=== PATIENT | female | born 1950 | race Caucasian/White ===

== ENCOUNTER 2023-01-15 07:59 | Outpatient (AMB) | payer MEDICARE, SELFPAY ==
--- NOTE | 2023-01-15 08:18 | MHC.OFFVIS ---
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 Pt reports she has been having trouble remembering things and what she wants to say at times. She has been falling because she can't picker and sorter load and unload her feet . Unsteady gait and balance. She has become unable to remember plans for the day or a sequence to carry out a task. This has been going on for about a year now, and has progressively gotten worse. Allergies codeine [CODEINE] Allergy (Unknown, Unverified 01/15/23 08:18) DIFF BREATHING metronidazole [From FLAGYL] Allergy (Unknown, Unverified 01/15/23 08:18) ITCHING morphine [MORPHINE] Allergy (Unknown, Unverified 01/15/23 08:18) DIFF BREATHING From FLAGYL Allergy (Unknown, Uncoded 01/15/23 08:18) ITCHING Medication List - Last Reconciled 01/15/23 by Jeannine Mejia MD amlodipine 5 mg PO DAILY aspirin 81 mg PO DAILY bupropion HCl 150 mg PO QAM cholecalciferol (vitamin D3) 25 mcg PO DAILY losartan 100 mg PO DAILY mecobalamin (vitamin B12) 1,000 mcg PO DAILY omega 4-znh-exr-fish oil 60-90-500 mg (Fish Oil) 1 cap PO DAILY pravastatin 40 mg PO DAILY HPI HPI Comments History of Present Illness Details 72y/o female comes for evaluation of memory issues. she reports short term memory issues, difficulty with names for atleast 1 year but has noticed worsening in the past 6 mths she has trouble with names, word finding difficulties,she forgets conversations, forgets what she ate, misplaces things in the house. she denies any executive difficulty.she still manages her finances.she had a fall in July 2022 after tripping. Her father had Lewy Body dementia in his 80s. she denies any tremors, slowness of movements or hallucinations. [facility] Medical History (Updated 01/15/23 @ 09:05 by Jeannine Mejia MD) Hypersomnia Snoring Mild cognitive disorder Hyperlipidemia CAD (coronary artery disease) Anxiety Cervicalgia Cervical spondylosis Cervicocranial syndrome Occipital neuralgia of left side Myocardial infarction HTN (hypertension) Cataract Surgical History (Updated 01/15/23 @ 08:31 by Monica Durham CMA) H/O mastoidectomy History of ear surgery History of cholecystectomy History of appendectomy H/O abdominal hysterectomy H/O heart artery stent H/O breast biopsy History of colon resection Family History (Updated 01/15/23 @ 08:33 by Monica Durham CMA) Father No problems noted. Mother No problems noted. Brother No problems noted. Sister Multiple sclerosis Social History (Updated 01/15/23 @ 08:35 by Monica Durham CMA) Household Members: Spouse Housing: House Alcohol intake: current Alcohol intake frequency: a few times a week Patient Tobacco Use Status: Former Tobacco user Years Smoked: Quit in 2012- smoked for 25 years Review of Systems Const Reports body aches, Reports fatigue and Reports snoring ENT Reports neck pain Resp Reports snoring Musc Reports neck pain Neuro Reports memory loss Psych Reports memory loss Endo Reports fatigue Physical Exam Vital Signs: Last Vital Signs Pulse 80 01/15/23 08:19 Resp 16 01/15/23 08:19 BP 122/68 01/15/23 08:19 Pulse Ox 96 01/15/23 08:19 Oxygen Delivery Method Room Air 01/15/23 08:19 BMI result Body Mass Index 25.1 Const General: cooperative, healthy appearing, comfortable and no acute distress Nutritional Appearance: average body habitus Orientation/consciousness: patient oriented x3 Eyes Pupils: Equal, round and reactive pupils present Neuro Other: severe antecollis , tightness in lateral cervical muscles , restricted range of motion. General: patient oriented x3, tone normal, moves all extremities and no focal motor deficits Cranial nerves: Yes Facial sensation intact/muscles of mastication intact, Yes Equal, round and reactive pupils present, Yes Bilaterally intact EOM present, Yes Nystagmus not present, Yes Normal facial strength present and Yes Midline tongue present Cognition (Neuro): normal cognition Gait exam (Neuro): Normal gait present Motor exam (neuro): 5/5 motor strength present throughout and Normal motor muscle tone present throughout Deep tendon reflexes (DTR's): Right triceps reflex intensity grade: 2+, Left triceps reflex intensity grade: 2+, Rt Biceps (C5, C6): 2+, Left biceps reflex intensity grade: 2+, Right brachioradialis reflex intensity grade: 2+, Left brachioradialis reflex intensity grade: 2+, Right patellar reflex intensity grade: 2+ and Left patellar reflex intensity grade: 2+ Coordination: [id number] test normal Orientation What is the (year) (season) (date) (day) (month)?: year, season, date, day and month Where are we (state) (county) (town or city) (hospital) (floor)?: state, county, town or city, hospital/clinic and floor Registration Name of 3 unrelated objects clearly and slowly, then ask patient to repeat all 3 of them. (1st repeat determines score. Make sure they can repeat all three): object 1, object 2 and object 3 Attention & Calculation (CHOOSE ONE) Spell WORLD backwards (DLROW): 5 letters Recall Ask patient to repeat the 3 items from question #3.: object 1 and object 2 Language Show patient a wristwatch & ask what it is. Repeat for pencil.: watch and pencil Ask the patient to repeat the phrase 'No ifs, ands, or buts' after you.: correct Ask the patient to 'take a piece of paper with their right hand' 'fold paper in half' 'place paper on floor': take paper in right hand, fold paper in half and place paper on floor Print the sentence 'CLOSE YOUR EYES' on a piece. If patient actually closes eyes then score.: followed written direction Give patient a blank piece of paper & ask to write a sentence. Score if it contains a noun & verb.: sentence contains subject and verb Ask patient to copy figure of intersecting pentagons exactly. Score if all 10 angles & 2 intersects are included.: all 10 angles present & 2 are intersected Score Score: 29 Assessment & Plan Assessment & Plan (1) Mild cognitive disorder: Code(s): F09 - Unspecified mental disorder due to known physiological condition (2) Snoring: Code(s): R06.83 - Snoring (3) Hypersomnia: Code(s): G47.10 - Hypersomnia, unspecified Plan MRI reviewed Home sleep test to r/o sleep apnea Check Vit B 1 2TSH ESR suggested cognitive therapy- patient declines. Orders: Orders TSH reflex Free T4 Today F09 - Unspecified mental disorder due to known physiological condition, G47.10 - Hypersomnia, unspecified, R06.83 - Snoring Erythrocyte Sedimentation Rate Today F09 - Unspecified mental disorder due to known physiological condition, G47.10 - Hypersomnia, unspecified, R06.83 - Snoring Vitamin D 25-OH (D2 and D3) Today F09 - Unspecified mental disorder due to known physiological condition, G47.10 - Hypersomnia, unspecified, R06.83 - Snoring RT home sleep study Today G47.10 - Hypersomnia, unspecified, R06.83 - Snoring Vitamin B12 and Folate Today F09 - Unspecified mental disorder due to known physiological condition, G47.10 - Hypersomnia, unspecified, R06.83 - Snoring Coding Level of Care Code New Pt Level 4 (77763) Diagnoses Mild cognitive disorder F09 Snoring R06.83 Hypersomnia G47.10
[2023-01-15 08:19] VITALS: BP 122/68; PULSE 80; RESP 16; O2SAT 96; BMI 25.1
== END 2023-01-15 09:13 | disposition home or self-care (01) ==
PROVIDERS: PCP Physician Assistant; Visit Provider Psychiatry & Neurology Neurology
DX: G31.84 Mild cognitive impairment of uncertain or unknown etiology (principal); R06.83 Snoring; G47.10 Hypersomnia, unspecified
CPT/HCPCS: 99204

== ENCOUNTER → 2023-01-15 07:59 | Outpatient (BNVA) | payer MEDICARE, SELFPAY | PROVIDERS: PCP Physician Assistant; Visit Provider Psychiatry & Neurology Neurology | DX: F09 Unspecified mental disorder due to known physiological condition (principal); R06.83 Snoring; G47.10 Hypersomnia, unspecified | CPT/HCPCS: 99202 ==

== ENCOUNTER → 2023-04-07 12:40 | Outpatient (REF) | payer MEDICARE, SELFPAY | LOC: HO.SL 12:40 | PROVIDERS: PCP Family Medicine; Visit Provider Psychiatry & Neurology Neurology | DX: Z13.89 Encounter for screening for other disorder (principal) ==

== ENCOUNTER → 2023-06-05 12:36 | Outpatient (REF) | payer MEDICARE, SELFPAY | LOC: HO.SL 12:36 | PROVIDERS: Visit Provider Psychiatry & Neurology Neurology | DX: G47.10 Hypersomnia, unspecified (principal); R06.83 Snoring | CPT/HCPCS: 95806 ==

== ENCOUNTER → 2023-06-05 13:19 | Outpatient (BNV) | payer MEDICARE, SELFPAY | PROVIDERS: Visit Provider Psychiatry & Neurology Neurology | DX: G47.10 Hypersomnia, unspecified (principal); R06.83 Snoring | CPT/HCPCS: 95806 ==

== ENCOUNTER 2023-07-17 13:48 | Outpatient (AMB) | payer MEDICARE, SELFPAY ==
--- NOTE | 2023-07-17 13:56 | A.OFFVIS_ITS ---
Vital Signs 07/17/23 13:59 Height 5 ft 6.5 in Weight 160 lb 2 oz BMI 25.5 BP 120/68 Blood Pressure Location Rt brachial Position Sitting Respiration 16 Pulse 86 Pulse Source Pulse Oximeter Pulse Oximetry (%) 96 Oxygen Delivery Method Room Air Intake Visit Reasons: F/U-CONF Intake Note: Pt presents for 6 month follow up for mild cognitive disorder. Development Editor Required: No Allergies codeine [CODEINE] Allergy (Unknown, Unverified 07/17/23 13:59) DIFF BREATHING metronidazole [From FLAGYL] Allergy (Unknown, Unverified 07/17/23 13:59) ITCHING morphine [MORPHINE] Allergy (Unknown, Unverified 07/17/23 13:59) DIFF BREATHING From FLAGYL Allergy (Unknown, Uncoded 07/17/23 13:59) ITCHING Medication List - Last Reconciled 07/17/23 by Jeannine Mejia MD amlodipine 5 mg PO DAILY aspirin 81 mg PO DAILY bupropion HCl XL 150 mg PO QAM celecoxib (Celebrex) 200 mg PO DAILY cholecalciferol (vitamin D3) 25 mcg PO DAILY citalopram 20 mg PO DAILY losartan 100 mg PO DAILY magnesium 250 mg PO DAILY mecobalamin (vitamin B12) 1,000 mcg PO DAILY rosuvastatin (Crestor) 20 mg PO DAILY vitamins A,C,T-birn-jyfuqc 4,296 mcg-226 mg-90 mg (PreserVision AREDS) 1 cap PO BID HPI Comments Details: 72y/o female comes for follow up of memory issues. Her sleep test was normal . she reports short term memory issues, difficulty with names for atleast 1 year but has noticed worsening in the past 6 mths she has trouble with names, word finding difficulties,she forgets conversations, forgets what she ate, misplaces things in the house. she denies any executive difficulty.she still manages her finances.she had a fall in July 2022 after tripping. Her father had Lewy Body dementia in his 80s. she denies any tremors, slowness of movements or hallucinations. [facility] Medical History (Updated 07/17/23 @ 14:33 by Jeannine Mejia MD) Mild cognitive impairment Hypersomnia Snoring Mild cognitive disorder Hyperlipidemia CAD (coronary artery disease) Anxiety Cervicalgia Cervical spondylosis Cervicocranial syndrome Occipital neuralgia of left side Myocardial infarction HTN (hypertension) Cataract Surgical History H/O mastoidectomy History of ear surgery History of cholecystectomy History of appendectomy H/O abdominal hysterectomy H/O heart artery stent H/O breast biopsy History of colon resection Family History Father No problems noted. Mother No problems noted. Brother No problems noted. Sister Multiple sclerosis Social History Household Members: Spouse Housing: House Alcohol intake: current Alcohol intake frequency: a few times a week Patient Tobacco Use Status: Former Tobacco user Years Smoked: Quit in 2012- smoked for 25 years Physical Exam Vital Signs: Last Vital Signs Pulse 86 07/17/23 13:59 Resp 16 07/17/23 13:59 BP 120/68 07/17/23 13:59 Pulse Ox 96 07/17/23 13:59 Oxygen Delivery Method Room Air 07/17/23 13:59 BMI result Body Mass Index 25.5 Const Other: MOCA- General: cooperative, healthy appearing, comfortable and no acute distress Nutritional Appearance: average body habitus Orientation/consciousness: patient oriented x3 Eyes Pupils: Equal, round and reactive pupils present Neuro Other: severe antecollis , tightness in lateral cervical muscles , restricted range of motion. General: patient oriented x3, tone normal, moves all extremities and no focal motor deficits Cranial nerves: Yes Facial sensation intact/muscles of mastication intact, Yes Equal, round and reactive pupils present, Yes Bilaterally intact EOM present, Yes Nystagmus not present, Yes Normal facial strength present and Yes Midline tongue present Cognition (Neuro): normal cognition and abnormal cognition Gait exam (Neuro): Normal gait present Motor exam (neuro): 5/5 motor strength present throughout and Normal motor muscle tone present throughout Deep tendon reflexes (DTR's): Right triceps reflex intensity grade: 2+, Left triceps reflex intensity grade: 2+, Rt Biceps (C5, C6): 2+, Left biceps reflex intensity grade: 2+, Right brachioradialis reflex intensity grade: 2+, Left brachioradialis reflex intensity grade: 2+, Right patellar reflex intensity grade: 2+ and Left patellar reflex intensity grade: 2+ Coordination: [id number] test normal Assessment & Plan Assessment & Plan (1) Mild cognitive impairment: Code(s): G31.84 - Mild cognitive impairment of uncertain or unknown etiology Category: Medical Plan: MOCA 24 Plan I will do a PET beta amyloid to see if she has changes c/w Alzheimer she will be a good candidate for Leqembi she does not want to start memantine or donepezil Orders: Orders PET Brain beta amyloid Today G31.84 - Mild cognitive impairment of uncertain or unknown etiology Referrals Speech and Hearing Referral G31.84 - Mild cognitive impairment of uncertain or unknown etiology Coding Level of Care Code Est Pt Level 4 (00623) Diagnoses Mild cognitive impairment G31.84
[2023-07-17 13:59] VITALS: BP 120/68; PULSE 86; RESP 16; O2SAT 96; BMI 25.5
== END 2023-07-17 14:40 | disposition home or self-care (01) ==
PROVIDERS: PCP Family Medicine; Visit Provider Psychiatry & Neurology Neurology
DX: G31.84 Mild cognitive impairment of uncertain or unknown etiology (principal)
CPT/HCPCS: 99214

== ENCOUNTER → 2023-07-17 13:48 | Outpatient (BNVA) | payer MEDICARE, SELFPAY | PROVIDERS: PCP Family Medicine; Visit Provider Psychiatry & Neurology Neurology | DX: G31.84 Mild cognitive impairment of uncertain or unknown etiology (principal) | CPT/HCPCS: 99212 ==

== ENCOUNTER 2023-10-13 13:17 | Outpatient (RCR) | payer MEDICARE, SELFPAY ==
--- NOTE | 2023-10-29 12:49 | MHC.SP.ADU ---
Referring provider: Dr. 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 She describes difficulty retrieving words and misplacing things. She has family close by. She goes dancing at her [place] every Friday. 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 She also describes that she has tinnitus and is pursing treatment for it. Social History: Employment Status: Highest level of education obtained: Current Living Situation: Independent with Family close by. 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 She describes difficulty retrieving words and misplacing things. She has family close by. She goes dancing at her [employer] every Friday. 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 She also describes that she has tinnitus and is pursing treatment for it. RESULTS Mrs. Crowe participated in all the subtests of the Repeatable Battery for the Assessment of Neuropsychological Status - Updated. Subtests were sufficient to yield a Total Scale Score. The RBANS is considered a screening battery for cognitive function and is repeatable for the purpose of evaluating any changes in function. It is intended for use with adolescents and adults, ages 12 to 89 years. Composite domains assessed in this test are: Immediate Memory, Visuospatial/Constructional, Language, Attention, and Delayed Memory. His scores are tabled below: I.) Immediate Memory Index: 94 Ia.) List Learning: -- Scaled Score: 9 Ib.) Story Memory: -- Scaled Score: 9 The Immediate Memory Index measures, ?initial encoding and learning of complex and simple verbal information. Low scores on this index indicated difficulties with verbal learning.? The score is derived from the participant?s performance on the subtests List Learning and Story Memory. List Learning measures, ?rote verbal memory function.? Participants are asked to repeat back a list of ten words presented to them verbally across four trials. Poor performance on this subtest indicates that, ?the examinee may have difficulty learning new verbal information and that repetition may not be beneficial?, if they do not improve across trials. The Story Memory subtest measures, ?memory for conceptually related verbal information.? Here, a short story is read to them across two trials and they are asked to recall details from the story. ?The test is a measure of verbal memory functioning for information that is related?. As with List Learning, participants that do not demonstrate a positive learning curve across trials could indicate, ?difficulty with learning new verbal learning, and that repetition may not help, or that the examinee may have difficulty retrieving new information from memory. II.) Visuospatial/Constructional Index: 100 IIa.) Figure Copy: -- Scaled Score: 10 IIb.) Line Orientation: -- Percentile Group: 51-75 The Visuospatial/Constructional Index is derived from the Figure Copy and Line Orientation subtests. It measures, ?basic visuospatial perception and the ability to copy a design from a model?. Low performance with this index can indicate, ?difficulties with processing and using visuospatial information?, or, ?visual impairments or attention disorders such as samy neglect?. The Figure Copy subtest requires the examinee to copy a complex geometrical design from a model that is present throughout the task. ?This requires many cognitive skills including visuospatial reasoning, attention to visual details, motor programming, and to a lesser degree, organization and fine-motor ability?. Points are given for specific details, as well as specific placement in the context of the entire image. The Line Orientation subtest measures, ?the examinee?s ability to correctly identify spatial orientation in two-dimensions?. Poor performance indicates significant visuospatial impairments in acuity and attention. III.) Language Index: 99 IIIa.) Picture Naming: -- Percentile Group: 51-75 IIIb.) Semantic Fluency: -- Scaled Score: 9 The Language Index is, ?a measure of expressive language functioning?. Low scores with this subtest ?would indicate difficulties with language functioning? and, ?while the overall score would still indicate language difficulties, the deficits may be more related to fluency versus naming skills.? The Picture Naming subtest is provided by showing the participant a series of 10 simple line drawing and asking them to name them. The Semantic Fluency subtest is a measure of, ?the examinee?s ability to retrieve and express words using a semantic prompt?. In brief, the examinee is given a category and asked to name as many exemplars as they can in 60 seconds. Low scores, ?indicate significantly impaired ability to retrieve and express verbal information from long-term memory stores?. IV.) Attention Index: 103 Bella.) Digit Span: -- Scaled Score: 8 IVb.) Coding: -- Scaled Score: 13 The Attention Index is a derived from the Digit Span and Coding subtests. It is a measure of, ?simple auditory registration, visual scanning and processing speed. Low scores on this index indicate, ?difficulties with basic attention and processing speed?. Difficulties can vary between the subtests suggesting acute differences between auditory and visual processing and attention. Digit Span is a measure of, ?auditory registration and brief focused attention. Low scores can also indicate difficulties with auditory attention and registration?. In it, the examinee is read a series of single digit numbers and asked to repeat them back in the same order. ?Impairments in auditory acuity can also influence performance on this test?. Coding is a measure of, ?brief, focused, visual attention, visual scanning and processing speed?. In it, the examinee is given a hicks at the top of the page where each symbol is associated with a different number. The examinee is then asked to fill out as many numbers to corresponding symbols as they can in 90 seconds. In incorporates the notion of diligence and sustained attention as well. Difficulties can indicate problems with, ?processing speed and focused visual attention?. V.) Delayed Memory Index: 81 Va.) List Recall: -- Percentile Group: 17-25 Vb.) List Recognition: -- Percentile Group: 17-25 Vc.) Story Recall: -- Scaled Score: 7 Vd.) Figure Recall: -- Scaled Score: 8 The Delayed Memory Index is derived by combining the subtest scores for List Recall, Story Recall, and Figure Recall, and cross-referencing them with the List Recognition subtest. Auditory and Visual subtest are combined together. Difference between subtests can be highlighted to provide more specific information about areas of deficit and strength. ?The deficits, may be more related to verbal more than visual memory, or free recall as opposed to recognition memory or general variability in memory functioning.? .) Total Scale Score: 93 (%ile=32) SUMMARY: Mrs. Crowe demonstrated scores that were in the average range for all indices save the Delayed Memory Index in which her performance yield a mildly reduced scaled score of 81, in the Below Average Range. This score was negatively impacted by a low delayed recall of a list of words (n=3) , however List Recogniton (n=18) and Delayed Story Recall (n=6) were slightly stronger. We reviewed these scores together and both she and her Daughter were pleasantly surprised that they weren?t lower that they expected. PNEUMATIC TESTER MECHANIC explained that though her scores here represent a mostly average performance from the normative sample, however that she may be comparing her current symptoms to her performance at a younger age. 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 Given this information, as well as some insurance considerations, they did not wish to pursue treatment at this time. PNEUMATIC TESTER MECHANIC invited them back if they noticed a worsening in performance, and reiterated that today?s testing is not a substitute for a complete neuropsychological evaluation which may elucidate her condition further. Impressions and Recommendations Prognosis for Improvement: Good Recommendation for Speech Therapy: NA:Typical Evaluation Time to Reassess: PRN Patient Education: Completed: Yes Patient/Caregiver Education: Patient expressed understanding of evaluation Patient agrees with goals and treatment plan Patient understands results but refuses treatment Comments/Barriers to Learning: Repair Weaver Clinican/Clinical Fellow: No Supervisory Statement: N/A Speech Language Pathologist: Néstor Cabrera M.A., [facility]-PNEUMATIC TESTER MECHANIC
== END 2023-10-30 10:30 | disposition home or self-care (01) ==
LOC: HO.SH 13:17
PROVIDERS: PCP Family Medicine; Visit Provider Psychiatry & Neurology Neurology
DX: G31.84 Mild cognitive impairment of uncertain or unknown etiology (principal)
CPT/HCPCS: 92523

== ENCOUNTER 2023-11-19 12:52 | Outpatient (AMB) | payer MEDICARE, SELFPAY ==
--- NOTE | 2023-11-19 12:57 | MHC.OFFVIS ---
Vital Signs 11/19/23 12:59 Height 5 ft 6.5 in Weight 159 lb 8 oz BMI 25.4 BP 96/58 L Blood Pressure Location Rt brachial Position Sitting Respiration 16 Pulse 95 Pulse Source Pulse Oximeter Pulse Oximetry (%) 96 Oxygen Delivery Method Room Air Intake Visit Reasons: F/U Intake Note: Pt presents to the office for a 4 month follow up for mild cognitive impairment. 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 PET scan was nonspecific .Cognitive testing with [employer] speech - normal except for mild delayed memory. she did not do cognitive therapy due to cost. No anxiety depression she has chronic tinnitus . Her sleep test was normal . she is doing [employer] now. she reports short term memory issues, difficulty with names for atleast 1 year but has noticed worsening in the past 6 mths she has trouble with names, word finding difficulties,she forgets conversations, forgets what she ate, misplaces things in the house. she denies any executive difficulty.she still manages her finances.she had a fall in July 2022 after tripping. Her father had Lewy Body dementia in his 80s. she denies any tremors, slowness of movements or hallucinations. [facility] Medical History Mild cognitive impairment Hypersomnia Snoring Mild cognitive disorder Hyperlipidemia CAD (coronary artery disease) Anxiety Cervicalgia Cervical spondylosis Cervicocranial syndrome Occipital neuralgia of left side Myocardial infarction HTN (hypertension) Cataract Surgical History H/O mastoidectomy History of ear surgery History of cholecystectomy History of appendectomy H/O abdominal hysterectomy H/O heart artery stent H/O breast biopsy History of colon resection Family History Father No problems noted. Mother No problems noted. Brother No problems noted. Sister Multiple sclerosis Social History Household Members: Spouse Housing: House Alcohol intake: current Alcohol intake frequency: a few times a week Patient Tobacco Use Status: Former Tobacco user Years Smoked: Quit in 2012- smoked for 25 years Physical Exam Vital Signs: Last Vital Signs Pulse 95 11/19/23 12:59 Resp 16 11/19/23 12:59 BP 96/58 L 11/19/23 12:59 Pulse Ox 96 11/19/23 12:59 Oxygen Delivery Method Room Air 11/19/23 12:59 BMI result Body Mass Index 25.4 Const Other: MOCA- General: cooperative, healthy appearing, comfortable and no acute distress Nutritional Appearance: average body habitus Orientation/consciousness: patient oriented x3 Eyes Pupils: Equal, round and reactive pupils present Neuro Other: severe antecollis , tightness in lateral cervical muscles , restricted range of motion. General: patient oriented x3, tone normal, moves all extremities and no focal motor deficits Cranial nerves: Yes Facial sensation intact/muscles of mastication intact, Yes Equal, round and reactive pupils present, Yes Bilaterally intact EOM present, Yes Nystagmus not present, Yes Normal facial strength present and Yes Midline tongue present Cognition (Neuro): normal cognition and abnormal cognition Gait exam (Neuro): Normal gait present Motor exam (neuro): 5/5 motor strength present throughout and Normal motor muscle tone present throughout Coordination: [id number] test normal Assessment & Plan Assessment & Plan (1) Mild cognitive impairment: Code(s): G31.84 - Mild cognitive impairment of uncertain or unknown etiology Category: Medical Plan: MOCA 24 Plan PET beta amyloid - negative for AD Suggested cognitive exercises and f/u as needed. Coding Level of Care Code Est Pt Level 4 (80326) Diagnoses Mild cognitive impairment G31.84
[2023-11-19 12:59] VITALS: BP 96/58; PULSE 95; RESP 16; O2SAT 96; BMI 25.4
== END 2023-11-19 13:40 | disposition home or self-care (01) ==
PROVIDERS: PCP Family Medicine; Visit Provider Psychiatry & Neurology Neurology
DX: G31.84 Mild cognitive impairment of uncertain or unknown etiology (principal)
CPT/HCPCS: 99214

== ENCOUNTER → 2023-11-19 12:52 | Outpatient (BNVA) | payer MEDICARE, SELFPAY | PROVIDERS: PCP Family Medicine; Visit Provider Psychiatry & Neurology Neurology | DX: G31.84 Mild cognitive impairment of uncertain or unknown etiology (principal) | CPT/HCPCS: 99212 ==

== ENCOUNTER 2025-03-08 14:43 | Outpatient (AMB) | payer MEDICARE, SELFPAY ==
--- NOTE | 2025-03-08 14:51 | A.OFFPC_ITS ---
Vital Signs 03/08/25 14:55 03/08/25 15:15 Height 5 ft 4.5 in Weight 167 lb BMI 28.2 BP 140/80 H 110/60 Blood Pressure Location Lt brachial Rt brachial Position Sitting Sitting Respiration 16 Pulse 82 Pulse Source Pulse Oximeter Temp 96.6 F L Temp Source Temporal Artery Scan Pulse Oximetry (%) 96 Oxygen Delivery Method Room Air Intake Visit Reasons: Annual physical, new School Cook Required: No Accompanied by: Self / Same As Patient Allergies ciprofloxacin (From Cipro) Allergy (Intermediate, Verified 03/08/25 15:21) Itching codeine (CODEINE) Allergy (Unknown, Verified 03/08/25 15:21) DIFF BREATHING metronidazole (From FLAGYL) Allergy (Unknown, Verified 03/08/25 15:21) ITCHING morphine (MORPHINE) Allergy (Unknown, Verified 03/08/25 15:21) DIFF BREATHING From FLAGYL Allergy (Unknown, Uncoded 03/08/25 15:21) ITCHING Medication List - Last Reconciled 03/08/25 by Sharri Elliott PA-C aspirin 81 mg PO DAILY bupropion HCl XL 150 mg PO QAM calcium carbonate (Calcium 500) 1,000 mg PO DAILY celecoxib (Celebrex) 200 mg PO DAILY cholecalciferol (vitamin D3) 25 mcg PO DAILY citalopram 20 mg PO DAILY losartan 100 mg PO DAILY magnesium 250 mg PO DAILY mecobalamin (vitamin B12) 1,000 mcg PO DAILY rosuvastatin (Crestor) 20 mg PO DAILY vitamins A,C,X-pbqq-etprwp 4,296 mcg-226 mg-90 mg (PreserVision AREDS) 1 cap PO BID Tobacco use date assessed: 03/08/25 Dental Screening Dental Screen Date: 03/08/25 Did you have a dental visit in the last 12 months?: Yes Did you have a dental problem in the last 6 months where you did not have access to dental care?: No Was dental information given to patient?: Patient has dentist HPI HPI Comments History of Present Illness Details History of Present Illness The patient is a 74 year old female presenting for a new patient annual physical. Her last physical was about one year ago with her previous primary care provider at [place]. Her significant past medical history includes osteoporosis, hypertension, vitamin B12 and D deficiencies, hypertriglyceridemia, anxiety, depression, and a history of myocardial infarction approximately 11 years ago. She also has a history of cervico-cranial syndrome, left-sided occipital neuralgia, cervical spondylosis without myelopathy or radiculopathy, bilateral tinnitus, hepatic steatosis, a liver cyst, and chronic kidney disease stage 3a. Her urge urinary incontinence resolved after a bladder lift procedure. Her anxiety and depression are reportedly controlled with medication. The patient's past surgical history includes a hysterectomy, appendectomy, cholecystectomy, left eardrum repair, and a colon resection for diverticulitis. She also underwent a lumbar laminectomy in April of the current year for her back issues but continues to experience persistent back pain. She reports pain that prevents her from rolling over in bed, hip pain, and bilateral leg pain upon standing, requiring her to sit down immediately. An injection she received post-surgery was ineffective, and she is scheduled for an epidural injection between L5 and S1 this week. Her current medications include aspirin, bupropion, calcium, celecoxib, vitamin D, citalopram, losartan, magnesium, vitamin B12, and rosuvastatin (Crestor). She reports being taken off amlodipine and her blood pressure has been normal at home. She does not need any refills at this time. For preventative care, her next colonoscopy is due next year. She has an upcoming lung cancer screening. She has had her skin checked previously. Social History - Tobacco use: The patient is a former s moker, having quit more than 20 years ago. - Nutrition: She reports intensely cravi ng sugar, including baked goods and pudding, for the past six months. [facility] Medical History (Updated 03/08/25 @ 16:44 by Sharri Elliott PA-C) Healthcare maintenance Chronic back pain Pre-diabetes Annual physical exam Ganglion cyst of joint of finger of right hand Skin lesion Mild cognitive impairment Hypersomnia Snoring Mild cognitive disorder Hyperlipidemia CAD (coronary artery disease) Anxiety Cervicalgia Cervical spondylosis Cervicocranial syndrome Occipital neuralgia of left side Myocardial infarction HTN (hypertension) Cataract Surgical History H/O mastoidectomy History of ear surgery History of cholecystectomy History of appendectomy H/O abdominal hysterectomy H/O heart artery stent H/O breast biopsy History of colon resection Family History Father No problems noted. Mother No problems noted. Brother No problems noted. Sister Multiple sclerosis Social History Household Members: Spouse Housing: Condominium Alcohol intake: current Alcohol intake frequency: a few times a week Patient Tobacco Use Status: Never used Tobacco Years Smoked: Quit in 2012- smoked for 25 years service: No Current occupational status: retired Cognitive needs: No Hearing needs: No Vision needs: Yes (glasses) Questionnaire PHQ-9 Over the last 2 weeks, how often have you been bothered by any of the following problems? 1. Little interest or pleasure in doing things: more than half the days 2. Feeling down, depressed, or hopeless: not at all 3. Trouble falling or staying asleep, or sleeping too much: not at all 4. Feeling tired or having little energy: not at all 5. Poor appetite or overeating: several days 6. Feeling bad about yourself - or that you are a failure or have let yourself or your family down: not at all 7. Trouble concentrating on things, such as reading the newspaper or watching television: not at all 8. Moving or speaking so slowly that other people could have noticed. Or the opposite - being so fidgety or restless that you have been moving around a lot more than usual: not at all 9. Thoughts that you would be better off or of hurting yourself in some way: not at all Total score: 3 Depression Screening Interpretation: Negative Depression Screening Done: Yes 15974 - PHQ-9 Billing: Yes Source: Developed by Drs. Shimon Perez, Caterina Berrios, Oh Razo and colleagues, with an educational justin from [employer]. Thrive Questionnaire Date Thrive assessed: 03/08/25 I am a: Patient What is your living situation today?: I have a steady place to live Within the past 12 months, did the food you bought not last and you didn't have the money to get more?: Often true Within the past 12 months, did you worry whether your food would run out before you got money to buy more?: Often true Do you have trouble paying for medicines?: No Do you have trouble getting transportation to medical appointments?: No Do you have trouble paying your heating and electricity bill?: No Do you have trouble taking care of your child, family member or friend?: No Do you have trouble with day-to-day activities such as bathing, preparing meals, shopping, managing finances, etc.?: No Are you currently unemployed and looking for a job?: No Are you interested in more education?: No Please select the resources that you would like help with: None THRIVE Score: 2 AUDIT C Alcohol Use Questionnaire (AUDIT-C) 1. How often do you have a drink containing alcohol?: Never Total Score: 0 Score Reviewed/Action Taken: No AGNIESZKA-7 AMB Questionnaire AGNIESZKA-7 Date AGNIESZKA - 7 assessed: 03/08/25 Feeling nervous, anxious, or on edge: 0 = Not at all Not being able to stop or control worryin = Not at all Worrying too much about different things: 0 = Not at all Trouble relaxin = Not at all Being so restless that it is hard to sit still: 0 = Not at all Becoming easily annoyed or irritable: 0 = Not at all Feeling afraid as if something awful might happen: 0 = Not at all Total AGNIESZKA-7 score (0-4 normal; 5-9 mild; 10-14 moderate; 15-21 severe): 0 Source: Developed by Drs. Shimon Perez, Caterina Berrios, Oh Razo and colleagues, with an educational justin from [employer]. AGNIESZKA-7 Assessment Billing AGNIESZKA-7 Assessment Tool: AGNIESZKA-7 Assessment 75827 Review of Systems Narrative Review of Systems - General: Denies unintentional weight loss. - Cardiovascular: Denies chest pain. - Respiratory: Denies shortness of breath at rest, with activity, or when lying flat. - Gastrointestinal: Reports bloating. Denies melena or hematochezia. - Genitourinary: Denies current urinary symptoms or incontinence. - Musculoskeletal: Reports chronic neck pain, chronic back pain, hip pain making it difficult to roll over in bed, and bilateral leg pain on standing. Reports a painful cyst on her finger. Denies saddle anesthesia. - Neurological: Denies numbness or tingling in the arms or legs. Denies recent falls. - HEENT: Reports tinnitus. Denies heart murmur. - Endocrine: Reports increased craving for sugar over the past six months. - Skin: Reports an itchy and painful red skin lesion. Denies other skin lesions. - Constitutional: Reports feeling bloated. - Psychiatric: Reports controlled anxiety and depression. Const All systems reviewed & are unremarkable except as noted in HPI and below Physical exam (Primary Care) Vital Signs: Last Vital Signs Temp 96.6 F L 03/08/25 14:55 Pulse 82 03/08/25 14:55 Resp 16 03/08/25 14:55 BP 110/60 03/08/25 15:15 Pulse Ox 96 03/08/25 14:55 Oxygen Delivery Method Room Air 03/08/25 14:55 Care Plan Goal for BP management: <140/90 at Goal BMI result Body Mass Index 28.2 BMI Assessment/Plan discussion: High BMI High, discussed plan: lifestyle, weight reduction, dietary, physical activity, alcohol moderation and other Tobacco/Smoking Status: Tobacco use Status Tobacco use date assessed 03/08/25 03/08/25 15:13 Patient Tobacco Use Status Never used Tobacco 03/08/25 15:13 PHQ-9: PHQ-9 Score PHQ-9: Total score 3 03/08/25 15:22 Depression Screening Interpretation: Negative Thrive Assessment: Date of Thrive Assessment Date Thrive assessed 03/08/25 03/08/25 15:13 Narrative Physical Exam Appearance: Alert. Oriented X3. No acute distress. Head: Normal external exam. Normocephalic. Atraumatic. Eyes: Pupils are equal, round, and reactive to light. Extraocular movements intact. Conjunctiva and sclera normal. Eyelids normal. Ears: External auditory canal normal. Tympanic membranes normal. Throat: Pharynx normal. Uvula midline. Moist mucous membranes. Neck: Normal inspection. Neck supple. Full range of motion. No adenopathy. Thyroid Normal. No meningeal signs. No neck mass noted. Cardiovascular: Normal heart rate and rhythm. Heart sound normal. No murmurs noted. Pulses normal throughout. Respiratory: No respiratory distress. Painless inspiration. Breath sounds normal. No wheezes/rales/rhonchi noted. Chest nontender. No accessory muscle usage noted or decreased air movement noted. Abdomen: Soft and nontender. Bowel sounds normal in all 4 quadrants. No distention noted. No organomegaly noted. No visible injury noted. Back: No costovertebral angle tenderness. Full range of motion noted. Skin: Skin warm and dry. Normal skin color. Normal skin turgor. No rashes/lesions/lacerations noted. Extremities: No lower extremity edema. Extremities exhibit normal range of motion. Extremities nontender. Neuro: Oriented X 3. No motor deficit. No sensory deficit. Reflexes normal. Results AMB Hemoglobin A1c AMB Hemoglobin A1c 5.6 % Last Edit by LEONARD Galvan on 03/08/25 15:42 Results Reviewed Results Reviewed: - Kfbvb-my-tkwg Hemoglobin A1c: 5.6%. Coding Level of Care Code New Pt Prev Care >65yr (96670) Add On Preventative Visit Only Diagnoses Annual physical exam Z00.00 Pre-diabetes R73.03 Chronic back pain M54.9; G89.29 Skin lesion L98.9 Ganglion cyst of joint of finger of right hand M67.441 HTN (hypertension) I10 Healthcare maintenance Z00.00 Additional Codes PHQ-9 - 36826 - PHQ-9 Billing: Yes ([id number]) AGNIESZKA-7 Assessment Billing - AGNIESZKA-7 Assessment Tool: AGNIESZKA-7 Assessment 22462 ([id number]) Time Spent (min) 70 Assessment & Plan Assessment & Plan (1) Annual physical exam: Code(s): Z00.00 - Encounter for general adult medical examination without abnormal findings Category: Medical (2) Pre-diabetes: Code(s): R73.03 - Prediabetes Category: Medical Plan: The patient reports significant sugar cravings for the past six months. A cdjon-os-bsmt hemoglobin A1c was 5.6%, indicating prediabetes. Comprehensive fasting lab work, including a lipid panel, CBC, CMP, vitamin B12, vitamin D, folate, thyroid studies, inflammatory markers, iron, ferritin, and a urinalysis will be ordered to further evaluate her symptoms and overall health status. (3) Chronic back pain: Code(s): M54.9 - Dorsalgia, unspecified; G89.29 - Other chronic pain Category: Medical Plan: The patient has ongoing back pain despite a lumbar laminectomy in April. She has an epidural injection scheduled for Friday between L5-S1. The patient will follow up after the injection to assess its efficacy. If the injection does not provide relief, ordering another MRI of her back will be considered. She was advised to seek emergency care if she develops new numbness between her legs, neville wel or bladder incontinence, or falls. (4) Skin lesion: Code(s): L98.9 - Disorder of the skin and subcutaneous tissue, unspecified Category: Medical Plan: The patient has a red, itchy, and somewhat painful lesion on her skin. A referral will be placed to dermatology for evaluation. A thin layer of a steroid cream may be prescribed to see if it alleviates the symptoms, with instructions to stop if it worsens. (5) Ganglion cyst of joint of finger of right hand: Code(s): M67.441 - Ganglion, right hand Category: Medical Plan: The patient has a large, painful nodular cyst on her finger that has been present for a few months. She will be referred to orthopedics for possible drainage or removal. (6) HTN (hypertension): Code(s): I10 - Essential (primary) hypertension Category: Medical Plan: The patient's blood pressure is well-controlled at home and in the office since stopping amlodipine. She will continue to monitor her blood pressure at home, with a goal of keeping it below 140/90 mmHg. (7) Healthcare maintenance: Code(s): Z00.00 - Encounter for general adult medical examination without abnormal findings Category: Medical Plan: The patient is establishing care and undergoing an annual physical. She is due for a colonoscopy next year and has a lung cancer screening scheduled. She was advised on how to manage a suspected UTI by calling the office for a urine test and a presumptive antibiotic prescription. For bloating, ripm-ntw-saufzkg Gas-X was recommended. A follow-up appointment is scheduled in six months. Plan Plan Patient was informed and verbally consented to the use of an ambient scribe for clinic note documentation during this visit. 1. Prediabetes And Sugar Cravings The patient reports significant sugar cravings for the past six months. A upqfp-yy-dzoa hemoglobin A1c was 5.6%, indicating prediabetes. Comprehensive fasting lab work, including a lipid panel, CBC, CMP, vitamin B12, vitamin D, folate, thyroid studies, inflammatory markers, iron, ferritin, and a urinalysis will be ordered to further evaluate her symptoms and overall health status. 2. Chronic Back Pain The patient has ongoing back pain despite a lumbar laminectomy in April. She has an epidural injection scheduled for Friday between L5-S1. The patient will follow up after the injection to assess its efficacy. If the injection does not provide relief, ordering another MRI of her back will be considered. She was advised to seek emergency care if she develops new numbness between her legs, bowel or bladder incontinence, or falls. 3. Unspecified Skin Lesion The patient has a red, itchy, and somewhat painful lesion on her skin. A referral will be placed to dermatology for evaluation. A thin layer of a steroid cream may be prescribed to see if it alleviates the symptoms, with instructions to stop if it worsens. 4. Ganglion Cyst Of Finger The patient has a large, painful nodular cyst on her finger that has been present for a few months. She will be referred to orthopedics for possible drainage or removal. 5. Hypertension The patient's blood pressure is well-controlled at home and in the office since stopping amlodipine. She will continue to monitor her blood pressure at home, with a goal of keeping it below 140/90 mmHg. 6. Health Maintenance The patient is establishing care and undergoing an annual physical. She is due for a colonoscopy next year and has a lung cancer screening scheduled. She was advised on how to manage a suspected UTI by calling the office for a urine test and a presumptive antibiotic prescription. For bloating, anvu-pli-muhpfpk Gas-X was recommended. A follow-up appointment is scheduled in six months. Discussion Notes I had a comprehensive discussion with the patient during this new patient and annual physical visit. We reviewed her medical history, including osteoporosis, a history of heart attack about 11 years ago, hypertension, nutritional deficiencies, controlled anxiety/depression, and multiple musculoskeletal issues such as chronic neck and back pain. I explained that the reason for her sugar cravings would be investigated with comprehensive blood work, including checks for diabetes, vitamin levels, thyroid function, and inflammatory markers. A novzt-xb-flmp test revealed a hemoglobin A1c of 5.6%, and I informed her this indicates prediabetes, not diabetes, which was reassuring to her. We discussed her ongoing back pain following her laminectomy. She has an epidural injection scheduled, and we agreed to see how that helps before considering another MRI. I provided strict return precautions, advising her to go to the emergency room for any new saddle anesthesia, bowel or bladder incontinence. Regarding the itchy skin lesion and the painful finger cyst, I advised referrals to dermatology and orthopedics, respectively. For her bloating, I suggested vitg-omz-yrheciv Gas-X and confirmed it does not interact with her current medications. I also instructed her on the process for obtaining care for a future suspected UTI, involving a call to the office for orders and a presumptive antibiotic. I provided instructions for the fasting blood work and a list of lab locations. We scheduled a follow-up visit in six months, and I will call her with any abnormal lab results. The patient was encouraged to sign up for the patient portal for easier communication. Orders: Orders C Reactive Protein Today Z00.00 - Encounter for general adult medical examin ation without abnormal findings Complete Blood Count Auto Diff Today Z00.00 - Encounter for general adult medical examination without abnormal findings IRON PROFILE Today D64.9 - Anemia, unspecified Magnesium Today Z00.00 - Encounter for general adult medical examination without abnormal findings UA CC w/rflx Micro + Cult Today Z00.00 - Encounter for general adult medical examination without abnormal findings Ferritin Today D64.9 - Anemia, unspecified AMB Hemoglobin A1c Today Z13.9 - Encounter for screening, unspecified Comprehensive [place]. Panel Fast Today Z00.00 - Encounter for general adult medical examination without abnormal findings Erythrocyte Sedimentation Rate Today Z00.00 - Encounter for general adult medical examination without abnormal findings Lipid Panel Today Z00.00 - Encounter for general adult medical examination without abnormal findings Vitamin B12 and Folate Today Z00.00 - Encounter for general adult medical examination without abnormal findings Vitamin D 25-OH Total Today Z00.00 - Encounter for general adult medical examination without abnormal findings Microalbumin, Random (w Creat) Today E11.9 - Type 2 diabetes mellitus without complications TSH reflex Free T4 Today Z00.00 - Encounter for general adult medical examination without abnormal findings Referrals Dermatology Referral L98.9 - Disorder of the skin and subcutaneous tissue, unspecified Orthopedics Referral M67.441 - Ganglion, right hand Patient Instructions: Patient Instructions - Go for fasting blood work. Do not eat or drink anything for 10 to 12 hours beforehand. You can drink water or black coffee with no cream or sugar. - You will receive a call if any of your lab results are abnormal. - Continue to monitor your blood pressure at home. Let us know if it is consistently over 140/90. - Your in-office blood sugar test shows you are prediabetic, but not diabetic. - Proceed with your scheduled back injection on Friday. Let us know how it goes. If it does not help, we can consider ordering another MRI. - Go to the emergency room immediately if you experience numbness between your legs, or loss of bowel or bladder control. - Call the dermatology office to schedule an appointment for the rash. The referral and their contact information will be provided to you. - You may try a steroid cream on the rash. Use only a very thin layer. If it gets worse, stop using it and let us know. - We will refer you to an underwriting specialist to have the cyst on your finger evaluated. - For bloating, you can take lfzv-hay-ydhgmlr Gas-X as needed. - If you think you have a urinary tract infection (UTI), call the office. We will order a urine test and can call in an antibiotic for you. - Sign up for the patient portal, as it is an easy way to message us for refills or questions. - Your next follow-up appointment is in six months.
[2025-03-08 14:55] VITALS: BP 140/80; PULSE 82; RESP 16; TEMP 35.9; O2SAT 96; BMI 28.2
[2025-03-08 15:15] VITALS: BP 110/60
--- OUTSIDE RECORDS SUMMARY | 2025-03-08 18:58 | XMS_ITS | Encounter Summary ---
Author Organization [facility] Address [address] [place] [address] Phone Care Team Providers Care Extrusion Die Template Maker Name Role Phone Duc Suarez MD Unavailable Slime Youssef MD Unavailable Svitlana Sher MD Primary Care Pr ovider Svitlana Sher MD Primary Care Pr ovider Svitlana Sher MD Primary Care Pr ovider Encounter Details Date Type Department Care Team (Late st Contact Info) Description 08/22/2023 Transcribe Orders Virtual Department [address] [place] [address] Svitlana Sher MD [address] [place] [address] [phone] Osteopenia, unspecified location (Primary Dx) Social History Tobacco Use Types Packs/Day Years Used Date Smoking Tobacco: Former Cigarettes 1 35 0 03/24/1964 - 03/24/1999 Smokeless Tobacco: Never Alcohol Use Standard Drinks/Week Comments Yes 8 (1 standard drink = 0.6 oz pur e alcohol) Education Answer Date Recorded Are you interested in more education? Not on andre e 07/19/2022 Are you concerned about learning? Not on file 07/19/2022 No 07/19/2022 No 07/19/2022 Digital Access Answer Date Recorded No 08/13/2022 No 08/13/2022 Reliable internet access at home? Not on file 08/13/2022 Device with a working camera? Not on file Intimate Partner Violence Answer Date R ecorded Are you denied basic needs s uch as food, clothing, or medical care? No 08/21/2023 In the past 12 months have y ou been in a relationship with a person who hurts, threatens, or tries to control you? No 08/21/2023 Are you denied basic needs s uch as food, clothing, or medical care? No 08/21/2023 In the past 12 months have y ou been in a relationship with a person who hurts, threatens, or tries to control you? No 08/21/2023 Comments No Sex and Gender Information Value Date Recorded Sex Assigned at Female 06/15/2019 7:45 PM EDT Legal Sex Female 10:01 PM EDT Gender Identity Female 06/15/2019 7:45 PM EDT Sexual Orientation Straight 06/15/2019 7: 45 PM EDT documented as of this encounter Plan of Treatment Upcoming Encounters Date Type Department Care Team (Late st Contact Info) Description 05/24/2024 Procedure Pass [facility], [address] [address] 04/04/2025 12:00 PM EST Appointment [facility], [address] [address] Fransico Baker MD [address] [place] [address] [email or web address] 05/04/2025 8:15 AM EST Office Visit [facility] [address] [place] [address] Unknown, Unknown, Isha Bower PA-C [address] [place] [address] [email or web address] 12/02/2025 8:40 AM EDT Office Visit [facility] [address] [place] [address] 3rd Floor, [address] [place] [address] Duc Suarez MD [address] [place] [address] documented as of this encounter Visit Diagnoses Diagnosis Osteopenia, unspecified location- Primary documented in this encounter Care Teams Extrusion Die Template Maker Relationship Specialty Start Date End Date Svitlana Sher MD [address] [place] [address] PCP - General Family Medicine 08/08/22 03/24/24 Svitlana Sher MD [address] [place] [address] PCP - General Family Medicine 03/25/24 02/08/25 Svitlana Sher MD [address] [place] [address] PCP - General Family Medicine 02/09/25 Duc Suarez MD [address] [place] [address], [address] [address] Historical LMR Provider 01/11/17 Slime Youssef MD [address] [place] [address] Historical LMR Provider 01/11/17 documented as of this encounter Additional Source Comments The information contained in this document represents components of the legal health record. It is not the complete legal health record.[facility]
--- OUTSIDE RECORDS SUMMARY | 2025-03-08 18:58 | XMS_ITS | Encounter Summary ---
Author Organization [facility] Address [address] [place] [address] Phone Care Team Providers Care Reel Fed Printer Name Role Phone Slime Youssef MD Primary Care Provider [phone] Patel Bhandari DO Unavailable Duc Suarez MD Unavailable Pao Cooley MD Unavailable Slime Youssef MD Unavailable Garret Mercedes CNP Unavailable Moises Art MD Unavailable Destin Choe MD Unavailable Slime Youssef MD Unavailable Pcp, Unknown Primary Care Provider Unavailabl e Svitlana Sher MD Primary Care Pr ovider Svitlana Sher MD Primary Care Pr ovider Svitlana Sher MD Primary Care Pr ovider Reason for Referral * MRI/CAT Scan - Closed Specialty Diagnoses / Procedures Referred By Contac t Referred To Contact Radiology Diagnoses Arm numbness Leg numbness Neck pain Procedures MRI Cervical Spine Vicente Mayo MD Phone: tel: fax: [email or web address] Referral ID Status Reason Start Date Expiration Date Visits Re quested Visits Authorized [id number] Closed 02/25/2018 03/27/2018 1 1 Encounter Details Date Type Department Care Team (Late Contact Info) Description 02/24/2018 Ancillary Orders Virtual Department [address] [place] [address] Vicente Mayo MD [address] [place] [address], [address] [place] [address] [email or web address] Arm numbness; Leg numbness; Neck pain Social History Tobacco Use Types Packs/Day Years Used Date Smoking Tobacco: Never Assessed Comments No Sex and Gender Information Value Date Recorded Sex Assigned at Female 06/15/2019 7:45 PM EDT Legal Sex Female 10:01 PM EDT Gender Identity Female 06/15/2019 7:45 PM EDT Sexual Orientation Straight 06/15/2019 7: 45 PM EDT documented as of this encounter Plan of Treatment Upcoming Encounters Date Type Department Care Team (Late Contact Info) Description 05/24/2024 Procedure Pass [facility], Ct Scan [address] [address] 04/04/2025 12:00 PM EST Appointment [facility], Ct Scan [address] [address] Fransico Baker MD [address] [place] [address] [email or web address] 05/04/2025 8:15 AM EST Office Visit [facility] [address] [place] [address] Unknown, Unknown, Isha Bower PA-C [address] [place] [address] [email or web address] 12/02/2025 8:40 AM EDT Office Visit [facility] [address] [facility] 3rd Floor, [address] [place] [address] Duc Suarez MD [address] [facility], [address] [place] [address] [email or web address] documented as of this encounter Results * MRI CERVICAL SPINE (BONE) WITHOUT CONTRAST (03/05/2018 9:29 AM EST) Anatomical Region Laterality Modality C-spine Magnetic Resonan ce 03/06/2018 8:01 AM EST Impressions 03/06/2018 9:30 AM EST Diffuse progressive degenerative changes with multiple levels of severe neural foraminal narrowing and varying degrees of spinal canal stenosis. Spinal canal is now severely narrowed at C4-5 and to a lesser degree at C3-4. Abnormal signal within the cord at these levels is likely related to compression myelopathy. POS - [id number] Edited by: Fatimah Malcolm on 03/06/2018 9:10 AM Narrative 03/06/2018 9:30 AM EST HISTORY: Numbness arm and legs. Neck pain. Evaluate for multiple sclerosis. COMPARISON: 07/25/2011 TECHNIQUE: Exam performed on a 1.5 Roseanne high-field MRI scanner. Sagittal T1, T2 and STIR, axial T2* gradient echo and 3-D bright fluid sequences were obtained. FINDINGS: In the central cord slightly anterior, there is bright T2 signal extending from the C3-4 intervertebral disc through C5. It measures approximately 1 mm in maximal transverse diameter. Features indicate a syrinx. Atlantoaxial distance appears within normal limits. No new compression deformities. 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 C2-3: Tiny central disc protrusion without significant mass effect on the cord. Progressive bilateral uncovertebral spurring which is greater on the left. Progressive severe facet arthropathy on the left and mild to moderate on the right. Left neural foramen is now severely narrowed and the right is moderate to severely narrowed. Mild narrowing of the spinal canal. C3-4: New central broad-based disc protrusion more prominent toward the right where there is slight mass effect on the right ventral aspect of the cord. Progressive uncovertebral osteophytes and progressive moderate to severe bilateral facet arthropathy. Progressive severe bilateral neural foraminal narrowing greater on the right. Spinal canal is now moderately narrowed. C4-5: New central/left paracentral broad-based disc protrusion which has mass effect on the cord. Progressive bilateral uncovertebral osteophytes and severe right and moderate left facet arthropathy. Progressive severe left and moderate to severe right neural foraminal narrowing. Spinal canal is now moderate to severely narrowed with near complete obliteration of the CSF space. C5-6: Broad-based disc protrusion in the right lateral recess extending just across midline to the left paracentral region. This has mild mass effect on the right ventral aspect of the cord. Progressive mild uncovertebral spurring greater on the right. Progressive moderate right and mild left facet arthropathy. Progressive severe bilateral neural foraminal narrowing greater on the right. Spinal canal is now moderate to severely narrowed. C6-7: Central broad-based disc protrusion extending into the left lateral recess which has mass effect on the cord. Progressive bilateral uncovertebral spurring and moderate left and milder right facet arthropathy. Progressive moderate to severe bilateral neural foraminal narrowing. Spinal canal is now moderately narrowed. C7-T1: No prominent disc bulging. Possible tiny right paracentral disc protrusion. Progressive uncovertebral spurring. Progressive bilateral facet arthropathy. Progressive mild to moderate right and mild left neural foraminal narrowing. Spinal canal is mildly narrowed. No significant abnormality in the paraspinal soft tissues. Procedure Note Ulysses Wilkins MD - 03/06/2018 HISTORY: Numbness arm and legs. Neck pain. Evaluate for multiplesclerosis. COMPARISON: 07/25/2011 TECHNIQUE: Exam performed on a 1.5 Roseanne high-field MRI scanner. SagittalT1, T2 and STIR, axial T2* gradient echo and 3-D bright fluid sequenceswere obtained. FINDINGS: In the central cord slightly anterior, there is bright T2 signal extendingfrom the C3-4 intervertebral disc through C5. It measures approximately 1mm in maximal transverse diameter. Features indicate a syrinx. Atlantoaxial distance appears within normal limits. No new compressiondeformities. Progressive severe osteoarthritis involving the left C1-2lateral mass with edematous bone marrow changes which also involve theodontoid where there may be new subchondral cyst. C2-3: Tiny central disc protrusion without significant mass effect on thecord. Progressive bilateral uncovertebral spurring which is greater onthe left. Progressive severe facet arthropathy on the left and mild tomoderate on the right. Left neural foramen is now severely narrowed andthe right is moderate to severely narrowed. Mild narrowing of the spinalcanal. C3-4: New central broad-based disc protrusion more prominent toward theright where there is slight mass effect on the right ventral aspect of thecord. Progressive uncovertebral osteophytes and progressive moderate tosevere bilateral facet arthropathy. Progressive severe bilateral neuralforaminal narrowing greater on the right. Spinal canal is now moderatelynarrowed. C4-5: New central/left paracentral broad-based disc protrusion which hasmass effect on the cord. Progressive bilateral uncovertebral osteophytesand severe right and moderate left facet arthropathy. Progressive severeleft and moderate to severe right neural foraminal narrowing. Spinalcanal is now moderate to severely narrowed with near complete obliterationof the CSF space. C5-6: Broad-based disc protrusion in the right lateral recess extendingjust across midline to the left paracentral region. This has mild masseffect on the right ventral aspect of the cord. Progressive milduncovertebral spurring greater on the right. Progressive moderate rightand mild left facet arthropathy. Progressive severe bilateral neuralforaminal narrowing greater on the right. Spinal canal is now moderate toseverely narrowed. C6-7: Central broad-based disc protrusion extending into the left lateralrecess which has mass effect on the cord. Progressive bilateraluncovertebral spurring and moderate left and milder right facetarthropathy. Progressive moderate to severe bilateral neural foraminalnarrowing. Spinal canal is now moderately narrowed. C7-T1: No prominent disc bulging. Possible tiny right paracentral discprotrusion. Progressive uncovertebral spurring. Progressive bilateralfacet arthropathy. Progressive mild to moderate right and mild leftneural foraminal narrowing. Spinal canal is mildly narrowed. No significant abnormality in the paraspinal soft tissues. IMPRESSION: Diffuse progressive degenerative changes with multiple levels of severeneural foraminal narrowing and varying degrees of spinal canal stenosis.Spinal canal is now severely narrowed at C4-5 and to a lesser degree atC3-4. Abnormal signal within the cord at these levels is likely relatedto compression myelopathy. POS - [email or web address] Edited by: Fatimah Malcolm on 03/06/2018 9:10 AM Vicente Mayo MD IMG MR XSPECIALTY Final Resu lt documented in this encounter Visit Diagnoses Diagnosis Arm numbness Disturbance of skin sensation Leg numbness Disturbance of skin sensation Neck pain Cervicalgia Arm numbness Disturbance of skin sensation Leg numbness Disturbance of skin sensation Neck pain Cervicalgia documented in this encounter Additional Health Concerns Infection Onset Date Last Indicated Resolved Time CoV-Exposed Comment:Recent close contact 10/03/2019 10/03/2019 10/17/2019 1:25 AM EDT documented as of this encounter Care Teams Reel Fed Printer Relationship Specialty Start Date End Date Slime Youssef MD [address] [place] [address] PCP - General 01/07/17 07/28/22 Pcp, Unknown PCP - General 07/29/22 08/07/22 Svitlana Sher MD PCP - General Family Medicine 08/08/22 03/24/24 Svitlana Sher MD PCP - General Family Medicine 03/25/24 02/08/25 Svitlana Sher MD [address] [place] [address] PCP - General Family Medicine 02/09/25 Patel Bhandari DO [address] [place] [address] Historical LMR Provider 01/11/17 03/31/21 Duc Suarez MD [address] [facility], [address] [place] [address] Historical LMR Provider 01/11/17 Pao Cooley MD [address] [facility], [address] [place] [address] Historical LMR Provider 01/11/17 Slime Youssef MD [address] [place] [address] Historical LMR Provider 01/11/17 Garret Mercedes CNP [address] [address], [address] [place] [address] Historical LMR Provider 01/11/17 03/31/21 Moises Art MD [address] [place] [address] [address] [place] [address] Historical LMR Provider 01/11/17 2 Destin Choe MD [address] [place] [address] Historical LMR Provider 01/11/17 Slime Youssef MD [address] [place] [address] [email or web address] Insurance Assigned Provider 06/27/18 05/27/20 documented as of this encounter Additional Source Comments The information contained in this document represents components of the legal health record. It is not the complete legal health record.[facility]
--- OUTSIDE RECORDS SUMMARY | 2025-03-08 18:58 | XMS_ITS | Encounter Summary ---
Author Organization [facility] Address [address] [place] [address] Phone Care Team Providers Care Spring Forger Name Role Phone Slime Youssef MD Primary Care Provider Patel Bhandari DO Unavailable Duc Suarez MD Unavailable Pao Cooley MD Unavailable Slime Youssef MD Unavailable Garret Mercedes CNP Unavailable [phone] Moises Art MD Unavailable Destin Choe MD Unavailable Slime Youssef MD Unavailable [phone] Pcp, Unknown Primary Care Provider Unavailabl e Svitlana Sher MD Primary Care Pr ovider Svitlana Sher MD Primary Care Pr ovider Svitlana Sher MD Primary Care Pr ovider Encounter Details Date Type Department Care Team (Late st Contact Info) Description 02/24/2018 Procedure Pass [facility], [address] [id number] Social History Tobacco Use Types Packs/Day Years [...] st Contact Info) Description 05/24/2024 Procedure Pass [facility], Ct Scan - [address] [address] 04/04/2025 12:00 PM EST Appointment [facility], Ct Scan [address] [address] Fransico Baker MD [address] [place] [address] [email or web address] 05/04/2025 8:15 AM EST Office Visit [facility] [address] [place] [address] Unknown, Unknown, Isha Bower PA-C [address] [place] [address] [email or web address] 12/02/2025 8:40 AM EDT Office Visit [facility] [address] [place] [address] 3rd Floor, [address] [place] [address] Duc Suarez MD [address] [place] [address], [address] [place] [address] documented as of this encounter Visit Diagnoses Not on filedocumented in this encounter Additional Health Concerns Infection Onset Date Last Indicated Resolved Time CoV-Exposed Comment:Recent close contact 10/03/2019 10/03/2019 10/17/2019 1:25 AM EDT documented as of this encounter Care Teams Spring Forger Relationship Specialty Start Date End Date Slime Youssef MD [address] [place] [address] PCP - General 01/07/17 07/28/22 Pcp, Unknown PCP - General 07/29/22 08/07/22 Svitlana Sher MD PCP - General Family Medicine 08/08/22 03/24/24 Svitlana Sher MD PCP - General Family Medicine 03/25/24 02/08/25 Svitlana Sher MD [address] [place] [address] PCP - General Family Medicine 02/09/25 Patel Bhandari DO [address] [place] [address] [place] [address] [email or web address] Historical LMR Provider 01/11/17 03/31/21 Duc Suarez MD [address] [place] [address] [address] [place] [address] [email or web address] Historical LMR Provider 01/11/17 Pao Cooley MD [address] [place] [address], 2nd [place] [address] [email or web address] Historical LMR Provider 01/11/17 Slime Youssef MD [address] [place] [address] Historical LMR Provider 01/11/17 Garret Mercedes CNP [address] [facility], [address] [place] [address] Historical LMR Provider 01/11/17 03/31/21 Moises Art MD [employer] [facility] [address] [place] [address] Historical LMR Provider 01/11/17 2 Destin Choe MD [address] [place] [address] Historical LMR Provider 01/11/17 Slime Youssef MD [address] [place] [address] [email or web address] Insurance Assigned Provider 06/27/18 05/27/20 documented as of this encounter Additional Source Comments The information contained in this document represents components of the legal health record. It is not the complete legal health record.[facility]
--- OUTSIDE RECORDS SUMMARY | 2025-03-08 18:58 | XMS_ITS | Encounter Summary ---
Author Organization [facility] Address [address] [place] [address] Phone Care Team Providers Care Commercial Leasing Manager Name Role Phone Duc Suarez MD Unavailable [phone] Slime Youssef MD Unavailable [phone] Pcp, Unknown Primary Care Provider Unavailabl e Svitlana Sher MD Primary Care Pr ovider Svitlana Sher MD Primary Care Pr ovider Svitlana Sher MD Primary Care Pr ovider Encounter Details Date Type Department Care Team (Late st Contact Info) Description 07/29/2022 Procedure Pass [facility], Ct Scan - [address] [address] Social History Tobacco Use Types Packs/Day Years Used Date Smoking Tobacco: Former Cigarettes 0.5 35 1 965 - 2000 Smokeless Tobacco: Never Alcohol Use Standard Drinks/Week Comments Yes 6 (1 standard drink = 0.6 oz pur e alcohol) Education Answer Date Recorded Are you interested in more education? Not on andre e 07/19/2022 Are you concerned about learning? Not on file 07/19/2022 No 07/19/2022 No 07/19/2022 Comments No Sex and Gender Information Value Date Recorded Sex Assigned at Female 06/15/2019 7:45 PM EDT Legal Sex Female 10:01 PM EDT Gender Identity Female 06/15/2019 7:45 PM EDT Sexual Orientation Straight 06/15/2019 7: 45 PM EDT documented as of this encounter Functional Status * Calculated C-SSRS Risk Score (Lifetime/Recent) Answer Date of Assessment Author No Risk Indicated 07/29/2022 6:52 PM EDT Mandi Su, MARY * [place] Suicide Severity Rating Scale (Screener/Recent Self-Report) Question Answer Date of Assessment Author 1. Wish to be (Past 1 Month) No 023 6:52 PM EDT Mandi Su RN 2. Non-Specific Active Suici kristi Thoughts (Past 1 Month) No 07/29/2022 6:52 PM EDT Mandi Su RN 6. Suicidal Behavior (Lifetime) No 6:52 PM EDT Mandi Su RN documented as of this encounter Plan of Treatment Upcoming Encounters Date Type Department Care Team (Late st Contact Info) Description 05/24/2024 Procedure Pass [address] [address] 04/04/2025 12:00 PM EST Appointment [address] [address] Fransico Baker MD [address] [place] [address] [email or web address] 05/04/2025 8:15 AM EST Office Visit [facility] [address] [place] [address] Unknown, Unknown, Isha Bower PA-C [address] [place] [address] [email or web address] 12/02/2025 8:40 AM EDT Office Visit [facility] [address] [place] [address] 3rd Floor, [address] [place] [address] Duc Suarez MD [address] [place] [address], [address] [address] [email or web address] documented as of this encounter Visit Diagnoses Not on filedocumented in this encounter Care Teams Commercial Leasing Manager Relationship Specialty Start Date End Date Pcp, Unknown PCP - General 07/29/22 08/07/22 Svitlana Sher MD PCP - General Family Medicine 08/08/22 03/24/24 Svitlana Sher MD PCP - General Family Medicine 03/25/24 02/08/25 Svitlana Sher MD [address] [place] [address] PCP - General Family Medicine 02/09/25 Duc Suarez MD [address] [place] [address] [email or web address] Historical LMR Provider 01/11/17 Slime Youssef MD [address] [place] [phone] [email or web address] Historical LMR Provider 01/11/17 documented as of this encounter Additional Source Comments The information contained in this document represents components of the legal health record. It is not the complete legal health record.[facility]
--- OUTSIDE RECORDS SUMMARY | 2025-03-08 18:58 | XMS_ITS | Encounter Summary ---
Author Organization [facility] Address [address] [place] [address] Phone Care Team Providers Care Section Crews Activities Clerk Name Role Phone Duc Suarez MD Unavailable [phone] Slime Youssef MD Unavailable [phone] Svitlana Sher MD Primary Care Pr ovider Svitlana Sher MD Primary Care Pr ovider Svitlana Sher MD Primary Care Pr ovider Encounter Details Date Type Department Care Team (Late st Contact Info) Description 08/29/2022 Procedure Pass [facility], Ct Scan - [address] [address] Social History Tobacco Use Types Packs/Day Years [...] with a working camera? Not on file Comments No Sex and Gender Information Value Date Recorded Sex Assigned at Female 06/15/2019 7:45 PM EDT Legal Sex Female 10:01 PM EDT Gender Identity Female 06/15/2019 7:45 PM EDT Sexual Orientation Straight 06/15/2019 7: 45 PM EDT documented as of this encounter Plan of Treatment Upcoming Encounters Date Type Department Care Team (Late st Contact Info) Description 05/24/2024 Procedure Pass [facility], Ct Scan [address] [address] 04/04/2025 12:00 PM EST Appointment [place], Ct Scan [address] [address] Fransico Baker MD [address] [place] [address] [email or web address] 05/04/2025 8:15 AM EST Office Visit [facility] [address] [place] [address] Unknown, Unknown, Isha Bower PA-C [address] [place] [address] [email or web address] 12/02/2025 8:40 AM EDT Office Visit [facility] [address] [place] [address] 3rd Floor, [address] [place] [address] Duc Suarez MD [address] [place] [address], [address] [address] documented as of this encounter Visit Diagnoses Not on filedocumented in this encounter Care Teams Section Crews Activities Clerk Relationship Specialty Start Date End Date Svitlana Sher MD [address] [place] [address] PCP - General Family Medicine 08/08/22 03/24/24 Svitlana Sher MD [address] [place] [address] PCP - General Family Medicine 03/25/24 02/08/25 Svitlana Sher MD [address] [place] [address] PCP - General Family Medicine 02/09/25 Duc Suarez MD [address] [place] [address] [email or web address] Historical LMR Provider 01/11/17 Slime Youssef MD [address] [place] [address] [email or web address] Historical LMR Provider 01/11/17 documented as of this encounter Additional Source Comments The information contained in this document represents components of the legal health record. It is not the complete legal health record.[facility]
--- OUTSIDE RECORDS SUMMARY | 2025-03-08 18:58 | XMS_ITS | Encounter Summary ---
Author Organization [facility] Address [address] [place] [address] Phone Care Team Providers Care Postbed Stitcher Name Role Phone Duc Suarez MD Unavailable [phone] Slime Youssef MD Unavailable [phone] Svitlana Sher MD Primary Care Pr ovider Svitlana Sher MD Primary Care Pr ovider Svitlana Sher MD Primary Care Pr ovider Encounter Details Date Type Department Care Team (Latest Contact Info) Description 02/21/2023 Transcribe Orders Virtual Department [address] [place] [address] Ursula Antoine MD [address] [place] [address] [email or web address] Personal history of urinary (tract) infection (Primary Dx) Social History Tobacco Use Types [...] st Contact Info) Description 05/24/2024 Procedure Pass [facility], [address] [address] 04/04/2025 12:00 PM EST Appointment [address] [address] Fransico Baker MD [address] [place] [address] [email or web address] 05/04/2025 8:15 AM EST Office Visit [facility] [address] [place] [address] Unknown, Unknown, Isha Bower PA-C [address] [place] [address] [email or web address] 12/02/2025 8:40 AM EDT Office Visit [facility] [address] [place] [address] 3rd Floor, [address] [place] [address] Duc Suarez MD [address] [place] [address], [address] [address] documented as of this encounter Results * US Kidneys and Bladder (02/24/2023 9:19 AM EST) Anatomical Region Laterality Modality Abdomen, Kidney Ultrasound 02/24/2023 10:0 1 AM EST Impressions 02/24/2023 6:47 PM EST 1. 2.5 cm hypoechoic lesion at the lower pole the right kidney with the suggestion of internal vascularity. CT or MRI renal mass protocol recommended for further evaluation. 2. No nephrolithiasis or hydronephrosis demonstrated sonographically. A clinically significant result was communicated on 02/24/2023 6:47 PM, Message ID [id number]. Narrative 02/24/2023 6:47 PM EST US KIDNEYS AND BLADDER Referring clinician's provided indication for this examination in [facility]: Outside Radiology Order; Personal history of urinary tract infections TECHNIQUE: Kidney Ultrasound. COMPARISON: Sonography 01/28/2017 FINDINGS: Right Kidney: Size: 11.3 cm There is mild renal cortical thinning. There is a 2.6 x 2.1 x 2.5 cm hypoechoic lesion at the lower pole with the suggestion of internal vascularity. No stones or hydronephrosis. Left Kidney: Size: 11.2 cm Normal corticomedullary differentiation and cortical thickness. No stones or hydronephrosis. Bladder: The urinary bladder is decompressed, limiting evaluation. Bilateral ureteral jets are present. Procedure Note Iza Kelsey MD - 02/24/2023 US KIDNEYS AND BLADDER Referring clinician's provided indication for this examination in [facility]:Outside Radiology Order; Personal history of urinary tract infections TECHNIQUE: Kidney Ultrasound. COMPARISON: Sonography 01/28/2017 FINDINGS: Right Kidney: Size: 11.3 cm There is mild renal cortical thinning. There is a 2.6 x 2.1 x 2.5 cmhypoechoic lesion at the lower pole with the suggestion of internalvascularity. No stones or hydronephrosis. Left Kidney: Size: 11.2 cm Normal corticomedullary differentiation and cortical thickness. No stonesor hydronephrosis. Bladder: The urinary bladder is decompressed, limiting evaluation.Bilateral ureteral jets are present. IMPRESSION: 1. 2.5 cm hypoechoic lesion at the lower pole the right kidney with thesuggestion of internal vascularity. CT or MRI renal mass protocolrecommended for further evaluation. 2. No nephrolithiasis or hydronephrosis demonstrated sonographically. A clinically significant result was communicated on 02/24/2023 6:47 PM,Message ID [id number]. Ursula Antoine MD IMG US RENAL Final Resu lt * XR ABDOMEN 1 VIEW (02/24/2023 8:57 AM EST) Anatomical Region Laterality Modality Abdomen Computed Radiogr aphy 02/26/2023 10:1 9 AM EST Impressions 02/26/2023 10:21 AM EST 1. No opaque urinary calculi apparent. Narrative 02/26/2023 10:21 AM EST XR ABDOMEN 1 VIEW Referring clinician's provided indication for this examination in [facility]: Outside Radiology Order; Personal history of urinary tract infections COMPARISON: 02/24/2023 ultrasound FINDINGS: Tubes/Lines: None Bowel: No grossly distended bowel loops apparent. Pelvic surgical clips. No opaque intrarenal, ureteral, or bladder calculi identified. Visualized skeletal structures intact. Procedure Note Bernard Goldstein MD - 02/26/2023 XR ABDOMEN 1 VIEW Referring clinician's provided indication for this examination in [facility]:Outside Radiology Order; Personal history of urinary tract infections COMPARISON: 02/24/2023 ultrasound FINDINGS: Tubes/Lines: None Bowel: No grossly distended bowel loops apparent. Pelvic surgical clips. No opaque intrarenal, ureteral, or bladder calculiidentified. Visualized skeletal structures intact. IMPRESSION: 1. No opaque urinary calculi apparent. us Ursula Antoine MD IMG XR ABDOMEN Final Resu lt documented in this encounter Visit Diagnoses Diagnosis Personal history of urinary (tract) infection- Primary Personal history of urinary (tract) infection Personal history of urinary (tract) infection documented in this encounter Care Teams Postbed Stitcher Relationship Specialty Start Date End Date Svitlana Shere, MD [address] [place] [address] PCP - General Family Medicine 08/08/22 03/24/24 Svitlana Sher MD [address] [place] [address] PCP - General Family Medicine 03/25/24 02/08/25 Svitlana Sher MD [address] [place] [address] PCP - General Family Medicine 02/09/25 Duc Suarez MD [address] [place] [address], [facility] [address] [place] [address] [email or web address] Historical LMR Provider 01/11/17 Slime Youssef MD [address] [place] [address] [email or web address] Historical LMR Provider 01/11/17 documented as of this encounter Additional Source Comments The information contained in this document represents components of the legal health record. It is not the complete legal health record.[facility]
--- OUTSIDE RECORDS SUMMARY | 2025-03-08 18:58 | XMS_ITS | Encounter Summary ---
Author Organization [facility] Address [address] [place] [address] Phone Care Team Providers Care Drive In Teller Name Role Phone Slime Youssef MD Primary [...] Contac t Referred To Contact Radiology Diagnoses Numbness in both legs Procedures MRI Thoracic Spine Vicente Mayo MD Phone: tel: fax: [email or web address] Referral ID Status Reason Start Date Expiration Date Visits Re quested Visits Authorized [id number] Closed 06/12/2018 07/12/2018 1 1 Encounter Details Date Type Department Care Team (Latest Contact Info) Description 06/12/2018 Transcribe Orders Virtual Department [address] [place] [address] Vicente Mayo MD [address] [place] [address], [address] [place] [address] [email or web address] Numbness in both legs (Primary Dx) Social History Tobacco Use Types [...] st Contact Info) Description 05/24/2024 Procedure Pass [facility], [address] [address] 04/04/2025 12:00 PM EST Appointment [facility], Ct Scan [address] [address] Fransico Baker MD [address] [place] [address] [email or web address] 05/04/2025 8:15 AM EST Office Visit [facility] [address] [place] [address] Unknown, Unknown, Isha Bower, PA-C [address] [place] [address] [email or web address] 12/02/2025 8:40 AM EDT Office Visit [facility] [address]rd Floor, [address] [place] [address] Duc Suarez MD [address], [address] [place] [address] documented as of this encounter Results * MRI THORACIC SPINE (BONE) WITHOUT CONTRAST (06/21/2018 9:50 AM EDT) Anatomical Region Laterality Modality T-spine Magnetic Resonan ce 06/21/2018 10:0 4 PM EDT Impressions 06/21/2018 10:17 PM EDT 1. No findings suspicious for myelitis. 2. Small-moderate size central-right paracentral disc protrusion at T6-T7. 3. Mild central canal stenosis at T12-L1. 4. Multilevel degenerative disc and endplate changes. POS - [id number] Narrative 06/21/2018 10:17 PM EDT HISTORY: The pain, numbness and paresthesias in the lower extremities. Evaluate for multiple sclerosis. COMPARISON: Chest x-ray 02/02/2016 CT chest 05/16/2015. TECHNIQUE: Exam performed on a 1.5 Roseanne high-field MRI scanner. Sagittal T1, T2 and STIR sequences were obtained. FINDINGS: Vertebrae/marrow signal: No compression fractures or subluxations. No suspicious marrow signal abnormalities. 15 mm oval T1, T2 hyperintense lesion within the body of T5 consistent with a hemangioma. Disc spaces/endplates: Mild degenerative changes in the upper thoracic spine. More moderate degenerative endplate changes in the mid and lower thoracic spine. Small-moderate size central-right paracentral disc protrusion at T6-T7. Small disc-osteophyte complex at T7-T8 paracentrally on right. Smaller disc-osteophyte complex paracentrally on right at T8-T9. Small broad-based posterior disc-osteophyte complexes at multiple levels. Small broad-based disc protrusion at T12-L1. Central canal/neural foramina: Mild central canal stenosis at T12-L1 due to small osteophytes, broad-based disc protrusion and mild facet arthropathy with thickening of the ligamentum flavum. No other evidence of central canal stenosis. No evidence of significant neuroforaminal narrowing. Spinal cord: No evidence of spinal cord lesions. Conus medullaris normal. Soft tissues: No evidence of paravertebral masses. Procedure Note Shorty Hartmann MD - 06/21/2018 HISTORY: The pain, numbness and paresthesias in the lower extremities.Evaluate for multiple sclerosis. COMPARISON: Chest x-ray 02/02/2016 CT chest 05/16/2015. TECHNIQUE: Exam performed on a 1.5 Roseanne high-field MRI scanner. SagittalT1, T2 and STIR sequences were obtained. FINDINGS: Vertebrae/marrow signal: No compression fractures or subluxations. Nosuspicious marrow signal abnormalities. 15 mm oval T1, T2 hyperintenselesion within the body of T5 consistent with a hemangioma. Disc spaces/endplates: Mild degenerative changes in the upper thoracicspine. More moderate degenerative endplate changes in the mid and lowerthoracic spine. Small-moderate size central-right paracentral discprotrusion at T6-T7. Small disc-osteophyte complex at T7-T8 paracentrallyon right. Smaller disc-osteophyte complex paracentrally on right atT8-T9. Small broad-based posterior disc- osteophyte complexes at multiplelevels. Small broad-based disc protrusion at T12-L1. Central canal/neural foramina: Mild central canal stenosis at T12-L1 dueto small osteophytes, broad-based disc protrusion and mild facetarthropathy with thickening of the ligamentum flavum. No other evidenceof central canal stenosis. No evidence of significant neuroforaminalnarrowing. Spinal cord: No evidence of spinal cord lesions. Conus medullarisnormal. Soft tissues: No evidence of paravertebral masses. IMPRESSION: 1. No findings suspicious for myelitis. 2. Small-moderate size central-right paracentral disc protrusion atT6-T7. 3. Mild central canal stenosis at T12-L1. 4. Multilevel degenerative disc and endplate changes. POS - [id number] us Vicente Mayo MD IMG MR XSPECIALTY Final Resu lt documented in this encounter Visit Diagnoses Diagnosis Numbness in both legs- Primary Disturbance of skin sensation Numbness in both legs Disturbance of skin sensation documented in this encounter Additional Health Concerns Infection Onset Date Last Indicated Resolved Time CoV-Exposed Comment:Recent close contact 10/03/2019 10/03/2019 10/17/2019 1:25 AM EDT documented as of this encounter Care Teams Drive In Teller Relationship Specialty Start Date End Date Slime Youssef MD [address] [place] [address] PCP - General 01/07/17 07/28/22 Pcp, Unknown PCP - General 07/29/22 08/07/22 Svitlana Sher MD PCP - General Family Medicine 08/08/22 03/24/24 Svitlana Sher MD PCP - General Family Medicine 03/25/24 02/08/25 Svitlana Sher MD [address] [place] [address] PCP - General Family Medicine 02/09/25 Patel Bhandari DO [address] [place] [address] [email or web address] Historical LMR Provider 01/11/17 03/31/21 Duc Suarez MD [address] [place] [address] [address] [place] [address] Historical LMR Provider 01/11/17 Pao Cooley MD [address] [address] Historical LMR Provider 01/11/17 Slime Youssef MD [address] [place] [address] Historical LMR Provider 01/11/17 Garret Mercedes CNP [address] [place] [address] Historical LMR Provider 01/11/17 03/31/21 Moises Art MD [facility] [place] [facility] [address] [place] [address] Historical LMR Provider 01/11/17 2 Destin Choe MD [address] [place] [address] Historical LMR Provider 01/11/17 Slime Youssef MD [address] [place] [address] Insurance Assigned Provider 06/27/18 05/27/20 documented as of this encounter Additional Source Comments The information contained in this document represents components of the legal health record. It is not the complete legal health record.[facility]
--- OUTSIDE RECORDS SUMMARY | 2025-03-08 18:58 | XMS_ITS | Encounter Summary ---
Author Organization [facility] Address [address] [place] [address] Phone Care Team Providers Care Fire Investigator Name Role Phone Slime Youssef MD Primary Care Provider Patel Bhandari DO Unavailable Duc Suarez MD Unavailable Pao Cooley MD Unavailable Slime Youssef MD Unavailable Garret Mercedes CNP Unavailable [phone] Moises Art MD Unavailable Destin Cohe MD Unavailable Slime Youssef MD Unavailable Pcp, Unknown Primary Care Provider Unavailabl e Svitlana Sher MD Primary Care Pr ovider Svitlana Sher MD Primary Care Pr ovider Svitlana Sher MD Primary Care Pr ovider Encounter Details Date Type Department Care Team (Late st Contact Info) Description 04/17/2018 Ancillary Orders Virtual Department [address] [place] [address] Slime Youssef MD [address] [place] [address] Breast screening Social History Tobacco Use Types Packs/Day Years [...] st Contact Info) Description 05/24/2024 Procedure Pass [facility], Ct Scan [address] [address] 04/04/2025 12:00 PM EST Appointment [facility] Ct Scan [address] [address] Fransico Baker MD [address] [place] [address] [email or web address] 05/04/2025 8:15 AM EST Office Visit [facility] [address] [place] [address] Unknown, Unknown, Isha Bower PA-C [address] [place] [address] [email or web address] 12/02/2025 8:40 AM EDT Office Visit [facility] [address] [place] [address] 3rd Floor, [address] [place], [place] [phone] Duc Suarez MD [address] [place] [phone] documented as of this encounter Results * BI MAMMOGRAM SCREENING WITH TOMOSYNTHESIS WITH CAD (BILATERAL) (06/17/2018 11:23 AM EDT) Anatomical Region Laterality Modality Breast Left, Breast Right, Breast Bilateral Bila teral Mammography 06/17/2018 12:4 3 PM EDT Impressions 06/17/2018 12:46 PM EDT No mammographic evidence of malignancy. Recommend routine annual surveillance. BI-RADS CATEGORY: 2 - Benign finding. DENSITY: There are scattered fibroglandular densities. POS - CDHMAMA Narrative 06/17/2018 12:46 PM EDT Tprkh-xiklp-qfwp-old female with no current breast symptoms. Comparison made to previous on 06/16/2017 and as far back as 04/09/2012. Interpretation made in conjunction with computer-aided detection and tomosynthesis. There are scattered areas of fibroglandular density. Stable bilateral calcifications, small masses and post-surgical changes. There are no suspicious masses, areas of architectural distortion, or suspicious clusters of microcalcifications. Procedure Note Jose Daniel Samayoa MD - 06/17/2018 Spudf-fwqcv-zqgc-old female with no current breast symptoms. Comparisonmade to previous on 06/16/2017 and as far back as 04/09/2012.Interpretation made in conjunction with computer-aided detection andtomosynthesis. There are scattered areas of fibroglandular density. Stable bilateralcalcifications, small masses and post-surgical changes. There are no suspicious masses, areas of architectural distortion, orsuspicious clusters of microcalcifications. IMPRESSION: No mammographic evidence of malignancy. Recommend routine annualsurveillance. BI-RADS CATEGORY: 2 - Benign finding. DENSITY: There are scattered fibroglandular densities. POS - CDHMAMA Slime Youssef MD IMG MG EXAMS Final Resul t documented in this encounter Visit Diagnoses Diagnosis Breast screening Breast screening, unspecified Breast screening Breast screening, unspecified documented in this encounter Additional Health Concerns Infection Onset Date Last Indicated Resolved Time CoV-Exposed Comment:Recent close contact 10/03/2019 10/03/2019 10/17/2019 1:25 AM EDT documented as of this encounter Care Teams Fire Investigator Relationship Specialty Start Date End Date Slime Youssef MD [address] [place] [address] [email or web address] PCP - General 01/07/17 07/28/22 Pcp, Unknown PCP - General 07/29/22 08/07/22 Svitlana Sher MD PCP - General Family Medicine 08/08/22 03/24/24 Svitlana Sher MD PCP - General Family Medicine 03/25/24 02/08/25 Svitlana Sher MD [address] [place] [address] PCP - General Family Medicine 02/09/25 Patel Bhandari DO [address] [place] [address] [email or web address] Historical LMR Provider 01/11/17 03/31/21 Duc Suarez MD [address] [place] [address] 301 [place] [address] Historical LMR Provider 01/11/17 Pao Cooley MD [address] [place] [address], 2nd [place] [address] Historical LMR Provider 01/11/17 Slime Youssef MD [address] [place] [address] [email or web address] Historical LMR Provider 01/11/17 Garret Mercedes CNP [address] [facility], [address] [place] [address] [email or web address] Historical LMR Provider 01/11/17 03/31/21 Moises Art MD [facility] [place] [facility] [address] [address] Historical LMR Provider 01/11/17 2 Destin Choe MD [address] [place] [address] Historical LMR Provider 01/11/17 Slime Youssef MD [address] [place] [address] [email or web address] Insurance Assigned Provider 06/27/18 05/27/20 documented as of this encounter Additional Source Comments The information contained in this document represents components of the legal health record. It is not the complete legal health record.[facility]
--- OUTSIDE RECORDS SUMMARY | 2025-03-08 18:58 | XMS_ITS | Encounter Summary ---
Author Organization [facility] Address [address] [place] [address] Phone Care Team Providers Care Processing Associate Name Role Phone Duc Suarez MD Unavailable [phone] Slime Youssef MD Unavailable [phone] Svitlana Sher MD Primary Care Pr ovider Svitlana Sher MD Primary Care Pr ovider Svitlana Sher MD Primary Care Pr ovider Encounter Details Date Type Department Care Team (Late st Contact Info) Description 03/25/2023 Procedure Pass [facility], Ct Scan - [address] [address] Social History Tobacco Use Types Packs/Day Years [...] st Contact Info) Description 05/24/2024 Procedure Pass [facility], Ct Scan [address] [address] 04/04/2025 12:00 PM EST Appointment [place], Ct Scan [address] [address] Fransico Baker MD [address] [place] [address] [email or web address] 05/04/2025 8:15 AM EST Office Visit [facility] [address] [place] [address] Unknown, Unknown, Isha Bower PA-C [address] [place] [address] [email or web address] 12/02/2025 8:40 AM EDT Office Visit [facility] [address] [place] [address] 3rd Floor, [address] [place] [address] Duc Suarez MD [address] [place] [address], [address] [address] documented as of this encounter Visit Diagnoses Not on filedocumented in this encounter Care Teams Processing Associate Relationship Specialty Start Date End Date Svitlana Sher MD [address] [place] [address] PCP - General Family Medicine 08/08/22 03/24/24 Svitlana Sher MD [address] [place] [address] PCP - General Family Medicine 03/25/24 02/08/25 Svitlana Sher MD [address] [place] [address] PCP - General Family Medicine 02/09/25 Duc Suarez MD [address] [place] [address] [email or web address] Historical LMR Provider 01/11/17 Slime Youssef MD [address] [place] [email or web address] Historical LMR Provider 01/11/17 documented as of this encounter Additional Source Comments The information contained in this document represents components of the legal health record. It is not the complete legal health record.[facility]
--- OUTSIDE RECORDS SUMMARY | 2025-03-08 18:58 | XMS_ITS | Encounter Summary ---
Author Organization [facility] Address [address] [place] [address] Phone Care Team Providers Care Senior Drupal Developer Name Role Phone Duc Suarez MD Unavailable Slime Youssef MD Unavailable [phone] Pcp, Unknown Primary Care Provider Unavailabl e Svitlana Sher MD Primary Care Pr ovider Svitlana Sher MD Primary Care Pr ovider Svitlana Sher MD Primary Care Pr ovider Encounter Details Date Type Department Care Team (Late st Contact Info) Description 07/29/2022 Procedure Pass [facility], Ct Scan - [address] [address] Social History Tobacco Use Types Packs/Day Years [...] 6:52 PM EDT Mandi Su, MARY * [place] Suicide Severity Rating Scale (Screener/Recent Self-Report) Question [...] st Contact Info) Description 05/24/2024 Procedure Pass [address] [address] 04/04/2025 12:00 PM EST Appointment [address] [address] Fransico Baker MD [address] [place] [address] [email or web address] 05/04/2025 8:15 AM EST Office Visit [facility] [address] [place] [address] Unknown, Unknown, Isha Bower PA-C [address] [place] [address] [email or web address] 12/02/2025 8:40 AM EDT Office Visit [facility] [address] [place] [address] 3rd Floor, [address] [place] [address] Duc Suarez MD [address] [place] [address], [address] [address] [email or web address] documented as of this encounter Visit Diagnoses Not on filedocumented in this encounter Care Teams Senior Drupal Developer Relationship Specialty Start Date End Date Pcp, Unknown PCP - General 07/29/22 08/07/22 Svitlana Sher MD PCP - General Family Medicine 08/08/22 03/24/24 Svitlana Sher MD PCP - General Family Medicine 03/25/24 02/08/25 Svitlana Sher MD [address] [place] [address] PCP - General Family Medicine 02/09/25 Duc Suarez MD [address] [place] [address] [email or web address] Historical LMR Provider 01/11/17 Slime Youssef MD [address] [place] [address] [email or web address] Historical LMR Provider 01/11/17 documented as of this encounter Additional Source Comments The information contained in this document represents components of the legal health record. It is not the complete legal health record.[facility]
--- OUTSIDE RECORDS SUMMARY | 2025-03-08 18:58 | XMS_ITS | Encounter Summary ---
Author Organization [facility] Address [address] [place] [address] Phone Care Team Providers Care Clinical Therapist Name Role Phone Slime Youssef MD Primary Care Provider Patel Bhandari DO Unavailable Duc Suarez MD Unavailable Pao Cooley MD Unavailable Slime Youssef MD Unavailable [phone] Garret Mercedes CNP Unavailable Moises Art MD Unavailable Destin Choe MD Unavailable Slime Youssef MD Unavailable Pcp, Unknown Primary Care Provider Unavailabl e Svitlana Sher MD Primary Care Pr ovider Svitlana Sher MD Primary Care Pr ovider Svitlana Sher MD Primary Care Pr ovider Encounter Details Date Type Department Care Team (Late st Contact Info) Description 04/17/2017 Transcribe Orders [address] [place] [address] Slime Youssef MD [address] [place] [address] Chronic ischemic heart disease (Primary Dx); Pure hypercholesterolemi a; Routine general medical examination at a health care facility Social History Tobacco Use Types Packs/Day Years Used Date Smoking Tobacco: Never Assessed Comments Unknown Sex and Gender Information Value Date Recorded Sex Assigned at Female 06/15/2019 7:45 PM EDT Legal Sex Female 10:01 PM EDT Gender Identity Female 06/15/2019 7:45 PM EDT Sexual Orientation Straight 06/15/2019 7: 45 PM EDT documented as of this encounter Plan of Treatment Upcoming Encounters Date Type Department Care Team (Late st Contact Info) Description 05/24/2024 Procedure Pass [address] [address] 04/04/2025 12:00 PM EST Appointment [address] [address] Fransico Baker MD [address] [place] [address] [email or web address] 05/04/2025 8:15 AM EST Office Visit [facility] [address] [place] [address] Unknown, Unknown, Isha Bower PA-C [address] [place] [address] [email or web address] 12/02/2025 8:40 AM EDT Office Visit [facility] [address] [place] [address] 3rd Floor, [address] [place] [address] Duc Suarez MD [address] [place] [address], [address] [address] documented as of this encounter Procedures Procedure Name Priority Date/Time Associated Diagnosis Comments COMPREHENSIVE METABOLIC PANEL (CMP) Routine 04/17/2017 8:34 AM EST Chronic ischemic heart disease Pure hypercholesterolemi a Routine general medical examination at a health care facility URINALYSIS Routine 04/17/2017 8:34 AM EST Chronic ischemic heart disease Pure hypercholesterolemi a Routine general medical examination at a health care facility CBC Routine 04/17/2017 8:34 AM EST Chronic ischemic heart disease Pure hypercholesterolemi a Routine general medical examination at a health care facility CREATINE KINASE (CK) Routine 04/17/2017 8:34 AM EST Chronic ischemic heart disease Pure hypercholesterolemi a Routine general medical examination at a health care facility LIPID PANEL Routine 04/17/2017 8:34 AM EST Chronic ischemic heart disease Pure hypercholesterolemi a Routine general medical examination at a health care facility documented in this encounter Results * Urinalysis (04/17/2017 8:34 AM EST) COLOR Yellow Yellow [facility] CLARITY Clear [facility] GLUCOSE Negative Negative [facility] BILI Negative Negative [facility] KETONES Negative Negative [facility] SPECIFIC GRAVITY 1.020 1.005 - 1.030 [facility] BLOOD Negative Negative [facility] PH 6.0 5.0 - 8.0 [facility] Protein-UA Negative Negative [facility] NITRITE Negative Negative [facility] Leukocyte esterase, ur Negative Negative [facility] Urine (Urine) 04/17/2017 8:3 4 AM EST 04/17/2017 8:37 AM EST us Slime Youssef MD LAB URINE ORDERABLES Final Result [facility] [address] [place] [address] * CPK (creatine kinase) (04/17/2017 8:34 AM EST) CREATINE KINASE 108 21 - 215 U/L [facility] Blood 04/17/2017 8:34 AM EST 04/17/2017 8:36 AM EST Slime Youssef MD LAB BLOOD BKR ORDERABLES Fi nal Result Performing Organization Address [facility] Co de Phone Number [address] [address] * CBC (04/17/2017 8:34 AM EST) WBC 3.52 3.40 - 11.20 K/uL [facility] RBC 4.21 3.80 - 4.80 M/uL [facility] HGB 13.2 12.0 - 15.0 g/dL [facility] HCT 39.6 36.0 - 46.0 % [facility] PLT 199 130 - 400 K/uL [facility] MCV 94.1 79.0 - 98.0 fL [facility] MCH 31.4 27.0 - 34.8 pg [facility] MCHC 33.3 31.5 - 36.0 g/dL [facility] RDW 11.9 10.8 - 14.6 % [facility] MPV 10.7 9.4 - 12.4 fl [facility] NRBC 0.00 /100 WBCs [facility] ABSOLUTE NRBC 0.00 K/uL [facility] Blood 04/17/2017 8:34 AM EST 04/17/2017 8:36 AM EST Slime Youssef MD LAB BLOOD BKR ORDERABLES Fi nal Result [address] [address] * (ABNORMAL) Lipid panel (04/17/2017 8:34 AM EST) HDL 57 mg/dL [facility] Comment: Interpretation: Risk Level Females Decreased >55mg/dL Average 50-55 mg/dL Increased <50 mg/dL CHOLESTEROL 155 0 - 240 mg/dL [facility] TRIGLYCERIDES 101 30 - 160 mg/dL [facility] LDL 78 50 - 129 mg/dL [facility] Comment: LDL levels in terms of risk for coronary heart disease: <100 mg/dL: Optimal 100-129 mg/dL: Near or above optimal 130-159 mg/dL: Borderline high 160-189 mg/dL: High >190 mg/dL: Very High CARDIAC RISK RATIO 2.7(L) 3.3 - 4.4 C [facility] Blood 04/17/2017 8:34 AM EST 04/17/2017 8:36 AM EST us Slime Youssef MD LAB BLOOD BKR ORDERABLES Fi nal Result [address] [address] * (ABNORMAL) Comprehensive metabolic panel (04/17/2017 8:34 AM EST) SODIUM 141 133 - 146 mmol/L [facility] POTASSIUM 4.7 3.3 - 5.1 mmol/L [facility] CHLORIDE 101 96 - 108 mmol/L [facility] CO2 31 21 - 35 mmol/L [facility] BUN 13 6 - 19 mg/dL [facility] CREATININE 0.80 0.5 - 1.5 mg/dL [facility] GLUCOSE 96 70 - 99 mg/dL [facility] ALBUMIN 4.4 3.9 - 4.8 g/dL [facility] TOTAL PROTEIN 7.4 6.5 - 8.0 g/dL [facility] CALCIUM 9.6 8.4 - 10.3 mg/dL [facility] ALKALINE PHOSPHATASE 71 39 - 117 U/L [facility] TOTAL BILIRUBIN 0.6 0 - 1.2 mg/dL [facility] AST 38(H) 0 - 37 U/L [facility] ALT 30 0 - 40 U/L [facility] GLOBULIN 3.0 1 - 4.8 g/dL [facility] EGFR >60 60 - 1000 mL/min/1.7 3m2 [facility] Comment:Abnormal if <60. If patient is -Faroese, multiply the result by 1.21. ANION GAP 14 10 - 20 mmol/L [facility] Blood 04/17/2017 8:34 AM EST 04/17/2017 8:36 AM EST us Slime Youssef MD LAB BLOOD BKR ORDERABLES Fi nal Result [facility] [address] [place] [address] documented in this encounter Visit Diagnoses Diagnosis Chronic ischemic heart disease- Primary Unspecified chronic ischemic heart disease Pure hypercholesterolemia Routine general medical examination at a health care facility documented in this encounter Additional Health Concerns Infection Onset Date Last Indicated Resolved Time CoV-Exposed Comment:Recent close contact 10/03/2019 10/03/2019 10/17/2019 1:25 AM EDT documented as of this encounter Care Teams Clinical Therapist Relationship Specialty Start Date End Date Slime Youssef MD [address] [place] [address] PCP - General 01/07/17 07/28/22 Pcp, Unknown PCP - General 07/29/22 08/07/22 Svitlana Sher MD PCP - General Family Medicine 08/08/22 03/24/24 Svitlana Sher MD PCP - General Family Medicine 03/25/24 02/08/25 Svitlana Sher MD [address] [place] [address] PCP - General Family Medicine 02/09/25 Patel Bhandari DO [address] [place] [address] Historical LMR Provider 01/11/17 03/31/21 Duc Suarez MD [address] [facility] [address] [place] [address] [email or web address] Historical LMR Provider 01/11/17 Pao Cooley MD [address] [place] [address] Historical LMR Provider 01/11/17 Slime Youssef MD [address] [place] [address] Historical LMR Provider 01/11/17 Garret Mercedes CNP [address] [place] [address] Historical LMR Provider 01/11/17 03/31/21 Moises Art MD [address] [place] [address] Historical LMR Provider 01/11/17 2 Destin Choe MD [address] [place] [address] Historical LMR Provider 01/11/17 Slime Youssef MD [address] [place] [address] Insurance Assigned Provider 06/27/18 05/27/20 documented as of this encounter Additional Source Comments The information contained in this document represents components of the legal health record. It is not the complete legal health record.[facility]
--- OUTSIDE RECORDS SUMMARY | 2025-03-08 18:58 | XMS_ITS | Encounter Summary ---
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, unspecified laterality Procedures CT Abdomen/Pelvis CHG CT SCAN,ABDOMENT AND PELVIS,COMBO Ursula Antoine MD Phone: tel: fax: [email or web address] Referral ID Status Reason Start Date Expiration Date Visits Re quested Visits Authorized [id number] Closed 03/10/2023 07/10/2023 1 1 Encounter Details Date Type Department Care Team (Latest Contact Info) Description 03/25/2023 Transcribe Orders Virtual Department [address] [place] [address] Ursula Antoine MD [address] [place] [address] [email or web address] 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, unspecified laterality (Primary Dx) Social History Tobacco Use Types [...] st Contact Info) Description 05/24/2024 Procedure Pass [facility], Ct Scan - [address] [address] 04/04/2025 12:00 PM EST Appointment [facility], Ct Scan - [address] [address] Fransico Baker MD [address] [place] [address] [email or web address] 05/04/2025 8:15 AM EST Office Visit [facility] [address] [place] [address] Unknown, Unknown, Isha Bower PA-C [address] [place] [address] [email or web address] 12/02/2025 8:40 AM EDT Office Visit [facility] [address] [place] [address] 3rd Floor, [address] [place] [address] Duc Suarez MD [address] [place] [address], [address] [place] [address] [email or web address] documented as of this encounter Results * CT ABDOMEN/PELVIS (RENAL MASS) WITH AND WITHOUT CONTRAST (04/07/2023 2:24 PM EST) Anatomical Region Laterality Modality Abdomen, Pelvis Computed Tomogra phy 04/07/2023 8:48 PM EST Impressions 04/07/2023 9:39 PM EST No right lower pole renal mass; finding on recent ultrasound likely corresponds to normal parenchymal lobulation. Narrative 04/07/2023 9:[address] ABDOMEN/PELVIS (RENAL MASS) WITH AND WITHOUT CONTRAST Referring clinician's provided indication for this examination in Epic: Outside Radiology Order; neoplasm of uncertain behavior of unspecified kidney TECHNIQUE: Multidetector-row CT of the abdomen and pelvis was performed before and after administration of intravenous contrast using tailored dose modulation techniques. Images were reconstructed in the axial, coronal, and sagittal planes. COMPARISON: Abdominal ultrasound 02/24/2023. FINDINGS: Lower Chest: Normal. No consolidation or pleural effusions. Liver: No suspicious focal liver lesion. Benign segment 2 hepatic cyst. Biliary: No biliary ductal dilatation. Spleen: Normal. No splenomegaly or focal lesions. Pancreas: Normal. No masses or ductal dilatation. Adrenal Glands: Normal. No nodules. Kidneys/Ureters: No hydronephrosis. Volume loss involving the upper half of the right kidney, likely reflecting scarring. Multiple subcentimeter renal hypodensities are too small to characterize but most likely benign.Spine degenerative changes. No right lower pole renal mass; finding on recent ultrasound likely corresponds to normal parenchymal lobulation. Bowel: Prior distal colon resection. No bowel obstruction or wall thickening. Peritoneum/Retroperitoneum: Normal. No masses, pneumoperitoneum, or fluid. Lymph Nodes: Normal. No lymphadenopathy. Pelvic Organs/Bladder: Prior hysterectomy. Vessels: Vascular calcification. No abdominal aortic aneurysm. Bones/Soft Tissues: Spine degenerative changes. No suspicious focal osseous lesion. Procedure Note David Wallace MD - 04/07/2023 CT ABDOMEN/PELVIS (RENAL MASS) WITH AND WITHOUT CONTRAST Referring clinician's provided indication for this examination in Epic:Outside Radiology Order; neoplasm of uncertain behavior of unspecifiedkidney TECHNIQUE: Multidetector-row CT of the abdomen and pelvis was performedbefore and after administration of intravenous contrast using tailoreddose modulation techniques. Images were reconstructed in the axial,coronal, and sagittal planes. COMPARISON: Abdominal ultrasound 02/24/2023. FINDINGS: Lower Chest: Normal. No consolidation or pleural effusions. Liver: No suspicious focal liver lesion. Benign segment 2 hepatic cyst. Biliary: No biliary ductal dilatation. Spleen: Normal. No splenomegaly or focal lesions. Pancreas: Normal. No masses or ductal dilatation. Adrenal Glands: Normal. No nodules. Kidneys/Ureters: No hydronephrosis. Volume loss involving the upper halfof the right kidney, likely reflecting scarring. Multiple subcentimeterrenal hypodensities are too small to characterize but most likelybenign.Spine degenerative changes. No right lower pole renal mass; findingon recent ultrasound likely corresponds to normal parenchymallobulation. Bowel: Prior distal colon resection. No bowel obstruction or wallthickening. Peritoneum/Retroperitoneum: Normal. No masses, pneumoperitoneum, orfluid. Lymph Nodes: Normal. No lymphadenopathy. Pelvic Organs/Bladder: Prior hysterectomy. Vessels: Vascular calcification. No abdominal aortic aneurysm. Bones/Soft Tissues: Spine degenerative changes. No suspicious focalosseous lesion. IMPRESSION: No right lower pole renal mass; finding on recent ultrasound likelycorresponds to normal parenchymal lobulation. 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, unspecified laterality documented in this encounter Care Teams Underground Heavy Equipment Operator Relationship Specialty Start Date End Date Svitlana Sher MD [address] [place] [address] PCP - General Family Medicine 08/08/22 03/24/24 Svitlana Sher MD [address] [place] [address] PCP - General Family Medicine 03/25/24 02/08/25 Svitlana Sher MD [address] [place] [address] PCP - General Family Medicine 02/09/25 Duc Suarez MD [address] [place] [address], [address] [address] [email or web address] Historical LMR Provider 01/11/17 Slime Youssef MD [address] [place] [address] [email or web address] Historical LMR Provider 01/11/17 documented as of this encounter Additional Source Comments The information contained in this document represents components of the legal health record. It is not the complete legal health record.[facility]
--- OUTSIDE RECORDS SUMMARY | 2025-03-08 18:59 | XMS_ITS | Encounter Summary ---
Author Organization [facility] Address [address] [place] [address] Phone Care Team Providers Care Auto Travel Counselor Name Role Phone Slime Youssef MD Primary Care Provider Patel Bhandari DO Unavailable Duc Suarez MD Unavailable [phone] Pao Cooley MD Unavailable Slime Youssef MD [...] Care Team (Late st Contact Info) Description 01/19/2020 Procedure Pass [facility], Ct Scan - [address] [id number] Social History Tobacco Use Types Packs/Day Years Used Date Smoking Tobacco: Former Cigarettes Smokeless Tobacco: Never Alcohol Use Standard Drinks/Week Comments Not Currently 0 (1 standard drink = 0.6 oz pur e alcohol) Comments No Sex and Gender Information Value Date Recorded Sex Assigned at Female 06/15/2019 7:45 PM EDT Legal Sex Female 10:01 PM EDT Gender Identity Female 06/15/2019 7:45 PM EDT Sexual Orientation Straight 06/15/2019 7: 45 PM EDT documented as of this encounter Plan of Treatment Upcoming Encounters Date Type Department Care Team (Late st Contact Info) Description 05/24/2024 Procedure Pass [address] [address] 04/04/2025 12:00 PM EST Appointment [address] [address] Fransico Baker MD [address] [place] [address] [email or web address] 05/04/2025 8:15 AM EST Office Visit [facility] [address] [place] [address] Unknown, Unknown, Isha Bower PA-C [address] [place] [address] [email or web address] 12/02/2025 8:40 AM EDT Office Visit [facility] [address] [place] [address] 3rd Floor, [address] [place] [address] Duc Suarez MD [address] [place] [address] documented as of this encounter Visit Diagnoses Not on filedocumented in this encounter Care Teams Auto Travel Counselor Relationship Specialty Start Date End Date Slime Youssef MD [address] [place] [address] PCP - General 01/07/17 07/28/22 Pcp, Unknown PCP - General 07/29/22 08/07/22 Svitlana Sher MD PCP - General Family Medicine 08/08/22 03/24/24 Svitlana Sher MD PCP - General Family Medicine 03/25/24 02/08/25 Svitlana Sher MD [address] [place] [address] PCP - General Family Medicine 02/09/25 Patel Bhandari DO [address] [place] [address] [place] [address] [email or web address] Historical LMR Provider 01/11/17 03/31/21 uDc Suarez MD [address] [facility], [address] [place] [address] [email or web address] Historical LMR Provider 01/11/17 Pao Cooley MD [address] [facility], 2nd [place] [address] [email or web address] Historical LMR Provider 01/11/17 Slime Youssef MD 15 [place] [address] Historical LMR Provider 01/11/17 Garret Mercedes CNP [address] [address] Historical LMR Provider 01/11/17 03/31/21 Moises Art MD [facility] [address] [place] [address] Historical LMR Provider 01/11/17 2 Destin Choe MD [address] [place] [address] Historical LMR Provider 01/11/17 Slime Youssef MD [address] [place] [address] Insurance Assigned Provider 06/27/18 05/27/20 documented as of this encounter Additional Source Comments The information contained in this document represents components of the legal health record. It is not the complete legal health record.[facility]
--- OUTSIDE RECORDS SUMMARY | 2025-03-08 18:59 | XMS_ITS | Clinical Summary ---
Author Organization [facility] Prior to 08/21/[address] [place] [address] Care Team Providers Care Saw Edge Fuser Circular Name Role Phone Unavailable Primary Care Provider Unavailabl e Allergies Active Allergy Reactions Criticality Noted Date Comments Codeine 08/20/2014 Morphine And Codeine 08/20/2014 Medications Medication Sig Dispensed Refills Start Date End Date Status aspirin 81 MG tablet Take 1 tablet (81 mg total) by mouth daily. 30 tablet 3 08/22/2014 Active atorvastatin (LIPITOR) 80 MG tablet Take 1 tablet (80 mg total) by mouth daily. 30 tablet 3 08/22/2014 Active Choline Fenofibrate (FENOFIBRIC ACID) 135 MG CPDR Take 135 mg by mouth daily. 30 capsule 3 08/22/2014 Active citalopram (CELEXA) 20 MG tablet Take 1 tablet (20 mg total) by mouth daily. 30 tablet 3 08/22/2014 Active losartan (COZAAR) 50 MG tablet Take 1 tablet (50 mg total) by mouth daily. 30 tablet 3 08/22/2014 Active metoprolol (TOPROL-XL) 25 MG 24 hr tablet Take 1 tablet (25 mg total) by mouth daily. 30 tablet 3 08/22/2014 Active nitroglycerin (NITROSTAT) 0.[address] 1 tablet (0.4 mg total) under the tongue every 5 (five) minutes as needed for chest pain. 90 tablet 12 08/22/2014 Active Ticagrelor (BRILINTA) 90 MG TABS tablet Take 1 tablet (90 mg total) by mouth every 12 (twelve) hours. 60 tablet 3 08/22/2014 Active Active Problems Problem Noted Date Diagnosed Date Chest pain 08/20/2014 HTN (hypertension) 08/20/2014 Diverticulitis 08/20/2014 Social History Tobacco Use Types Packs/Day Years Used Date Smoking Tobacco: Former Cigarettes Q uit: 08/20/2010 Alcohol Use Standard Drinks/Week Comments Yes 0 (1 standard drink = 0.6 oz pur e alcohol) occasionally Sex and Gender Information Value Date Recorded Sex Assigned at Not on file Gender Identity Not on file Sexual Orientation Not on file Job Start Date Occupation Industry Not on file Not on file Not on file Last Filed Vital Signs Vital Sign Reading Time Taken Comments Blood Pressure 99/47 08/22/2014 11:00 AM EDT Pulse 67 08/22/2014 11:00 AM EDT Temperature 36.8 C (98.3 F) 08/22/2014 11:00 AM EDT Respiratory Rate 15 08/22/2014 11:00 AM EDT Oxygen Saturation 97% 08/22/2014 11:00 AM EDT Inhaled Oxygen Concentration - - Weight 75.6 kg (166 lb 9.6 oz) 08/22/2014 2:50 A M EDT Height 167.6 cm (5' 6 ) 08/20/2014 11:14 AM EDT Body Mass Index 26.89 08/20/2014 11:14 AM EDT Plan of Treatment Health Maintenance Due Date Last Done Comments Hepatitis C Screening 1950 COVID-19 Vaccine (#1) [birth year]03/1951 Depression Screening 1962 Preventative Health Evaluation 1968 DTap / Tdap / Td (1 - Tdap) 1969 Colon Cancer Screening (Colonoscopy) 09/02/1995 Breast Cancer Screening (Mammogram) 2000 Shingrix-Zoster Vaccine (1 of 2) 2000 Fall Risk Assessment 09/02/2015 Osteoporosis Screening (DEXA Scan) 09/02/2015 Pneumococcal Vaccine (2 of 2 - PPSV23 or PCV20) 06/12/2017 06/12/2016 Influenza Vaccine (#1) 2024 RSV Adult > 60+ Yrs or Pregn ant (1 - 1-dose 75+ series) 2025 Hepatitis B Vaccines Aged Out No long er eligible based on patient's age to complete this topic RSV Ped < 20 months Aged Out No longe r eligible based on patient's age to complete this topic Medical Devices Implanted Type Area Airport Utility Worker Device Identifier Shelf Expiration Date Model / Serial / Lot Stent Resolute Integrity Microtrac 14mm 2.5mm 1 Strand Rapdx - [id number] - [id number] Implanted:08/20 at [facility] (Quantity not on file) [employer] - VASCULAR [id number] X / / Stent Resolute Integrity Microtrac 12mm 2.5mm 1 Strand Rapdx - [id number] - [id number] Implanted:08/20 at [facility] (Quantity not on file) [employer] - VASCULAR [id number] X / / Advance Directives For more information, please contact: [phone] Latest Code Status on File Code Status Date Activated Date Inactivated Comments Full Code 08/20/2014 12:26 PM 08/22/2014 10:34 PM This code status was ascertained in the following way: per unit protocol. Code Status History Code Status Date Activated Date Inactivated Comments Full Code 08/20/2014 6:58 AM 08/20/2014 12:26 PM This code status was ascertained in the following way: discussion with patient.
--- OUTSIDE RECORDS SUMMARY | 2025-03-08 18:59 | XMS_ITS | Encounter Summary ---
Author Organization [facility] Address [address] [place] [address] Phone Care Team Providers Care Outdoor Adventure Leader Name Role Phone Duc Suarez MD Unavailable Slime Youssef MD Unavailable Svitlana Sher MD Primary Care Pr ovider Svitlana Sher MD Primary Care Pr ovider Svitlana Sher MD Primary Care Pr ovider Encounter Details Date Type Department Care Team (Late st Contact Info) Description 09/13/2022 Transcribe Orders Virtual Department [address] [place] [address] Svitlana Sher MD [address] [place] [address] [phone] Breast screening (Primary Dx) Social History Tobacco Use Types [...] st Contact Info) Description 05/24/2024 Procedure Pass [address] [address] 04/04/2025 12:00 PM EST Appointment [address] [address] Fransico Baker MD [address] [place] [address] [email or web address] 05/04/2025 8:15 AM EST Office Visit [facility] [address] [place] [address] Unknown, Unknown, Isha Bower PA-C [address] [place] [address] [email or web address] 12/02/2025 8:40 AM EDT Office Visit [facility] [address] [place] [address] 3rd Floor, [address] [place] [address] Duc Suarez MD [address] [place] [address], [address] [address] documented as of this encounter Results * BI MAMMOGRAM SCREENING WITH TOMOSYNTHESIS WITH CAD (BILATERAL) (09/17/2022 2:16 PM EDT) Anatomical Region Laterality Modality Breast Left, Breast Right, Breast Bilateral Bila teral Mammography 09/17/2022 8:26 PM EDT Impressions 09/17/2022 8:29 PM EDT BILATERAL BREASTS: Benign, no specific mammographic evidence of malignancy. Normal interval follow-up is recommended in 12 months. BI-RADS: BI-RADS CATEGORY: 2 - Benign finding. DENSITY: There are scattered fibroglandular densities. Narrative 09/17/2022 8:29 PM EDT STUDY: BI MAMMOGRAM SCREENING WITH TOMOSYNTHESIS WITH CAD (BILATERAL) TECHNIQUE: Bilateral full-field digital screening mammography is obtained and read in conjunction with computer-aided detection. Tomosynthesis as well as 2-D C view imaging were obtained. COMPARISON: Comparison made to multiple prior, most recent October 21, 2019, and most remote June 01, 2014. BREAST COMPOSITION: There are scattered areas of fibroglandular density RIGHT BREAST: History of multiple excisional biopsies. No significant masses, suspicious calcifications or other abnormalities are seen. LEFT BREAST: History of multiple excisional biopsies. No significant masses, suspicious calcifications or other abnormalities are seen. Procedure Note Jose Angel Hays MD - 09/17/2022 STUDY: BI MAMMOGRAM SCREENING WITH TOMOSYNTHESIS WITH CAD (BILATERAL) TECHNIQUE: Bilateral full-field digital screening mammography is obtainedand read in conjunction with computer-aided detection. Tomosynthesis aswell as 2-D C view imaging were obtained. COMPARISON: Comparison made to multiple prior, most recent October 21, 2019,and most remote June 01, 2014. BREAST COMPOSITION: There are scattered areas of fibroglandulardensity RIGHT BREAST: History of multiple excisional biopsies. No significantmasses, suspicious calcifications or other abnormalities are seen. LEFT BREAST: History of multiple excisional biopsies. No significantmasses, suspicious calcifications or other abnormalities are seen. IMPRESSION: BILATERAL BREASTS: Benign, no specific mammographic evidence ofmalignancy. Normal interval follow-up is recommended in 12 months. BI-RADS: BI-RADS CATEGORY: 2 - Benign finding. DENSITY: There are scattered fibroglandular densities. Svitlana Sher MD IMG MG EXAMS Final Result documented in this encounter Visit Diagnoses Diagnosis Breast screening- Primary Breast screening, unspecified Breast screening Breast screening, unspecified documented in this encounter Care Teams Outdoor Adventure Leader Relationship Specialty Start Date End Date Svitlana Sher MD [address] [place] [address] PCP - General Family Medicine 08/08/22 03/24/24 Svitlana Sher MD [address] [place] [address] PCP - General Family Medicine 03/25/24 02/08/25 Svitlana Sher MD [address] [place] [address] PCP - General Family Medicine 02/09/25 Duc Suarez MD [address] [place] [address], [address] [address] Historical LMR Provider 01/11/17 Slime Youssef MD [address] [place] [address] Historical LMR Provider 01/11/17 documented as of this encounter Additional Source Comments The information contained in this document represents components of the legal health record. It is not the complete legal health record.[facility]
--- OUTSIDE RECORDS SUMMARY | 2025-03-08 18:59 | XMS_ITS | Encounter Summary ---
Author Organization [facility] Address [address] [place] [address] Phone Care Team Providers Care Services Mgr Name Role Phone Slime Youssef MD Primary Care Provider Patel Bhandari DO Unavailable Duc Suarez MD Unavailable Pao Cooley MD Unavailable Slime Youssef MD Unavailable aGrret Mercedes CNP Unavailable Moises Art MD Unavailable Destin Choe MD Unavailable Slime Youssef MD Unavailable Pcp, Unknown Primary Care Provider Unavailabl e Svitlana Sher MD Primary Care Pr ovider Svitlana Sehr MD Primary Care Pr ovider Svitlana Sher MD Primary Care Pr ovider Encounter Details Date Type Department Care Team (Late st Contact Info) Description 09/15/2019 Ancillary Orders Virtual Department [address] [place] [address] Slime Youssef MD [address] [place] [address] Breast screening Social History Tobacco Use Types [...] st Contact Info) Description 05/24/2024 Procedure Pass [address] [address] 04/04/2025 12:00 PM EST Appointment [address] [address] Fransico Baker MD [address] [place] [address] [email or web address] 05/04/2025 8:15 AM EST Office Visit [facility] [address] [place] [address] Unknown, Unknown, Isha Bower PA-C [address] [place] [address] [email or web address] 12/02/2025 8:40 AM EDT Office Visit [facility] [address] [place] [address] 3rd Floor, [address] [place] [address] Duc Suarez MD [address] [place] [address], [address] [place] [address] documented as of this encounter Results * BI MAMMOGRAM SCREENING WITH TOMOSYNTHESIS WITH CAD (BILATERAL) (10/21/2019 4:11 PM EDT) Anatomical Region Laterality Modality Breast Left, Breast Right, Breast Bilateral Bila teral Mammography 10/21/2019 4:53 PM EDT Impressions 10/21/2019 4:55 PM EDT No mammographic evidence of malignancy. Recommend routine annual surveillance. BI-RADS CATEGORY: 2 - Benign finding. DENSITY: There are scattered fibroglandular densities. Narrative 10/21/2019 4:55 PM EDT 69-year-old female with no current breast symptoms. Comparison made to previous on 06/17/2018 and as far back as 04/15/2013. Interpretation made in conjunction with computer-aided detection and tomosynthesis. There are scattered areas of fibroglandular density. Decrease in medial left breast postsurgical changes. Otherwise stable bilateral masses and calcifications. There are no suspicious masses, areas of architectural distortion, or suspicious clusters of microcalcifications. us Slime Youssef MD IMG MG EXAMS Final Resul t documented in this encounter Visit Diagnoses Diagnosis Breast screening Breast screening, unspecified Breast screening Breast screening, unspecified documented in this encounter Additional Health Concerns Infection Onset Date Last Indicated Resolved Time CoV-Exposed Comment:Recent close contact 10/03/2019 10/03/2019 10/17/2019 1:25 AM EDT documented as of this encounter Care Teams Services Mgr Relationship Specialty Start Date End Date Slime Youssef MD [address] [place] [address] [email or web address] PCP - General 01/07/17 07/28/22 Pcp, Unknown PCP - General 07/29/22 08/07/22 Svitlana Sher MD PCP - General Family Medicine 08/08/22 03/24/24 Svitlana Sher MD PCP - General Family Medicine 03/25/24 02/08/25 Svitlana Sher MD [address] [place] [address] PCP - General Family Medicine 02/09/25 Patel Bhandari DO [address] [place] [address] [place] [address] Historical LMR Provider 01/11/17 03/31/21 Duc Suarez MD [address] [address] Historical LMR Provider 01/11/17 Pao Cooley MD [address] [address] Historical LMR Provider 01/11/17 Slime Youssef MD [address] [place] [address] Historical LMR Provider 01/11/17 Garret Mercedes HALL WORKER 15 [facility], [address] [place] [address] Historical LMR Provider 01/11/17 03/31/21 Moises Art MD [address] [place] [address] Historical LMR Provider 01/11/17 2 Destin Choe MD [address] [place] [address] Historical LMR Provider 01/11/17 Slime Youssef MD [address] [place] [address] [email or web address] Insurance Assigned Provider 06/27/18 05/27/20 documented as of this encounter Additional Source Comments The information contained in this document represents components of the legal health record. It is not the complete legal health record.[facility]
--- OUTSIDE RECORDS SUMMARY | 2025-03-08 18:59 | XMS_ITS | Encounter Summary ---
Author Organization [facility] Address [address] [place] [address] Phone Care Team Providers Care Geriatric Nurse Assistant Name Role Phone Slime Youssef MD Primary Care Provider Duc Suarez MD Unavailable [phone] Slime Youssef MD Unavailable [phone] Pcp, Unknown Primary Care Provider Unavailabl e Svitlana Sher MD Primary Care Pr ovider Svitlana Sher MD Primary Care Pr ovider Svitlana Sher MD Primary Care Pr ovider Encounter Details Date Type Department Care Team (Late st Contact Info) Description 05/01/2021 Procedure Pass [facility], Ct Scan - [address] [address] Social History Tobacco Use Types Packs/Day Years [...] st Contact Info) Description 05/24/2024 Procedure Pass [facility], Ct Scan - [address] [address] 04/04/2025 12:00 PM EST Appointment [facility], Ct Scan - [address] [address] Fransico Baker MD [address] [place] [address] [email or web address] 05/04/2025 8:15 AM EST Office Visit [facility] [address] [place] [address] Unknown, Unknown, Isha Bower PA-C [address] [place] [address] [email or web address] 12/02/2025 8:40 AM EDT Office Visit [facility] [address] [place] [address] 3rd [facility], [address] [place] [address] Duc Suarez MD [address] [place] [address] documented as of this encounter Visit Diagnoses Not on filedocumented in this encounter Care Teams Geriatric Nurse Assistant Relationship Specialty Start Date End Date Slime Youssef MD [address] [place] [address] PCP - General 01/07/17 07/28/22 Pcp, Unknown PCP - General 07/29/22 08/07/22 Svitlana Sher MD PCP - General Family Medicine 08/08/22 03/24/24 Svitlana Sher MD PCP - General Family Medicine 03/25/24 02/08/25 Svitlana Sher MD [address] [place] [address] PCP - General Family Medicine 02/09/25 Duc Suarez MD [address] [place] [address] [email or web address] Historical LMR Provider 01/11/17 Slime Youssef MD [address] [place] [address] [email or web address] Historical LMR Provider 01/11/17 documented as of this encounter Additional Source Comments The information contained in this document represents components of the legal health record. It is not the complete legal health record.[facility]
--- OUTSIDE RECORDS SUMMARY | 2025-03-08 18:59 | XMS_ITS | Encounter Summary ---
Author Organization [facility] Address [address] [place] [address] Phone Care Team Providers Care Nuclear Engineer Name Role Phone Slime Youssef MD Primary [...] Care Team (Late st Contact Info) Description 01/05/2020 Transcribe Orders [facility] [address] 2nd Floor [place], [place] [phone] Slime Youssef MD [address] [place] [address] Cough (Primary Dx) Social History Tobacco Use Types [...] st Contact Info) Description 05/24/2024 Procedure Pass [address] [address] 04/04/2025 12:00 PM EST Appointment [address] [address] Fransico Baker MD [address] [place] [address] [email or web address] 05/04/2025 8:15 AM EST Office Visit [facility] [address] [place] [address] Unknown, Unknown, Isha Bower PA-C [address] [place] [address] [email or web address] 12/02/2025 8:40 AM EDT Office Visit [facility] [address] [place] [address] 3rd Floor, [address] [place] [address] Duc Suarez MD [address] [place] [address], [address] [address] documented as of this encounter Results * (ABNORMAL) Respiratory culture/smear (01/05/2020 2:31 PM EDT) Special Requests None 01/05/2020 2:31 PM EDT [facility] GRAM STAIN Few GRAM NEGATIVE RODS , Rare GRAM POSITIVE COCCI , Rare GRAM POSITIVE RODS , No WBC seen on smear. , No epithelial cells seen on smear 01/06/2020 10:43 AM EDT [facility] Respiratory Cult/Smear MIXED ORGANISMS RESEMBLING OROPHARYNGEAL KATIE(A) 01/06/2020 10:48 AM EDT [facility] Other (Sputum) 01/05/2020 2: 31 PM EDT 01/05/2020 2:34 PM EDT Slime Youssef MD LAB MICROBIOLOGY CULTURE OR DERABLES Final Result Performing Organization Address City/State/[facility] Co de Phone Number [address] [address] documented in this encounter Visit Diagnoses Diagnosis Cough- Primary documented in this encounter Care Teams Nuclear Engineer Relationship Specialty Start Date End Date Slime Youssef MD [address] [place] [address] [email or web address] PCP - General 01/07/17 07/28/22 Pcp, Unknown PCP - General 07/29/22 08/07/22 Svitlana Sher MD PCP - General Family Medicine 08/08/22 03/24/24 Svitlana Sher MD PCP - General Family Medicine 03/25/24 02/08/25 Svitlana Sher MD [address] [place] [address] PCP - General Family Medicine 02/09/25 Patel Bhandari DO [address] [place] [address] [place] [address] [email or web address] Historical LMR Provider 01/11/17 03/31/21 Duc Suarez MD 22 [facility] [address] [place] [address] Historical LMR Provider 01/11/17 Pao Cooley MD [address] [place] [address] [email or web address] Historical LMR Provider 01/11/17 Slime Youssef MD [address] [place] [email or web address] [email or web address] Historical LMR Provider 01/11/17 Garret Mercedes CNP [address] [place] [address] Historical LMR Provider 01/11/17 03/31/21 Moises Art MD [address] [place], [place] [address]y Edgar [address] [place] [address] Historical LMR Provider 01/11/17 2 Destin Choe MD [address] [place] [address] Historical LMR Provider 01/11/17 Slime Youssef MD [address] [place] [address] [email or web address] Insurance Assigned Provider 06/27/18 05/27/20 documented as of this encounter Additional Source Comments The information contained in this document represents components of the legal health record. It is not the complete legal health record.[facility]
--- OUTSIDE RECORDS SUMMARY | 2025-03-08 18:59 | XMS_ITS | Encounter Summary ---
Author Organization [facility] Address [address] [place] [address] Phone Care Team Providers Care Metal Trades Instructor Name Role Phone Slime Youssef MD Primary Care Provider Duc Suarez MD Unavailable [phone] Slime Youssef MD Unavailable Pcp, Unknown Primary Care Provider Unavailabl e Svitlana Sher MD Primary Care Pr ovider Svitlana Sher MD Primary Care Pr ovider Svitlana Sher MD Primary Care Pr ovider Encounter Details Date Type Department Care Team (Late st Contact Info) Description 04/30/2021 Transcribe Orders Virtual Department [address] [place] [address] Slime Youssef MD [address] [place] [address] [email or web address] Postmenopausal (Primary Dx) Social History Tobacco Use Types [...] st Contact Info) Description 05/24/2024 Procedure Pass [facility], Ct Scan - [address] [address] 04/04/2025 12:00 PM EST Appointment [facility], Ct Scan [address] [address] Fransico Baker MD [address] [place] [address] [email or web address] 05/04/2025 8:15 AM EST Office Visit [facility] [address] [place] [address] Unknown, Unknown, Isha Bower PA-C [address] [place] [address] [email or web address] 12/02/2025 8:40 AM EDT Office Visit [facility] [address] [place] [address] 3rd [facility], [address] [place] [address] Duc Suarez MD [address] [place] [address] documented as of this encounter Results * BD DXA AXIAL (SPINE) WITH HIP (08/03/2021 1:25 PM EDT) Anatomical Region Laterality Modality Bone Density Bone Density 08/03/2021 1:36 PM EDT Impressions 08/03/2021 1:38 PM EDT Osteopenia. Reference Information: The T-score is the number of standard deviations above or below the standard which is normal for young adults at their peak bone mineral density. The World Health Organization (WHO) interprets the T-scores as follows: Above -1 Normal bone density Between -1 and -2.5Osteopenia Equal to / or below -2.5Osteoporosis As a practical clinical guideline, osteopenia may be graded as follows: Mild -1 through -1.5 Moderate -1.6 through -2.0 Severe-2.1 through -2.4 References: 1. NIH Osteoporosis and Related Bone Diseases http://www.osteo.org 2. International Society for Clinical Densitometry http://www.iscd.org 3. National Osteoporosis Foundation http://www.nof.org Narrative 08/03/2021 1:38 PM EDT STUDY: DUAL ENERGY X-RAY ABSORPTIOMETRY / DXA REASON FOR EXAM: Female, 70 years old. TECHNIQUE: Bone Mineral Density (BMD) measurements of the lumbar spine and femoral necks were obtained. COMPARISON: 05/06/2012 FINDINGS: L1-L4 T score: -0.3. This corresponds to Normal bone density. This represents a 13.3 % increase in bone density compared with prior exam from 05/06/2012. Right femoral neck T score: -1.9. This corresponds to osteopenia This represents a 7.7 % increase in bone density compared with prior exam from 05/06/2012. Left femoral neck T score: -2.2. This corresponds to osteopenia This represents a -0.2 % decrease in bone density compared with prior exam from 05/06/2012. Procedure Note Unique Parekh MD - 08/03/2021 STUDY: DUAL ENERGY X-RAY ABSORPTIOMETRY / DXA REASON FOR EXAM: Female, 70 years old. TECHNIQUE: Bone Mineral Density (BMD) measurements of the lumbar spineand femoral necks were obtained. COMPARISON: 05/06/2012 FINDINGS: L1-L4 T score: -0.3. This corresponds to Normal bone density. This represents a 13.3 % increase in bone density compared with prior examfrom 05/06/2012. Right femoral neck T score: -1.9. This corresponds to osteopenia This represents a 7.7 % increase in bone density compared with prior examfrom 05/06/2012. Left femoral neck T score: -2.2. This corresponds to osteopenia This represents a -0.2 % decrease in bone density compared with prior examfrom 05/06/2012. IMPRESSION: Osteopenia. Reference Information: The T-score is the number of standard deviations above or below thestandard which is normal for young adults at their peak bone mineraldensity. The World Health Organization (WHO) interprets the T-scores asfollows: Above -1 Normal bone density Between -1 and -2.5Osteopenia Equal to / or below -2.5Osteoporosis As a practical clinical guideline, osteopenia may be graded as follows: Mild -1 through -1.5 Moderate -1.6 through -2.0 Severe-2.1 through -2.4 References: 1. NIH Osteoporosis and Related Bone Diseases http://www.osteo.org 2. International Society for Clinical Densitometry http://www.iscd.org 3. National Osteoporosis Foundation http://www.nof.org us Slime BORREGO BD BONE DENSITY DEXA Fi nal Result documented in this encounter Visit Diagnoses Diagnosis Postmenopausal- Primary Asymptomatic postmenopausal status (age-related) (natural) Postmenopausal Asymptomatic postmenopausal status (age-related) (natural) documented in this encounter Care Teams Metal Trades Instructor Relationship Specialty Start Date End Date Slime Youssef MD [address] [place] [address] [email or web address] PCP - General 01/07/17 07/28/22 Pcp, Unknown PCP - General 07/29/22 08/07/22 Svitlana Sher MD PCP - General Family Medicine 08/08/22 03/24/24 Svitlana Sher MD PCP - General Family Medicine 03/25/24 02/08/25 Svitlana Sher MD [address] [place] [address] PCP - General Family Medicine 02/09/25 Duc Suarez MD [address] [place] [address], [facility] [address] [place] [address] [email or web address] Historical LMR Provider 01/11/17 Slime Youssef MD [address] [place] [address] [email or web address] Historical LMR Provider 01/11/17 documented as of this encounter Additional Source Comments The information contained in this document represents components of the legal health record. It is not the complete legal health record.[facility]
--- OUTSIDE RECORDS SUMMARY | 2025-03-08 18:59 | XMS_ITS | Encounter Summary ---
Author Organization [facility] Address [address] [place] [address] Phone Care Team Providers Care Police Guard Name Role Phone Slime Youssef MD Primary Care Provider Patel Bhandari DO Unavailable Duc Suarez MD Unavailable Pao Cooley MD Unavailable Slime Youssef MD Unavailable [phone] Garret Mercedes CNP Unavailable Moises Art MD Unavailable Destin Choe MD Unavailable Slime Youssef MD Unavailable Pcp, Unknown Primary Care Provider Unavailabl e Svitlana Sher MD Primary Care Pr ovider Svitlana Sher MD Primary Care Pr ovider Svitlana Sher MD Primary Care Pr ovider Encounter Details Date Type Department Care Team (Late st Contact Info) Description 12/19/2017 Procedure Pass [facility], [address] [phone] Social History Tobacco Use Types Packs/Day Years [...] st Contact Info) Description 05/24/2024 Procedure Pass [facility], Ct Scan - [address] [address] 04/04/2025 12:00 PM EST Appointment [facility], Ct Scan [address] [address] Fransico Baker MD [address] [place] [address] [email or web address] 05/04/2025 8:15 AM EST Office Visit [facility] [address] [place] [address] Unknown, Unknown, Isha Bower PA-C [address] [place] [address] [email or web address] 12/02/2025 8:40 AM EDT Office Visit [facility] [address] [place] [address] 3rd Floor, [address] [place] [address] Duc Suarez MD [address] [place] [address], [address] [place] [address] documented as of this encounter Visit Diagnoses Not on filedocumented in this encounter Additional Health Concerns Infection Onset Date Last Indicated Resolved Time CoV-Exposed Comment:Recent close contact 10/03/2019 10/03/2019 10/17/2019 1:25 AM EDT documented as of this encounter Care Teams Police Guard Relationship Specialty Start Date End Date Slime Youssef MD [address] [place] [address] [email or web address] PCP - General 01/07/17 07/28/22 Pcp, Unknown PCP - General 07/29/22 08/07/22 Svitlana Sher MD PCP - General Family Medicine 08/08/22 03/24/24 Svitlana Sher MD PCP - General Family Medicine 03/25/24 02/08/25 Svitlana Sher MD [address] [place] [address] PCP - General Family Medicine 02/09/25 Patel Bhandari DO [address] [place] [address] [place] [address] [email or web address] Historical LMR Provider 01/11/17 03/31/21 Duc Suarez MD [address] [place] [address] [address] [place] [address] [email or web address] Historical LMR Provider 01/11/17 Pao Cooley MD [address] [place] [address], 2nd [place] [address] [email or web address] Historical LMR Provider 01/11/17 Slime Youssef MD [address] [place] [address] Historical LMR Provider 01/11/17 Garret Mercedes CNP [facility], [address] [place] [address] Historical LMR Provider 01/11/17 03/31/21 Moises Art MD [facility] [address] [place] [address] Historical LMR Provider 01/11/17 2 Destin Choe MD [address] [place] [address] Historical LMR Provider 01/11/17 Slime Youssef MD [address] [place] [address] [email or web address] Insurance Assigned Provider 06/27/18 05/27/20 documented as of this encounter Additional Source Comments The information contained in this document represents components of the legal health record. It is not the complete legal health record.[facility]
--- OUTSIDE RECORDS SUMMARY | 2025-03-08 18:59 | XMS_ITS | Encounter Summary ---
Author Organization [facility] Address [address] [place] [address] Phone Care Team Providers Care Bail Bonding Agent Name Role Phone Slime Youssef MD Primary Care Provider Duc Suarez MD Unavailable [phone] Slime Youssef MD Unavailable [phone] Pcp, Unknown Primary Care Provider Unavailabl e Svitlana Sher MD Primary Care Pr ovider Svitlana Sher MD Primary Care Pr ovider Svitlana Sher MD Primary Care Pr ovider Reason for Referral * MRI/CAT Scan - Closed Specialty Diagnoses / Procedures Referred By Heriberto t Referred To Contact Radiology Diagnoses Other spondylosis with radiculopathy, cervical region Procedures MRI Cervical Spine Joey Lee DO Phone: tel: fax: [email or web address] Referral ID Status Reason Start Date Expiration Date Visits Re quested Visits Authorized [id number] Closed 08/14/2021 08/14/2022 1 1 Encounter Details Date Type Department Care Team (Latest Contact Info) Description 08/14/2021 Transcribe Orders Virtual Department [address] [place] [address] Joey Lee, DO [address] [place] [address] [email or web address] spondylosis with radiculopathy, cervical region (Primary Dx) Social History Tobacco Use Types [...] st Contact Info) Description 05/24/2024 Procedure Pass [place], Ct Scan [address] [address] 04/04/2025 12:00 PM EST Appointment [place], Ct Scan [address] [address] Fransico Baker MD [address] [place] [address] [email or web address] 05/04/2025 8:15 AM EST Office Visit [facility] [address] [place] [address] Unknown, Unknown, Isha Bower PA-C [address] [place] [address] [email or web address] 12/02/2025 8:40 AM EDT Office Visit [facility] [address] [place] [address] 3rd Floor, [address] [place] [address] Duc Suarez MD [address] [facility], [address] [place] [address] [email or web address] documented as of this encounter Results * MRI CERVICAL SPINE (NEURO) FOCUS WITHOUT CONTRAST (08/27/2021 9:30 AM EDT) Anatomical Region Laterality Modality C-spine Magnetic Resonan ce 08/27/2021 2:50 PM EDT Impressions 08/27/2021 3:28 PM EDT No significant progressive degenerative changes since 2018. Findings as above Narrative 08/27/2021 3:28 PM EDT COMPARISON: 03/05/2018. TECHNIQUE: Exam performed on a 1.5 Roseanne high-field MRI scanner. Sagittal T1, T2 and STIR, axial T2* gradient echo and 3-D bright fluid sequences were obtained. MRI CERVICAL SPINE FINDINGS: Stable multilevel disc desiccation and disc space narrowing which is of moderate degree at C3-4 and C5-6, severe left occipital C1 joint space narrowing, multilevel mild anterior wedging and endplate osteophytes and degenerative bone marrow edema signal changes at C3-4 and occiput C1 articulation. No destructive or suspicious bone lesions. Stable mild cerebellar tonsil ectopia. No significant change in central T2 hyperintense signal changes within the spinal cord at C4-5 through C5-C6 which may represent a syrinx or myelopathy. Paraspinal soft tissues are unremarkable. C2-3: Stable small central disc protrusion, disc bulging and moderate left facet arthropathy with moderate left neural foraminal stenosis due to spurring. C3-4: Slight increase in size of the of the generalized disc osteophyte complex. Stable moderate right and mild left facet arthropathy, mild left and severe right neural foraminal stenosis and mild mild canal stenosis. C4-5: Stable small generalized disc osteophyte complex and mild canal stenosis. C5-6: Stable small generalized disc protrusion. Stable moderate right neural foraminal stenosis. C6-7: Stable small generalized disc protrusion. C7-T1: Unremarkable. Procedure Note Jose Son MD - 08/27/2021 COMPARISON: 03/05/2018. TECHNIQUE: Exam performed on a 1.5 Roseanne high-field MRI scanner. SagittalT1, T2 and STIR, axial T2* gradient echo and 3-D bright fluid sequenceswere obtained. MRI CERVICAL SPINE FINDINGS: Stable multilevel disc desiccation and disc space narrowing which is ofmoderate degree at C3-4 and C5-6, severe left occipital C1 joint spacenarrowing, multilevel mild anterior wedging and endplate osteophytes anddegenerative bone marrow edema signal changes at C3-4 and occiput [id number]. No destructive or suspicious bone lesions. Stable mildcerebellar tonsil ectopia. No significant change in central [id number] signal changes within the spinal cord at C4-5 through C5-I3oykso may represent a syrinx or myelopathy. Paraspinal soft tissues areunremarkable. C2-3: Stable small central disc protrusion, disc bulging and moderateleft facet arthropathy with moderate left neural foraminal stenosis due tospurring. C3-4: Slight increase in size of the of the generalized disc osteophytecomplex. Stable moderate right and mild left facet arthropathy, mild leftand severe right neural foraminal stenosis and mild mild canal stenosis. C4-5: Stable small generalized disc osteophyte complex and mild canalstenosis. C5-6: Stable small generalized disc protrusion. Stable moderate rightneural foraminal stenosis. C6-7: Stable small generalized disc protrusion. C7-T1: Unremarkable. IMPRESSION: No significant progressive degenerative changes since 2018. Findings asabove us Joey Lee DO IMG MR XSPECIALTY Final Resu lt documented in this encounter Visit Diagnoses Diagnosis Other spondylosis with radiculopathy, cervical region- Primary Other spondylosis with radiculopathy, cervical region documented in this encounter Care Teams Bail Bonding Agent Relationship Specialty Start Date End Date Slime Youssef MD [address] [place] [address] PCP - General 01/07/17 07/28/22 Pcp, Unknown PCP - General 07/29/22 08/07/22 Svitlana Sher MD PCP - General Family Medicine 08/08/22 03/24/24 Svitlana Sher MD PCP - General Family Medicine 03/25/24 02/08/25 Svitlana Sher MD [address] [place] [address] PCP - General Family Medicine 02/09/25 Duc Suarez MD [address] [place] [address], [address] [address] [email or web address] Historical LMR Provider 01/11/17 Slime Youssef MD [address] [place] [address] [email or web address] Historical LMR Provider 01/11/17 documented as of this encounter Additional Source Comments The information contained in this document represents components of the legal health record. It is not the complete legal health record.[facility]
--- OUTSIDE RECORDS SUMMARY | 2025-03-08 18:59 | XMS_ITS | Encounter Summary ---
Author Organization [facility] Address [address] [place] [address] Phone Care Team Providers Care Dry Finisher Name Role Phone Duc Suarez MD Unavailable [phone] Slime Youssef MD Unavailable [phone] Svitlana Sher MD Primary Care Pr ovider Svitlana Sher MD Primary Care Pr ovider Svitlana Sher MD Primary Care Pr ovider Encounter Details Date Type Department Care Team (Late st Contact Info) Description 10/09/2023 Procedure Pass [facility], Ct Scan - [address] [address] Social History Tobacco Use Types Packs/Day Years [...] st Contact Info) Description 05/24/2024 Procedure Pass [place], Ct Scan [address] [address] 04/04/2025 12:00 PM EST Appointment [facility] Ct Scan [address] [address] Fransico Baker MD [address] [place] [address] [email or web address] 05/04/2025 8:15 AM EST Office Visit [facility] [address] [place] [address] Unknown, Unknown, Isha Bower, PAMathieuC [address] [place] [address] [email or web address] 12/02/2025 8:40 AM EDT Office Visit [facility] [address] [place] [address] 3rd Floor, [address] [address] Duc Suarez MD [address] [place] [address] [email or web address] documented as of this encounter Visit Diagnoses Not on filedocumented in this encounter Care Teams Dry Finisher Relationship Specialty Start Date End Date Svitlana Sher MD [address] [place] [address] PCP - General Family Medicine 08/08/22 03/24/24 Svitlana Sher MD [address] [place] [address] PCP - General Family Medicine 03/25/24 02/08/25 Svitlana Sher MD [address] [place] [address] PCP - General Family Medicine 02/09/25 Duc Suarez MD [address] [place] [address] [email or web address] Historical LMR Provider 01/11/17 Slime Youssef MD [address] [place] [address] Historical LMR Provider 01/11/17 documented as of this encounter Additional Source Comments The information contained in this document represents components of the legal health record. It is not the complete legal health record.[facility]
--- OUTSIDE RECORDS SUMMARY | 2025-03-08 18:59 | XMS_ITS | Encounter Summary ---
Author Organization [facility] Address [address] [place] [address] Phone Care Team Providers Care Dialysis Chief Equipment Technician Name Role Phone Slime Youssef MD Primary Care Provider Patel Bhandari DO Unavailable Duc Suarez MD Unavailable [phone] Pao Cooley MD Unavailable Slime Youssef MD Unavailable Garret Mercedes CNP Unavailable [phone] Moises Art MD Unavailable Destin Choe MD Unavailable Slime Youssef MD Unavailable Pcp, Unknown Primary Care Provider Unavailabl e Svitlana Sher MD Primary Care Pr ovider Svitlana Sher MD Primary Care Pr ovider Svitlana Sher MD Primary Care Pr ovider Encounter Details Date Type Department Care Team (Late st Contact Info) Description 01/11/2017 Ancillary Orders [address] [phone] Shorty Willis MD [address] [place] [address] Fatty liver Social History Tobacco Use Types Packs/Day Years [...] st Contact Info) Description 05/24/2024 Procedure Pass [place], Ct Scan [address] [address] 04/04/2025 12:00 PM EST Appointment [address] [address] Fransico Baker MD [address] [place] [address] [email or web address] 05/04/2025 8:15 AM EST Office Visit [facility] [address] [place] [address] Unknown, Unknown, Isha Bower PA-C [address] [place] [address] [email or web address] 12/02/2025 8:40 AM EDT Office Visit [facility] [address] [place] [address] 3rd Floor, [address] [place] [address] Duc Suarez MD [address] [place] [address], [address] [address] documented as of this encounter Visit Diagnoses Diagnosis Fatty liver Other chronic nonalcoholic liver disease documented in this encounter Additional Health Concerns Infection Onset Date Last Indicated Resolved Time CoV-Exposed Comment:Recent close contact 10/03/2019 10/03/2019 10/17/2019 1:25 AM EDT documented as of this encounter Care Teams Dialysis Chief Equipment Technician Relationship Specialty Start Date End Date Slime Youssef MD [address] [place] [address] PCP - General 01/07/17 07/28/22 Pcp, Unknown PCP - General 07/29/22 08/07/22 Svitlana Sher MD PCP - General Family Medicine 08/08/22 03/24/24 Svitlana Sher MD PCP - General Family Medicine 03/25/24 02/08/25 Svitlana Sher MD [address] [place] [address] PCP - General Family Medicine 02/09/25 Patel Bhandari DO [address] [place] [address] [place] [address] [email or web address] Historical LMR Provider 01/11/17 03/31/21 Duc Suarez MD [facility] [address] [place] [address] [email or web address] Historical LMR Provider 01/11/17 Pao Cooley MD [facility], 2nd [place] [address] Historical LMR Provider 01/11/17 Slime Youssef MD [address] [place] [address] Historical LMR Provider 01/11/17 Garret Mercedes CANVAS WORKER [facility], 2[address] [place] [address] Historical LMR Provider 01/11/17 03/31/21 Moises Art MD [email or web address] [facility] Edgar [address] [place] [address] Historical LMR Provider 01/11/17 2 Destin Choe MD [address] [place] [address] Historical LMR Provider 01/11/17 Slime Youssef MD [address] [place] [address] Insurance Assigned Provider 06/27/18 05/27/20 documented as of this encounter Additional Source Comments The information contained in this document represents components of the legal health record. It is not the complete legal health record.[facility]
--- OUTSIDE RECORDS SUMMARY | 2025-03-08 18:59 | XMS_ITS | Encounter Summary ---
Author Organization [facility] Address [address] [place] [address] Phone Care Team Providers Care Lumber Puller Name Role Phone Slime Youssef MD Primary Care Provider Duc Suarez MD Unavailable [phone] Slime Youssef MD Unavailable [phone] Pcp, Unknown Primary Care Provider Unavailabl e Svitlana Sher MD Primary Care Pr ovider Svitlana Sher MD Primary Care Pr ovider Svitlana Sher MD Primary Care Pr ovider Encounter Details Date Type Department Care Team (Late st Contact Info) Description 08/14/2021 Procedure Pass [facility], [address] [place] [address] Social History Tobacco Use Types Packs/Day Years [...] PM EDT documented as of this encounter Last Filed Vital Signs Vital Sign Reading Time Taken Comments Blood Pressure - - Pulse - - Temperature - - Respiratory Rate - - Oxygen Saturation - - Inhaled Oxygen Concentration - - Weight 71.2 kg (157 lb) 08/17/2021 6:08 PM EDT Height 167.6 cm (5' 6 ) 08/17/2021 6:08 PM EDT Body Mass Index 25.34 08/17/2021 6:08 PM EDT documented in this encounter Plan of Treatment Upcoming Encounters Date Type Department Care Team (Late st Contact Info) Description 05/24/2024 Procedure Pass [facility], Ct Scan - [address] [address] 04/04/2025 12:00 PM EST Appointment [facility], Ct Scan - [address] [address] Fransico Baker MD [address] [place] [address] [email or web address] 05/04/2025 8:15 AM EST Office Visit [facility] [address] [place] [address] Unknown, Unknown, Isha Bower PA-C [address] [place] [address] [email or web address] 12/02/2025 8:40 AM EDT Office Visit [facility] [address] [place] [address] 3rd Floor, [address] [place] [address] Duc Suarez MD [address] [place] [address] [phone] documented as of this encounter Visit Diagnoses Not on filedocumented in this encounter Care Teams Lumber Puller Relationship Specialty Start Date End Date Slime Youssef MD [address] [place] [address] [email or web address] PCP - General 01/07/17 07/28/22 Pcp, Unknown PCP - General 07/29/22 08/07/22 Svitlana Sher MD PCP - General Family Medicine 08/08/22 03/24/24 Svitlana Sher MD PCP - General Family Medicine 03/25/24 02/08/25 Svitlana Sher MD [address] [place] [address] PCP - General Family Medicine 02/09/25 Duc Suarez MD [address] [place] [address], [address] [address] [email or web address] Historical LMR Provider 01/11/17 Slime Youssef MD [address] [place] [address] [email or web address] Historical LMR Provider 01/11/17 documented as of this encounter Additional Source Comments The information contained in this document represents components of the legal health record. It is not the complete legal health record.[facility]
--- OUTSIDE RECORDS SUMMARY | 2025-03-08 18:59 | XMS_ITS | Encounter Summary ---
Author Organization [facility] Address [address] [place] [address] Phone Care Team Providers Care Smoke Control Supervisor Name Role Phone Slime Youssef MD Primary Care Provider Patel Bhandari DO Unavailable Duc Suarez MD Unavailable Pao Cooley MD Unavailable Slime Youssef MD Unavailable Garret Mercedes CNP Unavailable [phone] Moises Art MD Unavailable Destin Choe MD Unavailable Slime Youssef MD Unavailable Pcp, Unknown Primary Care Provider Unavailabl e Svitlana Sher MD Primary Care Pr ovider Svitlana Sher MD Primary Care Pr ovider Svitlana Sher MD Primary Care Pr ovider Reason for Referral * MRI/CAT Scan - Closed Specialty Diagnoses / Procedures Referred By Contac t Referred To Contact Radiology Diagnoses Chronic sinusitis, unspecified location Procedures CT Face Slime Youssef MD Phone: tel: fax: [email or web address] Referral ID Status Reason Start Date Expiration Date Visits Re quested Visits Authorized [id number] Closed 01/19/2020 02/13/2020 1 1 Encounter Details Date Type Department Care Team (Late Contact Info) Description 01/19/2020 Transcribe Orders Virtual Department [address] [place] [address] Slime Youssef MD [address] [place] [address] [email or web address] Chronic sinusitis, unspecified location (Primary Dx) Social History Tobacco [...] (Late Contact Info) Description 05/24/2024 Procedure Pass [facility] Ct Scan [address] [address] 04/04/2025 12:00 PM EST Appointment [facility] Ct Scan [address] [address] Fransico Baker MD [address] [place] [address] [email or web address] 05/04/2025 8:15 AM EST Office Visit [facility] [address] [place] [address] Unknown, Unknown, Isha Bower PA-C [address] [place] [address] [email or web address] 12/02/2025 8:40 AM EDT Office Visit [facility] [address] [place] [address] 3rd Floor, [address] [place] [address] Duc Suarez MD [address] [facility], [address] [place] [address] documented as of this encounter Results * CT FACE WITHOUT CONTRAST (01/24/2020 1:29 PM EST) Anatomical Region Laterality Modality Face Computed Tomogra phy 01/24/2020 1:50 PM EST Impressions 01/24/2020 1:57 PM EST No evidence of sinus disease. Narrative 01/24/2020 1:57 PM EST COMPARISON: None. TECHNIQUE: CT of the facial bones without contrast. Sagittal and coronal reformats generated. Automated exposure control utilized. CT FACIAL BONES FINDINGS: Brain: Mild ventricular enlargement due to volume loss/atrophy. Orbits: Normal. Soft tissue: Normal. Bones/sinuses: Moderate right nasal septal deviation. No nasal polyps. Ostiomeatal unit complexes are patent. No air-fluid levels. Partial left mastoid resection. Small left mastoid effusion. No middle ear effusions. External canals are patent. Severe left C2-3 facet arthropathy. 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 No destructive or suspicious bone lesions. Procedure Note Jose Son MD - 01/24/2020 COMPARISON: None. TECHNIQUE: CT of the facial bones without contrast. Sagittal and coronalreformats generated. Automated exposure control utilized. CT FACIAL BONES FINDINGS: Brain: Mild ventricular enlargement due to volume loss/atrophy. Orbits: Normal. Soft tissue: Normal. Bones/sinuses: Moderate right nasal septal deviation. No nasal polyps.Ostiomeatal unit complexes are patent. No air-fluid levels. Partial leftmastoid resection. Small left mastoid effusion. No middle ear effusions.External canals are patent. Severe left C2-3 facet arthropathy. Congenitalnonunion of the posterior arch of the C1. No destructive or suspiciousbone lesions. IMPRESSION: No evidence of sinus disease. Slime Youssef MD IMG CT HEAD/NECK Final Resu lt documented in this encounter Visit Diagnoses Diagnosis Chronic sinusitis, unspecified location- Primary Chronic sinusitis, unspecified location documented in this encounter Care Teams Smoke Control Supervisor Relationship Specialty Start Date End Date Slime Youssef MD [address] [place] [address] [email or web address] PCP - General 01/07/17 07/28/22 Pcp, Unknown PCP - General 07/29/22 08/07/22 Svitlana Sher MD PCP - General Family Medicine 08/08/22 03/24/24 Svitlana Sher MD PCP - General Family Medicine 03/25/24 02/08/25 Svitlana Sher MD [address] [place] [address] PCP - General Family Medicine 02/09/25 Patel Bhandari DO [address] [place] [address] [email or web address] Historical LMR Provider 01/11/17 03/31/21 Duc Suarez MD [address] [place] [address] Historical LMR Provider 01/11/17 Pao Cooley MD [address] [address] Historical LMR Provider 01/11/17 Slime Youssef MD [address] [place] [address] Historical LMR Provider 01/11/17 Garret Mercedes CNP [address] [place] [address] Historical LMR Provider 01/11/17 03/31/21 Moises Art MD [employer] [facility] [address] [place] [address] Historical LMR Provider 01/11/17 2 Destin Choe MD [address] [place] [address] Historical LMR Provider 01/11/17 Slime Youssef MD [address] [place] [address] Insurance Assigned Provider 06/27/18 05/27/20 documented as of this encounter Additional Source Comments The information contained in this document represents components of the legal health record. It is not the complete legal health record.[facility]
--- OUTSIDE RECORDS SUMMARY | 2025-03-08 18:59 | XMS_ITS | Encounter Summary ---
Author Organization [facility] Address [address] [place] [address] Phone Care Team Providers Care Medical Scientific Liaison Name Role Phone Slime Youssef MD Primary Care Provider Patel Bhandari DO Unavailable Duc Suarez MD Unavailable [phone] Pao Cooley MD Unavailable Slime Youssef MD Unavailable [phone] Garret Mercedes CNP Unavailable Moises Art MD Unavailable Destin Choe MD Unavailable Slime Youssef MD Unavailable Pcp, Unknown Primary Care Provider Unavailabl e Svitlana Sher MD Primary Care Pr ovider Svitlana Sher MD Primary Care Pr ovider Svitlana Sher MD Primary Care Pr ovider Encounter Details Date Type Department Care Team (Late st Contact Info) Description 05/02/2017 Ancillary Orders Virtual Department [address] [place] [address] Slime Youssef MD [address] [place] [address] Breast screening Social History Tobacco Use Types [...] st Contact Info) Description 05/24/2024 Procedure Pass [facility], Ct Scan [address] [address] 04/04/2025 12:00 PM EST Appointment [facility] Ct Scan [address] [address] Fransico Baker MD [address] [place] [address] [email or web address] 05/04/2025 8:15 AM EST Office Visit [facility] [address] [place] [address] Unknown, Unknown, Isha Bower PA-C [address] [place] [address] [email or web address] 12/02/2025 8:40 AM EDT Office Visit [facility] [address] [place] [address] 3rd Floor, [address] [place] [address] [phone] Duc Suarez MD [address] [place] [address] [phone] documented as of this encounter Results * BI MAMMOGRAM SCREENING WITH TOMOSYNTHESIS WITH CAD (BILATERAL) (06/16/2017 7:55 AM EDT) Anatomical Region Laterality Modality Breast Left, Breast Right, Breast Bilateral Bila teral Mammography 06/16/2017 1:24 PM EDT Impressions 06/16/2017 1:33 PM EDT No mammographic signs of malignancy. Annual screening is recommended. BI-RADS CATEGORY: 2 - Benign finding. DENSITY: There are scattered fibroglandular densities. POS - CDHMAM2 Narrative 06/16/2017 1:33 PM EDT Bilateral mammography is performed in conjunction with computed aided detection. 3-D tomography along with 2-D C view imaging was also performed. Comparison made to previous dated as far back as 04/02/2011 and as recent as 06/12/2016. The patient is status-post benign left breast biopsy in 2017. New postsurgical architectural distortion in the inner left breast. 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 A well circumscribed subcentimeter mass in the mid-anterior central right breast is stable for many years. No suspicious masses, suspicious areas of architectural distortion or suspicious microcalcifications. Procedure Note Shorty Hartmann MD - 06/16/2017 Bilateral mammography is performed in conjunction with computed aideddetection. 3-D tomography along with 2-D C view imaging was alsoperformed. Comparison made to previous dated as far back as 04/02/2011 andas recent as 06/12/2016. The patient is status-post benign left breast biopsy in 2017. New postsurgical architectural distortion in the inner left breast.Coarse clusters of microcalcifications bilaterally consistent withdegenerating fibroadenomas are stable. A well circumscribed subcentimetermass in the mid-anterior central right breast is stable for many years.No suspicious masses, suspicious areas of architectural distortion orsuspicious microcalcifications. IMPRESSION: No mammographic signs of malignancy. Annual screening is recommended. BI-RADS CATEGORY: 2 - Benign finding. DENSITY: There are scattered fibroglandular densities. POS - CDHMAM2 us Slime Youssef MD IMG MG EXAMS Final Resul t documented in this encounter Visit Diagnoses Diagnosis Breast screening Breast screening, unspecified Breast screening Breast screening, unspecified documented in this encounter Additional Health Concerns Infection Onset Date Last Indicated Resolved Time CoV-Exposed Comment:Recent close contact 10/03/2019 10/03/2019 10/17/2019 1:25 AM EDT documented as of this encounter Care Teams Medical Scientific Liaison Relationship Specialty Start Date End Date Slime Youssef MD [address] [place] [address] [email or web address] PCP - General 01/07/17 07/28/22 Pcp, Unknown PCP - General 07/29/22 08/07/22 Svitlana Sher MD PCP - General Family Medicine 08/08/22 03/24/24 Svitlana Sher MD PCP - General Family Medicine 03/25/24 02/08/25 Svitlana Sher MD [address] [place] [address] PCP - General Family Medicine 02/09/25 Patel Bhandari DO [address] [place] [address] [email or web address] Historical LMR Provider 01/11/17 03/31/21 Duc Suarez MD [address] [address] Historical LMR Provider 01/11/17 Pao Cooley MD [address] [address] [email or web address] Historical LMR Provider 01/11/17 Slime Youssef MD 15 [place] [address] [email or web address] Historical LMR Provider 01/11/17 Garret Mercedes WRAPPER OPERATOR [address] [address] [email or web address] Historical LMR Provider 01/11/17 03/31/21 Moises Art MD [facility] [address] [address] Historical LMR Provider 01/11/17 2 Destin Choe MD [address] [place] [address] Historical LMR Provider 01/11/17 Slime Youssef MD [address] [place] [address] [email or web address] Insurance Assigned Provider 06/27/18 05/27/20 documented as of this encounter Additional Source Comments The information contained in this document represents components of the legal health record. It is not the complete legal health record.[facility]
--- OUTSIDE RECORDS SUMMARY | 2025-03-08 18:59 | XMS_ITS | Encounter Summary ---
Author Organization [facility] Address [address] [place] [address] Phone Care Team Providers Care Banner Painter Name Role Phone Slime Youssef MD Primary Care Provider Duc Suarez MD Unavailable [phone] Slime Youssef MD Unavailable [phone] Pcp, Unknown Primary Care Provider Unavailabl e Svitlana Sher MD Primary Care Pr ovider Svitlana Sher MD Primary Care Pr ovider Svitlana Sher MD Primary Care Pr ovider Encounter Details Date Type Department Care Team (Late st Contact Info) Description 03/11/2022 Procedure Pass [facility], Ct Scan - [address] [address] Social History Tobacco Use Types Packs/Day Years [...] st Contact Info) Description 05/24/2024 Procedure Pass [facility], Ct Scan - [address] [address] 04/04/2025 12:00 PM EST Appointment [facility], Ct Scan - [address] [address] Fransico Baker MD [address] [place] [address] [email or web address] 05/04/2025 8:15 AM EST Office Visit [facility] [address] [place] [address] Unknown, Unknown, Isha Bower PA-C [address] [place] [address] [email or web address] 12/02/2025 8:40 AM EDT Office Visit [facility] [address] [place] [address] 3rd [facility], [address] [place] [address] Duc Suarez MD [address] [place] [address] documented as of this encounter Visit Diagnoses Not on filedocumented in this encounter Care Teams Banner Painter Relationship Specialty Start Date End Date Slime Youssef MD [address] [place] [address] PCP - General 01/07/17 07/28/22 Pcp, Unknown PCP - General 07/29/22 08/07/22 Svitlana Sher MD PCP - General Family Medicine 08/08/22 03/24/24 Svitlana Sher MD PCP - General Family Medicine 03/25/24 02/08/25 Svitlana Sher MD [address] [place] [address] PCP - General Family Medicine 02/09/25 Duc Suarez MD [address] [place] [address] [email or web address] Historical LMR Provider 01/11/17 Slime Youssef MD [address] [place] [address] [email or web address] Historical LMR Provider 01/11/17 documented as of this encounter Additional Source Comments The information contained in this document represents components of the legal health record. It is not the complete legal health record.[facility]
--- OUTSIDE RECORDS SUMMARY | 2025-03-08 18:59 | XMS_ITS | Encounter Summary ---
Author Organization [facility] Address [address] [place] [address] Phone Care Team Providers Care Health Promotion Specialist Name Role Phone Slime Youssef MD Primary [...] Care Team (Late st Contact Info) Description 06/12/2018 Procedure Pass [facility], [address] [phone] Social History Tobacco Use Types Packs/Day Years [...] st Contact Info) Description 05/24/2024 Procedure Pass [facility], Ct Scan - [address] [address] 04/04/2025 12:00 PM EST Appointment [facility], Ct Scan [address] [address] Fransico Baker MD [address] [place] [address] [email or web address] 05/04/2025 8:15 AM EST Office Visit [facility] [address] [place] [address] Unknown, Unknown, Isha Bower PA-C [address] [place] [address] [email or web address] 12/02/2025 8:40 AM EDT Office Visit [facility] [address] [place] [address] 3rd Floor, [address] [place] [address] Duc Suarez MD [address] [place] [address], [address] [place] [address] documented as of this encounter Visit Diagnoses Not on filedocumented in this encounter Additional Health Concerns Infection Onset Date Last Indicated Resolved Time CoV-Exposed Comment:Recent close contact 10/03/2019 10/03/2019 10/17/2019 1:25 AM EDT documented as of this encounter Care Teams Health Promotion Specialist Relationship Specialty Start Date End Date Slime Youssef MD [address] [place] [address] [email or web address] PCP - General 01/07/17 07/28/22 Pcp, Unknown PCP - General 07/29/22 08/07/22 Svitlana Sher MD PCP - General Family Medicine 08/08/22 03/24/24 Svitlana Sher MD PCP - General Family Medicine 03/25/24 02/08/25 Svitlana Sher MD [address] [place] [address] PCP - General Family Medicine 02/09/25 Patel Bhandari DO [address] [place] [address] [place] [address] [email or web address] Historical LMR Provider 01/11/17 03/31/21 Duc Suarez MD [address] [place] [address] [address] [place] [address] [email or web address] Historical LMR Provider 01/11/17 Pao Cooley MD [address] [place] [address], 2nd [place] [address] [email or web address] Historical LMR Provider 01/11/17 Slime Youssef MD [address] [place] [address] Historical LMR Provider 01/11/17 Garret Mercedes CNP 15 [facility], [address] [place] [address] Historical LMR Provider 01/11/17 03/31/21 Moises Art MD [email or web address] [facility] Edgar [address] [place] [address] Historical LMR Provider 01/11/17 2 Destin Choe MD [address] [place] [address] Historical LMR Provider 01/11/17 Slime Youssef MD [address] [place] [address] [email or web address] Insurance Assigned Provider 06/27/18 05/27/20 documented as of this encounter Additional Source Comments The information contained in this document represents components of the legal health record. It is not the complete legal health record.[facility]
--- OUTSIDE RECORDS SUMMARY | 2025-03-08 18:59 | XMS_ITS | Encounter Summary ---
Author Organization [facility] Address [address] [place] [address] Phone Care Team Providers Care Liquid Compounder Name Role Phone Duc Suarez MD Unavailable [phone] Slime Youssef MD Unavailable [phone] Svitlana Sher MD Primary Care Pr ovider Svitlana Sher MD Primary Care Pr ovider Encounter Details Date Type Department Care Team (Late st Contact Info) Description 04/29/2024 Ancillary Orders [facility], X-Ray - [address] [address] Fatimah Caruso, NILA [address] [place] [address] [email or web address] Left hip pain (Primary Dx) Social History Tobacco Use Types [...] st Contact Info) Description 05/24/2024 Procedure Pass [facility], Ct Scan [address] [address] 04/04/2025 12:00 PM EST Appointment [facility], Ct Scan [address] [address] Fransico Baker MD [address] [place] [address] [email or web address] 05/04/2025 8:15 AM EST Office Visit [facility] [address] [place] [address] Unknown, Unknown, Isha Bower PA-C [address] [place] [address] [email or web address] 12/02/2025 8:40 AM EDT Office Visit [facility] [address] [place] [address] 3rd Floor, [address] [place] [address] Duc Suarez MD [address] [facility], [address] [place] [address] [email or web address] documented as of this encounter Results * XR HIP 2 VW LEFT PLUS PELVIS (04/29/2024 10:52 AM EST) Anatomical Region Laterality Modality Hip, Pelvis Computed Radiogr aphy 04/29/2024 4:1 8 PM EST Impressions 04/29/2024 4:21 PM EST [id number] degenerative changes at the hips. Narrative 04/29/2024 4:21 PM EST XR HIP 2 VW LEFT PLUS PELVIS Referring clinician's provided indication for this examination in Epic: Pain COMPARISON: CT ABDOMEN/PELVIS (RENAL MASS) WITH AND WITHOUT CONTRAST FINDINGS: Pelvis: Partially imaged lower lumbar spine degenerative changes. Mild degenerative changes at the sacroiliac joints and pubic symphysis. Frontal evaluation of the right hip shows mild to moderate degenerative changes. Surgical clips in the pelvis. Left hip: No displaced fracture. Mild to moderate degenerative changes at the left hip joint. Procedure Note Sanya Cooper MD - 04/29/2024 XR HIP 2 VW LEFT PLUS PELVIS Referring clinician's provided indication for this examination in [facility]:Pain COMPARISON: CT ABDOMEN/PELVIS (RENAL MASS) WITH AND WITHOUT [id number] FINDINGS: Pelvis: Partially imaged lower lumbar spine degenerative changes. Milddegenerative changes at the sacroiliac joints and pubic symphysis. Frontalevaluation of the right hip shows mild to moderate degenerative changes.Surgical clips in the pelvis. Left hip: No displaced fracture. Mild to moderate degenerative changes atthe left hip joint. IMPRESSION: Ozxe-vq-[id number] degenerative changes at the hips. Fatimah DOTSON IMG XR PELVIS Final Result documented in this encounter Visit Diagnoses Diagnosis Left hip pain Pain in joint, pelvic region and thigh Left hip pain- Primary Pain in joint, pelvic region and thigh documented in this encounter Care Teams Liquid Compounder Relationship Specialty Start Date End Date Svitlana Sher MD [address] [place] [address] PCP - General Family Medicine 03/25/24 02/08/25 Svitlana Sher MD [address] [place] [address] PCP - General Family Medicine 02/09/25 Duc Suarez MD [address] [place] [address], [facility] [address] [place] [address] [email or web address] Historical LMR Provider 01/11/17 Slime Youssef MD [address] [place] [address] [email or web address] Historical LMR Provider 01/11/17 documented as of this encounter Additional Source Comments The information contained in this document represents components of the legal health record. It is not the complete legal health record.[facility]
--- OUTSIDE RECORDS SUMMARY | 2025-03-08 18:59 | XMS_ITS | Encounter Summary ---
Author Organization [facility] Address [address] [place] [address] Phone Care Team Providers Care Repulping Supervisor Name Role Phone Slime Youssef MD Primary Care Provider Duc Suarez MD Unavailable [phone] Slime Youssef MD Unavailable [phone] Pcp, Unknown Primary Care Provider Unavailabl e Svitlana Sher MD Primary Care Pr ovider Svitlana Sher MD Primary Care Pr ovider Svitlana Sher MD Primary Care Pr ovider Encounter Details Date Type Department Care Team (Late st Contact Info) Description 01/08/2022 Procedure Pass [facility], Ct Scan - [address] [address] Social History Tobacco Use Types Packs/Day Years [...] st Contact Info) Description 05/24/2024 Procedure Pass [facility], Ct Scan - [address] [address] 04/04/2025 12:00 PM EST Appointment [facility], Ct Scan - [address] [address] Fransico Baker MD [address] [place] [address] [email or web address] 05/04/2025 8:15 AM EST Office Visit [facility] [address] [place] [address] Unknown, Unknown, Ihsa Bower PA-C [address] [place] [address] [email or web address] 12/02/2025 8:40 AM EDT Office Visit [facility] [address] [place] [address] 3rd [facility], [address] [place] [address] Duc Suarez MD [address] [place] [address] documented as of this encounter Visit Diagnoses Not on filedocumented in this encounter Care Teams Repulping Supervisor Relationship Specialty Start Date End Date Slime Youssef MD [address] [place] [address] PCP - General 01/07/17 07/28/22 Pcp, Unknown PCP - General 07/29/22 08/07/22 Svitlana Sher MD PCP - General Family Medicine 08/08/22 03/24/24 Svitlana Sher MD PCP - General Family Medicine 03/25/24 02/08/25 Svitlana Sher MD [address] [place] [address] PCP - General Family Medicine 02/09/25 Duc Suarez MD [address] [place] [address] [email or web address] Historical LMR Provider 01/11/17 Slime Youssef MD [address] [place] [address] [email or web address] Historical LMR Provider 01/11/17 documented as of this encounter Additional Source Comments The information contained in this document represents components of the legal health record. It is not the complete legal health record.[facility]
--- OUTSIDE RECORDS SUMMARY | 2025-03-08 18:59 | XMS_ITS | Encounter Summary ---
Author Organization [facility] Address [address] [place] [address] Phone Care Team Providers Care Coke Drawer Name Role Phone Slime Youssef MD Primary Care Provider Patel Bhandari DO Unavailable Duc Suarez MD Unavailable Pao Cooley MD Unavailable Slime Youssef MD Unavailable [phone] Garret Mercedes CNP Unavailable [phone] Moises Art MD Unavailable Destin Choe MD Unavailable Slime Youssef MD Unavailable Pcp, Unknown Primary Care Provider Unavailabl e Svitlana Sher MD Primary Care Pr ovider Svitlana Sher MD Primary Care Pr ovider Svitlana Sher MD Primary Care Pr ovider Reason for Referral * MRI/CAT Scan - Closed Specialty Diagnoses / Procedures Referred By Contac t Referred To Contact Radiology Diagnoses Numbness Generalized headache White matter disease Procedures MRI Brain Vicente Mayo MD Phone: tel: fax: [email or web address] Referral ID Status Reason Start Date Expiration Date Visits Re quested Visits Authorized [id number] Closed 12/19/2017 01/18/2018 1 1 Encounter Details Date Type Department Care Team (Late Contact Info) Description 12/19/2017 Ancillary Orders Virtual Department [address] [place] [address] Vicente Mayo MD [address] [place] [address], [address] [place] [address] [email or web address] Numbness; Generalized headache; White matter disease Social History Tobacco Use Types Packs/Day Years [...] (Late Contact Info) Description 05/24/2024 Procedure Pass [facility], Ct Scan [address] [address] 04/04/2025 12:00 PM EST Appointment [facility], Ct Scan [address] [address] Fransico Baker MD [address] [place] [address] [email or web address] 05/04/2025 8:15 AM EST Office Visit [facility] [address] [place] [address] Unknown, Unknown, Isha Bower PA-C [address] [place] [address] [email or web address] 12/02/2025 8:40 AM EDT Office Visit [facility] [address] [facility] 3rd Floor, [address] [place] [address] Duc Suarez MD [address] [facility], [address] [place] [address] [email or web address] documented as of this encounter Results * MRI BRAIN WITH AND WITHOUT CONTRAST (12/30/2017 8:21 PM EDT) Anatomical Region Laterality Modality Head Magnetic Resonan ce 12/30/2017 9:11 PM EDT Impressions 12/30/2017 9:19 PM EDT 1. Slight increase in size and number of chronic white matter lesions. None of them enhances. 2. No new intracranial pathology. 3. Chronic left mastoid effusion stable since 2011 POS - [id number] Narrative 12/30/2017 9:19 PM EDT TECHNIQUE: 1.5 Roseanne high-field MRI scanner. Axial T1, T2, T2 FLAIR and diffusion-weighted with ADC map, sagittal T1 and FLAIR, followed by post-gadolinium axial and sagittal T1 sequences . Compare MRI 01/09/2012 FINDINGS: Compared to 2011, there has been a slight increase in the size of the few of the larger, globular areas of T2 hyperintensity in the periventricular and subcortical white matter and there are a few new tiny lesions. Tiny white matter lesions in the mid body of the corpus callosum are unchanged but the increased signal along the undersurface of the splenium is more extensive. There is no abnormal enhancement in any of the white matter lesions or elsewhere in either hemisphere or the posterior fossa. No signal changes suspicious for ischemia, infarct, hemorrhage, mass or an inflammatory process. Mild generalized atrophy unchanged. As are cisterns and ventricular system remains normal in size and configuration. Low lying but not frankly-ectopic cerebellar tonsils unchanged. Normal flow-voids are present in the major vessels of the [place]. No pituitary, pineal region or intraorbital pathology. Chronic fairly extensive left mastoid effusion unchanged. The right mastoid air cells and the paranasal sinuses are clear. Procedure Note Andrew Morgan MD - 12/30/2017 TECHNIQUE: 1.5 Roseanne high-field MRI scanner. Axial T1, T2, T2 FLAIR and diffusion-weighted with ADC map, sagittal T1and FLAIR, followed by post-gadolinium axial and sagittal T1 sequences . Compare MRI 01/09/2012 FINDINGS: Compared to 2012, there has been a slight increase in the size of the fewof the larger, globular areas of T2 hyperintensity in the periventricularand subcortical white matter and there are a few new tiny lesions. Tiny white matter lesions in the mid body of the corpus callosum areunchanged but the increased signal along the undersurface of the spleniumis more extensive. There is no abnormal enhancement in any of the white matter lesions orelsewhere in either hemisphere or the posterior fossa. No signal changes suspicious for ischemia, infarct, hemorrhage, mass or aninflammatory process. Mild generalized atrophy unchanged. As are cisterns and ventricular systemremains normal in size and configuration. Low lying but notfrankly-ectopic cerebellar tonsils unchanged. Normal flow-voids are present in the major vessels of the [place]. No pituitary, pineal region or intraorbital pathology. Chronic fairly extensive left mastoid effusion unchanged. The rightmastoid air cells and the paranasal sinuses are clear. IMPRESSION: 1. Slight increase in size and number of chronic white matter lesions.None of them enhances. 2. No new intracranial pathology. 3. Chronic left mastoid effusion stable since 2011 POS - [id number] Vicente Mayo MD IM MR HEAD/NECK Final Resul t documented in this encounter Visit Diagnoses Diagnosis Numbness Disturbance of skin sensation Generalized headache White matter disease Numbness Disturbance of skin sensation Generalized headache White matter disease documented in this encounter Additional Health Concerns Infection Onset Date Last Indicated Resolved Time CoV-Exposed Comment:Recent close contact 10/03/2019 10/03/2019 10/17/2019 1:25 AM EDT documented as of this encounter Care Teams Coke Drawer Relationship Specialty Start Date End Date Slime Youssef MD 15 [place] [address] [email or web address] PCP - General 01/07/17 07/28/22 Pcp, Unknown PCP - General 07/29/22 08/07/22 Svitlana Sher MD PCP - General Family Medicine 08/08/22 03/24/24 Svitlana Sher MD PCP - General Family Medicine 03/25/24 02/08/25 Svitlana Sher MD [address] [place] [address] PCP - General Family Medicine 02/09/25 Patel Bhandari DO [address] [place] [address] [place] [address] [email or web address] Historical LMR Provider 01/11/17 03/31/21 Dcu Suarez MD [address] [facility], [address] [place] [address] [email or web address] Historical LMR Provider 01/11/17 Pao Cooley MD [address] [facility], 2nd [place] [address] [email or web address] Historical LMR Provider 01/11/17 Slime Youssef MD 15 [place] [address] Historical LMR Provider 01/11/17 Garret Mercedes CNP [address] [address] Historical LMR Provider 01/11/17 03/31/21 Moises Art MD [facility] [address] [address] Historical LMR Provider 01/11/17 2 Destin Choe MD [address] [place] [address] Historical LMR Provider 01/11/17 Slime Youssef MD [address] [place] [address] Insurance Assigned Provider 06/27/18 05/27/20 documented as of this encounter Additional Source Comments The information contained in this document represents components of the legal health record. It is not the complete legal health record.[facility]
--- OUTSIDE RECORDS SUMMARY | 2025-03-08 18:59 | XMS_ITS | Encounter Summary ---
Author Organization [facility] Address [address] [place] [address] Phone Care Team Providers Care Board Of Education Secretary Name Role Phone Slime Youssef MD Primary Care Provider [phone] Patel Bhandari DO Unavailable Duc Suarez MD Unavailable Pao Cooley MD Unavailable Slime Youssef MD Unavailable [phone] Garret Mercedes CNP Unavailable [phone] Moises Art MD Unavailable Destin Choe MD Unavailable Slime Youssef MD Unavailable Pcp, Unknown Primary Care Provider Unavailabl e Svitlana Sher MD Primary Care Pr ovider Svitlana Sher MD Primary Care Pr ovider Svitlana Sher MD Primary Care Pr ovider Encounter Details Date Type Department Care Team (Late st Contact Info) Description 01/28/2017 Ancillary Orders [address] [phone] Shorty Willis MD [address] [place] [address] Fatty liver Social History Tobacco Use Types [...] st Contact Info) Description 05/24/2024 Procedure Pass [place], Ct Scan [address] [address] 04/04/2025 12:00 PM EST Appointment [address] [address] Fransico Baker MD [address] [place] [address] [email or web address] 05/04/2025 8:15 AM EST Office Visit [facility] [address] [place] [address] Unknown, Unknown, Isha Bower PA-C [address] [place] [address] [email or web address] 12/02/2025 8:40 AM EDT Office Visit [facility] [address] [place] [address] 3rd Floor, [address] [place] [address] Duc Suarez MD [address] [place] [address], [address] [address] documented as of this encounter Results * US Abdomen Complete (01/28/2017 8:33 AM EST) Anatomical Region Laterality Modality Abdomen Ultrasound 01/28/2017 9:24 AM EST Narrative 01/28/2017 9:26 AM EST Comparison: 05/10/2016 Findings: The liver, gallbladder, and spleen are without focal abnormality. The liver is extremely echogenic. Several incidental hepatic cysts are again noted There is no evidence of intra or extrahepatic bilary dilation. The pancreas as visualized is normal. The aorta and inferior vena cava are normal. The bilateral kidneys are unremarkable without evidence of hydronephrosis or calculus. The common bile duct is normal in caliber. No abnormal masses or fluid collections are present. IMPRESSION fatty infiltration of the liver unchanged. POS: [id number] Procedure Note Ubaldo Hutchinson MD - 01/28/2017 Comparison: 05/10/2016 Findings: The liver, gallbladder, and spleen are without focalabnormality. The liver is extremely echogenic. Several incidental hepaticcysts are again noted There is no evidence of intra or extrahepatic bilarydilation. The pancreas as visualized is normal. The aorta and inferior vena cava arenormal. The bilateral kidneys are unremarkable without evidence ofhydronephrosis or calculus. The common bile duct is normal in caliber. No abnormal masses or fluid collections are present. IMPRESSION fatty infiltration of the liver unchanged. POS: [id number] us Shorty Willis MD IMG US ABDOMEN Final Result documented in this encounter Visit Diagnoses Diagnosis Fatty liver Other chronic nonalcoholic liver disease Fatty liver Other chronic nonalcoholic liver disease documented in this encounter Additional Health Concerns Infection Onset Date Last Indicated Resolved Time CoV-Exposed Comment:Recent close contact 10/03/2019 10/03/2019 10/17/2019 1:25 AM EDT documented as of this encounter Care Teams Board Of Education Secretary Relationship Specialty Start Date End Date Slime Youssef MD [address] [place] [email or web address] PCP - General 01/07/17 07/28/22 Pcp, Unknown PCP - General 07/29/22 08/07/22 Svitlana Sher MD PCP - General Family Medicine 08/08/22 03/24/24 Svitlana Sher MD PCP - General Family Medicine 03/25/24 02/08/25 Svitlana Sher MD [address] [place] [address] PCP - General Family Medicine 02/09/25 Patel Bhandari DO [address] [place] [address] [place] [address] [email or web address] Historical LMR Provider 01/11/17 03/31/21 Duc Suarez MD [address] [address] [email or web address] Historical LMR Provider 01/11/17 Pao Cooley MD 15 [facility], 2nd [place] [address] Historical LMR Provider 01/11/17 Slime Youssef MD [address] [place] [address] Historical LMR Provider 01/11/17 Garret Mercedes CNP 15 [facility], [address] [place] [address] [email or web address] Historical LMR Provider 01/11/17 03/31/21 Moises Art MD [address] [place] [address] Historical LMR Provider 01/11/17 2 Destin Choe MD [address] [place] [address] Historical LMR Provider 01/11/17 Slime Youssef MD 15 [place] [address] [email or web address] Insurance Assigned Provider 06/27/18 05/27/20 documented as of this encounter Additional Source Comments The information contained in this document represents components of the legal health record. It is not the complete legal health record.[facility]
--- OUTSIDE RECORDS SUMMARY | 2025-03-08 18:59 | XMS_ITS | Encounter Summary ---
Author Organization [facility] Address [address] [place] [address] Phone Care Team Providers Care Head Of Conservation Name Role Phone Duc Suarez MD Unavailable [phone] Slime Youssef MD Unavailable [phone] Svitlana Sher MD Primary Care Pr ovider Svitlana Sher MD Primary Care Pr ovider Svitlana Sher MD Primary Care Pr ovider Encounter Details Date Type Department Care Team (Late st Contact Info) Description 09/13/2022 Procedure Pass [facility] - [address] [place] [address] Social History Tobacco Use Types Packs/Day Years [...] st Contact Info) Description 05/24/2024 Procedure Pass [facility], Ct Scan [address] [address] 04/04/2025 12:00 PM EST Appointment [place], Ct Scan [address] [address] Fransico Baker MD [address] [place] [address] [email or web address] 05/04/2025 8:15 AM EST Office Visit [facility] [address] [place] [address] Unknown, Unknown, Isha Bower PA-C [address] [place] [address] [email or web address] 12/02/2025 8:40 AM EDT Office Visit [facility] [address] [place] [address] 3rd Floor, [address] [place] [address] Duc Suarez MD [address] [place] [address], [address] [address] documented as of this encounter Visit Diagnoses Not on filedocumented in this encounter Care Teams Head Of Conservation Relationship Specialty Start Date End Date Svitlana Sher MD [address] [place] [address] PCP - General Family Medicine 08/08/22 03/24/24 Svitlana Sher MD [address] [place] [address] PCP - General Family Medicine 03/25/24 02/08/25 Svitlana Sher MD [address] [place] [address] PCP - General Family Medicine 02/09/25 Duc Suarez MD [address] [place] [address] [email or web address] Historical LMR Provider 01/11/17 Slime Youssef MD [address] [place] [address] [email or web address] Historical LMR Provider 01/11/17 documented as of this encounter Additional Source Comments The information contained in this document represents components of the legal health record. It is not the complete legal health record.[facility]
--- OUTSIDE RECORDS SUMMARY | 2025-03-08 18:59 | XMS_ITS | Encounter Summary ---
Author Organization [facility] Address [address] [place] [address] Phone Care Team Providers Care Transition Social Worker Name Role Phone Slime Youssef MD Primary Care Provider [phone] Patel Bhandari DO Unavailable Duc Suarez MD Unavailable [phone] Pao Cooley MD Unavailable Slime Youssef MD Unavailable Garret Mercedes CNP Unavailable Moises Art MD Unavailable Destin hCoe MD Unavailable Pcp, Unknown Primary Care Provider Unavailabl e Svitlana Sher MD Primary Care Pr ovider Svitlana Sher MD Primary Care Pr ovider Svitlana Sher MD Primary Care Pr ovider Encounter Details Date Type Department Care Team (Late st Contact Info) Description 03/12/2021 Transcribe Orders [facility] [address] 2nd Floor [place], [place] [phone] Slime Youssef MD [address] [place] [address] [phone] Fatigue, unspecified type (Primary Dx); Coronary artery disease with angina pectoris, unspecified vessel or lesion type, unspecified whether [place] or transplanted heart; Elevated glucose Social History Tobacco Use Types Packs/Day Years [...] st Contact Info) Description 05/24/2024 Procedure Pass [facility] Scan [address] [address] 04/04/2025 12:00 PM EST Appointment [facility] Scan [address] [address] Fransico Baker MD [address] [place] [address] [email or web address] 05/04/2025 8:15 AM EST Office Visit [facility] [address] [place] [address] Unknown, Unknown, Isha Bower PA-C [address] [place] [address] [email or web address] 12/02/2025 8:40 AM EDT Office Visit [facility] [address] [place] [address] 3rd Floor, [address] [place] [address] Duc Suarez MD [address] [place] [address] [place] [address] [email or web address] documented as of this encounter Results * (ABNORMAL) Immunoglobulin A (03/12/2021 4:03 PM EST) IgA 407(H) 70 - 400 mg/dL [facility] Blood 03/12/2021 4:03 PM EST 03/12/2021 4:14 PM EST us Slime Youssef MD LAB BLOOD BKR ORDERABLES Fi nal Result Performing Organization Address City/[facility]/ZIP Co de Phone Number [facility] [address] [place] [address] * Cytomegalovirus (CMV) antibody, IgM (03/12/2021 4:03 PM EST) CMV IGM ANTIBODY Negative Negative [facility]PATH [address] Blood (Blood) 03/12/2021 4:0 3 PM EST 03/12/2021 4:16 PM EST Slime Youssef MD LAB BLOOD BKR ORDERABLES Fi nal Result Performing Organization Address [facility]/ZIP Co de Phone Number [facility]PATH [address] [place] [address] * (ABNORMAL) CMV antibody, IgG (Mcintosh sendout) (03/12/2021 4:03 PM EST) CYTOMEGALOVIRUS IGG Positive( A) Negative [facility]PATH [address] Blood 03/12/2021 4:03 PM EST 03/12/2021 4:16 PM EST us Slime Youssef MD LAB BLOOD ORDERABLES Final Result Performing Organization Address City/[facility]/ZIP Co de Phone Number [facility]PATH [address] [place] [address] * Miscellaneous lab test (03/12/2021 4:03 PM EST) TESTS REQUESTED [facility] SPECIMEN/TUBE TYPE SST [facility] REQUEST RECEIVED Request received. A separate order for the requested test will be generated by the laboratory. [facility] Blood 03/12/2021 4:03 PM EST 03/12/2021 4:15 PM EST us Slime Youssef MD LAB BLOOD ORDERABLES Final Result Performing Organization Address [facility] Co de Phone Number [address] [address] * CCP IgG antibodies (03/12/2021 4:03 PM EST) ANTI-CCP IGG <8 0 - 16 U/mL [facility] Blood 03/12/2021 4:03 PM EST 03/12/2021 4:14 PM EST us Slime Youssef MD LAB BLOOD BKR ORDERABLES Fi nal Result Performing Organization Address City/[facility] Co de Phone Number [address] [address] * Sedimentation rate (ESR) (03/12/2021 4:03 PM EST) Pathologist [facility] ESR 12 0 - 30 mm/h [facility] Blood 03/12/2021 4:03 PM EST 03/12/2021 4:14 PM EST us Slime Youssef MD LAB BLOOD BKR ORDERABLES Fi nal Result Performing Organization Address [facility] Co de Phone Number [address] [address] * Lyme screen with reflex to Western blot, blood (03/12/2021 4:03 PM EST) Lyme AB IgG Negative Negative [facility] Lyme AB IgM Negative Negative [facility] Blood 03/12/2021 4:03 PM EST 03/12/2021 4:14 PM EST us Slime Youssef MD LAB BLOOD BKR ORDERABLES Fi nal Result Performing Organization Address City/[facility]/ZIP Co de Phone Number [address] [address] * Hemoglobin A1c (03/12/2021 4:03 PM EST) HEMOGLOBIN A1C 5.5 4.3 - 5.8 % [facility] Blood 03/12/2021 4:03 PM EST 03/12/2021 4:14 PM EST us Slime Youssef MD LAB BLOOD BKR ORDERABLES Fi nal Result Performing Organization Address [facility] Co de Phone Number [address] [address] * C-Reactive Protein (03/12/2021 4:03 PM EST) C REACTIVE PROTEIN <3.0 0.0 - 4.0 mg/L [facility] Blood 03/12/2021 4:03 PM EST 03/12/2021 4:14 PM EST us Slime Youssef MD LAB BLOOD BKR ORDERABLES Fi nal Result Performing Organization Address [facility] Co de Phone Number [address] [address] * Antinuclear antibody (SALINA) (03/12/2021 4:03 PM EST) SALINA SCREEN ON HEP 2 Negative Negative [facility] Blood 03/12/2021 4:03 PM EST 03/12/2021 4:14 PM EST us Slime Youssef MD LAB BLOOD BKR ORDERABLES Fi nal Result Performing Organization Address [facility]/ZIP Co de Phone Number [address] [address] documented in this encounter Visit Diagnoses Diagnosis Fatigue, unspecified type- Primary Coronary artery disease with angina pectoris, unspecified vessel or lesion type, unspecified whether [place] or transplanted heart Elevated glucose Other abnormal glucose documented in this encounter Care Teams Transition Social Worker Relationship Specialty Start Date End Date Slime Youssef MD [address] [place] [address] PCP - General 01/07/17 07/28/22 Pcp, Unknown PCP - General 07/29/22 08/07/22 Svitlana Sher MD PCP - General Family Medicine 08/08/22 03/24/24 Svitlana Sher MD PCP - General Family Medicine 03/25/24 02/08/25 Svitlana Sher MD [address] [place] [address] PCP - General Family Medicine 02/09/25 Patel Bhandari DO [address] [place] [address] [place] [address] [email or web address] Historical LMR Provider 01/11/17 03/31/21 Duc Suarez MD [address] [facility], [facility] [address] [place] [address] Historical LMR Provider 01/11/17 Pao Cooley MD [address] [facility], 2nd [place] [address] [email or web address] Historical LMR Provider 01/11/17 Slime Youssef MD [address] [place] [address] [email or web address] Historical LMR Provider 01/11/17 Garret Mercedes CARDIOVASCULAR SPECIALIST [address] [facility], [address] [place] [address] [email or web address] Historical LMR Provider 01/11/17 03/31/21 Moises Art MD [address] [address] Historical LMR Provider 01/11/17 2 Destin Choe MD [address] [place] [address] Historical LMR Provider 01/11/17 documented as of this encounter Additional Source Comments The information contained in this document represents components of the legal health record. It is not the complete legal health record.[facility]
--- OUTSIDE RECORDS SUMMARY | 2025-03-08 18:59 | XMS_ITS | Encounter Summary ---
Author Organization [facility] Address [address] [place] [address] Phone Care Team Providers Care Manager Credit Collections Name Role Phone Slime Youssef MD Primary Care Provider Patel Bhandari DO Unavailable Duc Suarez MD Unavailable Pao Cooley MD Unavailable Slime Youssef MD Unavailable [phone] Garret Mercedes CNP Unavailable Moises Art MD Unavailable Destin Choe MD Unavailable Slime Youssef MD Unavailable [phone] Pcp, Unknown Primary Care Provider Unavailabl e Svitlana Sher MD Primary Care Pr ovider Svitlana Sher MD Primary Care Pr ovider Svitlana Sher MD Primary Care Pr ovider Reason for Referral * Consultation (Routine) - Closed Specialty Diagnoses / Procedures Referred By Contac t Referred To Contact Genetics Diagnoses Family history of breast cancer Slime Youssef MD Phone: tel: fax: [email or web address] [address] Phone: tel: Referral ID Status Reason Start Date Expiration Date Visits Re quested Visits Authorized [id number] Closed 11/10/2019 11/09/2020 1 1 Encounter Details Date Type Department Care Team (Late st Contact Info) Description 11/10/2019 Transcribe Orders Virtual Department [address] [place] [address] Slime Youssef MD [address] [place] [address] [email or web address] Family history of breast cancer (Primary Dx) Social History Tobacco Use Types [...] (Late Contact Info) Description 05/24/2024 Procedure Pass [facility], Ct Scan - [address] [address] 04/04/2025 12:00 PM EST Appointment [facility] Ct Scan [address] [address] Fransico Baker MD [address] [place] [address] [email or web address] 05/04/2025 8:15 AM EST Office Visit [facility] [address] [place] [address] Unknown, Unknown, Isha Bower PA-C [address] [place] [address] [email or web address] 12/02/2025 8:40 AM EDT Office Visit [facility] [address] [place] [address] 3rd Floor, [address] [place] [address] Duc Suarez MD [address] [place] [address], [address] [place] [address] [email or web address] documented as of this encounter Procedures Procedure Name Priority Date/Time Associated Diagnosis Comments AMB REFERRAL TO [facility] Routine 07/06/2020 8:37 AM EDT Family history of breast cancer documented in this encounter Results * Ambulatory referral to [facility] Cancer Genetics (07/06/2020 8:37 AM EDT) us Slime Youssef MD AMB [facility] REFERRALS Final Res ult documented in this encounter Visit Diagnoses Diagnosis Family history of breast cancer- Primary Family history of malignant neoplasm of breast documented in this encounter Care Teams Manager Credit Collections Relationship Specialty Start Date End Date Slime Youssef MD [address] [place] [address] PCP - General 01/07/17 07/28/22 Pcp, Unknown PCP - General 07/29/22 08/07/22 Svitlana hSer MD PCP - General Family Medicine 08/08/22 03/24/24 Svitlana Sher MD PCP - General Family Medicine 03/25/24 02/08/25 Svitlana Sher MD 4 [place] [address] PCP - General Family Medicine 02/09/25 Patel Bhandari DO [address] [place] [address] [place] [address] Historical LMR Provider 01/11/17 03/31/21 Duc Suarez MD 22 [facility] [address] [place] [address] Historical LMR Provider 01/11/17 Pao Cooley MD [address] [address] Historical LMR Provider 01/11/17 Slime Youssef MD [address] [place] [address] Historical LMR Provider 01/11/17 Garret Mercedes CNP [address] [address] Historical LMR Provider 01/11/17 03/31/21 Moises Art MD [address] [place] [address] [address] [place] [address] Historical LMR Provider 01/11/17 2 Destin Choe MD [address] [place] [address] Historical LMR Provider 01/11/17 Slime Youssef MD [address] [place] [address] [email or web address] Insurance Assigned Provider 06/27/18 05/27/20 documented as of this encounter Additional Source Comments The information contained in this document represents components of the legal health record. It is not the complete legal health record.[facility]
--- OUTSIDE RECORDS SUMMARY | 2025-03-08 18:59 | XMS_ITS | Encounter Summary ---
Author Organization [facility] Address [address] [place] [address] Phone Care Team Providers Care Ed Special Education Teacher Name Role Phone Duc Suarez MD Unavailable [phone] Slime Youssef MD Unavailable [phone] Svitlana Sher MD Primary Care Pr ovider Svitlana Sher MD Primary Care Pr ovider Encounter Details Date Type Department Care Team (Late st Contact Info) Description 04/29/2024 Ancillary Orders [facility], X-Ray - [address] [address] Fatimah Caruso, NILA [address] [place] [address] [email or web address] Left hip pain (Primary Dx) Social History [...] st Contact Info) Description 05/24/2024 Procedure Pass [facility], Ct Scan [address] [address] 04/04/2025 12:00 PM EST Appointment [facility], Ct Scan [address] [address] Fransico Baker MD [address] [place] [address] [email or web address] 05/04/2025 8:15 AM EST Office Visit [facility] [address] [place] [address] Unknown, Unknown, Isha Bower PA-C [address] [place] [address] [email or web address] 12/02/2025 8:40 AM EDT Office Visit [facility] [address] [place] [address] 3rd Floor, [address] [place] [address] Duc Suarez MD [address] [address] [email or web address] documented as of this encounter Visit Diagnoses Diagnosis Left hip pain- Primary Pain in joint, pelvic region and thigh documented in this encounter Care Teams Ed Special Education Teacher Relationship Specialty Start Date End Date Svitlana Sher MD 15 [place] [address] PCP - General Family Medicine 03/25/24 02/08/25 Svitlana Sher MD [address] [place] [address] PCP - General Family Medicine 02/09/25 Duc Suarez MD [address] [address] [email or web address] Historical LMR Provider 01/11/17 Slime Youssef MD 15 [place] [address] [email or web address] Historical LMR Provider 01/11/17 documented as of this encounter Additional Source Comments The information contained in this document represents components of the legal health record. It is not the complete legal health record.[facility]
--- OUTSIDE RECORDS SUMMARY | 2025-03-08 18:59 | XMS_ITS | Encounter Summary ---
Author Organization [facility] Address [address] [place] [address] Phone Care Team Providers Care Monorail Helper Name Role Phone Slime Youssef MD Primary Care Provider [phone] Duc Suarez MD Unavailable [phone] Slime Youssef MD Unavailable [phone] Pcp, Unknown Primary Care Provider Unavailabl e Svitlana Sher MD Primary Care Pr ovider Svitlana Sher MD Primary Care Pr ovider Svitlana Sher MD Primary Care Pr ovider Reason for Referral * MRI/CAT Scan - Closed Specialty Diagnoses / Procedures Referred By Heriberto t Referred To Contact Radiology Diagnoses Chronic sinusitis, unspecified location Procedures CT Face Slime Youssef MD Phone: tel: fax: [email or web address] Referral ID Status Reason Start Date Expiration Date Visits Re quested Visits Authorized [id number] Closed 05/01/2021 05/01/2022 1 1 Encounter Details Date Type Department Care Team (Late st Contact Info) Description 05/01/2021 Transcribe Orders Virtual Department [address] [place] [address] Slime Youssef MD [address] [place] [address] [email or web address] Chronic sinusitis, unspecified location (Primary Dx) Social [...] st Contact Info) Description 05/24/2024 Procedure Pass [facility] Ct Scan [address] [address] 04/04/2025 12:00 PM EST Appointment [facility], Ct Scan [address] [address] Fransico Baker MD [address] [place] [address] [email or web address] 05/04/2025 8:15 AM EST Office Visit [facility] [address] [place] [address] Unknown, Unknown, Isha Bower PA-C [address] [place] [address] [email or web address] 12/02/2025 8:40 AM EDT Office Visit [facility] [address] [place] [address] 3rd Floor, [address] [place] [address] Duc Suarez MD [address] [place] [address], [address] [place] [address] documented as of this encounter Results * CT FACE (SINUS) WITHOUT CONTRAST (05/30/2021 7:57 AM EST) Anatomical Region Laterality Modality Face Computed Tomogra phy 05/30/2021 8:03 AM EST Impressions 05/30/2021 9:00 AM EST No evidence of sinusitis. No change. Narrative 05/30/2021 9:00 AM EST COMPARISON: 01/24/2020. TECHNIQUE: CT of the facial bones without contrast. Sagittal and coronal reformats generated. Automated exposure control utilized. CT FACIAL BONES FINDINGS: Brain: Chronic generalized cortical atrophy with commensurate mild ventriculomegaly. Orbits: Normal. Soft tissue: Normal. Bones/sinuses: Partial left mastoid resection and chronic small left mastoid effusion. Middle ears and external canals are clear. Paranasal sinuses are clear. Mild right nasal septal deviation. Ostiomeatal unit complexes are patent. No nasal polyps. 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 No destructive or suspicious bone lesions. Procedure Note Jose Son MD - 05/30/2021 COMPARISON: 01/24/2020. TECHNIQUE: CT of the facial bones without contrast. Sagittal and coronalreformats generated. Automated exposure control utilized. CT FACIAL BONES FINDINGS: Brain: Chronic generalized cortical atrophy with commensurate mildventriculomegaly. Orbits: Normal. Soft tissue: Normal. Bones/sinuses: Partial left mastoid resection and chronic small leftmastoid effusion. Middle ears and external canals are clear. Paranasalsinuses are clear. Mild right nasal septal deviation. Ostiomeatal unitcomplexes are patent. No nasal polyps. Chronic severe left C1-2 lateralmass arthritis. No destructive or suspicious bone lesions. IMPRESSION: No evidence of sinusitis. No change. Slime Youssef MD IMG CT HEAD/NECK Final Resu lt documented in this encounter Visit Diagnoses Diagnosis Chronic sinusitis, unspecified location- Primary Chronic sinusitis, unspecified location documented in this encounter Care Teams Monorail Helper Relationship Specialty Start Date End Date Slime Youssef MD [address] [place] [address] PCP - General 01/07/17 07/28/22 Pcp, Unknown PCP - General 07/29/22 08/07/22 Svitlana Sher MD PCP - General Family Medicine 08/08/22 03/24/24 Svitlana Sher MD PCP - General Family Medicine 03/25/24 02/08/25 Svitlana Sher MD [address] [place] [address] PCP - General Family Medicine 02/09/25 Duc Suarez MD [address] [place] [address], [facility] [address] [place] [address] [email or web address] Historical LMR Provider 01/11/17 Slime Youssef MD [address] [place] [address] [email or web address] Historical LMR Provider 01/11/17 documented as of this encounter Additional Source Comments The information contained in this document represents components of the legal health record. It is not the complete legal health record.[facility]
--- OUTSIDE RECORDS SUMMARY | 2025-03-08 18:59 | XMS_ITS | Encounter Summary ---
Author Organization [facility] Address [address] [place] [address] Phone Care Team Providers Care Kier Operator Name Role Phone Slime Youssef MD Primary [...] Department Care Team (Latest Contact Info) Description 12/24/2017 Transcribe Orders [facility] Phleb [address] [phone] Vicente Mayo MD [address] [place] [address], [address] [place] [address] [email or web address] Neuropathy (Primary Dx); Numbness Social History Tobacco Use Types Packs/Day Years [...] Contact Info) Description 05/24/2024 Procedure Pass [facility] Ct Scan [address] [address] 04/04/2025 12:00 PM EST Appointment [place], Ct Scan [address] [address] Fransico Baker MD [address] [place] [address] [email or web address] 05/04/2025 8:15 AM EST Office Visit [facility] [address] [place] [address] Unknown, Unknown, Isha Bower PA-C [address] [place] [address] [email or web address] 12/02/2025 8:40 AM EDT Office Visit [facility] [address] [place] [address] 3rd Floor, [address] [place] [address] Duc Suarez MD [address] [place] [address], [address] [address] documented as of this encounter Results * Vitamin B12 (12/24/2017 10:25 AM EDT) VITAMIN B12 1,157 232 - 1,245 pg/mL [facility] Blood 12/24/2017 10:2 5 AM EDT 12/24/2017 10:29 AM EDT us Vicente Mayo MD LAB BLOOD BKR ORDERABLES Fin al Result [address] [address] * Tissue transglutaminase IgA (12/24/2017 10:25 AM EDT) TTG IGA ANTIBODY 1.5 <4.0 (Negative) U/mL [facility] DPT OF LAB MED AND PAT+ Blood 12/24/2017 10:2 5 AM EDT 12/24/2017 10:29 AM EDT us Vicente Mayo MD LAB BLOOD BKR ORDERABLES Fin al Result Performing Organization Address City/[facility]/ZIP Co de Phone Number [facility] DPT OF LAB MED AND PAT+ [address] [place] [address] * Creatinine/eGFR (12/24/2017 10:25 AM EDT) CREATININE 0.90 0.5 - 1.5 mg/dL [facility] EGFR 66 >59 mL/min/1.7 3m2 [facility] Comment:If patient is black, multiply result by 1.159. Estimated glomerular filtration rate calculated using the CKD-EPI equation. Blood 12/24/2017 10:2 5 AM EDT 12/24/2017 10:29 AM EDT us Vicente Mayo MD LAB BLOOD BKR ORDERABLES Fin al Result [facility] [address] [place] [address] * BUN (12/24/2017 10:25 AM EDT) BUN 14 6 - 19 mg/dL [facility] Blood 12/24/2017 10:2 5 AM EDT 12/24/2017 10:29 AM EDT us Vicente Mayo MD LAB BLOOD BKR ORDERABLES Fin al Result [facility] [address] [place] [address] * (ABNORMAL) Monoclonal protein study, serum (12/24/2017 10:25 AM EDT) TOTAL PROTEIN 7.6 6.3 - 7.9 g/dL [facility] DPT OF LAB MED AND PAT+ ALBUMIN 3.9 3.4 - 4.7 g/dL [facility] DPT OF LAB MED AND PAT+ ALPHA-1 GLOBULIN 0.2 0.1 - 0.3 g/dL [facility] DPT OF LAB MED AND PAT+ ALPHA-2 GLOBULIN 1.1(H) 0.6 - 1.0 g/dL [facility] DPT OF LAB MED AND PAT+ BETA-GLOBULIN 1.2 0.7 - 1.2 g/dL [facility] DPT OF LAB MED AND PAT+ GAMMA-GLOBULIN 1.1 0.6 - 1.6 g/dL [facility] DPT OF LAB MED AND PAT+ A/G RATIO 1.07 [facility] PAT+ M SPIKE Test component not applicable or not reported. not reported [facility] OF LAB MED AND PAT+ M SPIKE Test component not applicable or not reported. not reported [facility] DPT OF LAB MED AND PAT+ IMPRESSION SEE NOTE [facility] D[facility] OF LAB MED AND PAT+ Comment: (NOTE) No apparent monoclonal protein on serum electrophoresis. See Immunofixation. IMMUNOFIXATION No monoclonal protein detected. [facility] DPT OF LAB MED AND PAT+ Blood 12/24/2017 10:2 5 AM EDT 12/24/2017 10:29 AM EDT us Vicente Mayo MD LAB BLOOD BKR ORDERABLES Fin al Result [facility] DPT OF LAB MED AND PAT+ [address] [place] [address] * TSH (12/24/2017 10:25 AM EDT) TSH 1.24 0.27 - 4.20 uIU/mL [facility] Blood 12/24/2017 10:2 5 AM EDT 12/24/2017 10:29 AM EDT us Vicente Mayo MD LAB BLOOD BKR ORDERABLES Fin al Result Performing Organization Address City/[facility] Co de Phone Number [address] [address] * (ABNORMAL) Antinuclear antibody (SALINA) (12/24/2017 10:25 AM EDT) SALINA SCREEN ON HEP 2 Positive(A ) Negative [facility] Comment:An SALINA Titer has bee n reflexed. The results will follow. Blood 12/24/2017 10:2 5 AM EDT 12/24/2017 10:29 AM EDT us Vicente Mayo MD LAB BLOOD BKR ORDERABLES Fin al Result Performing Organization Address City/[facility] Co de Phone Number [address] [address] documented in this encounter Visit Diagnoses Diagnosis Neuropathy- Primary Mononeuritis of unspecified site Numbness Disturbance of skin sensation documented in this encounter Additional Health Concerns Infection Onset Date Last Indicated Resolved Time CoV-Exposed Comment:Recent close contact 10/03/2019 10/03/2019 10/17/2019 1:25 AM EDT documented as of this encounter Care Teams Kier Operator Relationship Specialty Start Date End Date Slime Youssef MD [address] [place] [address] [email or web address] PCP - General 01/07/17 07/28/22 Pcp, Unknown PCP - General 07/29/22 08/07/22 Svitlana Shere, MD PCP - General Family Medicine 08/08/22 03/24/24 Svitlana Sher MD PCP - General Family Medicine 03/25/24 02/08/25 Svitlana Sher MD [address] [place] [address] PCP - General Family Medicine 02/09/25 Patel Bhandari DO [address] [place] [address] Historical LMR Provider 01/11/17 03/31/21 Duc Suarez MD [address] [address] Historical LMR Provider 01/11/17 Pao Cooley MD [address] [facility], 2nd [place] [address] Historical LMR Provider 01/11/17 Slime Youssef MD [address] [place] [address] [email or web address] Historical LMR Provider 01/11/17 Garret Mercedes CITY TAX AUDITOR 15 [facility], 2nd [place] [address] [email or web address] Historical LMR Provider 01/11/17 03/31/21 Moises Art MD [address] [facility] [address] [place] [address] Historical LMR Provider 01/11/17 2 Destin Choe MD [address] [place] [address] Historical LMR Provider 01/11/17 Slime Youssef MD [address] [place] [address] [email or web address] Insurance Assigned Provider 06/27/18 05/27/20 documented as of this encounter Additional Source Comments The information contained in this document represents components of the legal health record. It is not the complete legal health record.[facility]
--- OUTSIDE RECORDS SUMMARY | 2025-03-08 18:59 | XMS_ITS | Encounter Summary ---
Author Organization [facility] Address [address] [place] [address] Phone Care Team Providers Care Computer Network And Systems Engineer Name Role Phone Slime Youssef MD Primary Care Provider [phone] Patel Bhandari DO Unavailable Duc Suarez MD Unavailable [phone] Pao Cooley MD Unavailable Slime Youssef MD Unavailable Garret Mercedes CNP Unavailable Moises Art MD Unavailable Destin Choe MD Unavailable Slime Youssef MD Unavailable [phone] Pcp, Unknown Primary Care Provider Unavailabl e Svitlana Sher MD Primary Care Pr ovider Svitlana Sher MD Primary Care Pr ovider Svitlana Sher MD Primary Care Pr ovider Encounter Details Date Type Department Care Team (Latest Contact Info) Description 01/23/2017 Transcribe Orders [facility] [place] [address] 2[address] Floor [place], [place] [phone] Shorty Willis MD [address] [place] [address] Fatty liver (Primary Dx) Social History Tobacco Use Types [...] st Contact Info) Description 05/24/2024 Procedure Pass [facility], Ct Scan [address] [address] 04/04/2025 12:00 PM EST Appointment [address] [address] Fransico Baker MD [address] [place] [address] [email or web address] 05/04/2025 8:15 AM EST Office Visit [facility] [address] [place] [address] Unknown, Unknown, Isha Bower PA-C [address] [place] [address] [email or web address] 12/02/2025 8:40 AM EDT Office Visit [facility] [address] [place] [address] 3rd Floor, [address] [place] [address] Duc Suarez MD [address] [place] [address], [address] [address] documented as of this encounter Results * LFTs (hepatic panel) (01/23/2017 10:17 AM EDT) ALKALINE PHOSPHATASE 67 39 - 117 U/L [facility] TOTAL BILIRUBIN 0.6 0 - 1.2 mg/dL [facility] DIRECT BILIRUBIN <0.2 0 - 0.3 mg/dL [facility] Bilirubin (Indirect) NOT CALCULATED 0 - 1.5 mg/dL [facility] AST 32 0 - 37 U/L [facility] ALT 31 0 - 40 U/L [facility] TOTAL PROTEIN 7.2 6.5 - 8.0 g/dL [facility] ALBUMIN 4.3 3.9 - 4.8 g/dL [facility] GLOBULIN 2.9 1 - 4.8 g/dL [facility] A/G Ratio 1.48 1.00 - 4.80 RATIO [facility] Blood 01/23/2017 10:1 7 AM EDT 01/23/2017 10:22 AM EDT us Shorty Willis MD LAB BLOOD BKR ORDERABLES Jame tiffany Result - Final [facility] [address] [place] [address] documented in this encounter Visit Diagnoses Diagnosis Fatty liver- Primary Other chronic nonalcoholic liver disease documented in this encounter Additional Health Concerns Infection Onset Date Last Indicated Resolved Time CoV-Exposed Comment:Recent close contact 10/03/2019 10/03/2019 10/17/2019 1:25 AM EDT documented as of this encounter Care Teams Computer Network And Systems Engineer Relationship Specialty Start Date End Date Slime Youssef MD [address] [place] [address] PCP - General 01/07/17 07/28/22 Pcp, Unknown PCP - General 07/29/22 08/07/22 Svitlana Sher MD PCP - General Family Medicine 08/08/22 03/24/24 Svitlana Sher MD PCP - General Family Medicine 03/25/24 02/08/25 Svitlana Sher MD [address] [place] [address] PCP - General Family Medicine 02/09/25 Patel Bhandari DO [address] [facility] [address] [email or web address] Historical LMR Provider 01/11/17 03/31/21 Duc Suarez MD [address] [address] [email or web address] Historical LMR Provider 01/11/17 Pao Cooley MD [address] [address] [email or web address] Historical LMR Provider 01/11/17 Slime Youssef MD [address] [place] [address] [email or web address] Historical LMR Provider 01/11/17 Graret Mercedes CNP [address] [address] Historical LMR Provider 01/11/17 03/31/21 Moises Art MD [address] [place] [address] Historical LMR Provider 01/11/17 2 Destin Choe MD [address] [place] [address] Historical LMR Provider 01/11/17 Slime Youssef MD [address] [place] [address] [email or web address] Insurance Assigned Provider 06/27/18 05/27/20 documented as of this encounter Additional Source Comments The information contained in this document represents components of the legal health record. It is not the complete legal health record.[facility]
--- OUTSIDE RECORDS SUMMARY | 2025-03-08 19:00 | XMS_ITS | Encounter Summary ---
Author Organization [facility] Address [address] [place] [address] Care Team Providers Care Environmental Air Specialist Name Role Phone Svitlana Sher MD Primary Care Pr ovider Reason for Visit * Reason Comments home health cert Encounter Details Date Type Department Care Team ([facility] Contact Info) Description 06/11/2024 Billing Patient Not Present Adult Medicine [address] [phone] Svitlana Sher MD [address] [place] [address] Social History Tobacco Use Types Packs/Day Years Used Date Smoking Tobacco: Former Cigarettes 0 Q uit: 03/24/2007 Smokeless Tobacco: Never Alcohol Use Standard Drinks/Week Comments Never 0 (1 standard drink = 0.6 oz pur e alcohol) Housing Instability Answer Date Recorde d Are you worried that in the next 2 months you may not have stable housing? No 04/13/2024 Food Access & Nutrition Answer Date Rec orded Do you have access to a vari ety of food including fruits and vegetables? Yes 04/13/2024 Access to Healthcare Answer Date Record ed Within the last 3 months, ho w many times did you visit the emergency department for your medical care? 0 04/13/2024 Health Literacy Answer Date Recorded How often do you need to hav e someone help you when you read instructions, pamphlets, or other written material from your doctor or pharmacy? Never 04/13/2024 Caregiver: How often do you need to have someone help you when you read instructions, pamphlets, or other written material from your doctor or pharmacy? Not on file 04/13/2024 Financial Risk Answer Date Recorded How hard is it for you to pa y for the very basics like food, housing, medical care, and air conditioning / heating? Not very hard 04/13/2024 Transportation Answer Date Recorded Has the lack of transportati on kept you from meetings, work, or from getting things needed for daily living? No Has the lack of transportati on kept you from medical appointments or from getting medications? No 04/13/2024 Social Isolation Answer Date Recorded How often do you feel lonely or isolated from th ose around you? Never 04/13/2024 Food Risk Answer Date Recorded Within the past 12 months we worried whether our food would run out before we got money to buy more. Never true 04/13/2024 Within the past 12 months th e food we bought just didn't last and we didn't have money to get more. Never true 04/13/2024 Dependent Care Answer Date Recorded Do you need help finding or paying for care for your loved ones. For example, child support specialist or elderly care for an older adult? No 04/13/2024 Education Answer Date Recorded Do you think completing more education or training, like finishing a GED, going to college, or learning a trade, would be helpful for you? No 04/13/2024 Employment and Income Answer Date Recor ded During the last four weeks, have you been actively looking for work? No 04/13/2024 Living Situation Answer Date Recorded What is your living situation? Unrecognized valu e 04/13/2024 Comments No Sex and Gender Information Value Date Recorded Sex Assigned at Not on file Legal Sex Female 3:15 PM EST Gender Identity Not on file Sexual Orientation Not on file documented as of this encounter Plan of Treatment Upcoming Encounters Date Type Department Care Team ([facility] st Contact Info) Description 11/04/2025 7:30 AM EDT Office Visit [place] [address] [place] [address] Lidya Durham PA [address] [place] [address] documented as of this encounter Visit Diagnoses Not on filedocumented in this encounter Additional Health Concerns Assessment Noted Time PHQ-9 Depression Total Score: 0 04/13/19 25 8:05 AM EST documented as of this encounter Care Teams Environmental Air Specialist Relationship Specialty Start Date End Date Svitlana Sher MD [address] [place] [phone] PCP - General Internal Medicine 04/02/22 documented as of this encounter
--- OUTSIDE RECORDS SUMMARY | 2025-03-08 19:00 | XMS_ITS | Encounter Summary ---
Author Organization [facility] Address [address] [place] [address] Phone Care Team Providers Care Youth Worker Name Role Phone Silme Youssef MD Primary Care Provider Patel Bhandari DO Unavailable Duc Suarez MD Unavailable Pao Cooley MD Unavailable Slime Youssef MD Unavailable Garret Mercedes CNP Unavailable [phone] Moises Art MD Unavailable Destin Choe MD Unavailable Slime Youssef MD Unavailable [phone] Pcp, Unknown Primary Care Provider Unavailabl e Svitlana Sher MD Primary Care Pr ovider Svitlana Sher MD Primary Care Pr ovider Svitlana Sher MD Primary Care Pr ovider Encounter Details Date Type Department Care Team (Late st Contact Info) Description 02/23/2020 Ancillary Orders [facility],Outside Imaging [address] [place], [place] [phone] System, Provider Not In, [facility] [address] [place] [address] Social History Tobacco Use Types Packs/Day Years [...] st Contact Info) Description 05/24/2024 Procedure Pass [address] [address] 04/04/2025 12:00 PM EST Appointment [address] [address] Fransico Baker MD [address] [place] [address] [email or web address] 05/04/2025 8:15 AM EST Office Visit [facility] [address] [place] [address] Unknown, Unknown, Isha Bower PA-C [address] [place] [address] [email or web address] 12/02/2025 8:40 AM EDT Office Visit [facility] [address] [place] [address] 3rd Floor, [address] [place] [address] Duc Suarez MD [address] [place] [address], [address] [place] [address] documented as of this encounter Results * CT Chest Outside (No Interpretation) (12/31/2019 12:00 AM EDT) Narrative SYSTEMGENERATED, DOCUMENTATION - 02/23/2020 4:28 PM EST This study is for PACS storage only and not for interpretation. us Provider Not In System PhD IMG OUTSIDE IMAGING W /OUT INTERPRETATION Final Result documented in this encounter Visit Diagnoses Not on filedocumented in this encounter Care Teams Youth Worker Relationship Specialty Start Date End Date Slime Youssef MD [address] [place] [address] PCP - General 01/07/17 07/28/22 Pcp, Unknown PCP - General 07/29/22 08/07/22 Svitlana Sher MD PCP - General Family Medicine 08/08/22 03/24/24 Svitlana Sher MD PCP - General Family Medicine 03/25/24 02/08/25 Svitlana Sher MD [address] [place] [address] PCP - General Family Medicine 02/09/25 Patel Bhandari DO [address] [place] [address] [place] [address] Historical LMR Provider 01/11/17 03/31/21 Duc Suarez MD [address] [place] [address] 301 [place] [address] Historical LMR Provider 01/11/17 Pao Cooley MD [address] [address] Historical LMR Provider 01/11/17 Slime Youssef MD 15 [place] [address] Historical LMR Provider 01/11/17 Garret Mercedes, MANAGER FIELD SERVICE [address] [address] Historical LMR Provider 01/11/17 03/31/21 Moises Art MD [facility] [address] [address] Historical LMR Provider 01/11/17 2 Destin Choe MD [address] [place] [address] Historical LMR Provider 01/11/17 Slime Youssef MD [address] [place] [address] Insurance Assigned Provider 06/27/18 05/27/20 documented as of this encounter Additional Source Comments The information contained in this document represents components of the legal health record. It is not the complete legal health record.[facility]
--- OUTSIDE RECORDS SUMMARY | 2025-03-08 19:00 | XMS_ITS | Clinical Summary ---
Author Organization [facility] [address] [place] [address] [place] [phone] Phone Care Team Providers Care Broach Grinder Name Role Phone Svitlana Sher MD Primary Care Pr ovider Allergies Active Allergy Reactions Criticality Noted Date Comments Ciprofloxacin Hives 07/05/2021 Cipro Codeine Pain 08/20/2014 Other Reaction(s): chest pains, Chest tightness Chest pain Metronidazole Hives High 07/05/2021 Brand Name: Flagyl - Other Reaction(s): HIVES AND ICTHING Morphine Pain 01/12/2018 Other Reaction(s): chest pains, Chest tightness Chest pain Medications rosuvastatin (CRESTOR) 10 mg tablet Take 1 tablet (10 mg total) by mouth 1 (one) time each day. 6 Active celecoxib (CeleBREX) 200 mg capsule Take 1 capsule (200 mg total) by mouth 1 (one) time each day. Active magnesium oxide 250 mg magnesium tablet Take 1 tablet (250 mg total) by mouth daily. Active amLODIPine (NORVASC) 5 mg tablet Take 1 tablet (5 mg total) by mouth 1 (one) time each day. Active losartan (COZAAR) 100 mg tablet Take 1 tablet (100 mg total) by mouth 1 (one) time each day. Active cholecalcifero l (VITAMIN D-3) 25 mcg (1,000 unit) capsule Take 25 mcg by mouth. Active cyanocobalamin (VITAMIN B-12) 1,000 mcg tablet Take 1 tablet (1,000 mcg total) by mouth. Active aspirin 81 mg EC tablet Take 1 tablet (81 mg total) by mouth daily. Active vitamins A,C,E-zinc-animal cop per 4,296 mcg-226 mg-90 mg capsule Take 2 capsules by mouth 2 times daily. Active omega 4-mln-lkz-fish oil (Fish OiL) 1,000 (120-180) mg capsule Take 1 capsule (1,000 mg total) by mouth 1 (one) time each day. 6 Active ezetimibe (ZETIA) 10 mg tablet Take 1 tablet (10 mg total) by mouth 1 (one) time each day. Active pregabalin (LYRICA) 75 mg capsuleIndicat ions:Cervicocr anial syndrome Take 1 capsule (75 mg total) by mouth 3 (three) times a day. Max Daily Amount: 225 mg 270 each 1 5 Active buPROPion XL (WELLBUTRIN XL) 150 mg 24 hr tablet TAKE 1 TABLET BY MOUTH EVERY DAY IN THE MORNING 90 tablet 1 5 Active citalopram (CeleXA) 20 mg tablet TAKE 1 TABLET (20 MG TOTAL) BY MOUTH ONE TIME EACH DAY 90 tablet 1 5 Active citalopram (CeleXA) 20 mg tablet Take 1 tablet (20 mg total) by mouth 1 (one) time each day. 90 each 1 5 025 Discontinued Active Problems Problem Noted Date Diagnosed Date CKD stage 3a, GFR 45-59 ml/min 08/26/2024 Steatosis of liver 05/28/2024 Assessment & Plan (07/08/2024 3:25 PM EDT): See HPI. Lifestyle counseling provided. She has a benign-appearing liver cyst which will be monitored with ultrasound yearly Liver cyst 05/28/2024 Osteoporosis 01/29/2024 Assessment & Plan (07/08/2024 3:25 PM EDT): She does not want to use alendronate due to the potential of side effects. See HPI. Has upcoming appointment for follow-up with endocrinology next month. She will like Prolia Hypertriglyceridemia 12/24/2023 Assessment & Plan (07/08/2024 3:25 PM EDT): continue Crestor and Zetia B12 deficiency 06/02/2023 Assessment & Plan (07/08/2024 3:25 PM EDT): Continue vitamin B12 1000 mcg daily Vitamin D deficiency 06/02/2023 Assessment & Plan (07/08/2024 3:25 PM EDT): Continue vitamin D daily Urge incontinence of urine 06/02/2023 Tinnitus of both ears 06/02/2023 Anxiety and depression 07/23/2022 Assessment & Plan (07/08/2024 3:25 PM EDT): Continue Celexa 20 mg daily. Decrease Wellbutrin to 150 mg every other day She will let me know if she has any changes to her mood symptoms and to decrease dose Cervicocranial syndrome 08/25/2018 Assessment & Plan (07/08/2024 3:25 PM EDT): Advised that GFR was slightly decreased to 53 on testing done with her sales demonstrator in May. Advised to hold off on using Celebrex 200 mg daily. She is on pregabalin 75 mg twice daily. Will trial this to see if this helps with her neck pain Orders: pregabalin (LYRICA) 75 mg capsule; Take 1 capsule (75 mg total) by mouth 2 (two) times a day. Max Daily Amount: 150 mg Neck pain 08/25/2018 Occipital neuralgia of left side 08/25/2018 Spondylosis of cervical jennifer on without myelopathy or radiculopathy 08/25/[address] (myocardial infarction) 01/12/2018 Assessment & Plan (07/08/2024 3:25 PM EDT): Continue Crestor 10 mg, aspirin 81 mg and Zetia 10 mg every other day Essential hypertension 08/20/2014 Assessment & Plan (07/08/2024 3:25 PM EDT): Continue losartan 100 mg daily and amlodipine 5 mg daily. Overall blood pressure is stable Resolved Problems Problem Noted Date Diagnosed Date Resolved Date Age-related osteoporosis wit hout current pathological fracture 03/11/2024 05/20/2024 Osteopenia 12/02/2022 02/25/2024 Overview (02/20/2024): Last bone density July 2021 (care everywhere) Encounters Date Type Department Care Team Description 02/09/2025 Telephone Adult Medicine [address] [phone] Svitlana Sher MD 01/03/2025 Telephone Adult Medicine [address] [phone] Svitlana Sher MD from Last 3 Months Immunizations Immunization Administration Dates Next Due Moderna SARS-CoV-2 COVID-19, mRNA, LNP-S, preservative free 12/24/2021,08/10/2021,03/27/2021 Pneumococcal conjugate 13 va lent (Prevnar 13, PCV13) 2mo and older 06/12/2016 Pneumococcal polysaccharide 23 valent (Pneumovax 23) 2yo and older 01/05/2019 Td, Unspecified 02/26/2019 Tdap Tetanus diptheria acell ular pertussis (Boostrix; Adacel) 7yo and older 12/23/2024,03/24/2017 Zoster recombinant (Shingrix ) 19yo and older 02/22/2019 Surgical History Surgery Date Site/Laterality Comments HYSTERECTOMY PROCEDURE: HISTORICAL HYSTERECTOMY APPENDECTOMY PROCEDURE: HISTORICAL APPENDECTOMY CHOLECYSTECTOMY PROCEDURE: HISTORICAL CHOLECYSTECTOMY OTHER SURGICAL HISTORY PROCEDURE: HISTORY OTHER; COMMENT: bilateral breast biopsies (all benign), L biopsy (3-4 years ago, atypical cells) OTHER SURGICAL HISTORY Left PROCEDURE: HISTORY OTHER; COMMENT: L ear cholesteatoma and ear drum repar OTHER SURGICAL HISTORY PROCEDURE: HISTORY OTHER; COMMENT: colon resection ( due to diverticulitis) LUMBAR LAMINECTOMY 05/13/2024 Dr. Smalls: laminectomy decompression posterior lumbar L2-3, L3-4 with left L2-3 discectomy Medical History Medical History Date Comments Osteoporosis Anxiety and depression Hypertriglyceridemia HTN (hypertension) History of CT (myocardial infarction) Urge incontinence Cervical spondylosis Family History Medical History Relation Name Comments Breast cancer Aunt fraternal Breast cancer Other maternal aunt x2 Relation Name Status Comments Aunt Alive Other Social History Tobacco Use Types Packs/Day Years Used Date Smoking Tobacco: Former Cigarettes 0 Q uit: 03/24/2007 Smokeless Tobacco: Never Tobacco Cessation:Counseling Given: Not Answered Alcohol Use Standard Drinks/Week Comments Never 0 [...] for your loved ones. For example, child care associate teacher or elderly care for an older adult? [...] on file Sexual Orientation Not on file Obstetrics History Para Term AB IAB SAB Ectopic Multiple Livin g Live Births 3 3 3 3 Date Outcome GA Total Labor Labor/2nd/3rd Weight Sex Type Anes PTL Lolis A1 A5 Name Clin Term Term Term Last Filed Vital Signs Vital Sign Reading Time Taken Comments Blood Pressure 115/58 11/03/2024 10:55 AM EDT Pulse 69 11/03/2024 10:55 AM EDT Temperature 35.9 C (96.6 F) 11/03/2024 10:55 AM EDT Respiratory Rate 14 07/08/2024 12:41 PM EDT Oxygen Saturation 97% 05/20/2024 9:43 AM EST Inhaled Oxygen Concentration - - Weight 74.4 kg (164 lb) 11/03/2024 10:55 AM EDT Height 162.6 cm (5' 4 ) 11/03/2024 10:55 AM EDT Body Mass Index 28.15 11/03/2024 10:55 AM EDT Plan of Treatment Upcoming Encounters Date Type Department Care Team (Late st Contact Info) Description 11/04/2025 7:30 AM EDT Office Visit Endocrinology - [id number] [place] [address] Lidya Durham PA [address] [place] [address] Health Maintenance Due Date Last Done Comments Colorectal Cancer Screening: Colonoscopy 1950 RSV Immunization Adult Patients (1 - Risk 50-74 years 1-dose series) 2000 Zoster Vaccines (2 of 2) 04/19/2019 02/22/2019 Medicare Annual Wellness Visit 02/20/2022 COVID-19 Vaccine ( season) 2024 12/24/2021, 08/10/2021, 03/27/2021, Additional history exists Influenza Vaccine (#1) 2024 Social Influencers of Health Screening 04/13/2025 04/13/2024 Falls Risk Assessment 07/08/2025 07/08/2024 Hypertension/CHF/CAD Annual BMP Blood Test 10/25/2025 10/25/2024, 08/26/2024, 05/27/2024, Additional history exists Breast Cancer Screening 10/01/2026 10/02/19, 10/02/2023, 10/02/2023, Additional history exists Cholesterol Screening (Lipid Panel) 10/25/2029 10/25/2024, 05/27/2024, 11/27/2023, Additional history exists Osteoporosis Screening (Bone Density Screening) 01/27/2034 01/28/2024, 08/03/2021 DTaP,Tdap,and Td Vaccines (4 - Td or Tdap) 12/23/2034 12/23/2024, 02/26/2019, 03/24/2017 Pneumococcal Vaccine: 50+ Years Completed 01/05/2019, 06/12/2016 Depression Screening Completed 07/05/2024 Hepatitis C Screening Completed 08/26/2024 HIB Vaccines Aged Out No longer eligi ble based on patient's age to complete this topic HPV Vaccines Aged Out No longer eligi ble based on patient's age to complete this topic Hepatitis A Vaccines Aged Out No long er eligible based on patient's age to complete this topic Hepatitis B Vaccines Aged Out No long er eligible based on patient's age to complete this topic IPV Vaccines Aged Out No longer eligi ble based on patient's age to complete this topic MMR Vaccines Aged Out No longer eligi ble based on patient's age to complete this topic Meningococcal ACWY Vaccine Aged Out N o longer eligible based on patient's age to complete this topic Meningococcal B Vaccine Aged Out No l onger eligible based on patient's age to complete this topic RSV Immunization Patients Under 20 months Aged Out No longer eligible based on patient's age to complete this topic Varicella Vaccines Aged Out No longer eligible based on patient's age to complete this topic Procedures Procedure Name Priority Date/Time Associated Diagnosis Comments MG MAMMO DIGITAL SCREENING W ALFREDO BILAT Routine 10/01/2024 9:14 AM EDT Encounter for screening mammogram for breast cancer HEPATITIS C ANTIBODY Routine 08/26/2024 11:34 AM EDT Need for hepatitis C screening test COMPREHENSIVE METABOLIC PANEL Routine 08/26/2024 11:34 AM EDT Decreased GFR BD BONE DENSITY DXA AXIAL SKELETON Routine 01/28/2024 3:26 PM EST Other specified disorders of bone density and structure, unspecified site from Last 3 Months or Most Recently Relevant to Health Maintenance Results * MG Mammo Digital Screening w Alfredo bilat (10/01/2024 9:14 AM EDT) Anatomical Region Laterality Modality Breast Bilateral Mammography 10/04/2024 5:08 PM EDT Impressions 10/04/2024 5:13 PM EDT No mammographic evidence of malignancy. BREAST DENSITY: B - There are scattered areas of fibroglandular density. BI-RADS CATEGORY: 2 - BENIGN RECOMMENDATION: Screening bilateral mammogram is recommended in 1 year. MAMMO LOCATION: [facility], [address] [place] [address], [id number], . -------- FINAL REPORT -------- Dictated By: Carolyn Wilkins Dictated Date: 10/04/2024 17:08 ET Assigned Physician: Carolyn Wilkins Reviewed and Electronically Signed By: Carolyn Wilkins Signed Date: 10/04/2024 17:13 ET Workstation ID: [id number] Transcribed By: Self Edit Transcribed Date: 10/04/2024 17:08 ET Narrative 10/04/2024 5:13 PM EDT EXAM: Screening Mammogram CLINICAL: 74 years old, Female, routine annual exam. History of bilateral excisional biopsies. COMPARISON: 09/24/2023 and as far back as 10/21/2019 TECHNIQUE: Bilateral MLO and CC views were obtained digitally with 3-D mammogram (digital breast tomosynthesis). Computer-aided detection was utilized in evaluation of this exam (CAD). FINDINGS: Stable bilateral postsurgical changes. No new suspicious mass, architectural distortion, or suspicious calcifications. Procedure Note Caroyln Wilkins MD - 10/04/2024 EXAM: Screening Mammogram CLINICAL: 74 years old, Female, routine annual exam. History of bilateralexcisional biopsies. COMPARISON: 09/24/2023 and as far back as 10/21/2019 TECHNIQUE: Bilateral MLO and CC views were obtained digitally with 3-Dmammogram (digital breast tomosynthesis). Computer-aided detection wasutilized in evaluation of this exam (CAD). FINDINGS: Stable bilateral postsurgical changes. No new suspicious mass,architectural distortion, or suspicious calcifications. IMPRESSION: No mammographic evidence of malignancy. BREAST DENSITY: B - There are scattered areas of fibroglandular density. BI-RADS CATEGORY: 2 - BENIGN RECOMMENDATION: Screening bilateral mammogram is recommended in 1 year. MAMMO LOCATION: [facility], [address] [place] [address], [id number], . -------- FINAL REPORT -------- Dictated By: Carolyn Wilkins Dictated Date: 10/04/2024 17:08 ET Assigned Physician: Carolyn Wilkins Reviewed and Electronically Signed By: Carolyn Wilkins Signed Date: 10/04/2024 17:13 ET Workstation ID: [id number] Transcribed By: Self Edit Transcribed Date: 10/04/2024 17:08 ET Svitlana Sher MD IM BI PROCEDURE S Final Result * Hepatitis C antibody (08/26/2024 11:34 AM EDT) Hepatitis C Antibody Negative Negative LAB CHEMISTRY METHOD 08/26/2024 4:46 PM EDT [facility] Blood Venous blood specimen / Unknown Venipuncture / Unknown 08/26/2024 11:34 AM EDT 08/26/2024 11:34 AM EDT Svitlana Sher MD LAB BLOOD ORDERA BLES Final Result [facility] [address] [place] [address], [place] [phone] * (ABNORMAL) Comprehensive metabolic panel (08/26/2024 11:34 AM EDT) Pathologist [facility] Sodium 138 133 - 145 mmol/L LAB CHEMISTRY METHOD 08/26/2024 2:59 PM EDT [facility] Potassium 4.6 3.5 - 5.5 mmol/L LAB CHEMISTRY [facility] Chloride 101 96 - 110 mmol/L LAB CHEMISTRY METHOD 08/26/2024 2:59 PM EDT [facility] CO2 29 21 - 32 mmol/L LAB CHEMISTRY METHOD 08/26/2024 2:59 PM EDT [facility] Anion Gap 8 3 - 11 LAB CHEMISTRY METHOD 08/26/2024 2:59 PM [facility] Glucose 87 70 - 100 mg/dL LAB CHEMISTRY METHOD 08/26/2024 2:59 PM [facility] BUN 30(H) 5 - 25 mg/dL LAB CHEMISTRY METHOD 08/26/2024 2:59 PM T [facility] Creatinine 1.10 0.50 - 1.10 mg/dL LAB CHEMISTRY METHOD 08/26/2024 2:59 PM EDT [facility] eGFR 53(L) >=60 mL/min/1. 73m2 LAB CHEMISTRY METHOD 08/26/2024 2:59 PM EDT [facility] Comment:Calculation based on the Chronic Kidney Disease Epidemiology Collaboration (CKD-EPI) equation refit without adjustment for race. BUN/Creatinine Ratio 27.3 LAB CHEMISTRY METHOD 08/26/2024 2:59 PM EDT [facility] Calcium 9.4 8.5 - 10.5 mg/dL LAB CHEMISTRY METHOD 08/26/2024 2:59 PM EDT [facility] AST (SGOT) 20 10 - 42 unit/L LAB CHEMISTRY METHOD 08/26/2024 2:59 PM T [facility] ALT (SGPT) 29 10 - 60 unit/L LAB CHEMISTRY METHOD 08/26/2024 2:59 PM EDT [facility] Alkaline Phosphatase 113 42 - 121 unit/L LAB CHEMISTRY METHOD 08/26/2024 2:59 PM EDT [facility] Total Protein 7.0 6.0 - 8.0 g/dL LAB CHEMISTRY METHOD 08/26/2024 2:59 PM [facility] Albumin 4.2 3.2 - 5.0 g/dL LAB CHEMISTRY METHOD 08/26/2024 2:59 PM EDT [facility] Total Bilirubin 0.4 0.0 - 1.4 mg/dL LAB CHEMISTRY METHOD 08/26/2024 2:59 PM T [facility] Blood Venous blood specimen / Unknown Venipuncture / Unknown 08/26/2024 11:34 AM EDT 08/26/2024 11:34 AM EDT Svitlana Sher MD LAB BLOOD ORDERA BLES Final Result [facility] [address] [place] [address], * BD Bone Density DXA Axial Skeleton (01/28/2024 3:26 PM EST) Anatomical Region Laterality Modality Wrist, Hip, L-spine Bone Densito metry 01/29/2024 8:00 AM EST Impressions 01/29/2024 8:02 AM EST Osteoporosis Reference Information: The T-score is the number of standard deviations above or below the standard which is normal for young adults at their peak bone mineral density. The World Health Organization (WHO) interprets the T-scores as follows: At or above -1 SD Normal bone density Between -1 and -2.5 SD Osteopenia At or below -2.5 SD Osteoporosis -------- FINAL REPORT -------- Dictated By: Jose Angel Hays Dictated Date: 01/29/2024 08:00 ET Assigned Physician: Jose Angel Hays Reviewed and Electronically Signed By: Jose Angel Hays Signed Date: 01/29/2024 08:02 ET Workstation ID: [id number] Transcribed By: Self Edit Transcribed Date: 01/29/2024 08:00 ET Narrative 01/29/2024 8:02 AM EST STUDY: DUAL ENERGY X-RAY ABSORPTIOMETRY / DXA REASON FOR EXAM: Female, 73 years old M85.80 TECHNIQUE: Bone Mineral Density (BMD) measurements of the lumbar spine and left hip were obtained using [employer] W (S/N [id number]). COMPARISON: None FINDINGS: L1-L4 BMD: 1.037 g/cm2 L1-L4 T score: -0.1. This corresponds to Normal bone density. Left femoral neck BMD: 0.507 g/cm2 Left femoral neck T score: -3.1. This corresponds to osteoporosis. Left total hip BMD: 0.679 g/cm2 Left total hip T score: -2.2. This corresponds to osteopenia. Procedure Note Jose Angel Hays MD - 01/29/2024 STUDY: DUAL ENERGY X-RAY ABSORPTIOMETRY / DXA REASON FOR EXAM: Female, 73 years old M85.80 TECHNIQUE: Bone Mineral Density (BMD) measurements of the lumbar spineand left hip were obtained using [employer] W (S/N [id number]). COMPARISON: None FINDINGS: L1-L4 BMD: 1.037 g/cm2 L1-L4 T score: -0.1. This corresponds to Normal bone density. Left femoral neck BMD: 0.507 g/cm2 Left femoral neck T score: -3.1. This corresponds to osteoporosis. Left total hip BMD: 0.679 g/cm2 Left total hip T score: -2.2. This corresponds to osteopenia. IMPRESSION: Osteoporosis Reference Information: The T-score is the number of standard deviations above or below thestandard which is normal for young adults at their peak bone mineraldensity. The World Health Organization (WHO) interprets the T-scores asfollows: At or above -1 SD Normal bone density Between -1 and -2.5 SD Osteopenia At or below -2.5 SD Osteoporosis -------- FINAL REPORT -------- Dictated By: Jose Angel Hays Dictated Date: 01/29/2024 08:00 ET Assigned Physician: Jose Angel Hays Reviewed and Electronically Signed By: Jose Angel Hays Signed Date: 01/29/2024 08:02 ET Workstation ID: [id number] Transcribed By: Self Edit Transcribed Date: 01/29/2024 08:00 ET Svitlana Sher MD [facility] Final Result from Last 3 Months or Most Recently Relevant to Health Maintenance Insurance [employer] MEDICARE Care Teams Broach Grinder Relationship Specialty Start Date End Date Svitlana Sher MD [address] [place] [address] PCP - General Internal Medicine 04/02/22
--- OUTSIDE RECORDS SUMMARY | 2025-03-08 19:00 | XMS_ITS | Encounter Summary ---
Author Organization [facility] Address [address] [place] [phone] Phone Care Team Providers Care Coil Winding Supervisor Name Role Phone Slime Youssef MD Primary Care Provider [phone] Patel Bhandari DO Unavailable Duc Suarez MD Unavailable Pao Cooley MD Unavailable Slime Youssef MD Unavailable [phone] Garret Mercedes CNP Unavailable Moises Art MD Unavailable Destin Choe MD Unavailable Slime Youssef MD Unavailable Pcp, Unknown Primary Care Provider Unavailabl e Svitlana Sher MD Primary Care Pr ovider Svitlana Sher MD Primary Care Pr ovider Svitlana Sher MD Primary Care Pr ovider Encounter Details Date Type Department Care Team (Late st Contact Info) Description 11/08/2019 Transcribe Orders [facility] Department [address] [place] [phone] Slime Youssef MD [address] [place] [phone] Encounter for screening for lung cancer (Primary Dx) Social History Tobacco Use [...] st Contact Info) Description 05/24/2024 Procedure [place], Ct Scan [address] [address] 04/04/2025 12:00 PM EST Appointment [facility] Scan [address] [address] Fransico Baker MD [address] [place] [phone] [email or web address] 05/04/2025 8:15 AM EST Office Visit [facility] [address] [place] [phone] Unknown, Unknown, Isha Bower PA-C [address] [place] [phone] [email or web address] 12/02/2025 8:40 AM EDT Office Visit [facility] [address] [place] [address] [address]rd Floor, [address] [place] [phone] Duc Suarez MD [address] [place] [phone] documented as of this encounter Visit Diagnoses Diagnosis Encounter for screening for lung cancer- Primary documented in this encounter Care Teams Coil Winding Supervisor Relationship Specialty Start Date End Date Slime Youssef MD [address] [place] [phone] [email or web address] PCP - General 01/07/17 07/28/22 Pcp, Unknown PCP - General 07/29/22 08/07/22 Svitlana Sher MD PCP - General Family Medicine 08/08/22 03/24/24 Svitlana Sher MD PCP - General Family Medicine 03/25/24 02/08/25 Svitlana Sher MD [address] [place] [phone] PCP - General Family Medicine 02/09/25 Patel Bhandari DO [address] [place] [address] [place] [address] [email or web address] Historical LMR Provider 01/11/17 03/31/21 Duc Suarez MD 22 [facility] [address] [place] [address] [email or web address] Historical LMR Provider 01/11/17 Pao Cooley MD [address] [facility], [address]nd [place] [address] Historical LMR Provider 01/11/17 Slime Youssef MD [address] [place] [address] Historical LMR Provider 01/11/17 Garret Mercedes CNP [address] [facility], [address]nd [place] [address] Historical LMR Provider 01/11/17 03/31/21 Moises Art MD [address] [place] [phone] Historical LMR Provider 01/11/17 2 Destin Choe MD [address] [place] [phone] Historical LMR Provider 01/11/17 Slime Youssef MD [address] [place] [address] Insurance Assigned Provider 06/27/18 05/27/20 documented as of this encounter Additional Source Comments The information contained in this document represents components of the legal health record. It is not the complete legal health record.[facility]
== END 2025-03-08 15:53 | disposition home or self-care (01) ==
PROVIDERS: PCP Physician Assistant Medical; Visit Provider Physician Assistant Medical
DX: Z00.00 Encounter for general adult medical examination without abnormal findings (principal); R73.03 Prediabetes; M54.9 Dorsalgia, unspecified; G89.29 Other chronic pain; L98.9 Disorder of the skin and subcutaneous tissue, unspecified; M67.441 Ganglion, right hand; I10 Essential (primary) hypertension; Z13.9 Encounter for screening, unspecified

== ENCOUNTER → 2025-03-08 14:43 | Outpatient (BNVA) | payer MEDICARE, SELFPAY | PROVIDERS: PCP Physician Assistant Medical; Visit Provider Physician Assistant Medical | DX: Z00.00 Encounter for general adult medical examination without abnormal findings (principal); R73.03 Prediabetes; M54.9 Dorsalgia, unspecified; G89.29 Other chronic pain; L98.9 Disorder of the skin and subcutaneous tissue, unspecified; M67.441 Ganglion, right hand; I10 Essential (primary) hypertension; Z13.31 Encounter for screening for depression; Z13.39 Encounter for screening examination for other mental health and behavioral disorders; Z79.899 Other long term (current) drug therapy | CPT/HCPCS: 83036; 96127; 99387 ==

== ENCOUNTER 2025-03-16 07:47 | Outpatient (REF) | payer MEDICARE, SELFPAY ==
--- OUTSIDE RECORDS SUMMARY | 2025-03-16 07:51 | XMS_ITS | Encounter Summary ---
Author Organization [facility] Address [address] [place] [address] Phone Care Team Providers Care Mason Liner Name Role Phone Slime Youssef MD Primary Care Provider Patel Bhandari DO Unavailable Duc Suarez MD Unavailable [phone] Pao Cooley MD Unavailable Slime Youssef MD Unavailable [phone] Garret Mercedes CNP Unavailable Moises Art MD [...] Spine Vicente Mayo MD Phone: tel: fax: [email or web address] Referral ID Status Reason Start Date Expiration Date Visits Re quested Visits Authorized [id number] Closed 06/12/2018 07/12/2018 1 1 Encounter Details Date Type Department Care Team (Latest Contact Info) Description 06/12/2018 Transcribe Orders Virtual Department [address] [place] [address] Vicente Mayo MD [address] [place] [address], [address] [place] [address] [email or web address] Numbness in both legs (Primary Dx) [...] st Contact Info) Description 05/24/2024 Procedure Pass [facility], [address] [address] 04/04/2025 12:00 PM EST Appointment [facility], Ct Scan [address] [address] Fransico Baker MD [address] [place] [address] [email or web address] 05/04/2025 8:15 AM EST Office Visit [facility] [address] [place] [address] Unknown, Unknown, Isha Bower, PA-C [address] [place] [address] [email or web address] 12/02/2025 8:40 AM EDT Office Visit [facility] [address] [facility] 3rd Floor, [address] [place] [address] Duc Suarez MD [address] [facility], [address] [place] [address] documented as of this encounter Results * [...] degenerative disc and endplate changes. POS - [id number] Narrative 06/21/2018 10:17 PM EDT HISTORY: The [...] degenerative disc and endplate changes. POS - [id number] us Vicente Mayo MD IMG MR XSPECIALTY [...] documented as of this encounter Care Teams Mason Liner Relationship Specialty Start Date End Date Slime Youssef MD 15 [place] [address] PCP - General 01/07/17 07/28/22 Pcp, Unknown PCP - General 07/29/22 08/07/22 Svitlana Sher MD PCP - General Family Medicine 08/08/22 03/24/24 Svitlana Sher MD PCP - General Family Medicine 03/25/24 02/08/25 Svitlana Sher MD [address] [place] [address] PCP - General Family Medicine 02/09/25 Patel Bhandari DO [address] [facility] [place] [address] [email or web address] Historical LMR Provider 01/11/17 03/31/21 Duc Suarez MD [address] [place] [address] [address] [place] [address] Historical LMR Provider 01/11/17 Pao Cooley MD [address] [address] Historical LMR Provider 01/11/17 Slime Youssef MD [address] [place] [address] Historical LMR Provider 01/11/17 Garret Mercedes CNP [address] [place] [address] Historical LMR Provider 01/11/17 03/31/21 Moises Art MD [facility] [address] [place] [address] Historical LMR Provider 01/11/17 2 Destin Choe MD [address] [place] [address] Historical LMR Provider 01/11/17 Slime Youssef MD [address] [place] [address] Insurance Assigned Provider 06/27/18 05/27/20 documented as of this encounter Additional Source Comments The information contained in this document represents components of the legal health record. It is not the complete legal health record.[facility]
--- OUTSIDE RECORDS SUMMARY | 2025-03-16 07:51 | XMS_ITS | Encounter Summary ---
Author Organization [facility] Address [address] [place] [address] Phone Care Team Providers Care Heel Cutter Name Role Phone Duc Suarez MD Unavailable Slime Youssef MD Unavailable [phone] Pcp, Unknown Primary Care Provider Unavailabl e Svitlana Sher MD Primary Care Pr ovider Svitlana Sher MD Primary Care Pr ovider Svitlana Sher MD Primary Care Pr ovider Encounter Details Date Type Department Care Team (Late st Contact Info) Description 07/29/2022 Procedure Pass [facility], Ct Scan - [address] [address] Social History Tobacco Use Types Packs/Day Years [...] st Contact Info) Description 05/24/2024 Procedure Pass [facility], Ct Scan - [address] [address] 04/04/2025 12:00 PM EST Appointment [facility], Ct Scan - [address] [address] Fransico Baker MD [address] [place] [address] 2nd [place] [address] [email or web address] 05/04/2025 8:15 AM EST Office Visit [facility] [address] [place] [address] Unknown, Unknown, Isha Bower PA-C [address] [place] [address] [email or web address] 12/02/2025 8:40 AM EDT Office Visit [facility] [address] [place] [address] 3rd Floor, [address] [place] [address] Duc Suarez MD [address] [place] [address] documented as of this encounter Visit Diagnoses Not on filedocumented in this encounter Care Teams Heel Cutter Relationship Specialty Start Date End Date Pcp, Unknown PCP - General 07/29/22 08/07/22 Svitlana Sher MD PCP - General Family Medicine 08/08/22 03/24/24 Svitlana Sher MD PCP - General Family Medicine 03/25/24 02/08/25 Svitlana Sher MD [address] [place] [address] PCP - General Family Medicine 02/09/25 Duc Suarez MD [address] [place] [address], [facility] [address] [place] [address] [email or web address] Historical LMR Provider 01/11/17 Slime Youssef MD [address] [place] [address] [email or web address] Historical LMR Provider 01/11/17 documented as of this encounter Additional Source Comments The information contained in this document represents components of the legal health record. It is not the complete legal health record.[facility]
--- OUTSIDE RECORDS SUMMARY | 2025-03-16 07:51 | XMS_ITS | Encounter Summary ---
Author Organization [facility] Address [address] [place] [address] Phone Care Team Providers Care Spot Man Name Role Phone Slime Youssef MD Primary Care Provider Patel Bhandari DO Unavailable Duc Suarez MD Unavailable Pao Cooley MD Unavailable Slime Youssef MD Unavailable [phone] Garret Mercedes CNP Unavailable Moises Art MD Unavailable Destin Choe MD Unavailable Slime Youssef MD Unavailable Pcp, Unknown Primary Care Provider Unavailabl e Svitlana Sher MD Primary Care Pr ovider Svitlana Sher MD Primary Care Pr ovider Svitlana Sher MD Primary Care Pr ovider Encounter Details Date Type Department Care Team (Late st Contact Info) Description 12/19/2017 Procedure Pass [facility], [address] [phone] Social History Tobacco Use Types Packs/Day Years [...] st Contact Info) Description 05/24/2024 Procedure Pass [facility], Ct Scan - [address] [place] [address] [address] 04/04/2025 12:00 PM EST Appointment [facility], Ct Scan [address] [address] Fransico Baker MD [address] [place] [address] [email or web address] 05/04/2025 8:15 AM EST Office Visit [facility] [address] [place] [address] Unknown, Unknown, Isha Bower PA-C [address] [place] [address] [email or web address] 12/02/2025 8:40 AM EDT Office Visit [facility] [address] [place] [address] 3rd Floor, [address] [place] [address] Duc Suarez MD [address] [place] [address], [address] [place] [address] documented as of this encounter Visit Diagnoses Not on filedocumented in this encounter Additional Health Concerns Infection Onset Date Last Indicated Resolved Time CoV-Exposed Comment:Recent close contact 10/03/2019 10/03/2019 10/17/2019 1:25 AM EDT documented as of this encounter Care Teams Spot Man Relationship Specialty Start Date End Date Slime Youssef MD 15 [place] [address] PCP - General 01/07/17 07/28/22 Pcp, Unknown PCP - General 07/29/22 08/07/22 Svitlana Sher MD PCP - General Family Medicine 08/08/22 03/24/24 Svitlana Sher MD PCP - General Family Medicine 03/25/24 02/08/25 Svitlana Sher MD [address] [place] [address] PCP - General Family Medicine 02/09/25 Patel Bhandari DO [address] [place] [address] [place] [address] [email or web address] Historical LMR Provider 01/11/17 03/31/21 Duc Suarez MD [address] [place] [address] 301 [place] [address] [email or web address] Historical LMR Provider 01/11/17 Pao Cooley MD [address] [place] [address], 2nd [place] [address] [email or web address] Historical LMR Provider 01/11/17 Slime Youssef MD 15 [place] [address] Historical LMR Provider 01/11/17 Garret Mercedes CNP [address] [facility], [address] [place] [address] Historical LMR Provider 01/11/17 03/31/21 Moises Art MD [email or web address] Edgar [address] [place] [address] Historical LMR Provider 01/11/17 2 Destin Choe MD [address] [place] [address] Historical LMR Provider 01/11/17 Slime Youssef MD 15 [place] [address] [email or web address] Insurance Assigned Provider 06/27/18 05/27/20 documented as of this encounter Additional Source Comments The information contained in this document represents components of the legal health record. It is not the complete legal health record.[facility]
--- OUTSIDE RECORDS SUMMARY | 2025-03-16 07:51 | XMS_ITS | Encounter Summary ---
Author Organization [facility] Address [address] [place] [address] Phone Care Team Providers Care Silk Presser Name Role Phone Duc Suarez MD Unavailable [phone] Slime Youssef MD Unavailable Svitlana Sher MD Primary Care Pr ovider Svitlana Sher MD Primary Care Pr ovider Svitlana Sher MD Primary Care Pr ovider Encounter Details Date Type Department Care Team (Late st Contact Info) Description 09/13/2022 Transcribe Orders Virtual Department 30 [place] [address] Svitlana Sher MD [address] [place] [phone] Breast screening (Primary Dx) Social History Tobacco [...] st Contact Info) Description 05/24/2024 Procedure Pass [address] [address] 04/04/2025 12:00 PM EST Appointment [address] [address] Fransico Baker MD [address] [place] [address] [email or web address] 05/04/2025 8:15 AM EST Office Visit [facility] [address] [place] [address] Unknown, Unknown, Isha Bower PA-C [address] [place] [address] [email or web address] 12/02/2025 8:40 AM EDT Office Visit [facility] [address] [place] [address] 3rd Floor, [address] [place] [address] Duc Suarez MD [address] [place] [address], [address] [address] documented as of this encounter Results * [...] unspecified documented in this encounter Care Teams Silk Presser Relationship Specialty Start Date End Date Svitlana Sher MD [address] [place] [address] PCP - General Family Medicine 08/08/22 03/24/24 Svitlana Sher MD [address] [place] [address] PCP - General Family Medicine 03/25/24 02/08/25 Svitlana Sher MD [address] [place] [address] PCP - General Family Medicine 02/09/25 Duc Suarez MD [address] [place] [address], [address] [address] Historical LMR Provider 01/11/17 Slime Youssef MD [address] [place] [address] Historical LMR Provider 01/11/17 documented as of this encounter Additional Source Comments The information contained in this document represents components of the legal health record. It is not the complete legal health record.[facility]
--- OUTSIDE RECORDS SUMMARY | 2025-03-16 07:51 | XMS_ITS | Encounter Summary ---
Author Organization [facility] Address [address] [place] [address] Phone Care Team Providers Care Lead Warehouse Associate Name Role Phone Slime Youssef MD Primary Care Provider Patel Bhandari DO Unavailable Duc Suarez MD Unavailable [phone] Pao Cooley MD Unavailable Slime Youssef MD Unavailable Garret Mercedes CNP Unavailable [phone] Moises Art MD Unavailable Destin Choe MD Unavailable Slime Youssef MD Unavailable [phone] Pcp, Unknown Primary Care Provider Unavailabl e Svitlana Sher MD Primary Care Pr ovider Svitlana Sher MD Primary Care Pr ovider Svitlana Sher MD Primary Care Pr ovider Encounter Details Date Type Department Care Team (Late st Contact Info) Description 05/02/2017 Ancillary Orders Virtual Department 30 [place] [address] Slime Youssef MD [address] [place] [address] Breast screening Social History Tobacco Use Types [...] st Contact Info) Description 05/24/2024 Procedure Pass [facility], Ct Scan [address] [address] 04/04/2025 12:00 PM EST Appointment [facility] Ct Scan [address] [address] Fransico Baker MD [address] [place] [address] [email or web address] 05/04/2025 8:15 AM EST Office Visit [facility] [address] [place] [address] Unknown, Unknown, Isha Bower PA-C [address] [place] [address] [email or web address] 12/02/2025 8:40 AM EDT Office Visit [facility] [address] [place] [address] 3rd Floor, [address] [place] [phone] Duc Suarez MD [address] [place] [phone] documented as of this encounter Results * [...] documented as of this encounter Care Teams Lead Warehouse Associate Relationship Specialty Start Date End Date Slime Youssef MD [address] [place] [address] [email or web address] PCP - General 01/07/17 07/28/22 Pcp, Unknown PCP - General 07/29/22 08/07/22 Svitlana Sher MD PCP - General Family Medicine 08/08/22 03/24/24 Svitlana Sher MD PCP - General Family Medicine 03/25/24 02/08/25 Svitlana Sher MD [address] [place] [address] PCP - General Family Medicine 02/09/25 Patel Bhandari DO [address] [place] [address] [email or web address] Historical LMR Provider 01/11/17 03/31/21 Duc Suarez MD [address] [address] Historical LMR Provider 01/11/17 Pao Cooley MD [address] [address] [email or web address] Historical LMR Provider 01/11/17 Slime Youssef MD 15 [place] [address] [email or web address] Historical LMR Provider 01/11/17 Garret Mercedes SR. CONSULTANT [address] [address] [email or web address] Historical LMR Provider 01/11/17 03/31/21 Moises Art MD [facility] [address] [address] Historical LMR Provider 01/11/17 2 Destin Choe MD [address] [place] [address] Historical LMR Provider 01/11/17 Slime Youssef MD [address] [place] [address] [email or web address] Insurance Assigned Provider 06/27/18 05/27/20 documented as of this encounter Additional Source Comments The information contained in this document represents components of the legal health record. It is not the complete legal health record.[facility]
--- OUTSIDE RECORDS SUMMARY | 2025-03-16 07:51 | XMS_ITS | Encounter Summary ---
Author Organization [facility] Address [address] [place] [address] Phone Care Team Providers Care Sheet Metal Duct Installer Apprentice Name Role Phone Duc Suarez MD Unavailable [phone] Slime Youssef MD Unavailable [phone] Svitlana Sher MD Primary Care Pr ovider [...] PELVIS,COMBO Ursula Antoine MD Phone: tel: fax: [email or web address] Referral ID Status Reason Start Date Expiration Date Visits Re quested Visits Authorized [id number] Closed 03/10/2023 07/10/2023 1 1 Encounter Details Date Type Department Care Team (Latest Contact Info) Description 03/25/2023 Transcribe Orders Virtual Department [address] [place] [address] Ursula Antoine MD [address] [place] [address] [email or web address] Neoplasm of uncertain behavior of kidney and [...] st Contact Info) Description 05/24/2024 Procedure Pass [facility], Ct Scan - [address] [address] 04/04/2025 12:00 PM EST Appointment [facility], Ct Scan - [address] [address] Fransico Baker MD [address] [place] [address] [email or web address] 05/04/2025 8:15 AM EST Office Visit [facility] [address] [place] [address] Unknown, Unknown, Isha Bower PA-C [address] [place] [address] [email or web address] 12/02/2025 8:40 AM EDT Office Visit [facility] [address] [place] [address] 3rd Floor, [address] [place] [address] Duc Suarez MD [address] [place] [address], [address] [place] [address] [email or web address] documented as of this encounter Results * [...] laterality documented in this encounter Care Teams Sheet Metal Duct Installer Apprentice Relationship Specialty Start Date End Date Svitlana Sher MD 15 [place] [address] PCP - General Family Medicine 08/08/22 03/24/24 Svitlana Sher MD 15 [place] [address] PCP - General Family Medicine 03/25/24 02/08/25 Svitlana Sher MD [address] [place] [address] PCP - General Family Medicine 02/09/25 Duc Suarez MD [address] [place] [address], [address] [address] [email or web address] Historical LMR Provider 01/11/17 Slime Youssef MD [address] [place] [address] [email or web address] Historical LMR Provider 01/11/17 documented as of this encounter Additional Source Comments The information contained in this document represents components of the legal health record. It is not the complete legal health record.[facility]
--- OUTSIDE RECORDS SUMMARY | 2025-03-16 07:51 | XMS_ITS | Encounter Summary ---
Author Organization [facility] Address [address] [place] [address] Phone Care Team Providers Care Mid Level Provider Name Role Phone Duc Suarez MD Unavailable [phone] Slime Youssef MD Unavailable [phone] Svitlana Sher MD Primary Care Pr ovider Svitlana Sher MD Primary Care Pr ovider Svitlana Sher MD Primary Care Pr ovider Encounter Details Date Type Department Care Team (Late st Contact Info) Description 03/25/2023 Procedure Pass [facility], Ct Scan - [address] [address] Social History Tobacco Use Types Packs/Day Years [...] st Contact Info) Description 05/24/2024 Procedure Pass [facility], Ct Scan [address] [address] 04/04/2025 12:00 PM EST Appointment [place], Ct Scan [address] [address] Fransico Baker MD [address] [place] [address] [email or web address] 05/04/2025 8:15 AM EST Office Visit [facility] [address] [place] [address] Unknown, Unknown, Isha Bower PA-C [address] [place] [address] [email or web address] 12/02/2025 8:40 AM EDT Office Visit [facility] [address] [place] [address] 3rd Floor, [address] [place] [address] Duc Suarez MD [address] [place] [address], [address] [address] documented as of this encounter Visit Diagnoses Not on filedocumented in this encounter Care Teams Mid Level Provider Relationship Specialty Start Date End Date Svitlana Sher MD [address] [place] [address] PCP - General Family Medicine 08/08/22 03/24/24 Svitlana Sher MD [address] [place] [address] PCP - General Family Medicine 03/25/24 02/08/25 Svitlana Sher MD [address] [place] [address] PCP - General Family Medicine 02/09/25 Duc Suarez MD [address] [place] [address] [email or web address] Historical LMR Provider 01/11/17 Slime Youssef MD [address] [place] [address] [email or web address] Historical LMR Provider 01/11/17 documented as of this encounter Additional Source Comments The information contained in this document represents components of the legal health record. It is not the complete legal health record.[facility]
--- OUTSIDE RECORDS SUMMARY | 2025-03-16 07:51 | XMS_ITS | Encounter Summary ---
Author Organization [facility] Address [address] [place] [address] Phone Care Team Providers Care Music Store Manager Name Role Phone Slime Youssef MD Primary Care Provider Duc Suarez MD Unavailable [phone] Slime Youssef MD Unavailable [phone] Pcp, Unknown Primary Care Provider Unavailabl e Svitlana Sher MD Primary Care Pr ovider Svitlana Sher MD Primary Care Pr ovider Svitlana Sher MD Primary Care Pr ovider Encounter Details Date Type Department Care Team (Late st Contact Info) Description 03/11/2022 Procedure Pass [facility], Ct Scan - [address] [address] Social History Tobacco Use Types Packs/Day Years [...] st Contact Info) Description 05/24/2024 Procedure Pass [facility], Ct Scan - [address] [address] 04/04/2025 12:00 PM EST Appointment [facility], Ct Scan - [address] [address] Fransico Baker MD [address] [place] [address] [email or web address] 05/04/2025 8:15 AM EST Office Visit [facility] [address] [place] [address] Unknown, Unknown, Isha Bower PA-C [address] [place] [address] [email or web address] 12/02/2025 8:40 AM EDT Office Visit [facility] [address] [place] [address] 3rd [facility], [address] [place] [address] uDc Suarez MD [address] [place] [address] documented as of this encounter Visit Diagnoses Not on filedocumented in this encounter Care Teams Music Store Manager Relationship Specialty Start Date End Date Slime Youssef MD [address] [place] [address] PCP - General 01/07/17 07/28/22 Pcp, Unknown PCP - General 07/29/22 08/07/22 Svitlana Sher MD PCP - General Family Medicine 08/08/22 03/24/24 Svitlana Sher MD PCP - General Family Medicine 03/25/24 02/08/25 Svitlana Sher MD [address] [place] [address] PCP - General Family Medicine 02/09/25 Duc Suarez MD [address] [place] [address] [email or web address] Historical LMR Provider 01/11/17 Slime Youssef MD [address] [place] [address] [email or web address] Historical LMR Provider 01/11/17 documented as of this encounter Additional Source Comments The information contained in this document represents components of the legal health record. It is not the complete legal health record.[facility]
--- OUTSIDE RECORDS SUMMARY | 2025-03-16 07:51 | XMS_ITS | Encounter Summary ---
Author Organization [facility] Address [address] [place] [address] Phone Care Team Providers Care Web Architect Name Role Phone Slime Youssef MD Primary Care Provider Patel Bhandari DO Unavailable Duc Suarez MD Unavailable [phone] Pao Cooley MD Unavailable Slime Youssef MD Unavailable Garret Mercedes CNP Unavailable Moises Art MD Unavailable Destin Choe MD Unavailable Slime Youssef MD Unavailable [phone] Pcp, Unknown Primary Care Provider Unavailabl e [...] Spine Vicente Mayo MD Phone: tel: fax: mailto:[email or web address] Referral ID Status Reason Start Date Expiration Date Visits Re quested Visits Authorized [id number] Closed 02/25/2018 03/27/2018 1 1 Encounter Details Date Type Department Care Team (Late Contact Info) Description 02/24/2018 Ancillary Orders Virtual Department [address] [place] [address] Vicente Mayo MD [address] [place] [address], [address] [place] [address] [email or web address] Arm numbness; Leg numbness; Neck pain Social [...] (Late Contact Info) Description 05/24/2024 Procedure Pass [facility], Ct Scan [address] [address] 04/04/2025 12:00 PM EST Appointment [facility], Ct Scan [address] [address] Fransico Baker MD [address] [place] [address] [email or web address] 05/04/2025 8:15 AM EST Office Visit [facility] [address] [place] [address] Unknown, Unknown, Isha Bower PA-C [address] [place] [address] [email or web address] 12/02/2025 8:40 AM EDT Office Visit [facility] [address] [facility] 3rd Floor, [address] [place] [address] Duc Suarez MD [address] [facility], [address] [place] [address] [email or web address] documented as of this encounter Results * [...] documented as of this encounter Care Teams Web Architect Relationship Specialty Start Date End Date Slime Youssef MD [address] [place] [address] PCP - General 01/07/17 07/28/22 Pcp, Unknown PCP - General 07/29/22 08/07/22 Svitlana Sher MD PCP - General Family Medicine 08/08/22 03/24/24 Svitlana Sher MD PCP - General Family Medicine 03/25/24 02/08/25 Svitlana Sher MD [address] [place] [address] PCP - General Family Medicine 02/09/25 Patel Bhandari DO [address] [facility] [place] [address] Historical LMR Provider 01/11/17 03/31/21 Duc Suarez MD [address] [facility], [address] [place] [address] Historical LMR Provider 01/11/17 Pao Cooley MD [address] [facility], [address] [place] [address] Historical LMR Provider 01/11/17 Slime Youssef MD [address] [place] [address] Historical LMR Provider 01/11/17 Garret Mercedes CNP [address] [place] [address], [address] [place] [address] Historical LMR Provider 01/11/17 03/31/21 Moises Art MD [address] [place] [address] [address] [place] [address] Historical LMR Provider 01/11/17 2 Destin Choe MD [address] [place] [address] Historical LMR Provider 01/11/17 Slime Youssef MD [address] [place] [address] [email or web address] Insurance Assigned Provider 06/27/18 05/27/20 documented as of this encounter Additional Source Comments The information contained in this document represents components of the legal health record. It is not the complete legal health record.[facility]
--- OUTSIDE RECORDS SUMMARY | 2025-03-16 07:51 | XMS_ITS | Encounter Summary ---
Author Organization [facility] Address [address] [place] [address] Phone Care Team Providers Care Environmental Health And Safety Leader Name Role Phone Slime Youssef MD Primary Care Provider [phone] Patel Bhandari DO Unavailable Duc Suarez MD Unavailable [phone] Pao Cooley MD Unavailable Slime Youssef MD [...] st Contact Info) Description 02/24/2018 Procedure Pass [facility], [address] [phone] Social History Tobacco Use Types Packs/Day Years [...] st Contact Info) Description 05/24/2024 Procedure Pass [facility], Ct Scan - [address] [address] 04/04/2025 12:00 PM EST Appointment [facility], Ct Scan [address] [address] Fransico Baker MD [address] [place] [address] [email or web address] 05/04/2025 8:15 AM EST Office Visit [facility] [address] [place] [address] Unknown, Unknown, Isha Bower PA-C [address] [place] [address] [email or web address] 12/02/2025 8:40 AM EDT Office Visit [facility] [address] [place] [address] 3rd Floor, [address] [place] [address] Duc Suarez MD [address] [place] [address], [address] [place] [address] documented as of this encounter Visit Diagnoses Not on filedocumented in this encounter Additional Health Concerns Infection Onset Date Last Indicated Resolved Time CoV-Exposed Comment:Recent close contact 10/03/2019 10/03/2019 10/17/2019 1:25 AM EDT documented as of this encounter Care Teams Environmental Health And Safety Leader Relationship Specialty Start Date End Date Slime Youssef MD [address] [place] [address] PCP - General 01/07/17 07/28/22 Pcp, Unknown PCP - General 07/29/22 08/07/22 Svitlana Sher MD PCP - General Family Medicine 08/08/22 03/24/24 Svitlana Sher MD PCP - General Family Medicine 03/25/24 02/08/25 Svitlana Sher MD [address] [place] [address] PCP - General Family Medicine 02/09/25 Patel Bhandari DO [address] [place] [address] [place] [address] [email or web address] Historical LMR Provider 01/11/17 03/31/21 Duc Suarez MD [address] [place] [address] [address] [place] [address] [email or web address] Historical LMR Provider 01/11/17 Pao Cooley MD [address] [place] [address], 2nd [place] [address] [email or web address] Historical LMR Provider 01/11/17 Slime Youssef MD [address] [place] [address] Historical LMR Provider 01/11/17 Garret Mercedes CNP [facility], [address] [place] [address] Historical LMR Provider 01/11/17 03/31/21 Moises Art [facility] [address] [place] [address] Historical LMR Provider 01/11/17 2 Destin Choe MD [address] [place] [address] Historical LMR Provider 01/11/17 Slime Youssef MD [address] [place] [address] [email or web address] Insurance Assigned Provider 06/27/18 05/27/20 documented as of this encounter Additional Source Comments The information contained in this document represents components of the legal health record. It is not the complete legal health record.[facility]
--- OUTSIDE RECORDS SUMMARY | 2025-03-16 07:51 | XMS_ITS | Encounter Summary ---
Author Organization [facility] Address [address] [place] [address] Phone Care Team Providers Care Animal Ride Manager Name Role Phone Duc Suarez MD Unavailable [phone] Slime Youssef MD Unavailable [phone] Svitlana Sher MD Primary Care Pr ovider Svitlana Sher MD Primary Care Pr ovider Svitlana Sher MD Primary Care Pr ovider Encounter Details Date Type Department Care Team (Late st Contact Info) Description 09/13/2022 Procedure Pass [facility] - [address] [place] [address] Social History Tobacco Use Types Packs/Day Years [...] st Contact Info) Description 05/24/2024 Procedure Pass [facility], Ct Scan [address] [address] 04/04/2025 12:00 PM EST Appointment [place], Ct Scan [address] [address] Fransico Baker MD [address] [place] [address] [email or web address] 05/04/2025 8:15 AM EST Office Visit [facility] [address] [place] [address] Unknown, Unknown, Isha Bower PA-C [address] [place] [address] [email or web address] 12/02/2025 8:40 AM EDT Office Visit [facility] [address] [place] [address] 3rd Floor, [address] [place] [address] Duc Suarez MD [address] [place] [address], [address] [address] documented as of this encounter Visit Diagnoses Not on filedocumented in this encounter Care Teams Animal Ride Manager Relationship Specialty Start Date End Date Svitlana Sher MD [address] [place] [address] PCP - General Family Medicine 08/08/22 03/24/24 Svitlana Sher MD [address] [place] [address] PCP - General Family Medicine 03/25/24 02/08/25 Svitlana Sher MD [address] [place] [address] PCP - General Family Medicine 02/09/25 Duc Suarez MD [address] [place] [address] [email or web address] Historical LMR Provider 01/11/17 Slime Youssef MD [address] [place] [address] [email or web address] Historical LMR Provider 01/11/17 documented as of this encounter Additional Source Comments The information contained in this document represents components of the legal health record. It is not the complete legal health record.[facility]
--- OUTSIDE RECORDS SUMMARY | 2025-03-16 07:51 | XMS_ITS | Encounter Summary ---
Author Organization [facility] Address [address] [place] [address] Phone Care Team Providers Care Administration Assistant Name Role Phone Slime Youssef MD Primary Care Provider Patel Bhandari DO Unavailable Duc Suarez MD Unavailable Pao Cooley MD Unavailable Slime Youssef MD Unavailable Garret Mercedes CNP Unavailable Moises Art MD Unavailable Destin Choe MD Unavailable Slime Youssef MD Unavailable [phone] Pcp, Unknown Primary Care Provider Unavailabl [...] Brain Vicente Mayo MD Phone: tel: fax: [email or web address] Referral ID Status Reason Start Date Expiration Date Visits Re quested Visits Authorized [id number] Closed 12/19/2017 01/18/2018 1 1 Encounter Details Date Type Department Care Team (Late Contact Info) Description 12/19/2017 Ancillary Orders Virtual Department [address] [place] [address] Vicente Mayo MD [address] [place] [address], [address] [place] [address] [email or web address] Numbness; Generalized headache; White matter [...] (Late Contact Info) Description 05/24/2024 Procedure Pass [facility], Ct Scan [address] [address] 04/04/2025 12:00 PM EST Appointment [facility], Ct Scan [address] [address] Fransico Baker MD [address] [place] [address] [email or web address] 05/04/2025 8:15 AM EST Office Visit [facility] [address] [place] [address] Unknown, Unknown, Isha Bower PA-C [address] [place] [address] [email or web address] 12/02/2025 8:40 AM EDT Office Visit [facility] [address] [facility] 3rd Floor, [address] [place] [address] Duc Suarez MD [address] [facility], [address] [place] [address] [email or web address] documented as of this encounter Results * [...] mastoid effusion stable since 2011 POS - [id number] Narrative 12/30/2017 9:19 PM EDT TECHNIQUE: 1.5 [...] present in the major vessels of the [place]. No pituitary, pineal region or [...] present in the major vessels of the [place]. No pituitary, pineal region or intraorbital pathology. Chronic fairly extensive left mastoid effusion unchanged. The rightmastoid air cells and the paranasal sinuses are clear. IMPRESSION: 1. Slight increase in size and number of chronic white matter lesions.None of them enhances. 2. No new intracranial pathology. 3. Chronic left mastoid effusion stable since 2011 POS - [id number] Vicente Mayo MD IM MR HEAD/NECK Final [...] documented as of this encounter Care Teams Administration Assistant Relationship Specialty Start Date End Date Slime Youssef MD 15 [place] [address] [email or web address] PCP - General 01/07/17 07/28/22 Pcp, Unknown PCP - General 07/29/22 08/07/22 Svitlana Sher MD PCP - General Family Medicine 08/08/22 03/24/24 Svitlana Sher MD PCP - General Family Medicine 03/25/24 02/08/25 Svitlana Sher MD [address] [place] [address] PCP - General Family Medicine 02/09/25 Patel Bhandari DO [address] [place] [address] [place] [address] [email or web address] Historical LMR Provider 01/11/17 03/31/21 Duc Suarez MD [address] [facility], [address] [place] [address] [email or web address] Historical LMR Provider 01/11/17 Pao Cooley MD [address] [facility], 2nd [place] [address] [email or web address] Historical LMR Provider 01/11/17 Slime Youssef MD 15 [place] [address] Historical LMR Provider 01/11/17 Garret Mercedes CNP [address] [address] Historical LMR Provider 01/11/17 03/31/21 Moises Art MD [facility] [address] [address] Historical LMR Provider 01/11/17 2 Destin Choe MD [address] [place] [address] Historical LMR Provider 01/11/17 Slime Youssef MD [address] [place] [address] Insurance Assigned Provider 06/27/18 05/27/20 documented as of this encounter Additional Source Comments The information contained in this document represents components of the legal health record. It is not the complete legal health record.[facility]
--- OUTSIDE RECORDS SUMMARY | 2025-03-16 07:51 | XMS_ITS | Encounter Summary ---
Author Organization [facility] Address [address] [place] [address] Phone Care Team Providers Care Pipe Fitter Welding Name Role Phone Duc Suarez MD Unavailable [phone] Slime Youssef MD Unavailable Pcp, Unknown Primary Care Provider Unavailabl e Svitlana Sher MD Primary Care Pr ovider Svitlana Sher MD Primary Care Pr ovider Svitlana Sher MD Primary Care Pr ovider Encounter Details Date Type Department Care Team (Late st Contact Info) Description 07/29/2022 Procedure Pass [facility], Ct Scan - [address] [address] Social History Tobacco Use Types Packs/Day Years [...] st Contact Info) Description 05/24/2024 Procedure Pass [facility], Ct Scan - [address] [address] 04/04/2025 12:00 PM EST Appointment [facility], Ct Scan - [address] [address] Fransico Baker MD [address] [place] [address] 2[address] [place] [address] [email or web address] 05/04/2025 8:15 AM EST Office Visit [facility] [address] [place] [address] Unknown, Unknown, Isha Bower PA-C [address] [place] [address] [email or web address] 12/02/2025 8:40 AM EDT Office Visit [facility] [address] [place] [address] 3rd Floor, [address] [place] [address] Duc Suarez MD [address] [place] [address] documented as of this encounter Visit Diagnoses Not on filedocumented in this encounter Care Teams Pipe Fitter Welding Relationship Specialty Start Date End Date Pcp, Unknown PCP - General 07/29/22 08/07/22 Svitlana Sher MD PCP - General Family Medicine 08/08/22 03/24/24 Svitlana Sher MD PCP - General Family Medicine 03/25/24 02/08/25 Svitlana Sher MD [address] [place] [address] PCP - General Family Medicine 02/09/25 Duc Suarez MD [address] [place] [address], [facility] [address] [place] [address] [email or web address] Historical LMR Provider 01/11/17 Slime Youssef MD [address] [place] [address] [email or web address] Historical LMR Provider 01/11/17 documented as of this encounter Additional Source Comments The information contained in this document represents components of the legal health record. It is not the complete legal health record.[facility]
--- OUTSIDE RECORDS SUMMARY | 2025-03-16 07:51 | XMS_ITS | Encounter Summary ---
Author Organization [facility] Address [address] [place] [address] Phone Care Team Providers Care Jewel Sorter Name Role Phone Duc Suarez MD Unavailable Slime Youssef MD Unavailable [phone] Svitlana Sher MD Primary Care Pr ovider Svitlana Sher MD Primary Care Pr ovider Svitlana Sher MD Primary Care Pr ovider Encounter Details Date Type Department Care Team (Late st Contact Info) Description 08/22/2023 Transcribe Orders Virtual Department [address] [place] [address] Svitlana Sher MD [address] [place] [phone] Osteopenia, unspecified location (Primary Dx) Social History [...] st Contact Info) Description 05/24/2024 Procedure Pass [facility], [address] [address] 04/04/2025 12:00 PM EST Appointment [facility], [address] [address] Fransico Baker MD [address] [place] [address] [email or web address] 05/04/2025 8:15 AM EST Office Visit [facility] [address] [place] [address] Unknown, Unknown, Isha Bower PA-C [address] [place] [address] [email or web address] 12/02/2025 8:40 AM EDT Office Visit [facility] [address] [place] [address] 3rd Floor, [address] [place] [address] Duc Suarez MD [address] [place] [address] documented as of this encounter Visit Diagnoses Diagnosis Osteopenia, unspecified location- Primary documented in this encounter Care Teams Jewel Sorter Relationship Specialty Start Date End Date Svitlana Sher MD [address] [place] [address] PCP - General Family Medicine 08/08/22 03/24/24 Svitlana Sher MD [address] [place] [address] PCP - General Family Medicine 03/25/24 02/08/25 Svitlana Sher MD [address] [place] [address] PCP - General Family Medicine 02/09/25 Duc Suarez MD [address] [place] [address], [address] [address] Historical LMR Provider 01/11/17 Slime Youssef MD [address] [place] [address] Historical LMR Provider 01/11/17 documented as of this encounter Additional Source Comments The information contained in this document represents components of the legal health record. It is not the complete legal health record.[facility]
--- OUTSIDE RECORDS SUMMARY | 2025-03-16 07:51 | XMS_ITS | Encounter Summary ---
Author Organization [facility] Address [address] [place] [address] Phone Care Team Providers Care Rn Transport Name Role Phone Slime Youssef MD Primary Care Provider Patel Bhandari DO Unavailable Duc Suarez MD Unavailable [phone] Pao Cooley MD Unavailable Slime Youssef MD Unavailable Garret Mercedes CNP Unavailable [phone] Moises Art MD Unavailable Destin Choe MD Unavailable Slime Youssef MD Unavailable Pcp, Unknown Primary Care Provider Unavailabl e Svitlana Sher MD Primary Care Pr ovider Svitlana Sher MD Primary Care Pr ovider Svitlana Sher MD Primary Care Pr ovider Encounter Details Date Type Department Care Team (Late st Contact Info) Description 04/17/2018 Ancillary Orders Virtual Department [address] [place] [address] Slime Youssef MD [address] [place] [address] Breast screening Social History Tobacco Use Types [...] st Contact Info) Description 05/24/2024 Procedure Pass [facility], Ct Scan [address] [place] [address] [address] 04/04/2025 12:00 PM EST Appointment [facility] Ct Scan [address] [place] [address] [address] Fransico Baker MD [address] [place] [address] [email or web address] 05/04/2025 8:15 AM EST Office Visit [facility] [address] [place] [address] Unknown, Unknown, Isha Bower PA-C [address] [place] [address] [email or web address] 12/02/2025 8:40 AM EDT Office Visit [facility] [address] [place] [address] 3rd Floor, [address] [place], [place] [phone] Duc Suarez MD [address] [place] [address] [phone] documented as of this encounter Results * [...] - CDHMAMA Narrative 06/17/2018 12:46 PM EDT Ugivp-lxcwo-loye-old female with no current breast symptoms. Comparison made to previous on 06/16/2017 and as far back as 04/09/2012. Interpretation made in conjunction with computer-aided detection and tomosynthesis. There are scattered areas of fibroglandular density. Stable bilateral calcifications, small masses and post-surgical changes. There are no suspicious masses, areas of architectural distortion, or suspicious clusters of microcalcifications. Procedure Note Jose Daniel Samayao MD - 06/17/2018 Wfffg-tqqcl-tprx-old female with no current breast symptoms. Comparisonmade [...] documented as of this encounter Care Teams Rn Transport Relationship Specialty Start Date End Date Slime Youssef MD [address] [place] [address] [email or web address] PCP - General 01/07/17 07/28/22 Pcp, Unknown PCP - General 07/29/22 08/07/22 Svitlana Sher MD PCP - General Family Medicine 08/08/22 03/24/24 Svitlana Sher MD PCP - General Family Medicine 03/25/24 02/08/25 Svitlana Sher MD [address] [place] [address] PCP - General Family Medicine 02/09/25 Patel Bhandari DO [address] [place] [address] [email or web address] Historical LMR Provider 01/11/17 03/31/21 Duc Suarez MD [address] [place] [address] 301 [place] [address] Historical LMR Provider 01/11/17 Pao Cooley MD [address] [place] [address], 2nd [place] [address] Historical LMR Provider 01/11/17 Slime Youssef MD 15 [place] [address] [email or web address] Historical LMR Provider 01/11/17 Garret Mercedes CNP [facility], [address] [place] [address] [email or web address] Historical LMR Provider 01/11/17 03/31/21 Moises Art MD [facility] [address] [address] Historical LMR Provider 01/11/17 2 Destin Choe MD [address] [place] [address] Historical LMR Provider 01/11/17 Slime Youssef MD 15 [place] [address] [email or web address] Insurance Assigned Provider 06/27/18 05/27/20 documented as of this encounter Additional Source Comments The information contained in this document represents components of the legal health record. It is not the complete legal health record.[facility]
--- OUTSIDE RECORDS SUMMARY | 2025-03-16 07:51 | XMS_ITS | Encounter Summary ---
Author Organization [facility] Address [address] [place] [address] Phone Care Team Providers Care Potline Monitor Name Role Phone Duc Suarez MD Unavailable [phone] Slime Youssef MD Unavailable [phone] Svitlana Sher MD Primary Care Pr ovider Svitlana Sher MD Primary Care Pr ovider Svitlana Sher MD Primary Care Pr ovider Encounter Details Date Type Department Care Team (Latest Contact Info) Description 02/21/2023 Transcribe Orders Virtual Department [address] [place] [address] Ursula Antoine MD [address] [place] [address] [email or web address] Personal history of urinary (tract) infection (Primary [...] st Contact Info) Description 05/24/2024 Procedure Pass [facility], [address] [address] 04/04/2025 12:00 PM EST Appointment [address] [address] Fransico Baker MD [address] [place] [address] [email or web address] 05/04/2025 8:15 AM EST Office Visit [facility] [address] [place] [address] Unknown, Unknown, Isha Bower PA-C [address] [place] [address] [email or web address] 12/02/2025 8:40 AM EDT Office Visit [facility] [address] [place] [address] 3rd Floor, [address] [place] [address] Duc Suarez MD [address] [place] [address], [address] [address] documented as of this encounter Results * [...] communicated on 02/24/2023 6:47 PM, Message ID [id number]. Narrative 02/24/2023 6:47 PM EST US KIDNEYS AND BLADDER Referring clinician's provided indication for this examination in [facility]: Outside Radiology Order; Personal history of urinary [...] indication for this examination in [facility]:Outside Radiology Order; Personal history of urinary tract [...] was communicated on 02/24/2023 6:47 PM,Message ID [id number]. Ursula Antoine MD IMG US RENAL Final Resu lt * XR ABDOMEN 1 VIEW (02/24/2023 8:57 AM EST) Anatomical Region Laterality Modality Abdomen Computed Radiogr aphy 02/26/2023 10:1 9 AM EST Impressions 02/26/2023 10:21 AM EST 1. No opaque urinary calculi apparent. Narrative 02/26/2023 10:21 AM EST XR ABDOMEN 1 VIEW Referring clinician's provided indication for this examination in [facility]: Outside Radiology Order; Personal history of urinary tract infections COMPARISON: 02/24/2023 ultrasound FINDINGS: Tubes/Lines: None Bowel: No grossly distended bowel loops apparent. Pelvic surgical clips. No opaque intrarenal, ureteral, or bladder calculi identified. Visualized skeletal structures intact. Procedure Note Bernard Goldstein MD - 02/26/2023 XR ABDOMEN 1 VIEW Referring clinician's provided indication for this examination in [facility]:Outside Radiology Order; Personal history of urinary tract [...] infection documented in this encounter Care Teams Potline Monitor Relationship Specialty Start Date End Date Svitlana Shere, MD [address] [place] [address] PCP - General Family Medicine 08/08/22 03/24/24 Svitlana Sher MD [address] [place] [address] PCP - General Family Medicine 03/25/24 02/08/25 Svitlana [place] MD [address] [place] [address] PCP - General Family Medicine 02/09/25 Duc Suarez MD [address] [place] [address], [facility] [address] [place] [address] [email or web address] Historical LMR Provider 01/11/17 Slime Youssef MD [address] [place] [address] [email or web address] Historical LMR Provider 01/11/17 documented as of this encounter Additional Source Comments The information contained in this document represents components of the legal health record. It is not the complete legal health record.[facility]
--- OUTSIDE RECORDS SUMMARY | 2025-03-16 07:51 | XMS_ITS | Encounter Summary ---
Author Organization [facility] Address [address] [place] [address] Phone Care Team Providers Care Caster Helper Name Role Phone Slime Youssef MD Primary Care Provider Patel Bhandari DO Unavailable Duc Suarez MD Unavailable Pao Cooley MD Unavailable Slime Youssef MD Unavailable Garret Mercedes CNP Unavailable [phone] Moises Art MD Unavailable Destin Choe MD Unavailable Slime Youssef MD Unavailable Pcp, Unknown Primary Care Provider Unavailabl e Svitlana Sher MD Primary Care Pr ovider Svitlana Sher MD Primary Care Pr ovider Svitlana Sher MD Primary Care Pr ovider Encounter Details Date Type Department Care Team (Late st Contact Info) Description 04/17/2017 Transcribe Orders [address] [place] [address] Slime Youssef MD [address] [place] [address] Chronic ischemic heart disease (Primary Dx); Pure [...] st Contact Info) Description 05/24/2024 Procedure Pass [address] [address] 04/04/2025 12:00 PM EST Appointment [address] [address] Fransico Baker MD [address] [place] [address] [email or web address] 05/04/2025 8:15 AM EST Office Visit [facility] [address] [place] [address] Unknown, Unknown, Isha Bower PA-C [address] [place] [address] [email or web address] 12/02/2025 8:40 AM EDT Office Visit [facility] [address] [place] [address] 3rd Floor, [address] [place] [address] Duc Suarez MD [address] [place] [address], [address] [address] documented as of this encounter Procedures Procedure [...] (04/17/2017 8:34 AM EST) COLOR Yellow Yellow [facility] CLARITY Clear [facility] GLUCOSE Negative Negative [facility] BILI Negative Negative [facility] KETONES Negative Negative [facility] SPECIFIC GRAVITY 1.020 1.005 - 1.030 [facility] BLOOD Negative Negative [facility] PH 6.0 5.0 - 8.0 [facility] Protein-UA Negative Negative [facility] NITRITE Negative Negative [facility] Leukocyte esterase, ur Negative Negative [facility] Urine (Urine) 04/17/2017 8:3 4 AM EST 04/17/2017 8:37 AM EST us Slime Youssef MD LAB URINE ORDERABLES Final Result [facility] [address] [place] [address] * CPK (creatine kinase) (04/17/2017 8:34 AM EST) CREATINE KINASE 108 21 - 215 U/L [facility] Blood 04/17/2017 8:34 AM EST 04/17/2017 8:36 AM EST Slime Youssef MD LAB BLOOD BKR ORDERABLES Fi nal Result Performing Organization Address [facility] Co de Phone Number [address] [address] * CBC (04/17/2017 8:34 AM EST) WBC 3.52 3.40 - 11.20 K/uL [facility] RBC 4.21 3.80 - 4.80 M/uL [facility] HGB 13.2 12.0 - 15.0 g/dL [facility] HCT 39.6 36.0 - 46.0 % [facility] PLT 199 130 - 400 K/uL [facility] MCV 94.1 79.0 - 98.0 fL [facility] MCH 31.4 27.0 - 34.8 pg [facility] MCHC 33.3 31.5 - 36.0 g/dL [facility] RDW 11.9 10.8 - 14.6 % [facility] MPV 10.7 9.4 - 12.4 fl [facility] NRBC 0.00 /100 WBCs [facility] ABSOLUTE NRBC 0.00 K/uL [facility] Blood 04/17/2017 8:34 AM EST 04/17/2017 8:36 AM EST Slime Youssef MD LAB BLOOD BKR ORDERABLES Fi nal Result [address] [address] * (ABNORMAL) Lipid panel (04/17/2017 8:34 AM EST) HDL 57 mg/dL [facility] Comment: Interpretation: Risk Level Females Decreased >55mg/dL Average 50-55 mg/dL Increased <50 mg/dL CHOLESTEROL 155 0 - 240 mg/dL [facility] TRIGLYCERIDES 101 30 - 160 mg/dL [facility] LDL 78 50 - 129 mg/dL [facility] Comment: LDL levels in terms of risk for coronary heart disease: <100 mg/dL: Optimal 100-129 mg/dL: Near or above optimal 130-159 mg/dL: Borderline high 160-189 mg/dL: High >190 mg/dL: Very High CARDIAC RISK RATIO 2.7(L) 3.3 - 4.4 C [facility] Blood 04/17/2017 8:34 AM EST 04/17/2017 8:36 AM EST us Slime Youssef MD LAB BLOOD BKR ORDERABLES Fi nal Result [address] [address] * (ABNORMAL) Comprehensive metabolic panel (04/17/2017 8:34 AM EST) SODIUM 141 133 - 146 mmol/L [facility] POTASSIUM 4.7 3.3 - 5.1 mmol/L [facility] CHLORIDE 101 96 - 108 mmol/L [facility] CO2 31 21 - 35 mmol/L [facility] BUN 13 6 - 19 mg/dL [facility] CREATININE 0.80 0.5 - 1.5 mg/dL [facility] GLUCOSE 96 70 - 99 mg/dL [facility] ALBUMIN 4.4 3.9 - 4.8 g/dL [facility] TOTAL PROTEIN 7.4 6.5 - 8.0 g/dL [facility] CALCIUM 9.6 8.4 - 10.3 mg/dL [facility] ALKALINE PHOSPHATASE 71 39 - 117 U/L [facility] TOTAL BILIRUBIN 0.6 0 - 1.2 mg/dL [facility] AST 38(H) 0 - 37 U/L [facility] ALT 30 0 - 40 U/L [facility] GLOBULIN 3.0 1 - 4.8 g/dL [facility] EGFR >60 60 - 1000 mL/min/1.7 3m2 [facility] Comment:Abnormal if <60. If patient is -Gibraltarian, multiply the result by 1.21. ANION GAP 14 10 - 20 mmol/L [facility] Blood 04/17/2017 8:34 AM EST 04/17/2017 8:36 AM EST us Slime Youssef MD LAB BLOOD BKR ORDERABLES Fi nal Result [facility] [address] [place] [address] documented in this encounter Visit Diagnoses Diagnosis Chronic ischemic heart disease- Primary Unspecified chronic ischemic heart disease Pure hypercholesterolemia Routine general medical examination at a health care facility documented in this encounter Additional Health Concerns Infection Onset Date Last Indicated Resolved Time CoV-Exposed Comment:Recent close contact 10/03/2019 10/03/2019 10/17/2019 1:25 AM EDT documented as of this encounter Care Teams Caster Helper Relationship Specialty Start Date End Date Slime Youssef MD [address] [place] [address] [email or web address] PCP - General 01/07/17 07/28/22 Pcp, Unknown PCP - General 07/29/22 08/07/22 Svitlana Sher MD PCP - General Family Medicine 08/08/22 03/24/24 Svitlana Sher MD PCP - General Family Medicine 03/25/24 02/08/25 Svitlana Sher MD [address] [place] [address] PCP - General Family Medicine 02/09/25 Patel Bhandari DO [address] [place] [address] Historical LMR Provider 01/11/17 03/31/21 Duc Suarez MD [address] [facility], [facility] [address] [place] [address] [email or web address] Historical LMR Provider 01/11/17 Pao Cooley MD [address] [place] [address] Historical LMR Provider 01/11/17 Slime Youssef MD [address] [place] [email or web address] Historical LMR Provider 01/11/17 Garret Mercedes CNP [address] [place] [address] Historical LMR Provider 01/11/17 03/31/21 Moises Art MD [address] [place] [address] Historical LMR Provider 01/11/17 2 Destin Choe MD [address] [place] [address] Historical LMR Provider 01/11/17 Slime Youssef MD [address] [place] [address] Insurance Assigned Provider 06/27/18 05/27/20 documented as of this encounter Additional Source Comments The information contained in this document represents components of the legal health record. It is not the complete legal health record.[facility]
--- OUTSIDE RECORDS SUMMARY | 2025-03-16 07:51 | XMS_ITS | Encounter Summary ---
Author Organization [facility] Address [address] [place] [address] Phone Care Team Providers Care Ged Tutor Name Role Phone Duc Suarez MD Unavailable [phone] Slime Youssef MD Unavailable [phone] Svitlana Sher MD Primary Care Pr ovider Svitlana Sher MD Primary Care Pr ovider Svitlana Sher MD Primary Care Pr ovider Encounter Details Date Type Department Care Team (Late st Contact Info) Description 08/29/2022 Procedure Pass [facility], Ct Scan - [address] [address] Social History Tobacco Use Types Packs/Day Years [...] st Contact Info) Description 05/24/2024 Procedure Pass [facility] Ct Scan [address] [address] 04/04/2025 12:00 PM EST Appointment [place], Ct Scan [address] [address] Fransico Baker MD [address] [place] [address] [email or web address] 05/04/2025 8:15 AM EST Office Visit [facility] [address] [place] [address] Unknown, Unknown, Isha Bower PA-C [address] [place] [address] [email or web address] 12/02/2025 8:40 AM EDT Office Visit [facility] [address] [place] [address] 3rd Floor, [address] [place] [address] Duc Suarez MD [address] [place] [address], [address] [address] documented as of this encounter Visit Diagnoses Not on filedocumented in this encounter Care Teams Ged Tutor Relationship Specialty Start Date End Date Svitlana Sher MD [address] [place] [address] PCP - General Family Medicine 08/08/22 03/24/24 Svitlana Sher MD [address] [place] [address] PCP - General Family Medicine 03/25/24 02/08/25 Svitlana Sher MD [address] [place] [address] PCP - General Family Medicine 02/09/25 Duc Suarez MD [address] [place] [address] [email or web address] Historical LMR Provider 01/11/17 Slime Youssef MD [address] [place] [address] [email or web address] Historical LMR Provider 01/11/17 documented as of this encounter Additional Source Comments The information contained in this document represents components of the legal health record. It is not the complete legal health record.[facility]
--- OUTSIDE RECORDS SUMMARY | 2025-03-16 07:51 | XMS_ITS | Clinical Summary ---
Author Organization [facility] Prior to 08/21/[address] [place] [address] Care Team Providers Care It Sales Executive Name Role Phone Unavailable Primary Care Provider [...] this topic Medical Devices Implanted Type Area Court Security Officer Device Identifier Shelf Expiration Date Model / Serial / Lot Stent Resolute Integrity Microtrac 14mm 2.5mm 1 [employer] - [id number] - [id number] Implanted:08/20 at [facility] (Quantity not on file) [employer] - VASCULAR [id number] X / / Stent Resolute Integrity Microtrac 12mm 2.5mm 1 [employer] Rapdx - [id number] - [id number] Implanted:08/20 at [facility] (Quantity not on file) [employer] - VASCULAR [id number] X / / Advance Directives For more information, please contact: [phone] Latest Code Status on File Code Status [...]
--- OUTSIDE RECORDS SUMMARY | 2025-03-16 07:51 | XMS_ITS | Encounter Summary ---
Author Organization [facility] Address [address] [place] [address] Phone Care Team Providers Care Predator Control Trapper Name Role Phone Slime Youssef MD Primary Care Provider Patel Bhandari DO Unavailable Duc Suarez MD Unavailable [phone] Pao Cooley MD Unavailable Slime Youssef MD Unavailable Garret Mercedes CNP Unavailable [phone] Moises Art MD Unavailable Destin Choe MD Unavailable Slime Youssef MD Unavailable Pcp, Unknown Primary Care Provider Unavailabl e Svitlana Sher MD Primary Care Pr ovider Svitlana Sher MD Primary Care Pr ovider Svitlana Sher MD Primary Care Pr ovider Encounter Details Date Type Department Care Team (Latest Contact Info) Description 12/24/2017 Transcribe Orders [facility] [address] [phone] Vicente Mayo MD [address] [place] [address], [address] [place] [address] [email or web address] Neuropathy (Primary Dx); Numbness Social [...] Procedure Pass [facility] Ct Scan [address] [address] 04/04/2025 12:00 PM EST Appointment [place], Ct Scan [address] [address] Fransico Baker MD [address] [place] [address] [email or web address] 05/04/2025 8:15 AM EST Office Visit [facility] [address] [place] [address] Unknown, Unknown, Isha Bower PA-C [address] [place] [address] [email or web address] 12/02/2025 8:40 AM EDT Office Visit [facility] [address] [place] [address] 3rd Floor, [address] [place] [address] Duc Suarez MD [address] [place] [address], [address] [address] documented as of this encounter Results * Vitamin B12 (12/24/2017 10:25 AM EDT) VITAMIN B12 1,157 232 - 1,245 pg/mL [facility] Blood 12/24/2017 10:2 5 AM EDT 12/24/2017 10:29 AM EDT us Vicente Mayo MD LAB BLOOD BKR ORDERABLES Fin al Result [address] [address] * Tissue transglutaminase IgA (12/24/2017 10:25 AM EDT) TTG IGA ANTIBODY 1.5 <4.0 (Negative) U/mL [facility] Blood 12/24/2017 10:2 5 AM EDT 12/24/2017 10:29 AM EDT us Vicente Mayo MD LAB BLOOD BKR ORDERABLES Fin al Result Performing Organization Address City/[facility]/ZIP Co de Phone Number [facility]+ [address] [place] [address] * Creatinine/eGFR (12/24/2017 10:25 AM EDT) CREATININE 0.90 0.5 - 1.5 mg/dL [facility] EGFR 66 >59 mL/min/1.7 3m2 [facility] Comment:If patient is black, multiply result by 1.159. Estimated glomerular filtration rate calculated using the CKD-EPI equation. Blood 12/24/2017 10:2 5 AM EDT 12/24/2017 10:29 AM EDT us Vicente Mayo MD LAB BLOOD BKR ORDERABLES Fin al Result [facility] [address] [place] [address] * BUN (12/24/2017 10:25 AM EDT) BUN 14 6 - 19 mg/dL [facility] Blood 12/24/2017 10:2 5 AM EDT 12/24/2017 10:29 AM EDT us Vicente Mayo MD LAB BLOOD BKR ORDERABLES Fin al Result [facility] [address] [place] [address] * (ABNORMAL) Monoclonal protein study, serum (12/24/2017 10:25 AM EDT) TOTAL PROTEIN 7.6 6.3 - 7.9 g/dL [facility] ALBUMIN 3.9 3.4 - 4.7 g/dL [facility] ALPHA-1 GLOBULIN 0.2 0.1 - 0.3 g/dL [facility] ALPHA-2 GLOBULIN 1.1(H) 0.6 - 1.0 g/dL [facility] BETA-GLOBULIN 1.2 0.7 - 1.2 g/dL [facility] GAMMA-GLOBULIN 1.1 0.6 - 1.6 g/dL [facility] A/G RATIO 1.07 [facility] M SPIKE Test component not applicable or not reported. not reported [facility] M SPIKE Test component not applicable or not reported. not reported [facility] IMPRESSION SEE NOTE [facility] Comment: (NOTE) No apparent monoclonal protein on serum electrophoresis. See Immunofixation. IMMUNOFIXATION No monoclonal protein detected. [facility] Blood 12/24/2017 10:2 5 AM EDT 12/24/2017 10:29 AM EDT us Vicente Mayo MD LAB BLOOD BKR ORDERABLES Fin al Result [facility] [address] [place] [address] * TSH (12/24/2017 10:25 AM EDT) TSH 1.24 0.27 - 4.20 uIU/mL [facility] Blood 12/24/2017 10:2 5 AM EDT 12/24/2017 10:29 AM EDT us Vicente Mayo MD LAB BLOOD BKR ORDERABLES Fin al Result Performing Organization Address City/[facility] Co de Phone Number [address] [address] * (ABNORMAL) Antinuclear antibody (SALINA) (12/24/2017 10:25 AM EDT) SALINA SCREEN ON HEP 2 Positive(A ) Negative [facility] Comment:An SALINA Titer has bee n reflexed. The results will follow. Blood 12/24/2017 10:2 5 AM EDT 12/24/2017 10:29 AM EDT us Vicente Mayo MD LAB BLOOD BKR ORDERABLES Fin al Result Performing Organization Address City/[facility] Co de Phone Number [address] [address] documented in this encounter Visit Diagnoses Diagnosis Neuropathy- Primary Mononeuritis of unspecified site Numbness Disturbance of skin sensation documented in this encounter Additional Health Concerns Infection Onset Date Last Indicated Resolved Time CoV-Exposed Comment:Recent close contact 10/03/2019 10/03/2019 10/17/2019 1:25 AM EDT documented as of this encounter Care Teams Predator Control Trapper Relationship Specialty Start Date End Date Slime Youssef MD [address] [place] [address] [email or web address] PCP - General 01/07/17 07/28/22 Pcp, Unknown PCP - General 07/29/22 08/07/22 Svitlana Shere, MD PCP - General Family Medicine 08/08/22 03/24/24 Svitlana Sher MD PCP - General Family Medicine 03/25/24 02/08/25 Svitlana Sher MD [address] [place] [address] PCP - General Family Medicine 02/09/25 Patel Bhandari DO [address] [place] [address] Historical LMR Provider 01/11/17 03/31/21 Duc Suarez MD [address] [address] Historical LMR Provider 01/11/17 Pao Cooley MD [address] [facility] [place] [address] Historical LMR Provider 01/11/17 Slime Youssef MD [address] [place] [address] [email or web address] Historical LMR Provider 01/11/17 Garret Mercedes GENOMICS SCIENTIST [address] [facility], 2nd [place] [address] [email or web address] Historical LMR Provider 01/11/17 03/31/21 Moises Art MD [address] [place] [address] Historical LMR Provider 01/11/17 2 Destin Choe MD [address] [place] [address] Historical LMR Provider 01/11/17 Slime Youssef MD [address] [place] [address] [email or web address] Insurance Assigned Provider 06/27/18 05/27/20 documented as of this encounter Additional Source Comments The information contained in this document represents components of the legal health record. It is not the complete legal health record.[facility]
--- OUTSIDE RECORDS SUMMARY | 2025-03-16 07:52 | XMS_ITS | Encounter Summary ---
Author Organization [facility] Address [address] [place] [address] Phone Care Team Providers Care Installation Specialist Name Role Phone Slime Youssef MD [...] cancer Slime Youssef MD Phone: tel: fax: [email or web address] [address] Phone: tel: Referral ID Status Reason Start Date Expiration Date Visits Re quested Visits Authorized [id number] Closed 11/10/2019 11/09/2020 1 1 Encounter Details Date Type Department Care Team (Late st Contact Info) Description 11/10/2019 Transcribe Orders Virtual Department [address] [place] [address] Slime Youssef MD [address] [place] [address] [email or web address] Family history of breast cancer (Primary Dx) [...] (Late Contact Info) Description 05/24/2024 Procedure Pass [facility], Ct Scan - [address] [address] 04/04/2025 12:00 PM EST Appointment [facility] Ct Scan [address] [address] Fransico Baker MD [address] [place] [address] [email or web address] 05/04/2025 8:15 AM EST Office Visit [facility] [address] [place] [address] Unknown, Unknown, Isha Bower PA-C [address] [place] [address] [email or web address] 12/02/2025 8:40 AM EDT Office Visit [facility] [address] [place] [address] 3rd Floor, [address] [place] [address] Duc Suarez MD [address] [place] [address], [address] [place] [address] [email or web address] documented as of this encounter Procedures Procedure Name Priority Date/Time Associated Diagnosis Comments AMB REFERRAL TO [facility] CANCER GENETICS Routine 07/06/2020 8:37 AM EDT Family history of breast cancer documented in this encounter Results * Ambulatory referral to [facility] Cancer Genetics (07/06/2020 8:37 AM EDT) us Slime Youssef MD AMB [facility] REFERRALS Final Res ult documented in this encounter Visit Diagnoses Diagnosis Family history of breast cancer- Primary Family history of malignant neoplasm of breast documented in this encounter Care Teams Installation Specialist Relationship Specialty Start Date End Date Slime Youssef MD [address] [place] [address] PCP - General 01/07/17 07/28/22 Pcp, Unknown PCP - General 07/29/22 08/07/22 Svitlana Sher MD PCP - General Family Medicine 08/08/22 03/24/24 Svitlana Sher MD PCP - General Family Medicine 03/25/24 02/08/25 Svitlana Sher MD [address] [place] [address] PCP - General Family Medicine 02/09/25 Patel Bhandari DO [address] [place] [address] [place] [address] Historical LMR Provider 01/11/17 03/31/21 Duc Suarez MD 22 [facility], [facility] 301 [place] [address] Historical LMR Provider 01/11/17 Pao Cooley MD [address] [address] Historical LMR Provider 01/11/17 Slime Youssef MD [address] [place] [address] Historical LMR Provider 01/11/17 Garret Mercedes CNP [address] [address] Historical LMR Provider 01/11/17 03/31/21 Moises Art MD [address] [place] [address] [address] [place] [address] Historical LMR Provider 01/11/17 2 Destin Choe MD [address] [place] [address] Historical LMR Provider 01/11/17 Slime Youssef MD [address] [place] [address] [email or web address] Insurance Assigned Provider 06/27/18 05/27/20 documented as of this encounter Additional Source Comments The information contained in this document represents components of the legal health record. It is not the complete legal health record.[facility]
--- OUTSIDE RECORDS SUMMARY | 2025-03-16 07:52 | XMS_ITS | Encounter Summary ---
Author Organization [facility] Address [address] [place] [address] Phone Care Team Providers Care Early Childhood Lead Teacher Name Role Phone Slime Youssef MD Primary Care Provider [phone] Patel Bhandari DO Unavailable Duc Suarez MD [...] Info) Description 09/15/2019 Ancillary Orders Virtual Department [address] [place] [address] Slime Youssef MD [address] [place] [address] [email or web address] Breast screening Social History Tobacco Use Types [...] st Contact Info) Description 05/24/2024 Procedure Pass [address] [address] 04/04/2025 12:00 PM EST Appointment [address] [address] Fransico Baker MD [address] [place] [address] [email or web address] 05/04/2025 8:15 AM EST Office Visit [facility] [address] [place] [address] Unknown, Unknown, Isha Bower PA-C [address] [place] [address] [email or web address] 12/02/2025 8:40 AM EDT Office Visit [facility] [address] [place] [address] 3rd Floor, [address] [place] [address] Duc Suarez MD [address] [place] [address], [address] [place] [address] documented as of this encounter Results * [...] documented as of this encounter Care Teams Early Childhood Lead Teacher Relationship Specialty Start Date End Date Slime Youssef MD [address] [place] [address] PCP - General 01/07/17 07/28/22 Pcp, Unknown PCP - General 07/29/22 08/07/22 Svitlana Sher MD PCP - General Family Medicine 08/08/22 03/24/24 Svitlana Sher MD PCP - General Family Medicine 03/25/24 02/08/25 Svitlana Sher MD 4 [place] [address] PCP - General Family Medicine 02/09/25 Patel Bhandari DO [address] [place] [address] [place] [address] Historical LMR Provider 01/11/17 03/31/21 Duc Suarez MD [address] [address] Historical LMR Provider 01/11/17 Pao Cooley MD [address] [address] Historical LMR Provider 01/11/17 Slime Youssef MD [address] [place] [address] [email or web address] Historical LMR Provider 01/11/17 Garret Mercedes AIRCRAFT SERVICER 15 [facility], [address] [place] [address] Historical LMR Provider 01/11/17 03/31/21 Moises Art MD [address] [place] [address] Historical LMR Provider 01/11/17 2 Destin Choe MD [address] [place] [address] Historical LMR Provider 01/11/17 Slime Youssef MD [address] [place] [address] [email or web address] Insurance Assigned Provider 06/27/18 05/27/20 documented as of this encounter Additional Source Comments The information contained in this document represents components of the legal health record. It is not the complete legal health record.[facility]
--- OUTSIDE RECORDS SUMMARY | 2025-03-16 07:52 | XMS_ITS | Encounter Summary ---
Author Organization [facility] Address [address] [place] [address] Phone Care Team Providers Care Mine Technician Name Role Phone Slime Youssef MD Primary Care Provider Duc Suarez MD Unavailable [phone] Slime Youssef MD Unavailable [phone] Pcp, Unknown Primary Care Provider Unavailabl e Svitlana Sher MD Primary Care Pr ovider Svitlana Sher MD Primary Care Pr ovider Svitlana Sher MD Primary Care Pr ovider Encounter Details Date Type Department Care Team (Late st Contact Info) Description 05/01/2021 Procedure Pass [facility], Ct Scan - [address] [address] Social History Tobacco Use Types Packs/Day Years [...] Contact Info) Description 05/24/2024 Procedure Pass [facility], Ct Scan - [address] [address] 04/04/2025 12:00 PM EST Appointment [facility], Ct Scan - [address] [address] Fransico Baker MD [address] [place] [address] [email or web address] 05/04/2025 8:15 AM EST Office Visit [facility] [address] [place] [address] Unknown, Unknown, Isha Bower PA-C [address] [place] [address] [email or web address] 12/02/2025 8:40 AM EDT Office Visit [facility] [address] [place] [address] 3rd [facility], [address] [place] [address] Duc Suarez MD [address] [place] [address] documented as of this encounter Visit Diagnoses Not on filedocumented in this encounter Care Teams Mine Technician Relationship Specialty Start Date End Date Slime Youssef MD [address] [place] [address] PCP - General 01/07/17 07/28/22 Pcp, Unknown PCP - General 07/29/22 08/07/22 Svitlana Sher MD PCP - General Family Medicine 08/08/22 03/24/24 Svitlana Sher MD PCP - General Family Medicine 03/25/24 02/08/25 Svitlana Sher MD [address] [place] [address] PCP - General Family Medicine 02/09/25 Duc Suarez MD [address] [place] [address] [email or web address] Historical LMR Provider 01/11/17 Slime Youssef MD [address] [place] [address] [email or web address] Historical LMR Provider 01/11/17 documented as of this encounter Additional Source Comments The information contained in this document represents components of the legal health record. It is not the complete legal health record.[facility]
--- OUTSIDE RECORDS SUMMARY | 2025-03-16 07:52 | XMS_ITS | Encounter Summary ---
Author Organization [facility] Address [address] [place] [address] Phone Care Team Providers Care Surface Miner Name Role Phone Duc Suarez MD Unavailable [phone] Slime Youssef MD Unavailable Svitlana Sher MD Primary Care Pr ovider Svitlana Sher MD Primary Care Pr ovider Encounter Details Date Type Department Care Team (Late st Contact Info) Description 04/29/2024 Ancillary Orders [facility], X-Ray - [address] [address] Fatimah Caruso, NILA [address] [place] [address] [email or web address] Left hip pain (Primary Dx) Social History [...] Contact Info) Description 05/24/2024 Procedure Pass [facility], Ct Scan [address] [address] 04/04/2025 12:00 PM EST Appointment [facility], Ct Scan [address] [address] Fransico Baker MD [address] [place] [address] [email or web address] 05/04/2025 8:15 AM EST Office Visit [facility] [address] [place] [address] Unknown, Unknown, Isha Bower PA-C [address] [place] [address] [email or web address] 12/02/2025 8:40 AM EDT Office Visit [facility] [address] [place] [address] 3rd Floor, [address] [place] [address] Duc Suarez MD 22 [facility], [address] [place] [address] [email or web address] documented as of this encounter Results * XR HIP 2 VW LEFT PLUS PELVIS (04/29/2024 10:52 AM EST) Anatomical Region Laterality Modality Hip, Pelvis Computed Radiogr aphy 04/29/2024 4:1 8 PM EST Impressions 04/29/2024 4:21 PM EST Qrto-kl-gfslojkz degenerative changes at the hips. Narrative 04/29/2024 [...] clinician's provided indication for this examination in [facility]:Pain COMPARISON: CT ABDOMEN/PELVIS (RENAL MASS) WITH AND WITHOUT [id number] FINDINGS: Pelvis: Partially imaged lower lumbar spine degenerative changes. Milddegenerative changes at the sacroiliac joints and pubic symphysis. Frontalevaluation of the right hip shows mild to moderate degenerative changes.Surgical clips in the pelvis. Left hip: No displaced fracture. Mild to moderate degenerative changes atthe left hip joint. IMPRESSION: Weey-cc-eoojmhnt degenerative changes at the hips. Fatimah DOTSON IMG XR PELVIS Final Result documented in this encounter Visit Diagnoses Diagnosis Left hip pain Pain in joint, pelvic region and thigh Left hip pain- Primary Pain in joint, pelvic region and thigh documented in this encounter Care Teams Surface Miner Relationship Specialty Start Date End Date Svitlana Sher MD 15 [place] [address] PCP - General Family Medicine 03/25/24 02/08/25 Svitlana Sher MD [address] [place] [address] PCP - General Family Medicine 02/09/25 Duc Suarez MD [address] [place] [address], [facility] [address] [place] [address] [email or web address] Historical LMR Provider 01/11/17 Slime Youssef MD 15 [place] [address] [email or web address] Historical LMR Provider 01/11/17 documented as of this encounter Additional Source Comments The information contained in this document represents components of the legal health record. It is not the complete legal health record.[facility]
--- OUTSIDE RECORDS SUMMARY | 2025-03-16 07:52 | XMS_ITS | Encounter Summary ---
Author Organization [facility] Address [address] [place] [address] Phone Care Team Providers Care Front Tender Name Role Phone Slime Youssef MD Primary Care Provider Patel Bhandari DO Unavailable Duc Suarez MD Unavailable [phone] Pao Cooley MD Unavailable Slime Youssef MD [...] st Contact Info) Description 01/11/2017 Ancillary Orders [address] [phone] Shorty [place] MD [address] [place] [address] Fatty liver Social History Tobacco Use Types [...] st Contact Info) Description 05/24/2024 Procedure Pass [place], Ct Scan [address] [address] 04/04/2025 12:00 PM EST Appointment [address] [address] Fransico Baker MD [address] [place] [address] [email or web address] 05/04/2025 8:15 AM EST Office Visit [facility] [address] [place] [address] Unknown, Unknown, Isha Bower PA-C [address] [place] [address] [email or web address] 12/02/2025 8:40 AM EDT Office Visit [facility] [address] [place] [address] 3rd Floor, [address] [place] [address] Duc Suarez MD [address] [place] [address], [address] [address] documented as of this encounter Visit Diagnoses Diagnosis Fatty liver Other chronic nonalcoholic liver disease documented in this encounter Additional Health Concerns Infection Onset Date Last Indicated Resolved Time CoV-Exposed Comment:Recent close contact 10/03/2019 10/03/2019 10/17/2019 1:25 AM EDT documented as of this encounter Care Teams Front Tender Relationship Specialty Start Date End Date Slime Youssef MD [address] [place] [address] PCP - General 01/07/17 07/28/22 Pcp, Unknown PCP - General 07/29/22 08/07/22 Svitlana Sher MD PCP - General Family Medicine 08/08/22 03/24/24 Svitlana Sher MD PCP - General Family Medicine 03/25/24 02/08/25 Svitlana Sher MD [address] [place] [address] PCP - General Family Medicine 02/09/25 Patel Bhandari DO [address] [place] [address] [place] [address] [email or web address] Historical LMR Provider 01/11/17 03/31/21 Duc Suarez MD 22 [facility], [facility] [address] [place] [address] [email or web address] Historical LMR Provider 01/11/17 Pao Cooley MD 15 [facility], 2nd [place] [address] Historical LMR Provider 01/11/17 Slime Youssef MD 15 [place] [address] Historical LMR Provider 01/11/17 Garret Mercedes DIRECTORY ASSISTANCE OPERATOR 15 [facility], 2nd [place] [address] Historical LMR Provider 01/11/17 03/31/21 Moises Art MD [facility] [address] [place] [address] Historical LMR Provider 01/11/17 2 Destin Choe MD [address] [place] [address] Historical LMR Provider 01/11/17 Slime Youssef MD [address] [place] [address] Insurance Assigned Provider 06/27/18 05/27/20 documented as of this encounter Additional Source Comments The information contained in this document represents components of the legal health record. It is not the complete legal health record.[facility]
--- OUTSIDE RECORDS SUMMARY | 2025-03-16 07:52 | XMS_ITS | Encounter Summary ---
Author Organization [facility] Address [address] [place] [address] Phone Care Team Providers Care Wheel Fitter Name Role Phone Slime Youssef MD Primary Care Provider Patel Bhandari DO Unavailable Duc Suarez MD Unavailable [phone] Pao Cooley MD Unavailable Slime Youssef MD [...] st Contact Info) Description 01/28/2017 Ancillary Orders [address] [phone] Shorty [place] MD [address] [place] [address] Fatty liver Social History Tobacco Use Types [...] st Contact Info) Description 05/24/2024 Procedure Pass [place], Ct Scan [address] [address] 04/04/2025 12:00 PM EST Appointment [address] [address] Fransico Baker MD [address] [place] [address] [email or web address] 05/04/2025 8:15 AM EST Office Visit [facility] [address] [place] [address] Unknown, Unknown, Isha Bower PA-C [address] [place] [address] [email or web address] 12/02/2025 8:40 AM EDT Office Visit [facility] [address] [place] [address] 3rd Floor, [address] [place] [address] Duc Suarez MD [address] [place] [address], [address] [address] documented as of this encounter Results * [...] documented as of this encounter Care Teams Wheel Fitter Relationship Specialty Start Date End Date Slime Youssef MD [address] [place] [address] [email or web address] PCP - General 01/07/17 07/28/22 Pcp, Unknown PCP - General 07/29/22 08/07/22 Svitlana Sher MD PCP - General Family Medicine 08/08/22 03/24/24 Svitlana Sher MD PCP - General Family Medicine 03/25/24 02/08/25 Svitlana hSer MD [address] [place] [address] PCP - General Family Medicine 02/09/25 Patel Bhandari DO [address] [place] [address] [place] [address] [email or web address] Historical LMR Provider 01/11/17 03/31/21 Duc Suarez MD [address] [address] [email or web address] Historical LMR Provider 01/11/17 Pao Cooley MD 15 [facility], 2nd [place] [address] Historical LMR Provider 01/11/17 Slime Youssef MD [address] [place] [address] Historical LMR Provider 01/11/17 Garret Mercedes CNP 15 [facility], [address] [place] [address] [email or web address] Historical LMR Provider 01/11/17 03/31/21 Moises Art MD [address] [place] [address] Historical LMR Provider 01/11/17 2 Destin Choe MD [address] [place] [address] Historical LMR Provider 01/11/17 Slime Youssef MD 15 [place] [address] [email or web address] Insurance Assigned Provider 06/27/18 05/27/20 documented as of this encounter Additional Source Comments The information contained in this document represents components of the legal health record. It is not the complete legal health record.[facility]
--- OUTSIDE RECORDS SUMMARY | 2025-03-16 07:52 | XMS_ITS | Encounter Summary ---
Author Organization [facility] Address [address] [place] [address] Care Team Providers Care Finished Goods Inspector Name Role Phone Svitlana Sher MD Primary Care Pr ovider Reason for Visit * Reason Comments home health cert Encounter Details Date Type Department Care Team ([facility] Contact Info) Description 06/11/2024 Billing Patient Not Present Adult Medicine [address] [phone] Svitlana Sher MD [address] [place] [address] Social History Tobacco Use Types Packs/Day Years [...] care for your loved ones. For example, attendant child activity or elderly care for an older adult? [...] Upcoming Encounters Date Type Department Care Team ([facility] st Contact Info) Description 11/04/2025 7:30 AM EDT Office Visit [place] [address] [place] [address] Lidya Durham PA [address] [place] [address] documented as of this encounter Visit Diagnoses Not on filedocumented in this encounter Additional Health Concerns Assessment Noted Time PHQ-9 Depression Total Score: 0 04/13/19 25 8:05 AM EST documented as of this encounter Care Teams Finished Goods Inspector Relationship Specialty Start Date End Date Svitlana Sher MD [address] [place] [phone] PCP - General Internal Medicine 04/02/22 documented as of this encounter
--- OUTSIDE RECORDS SUMMARY | 2025-03-16 07:52 | XMS_ITS | Encounter Summary ---
Author Organization [facility] Address [address] [place] [address] Phone Care Team Providers Care Manager Metrology Name Role Phone Slime Youssef MD Primary Care Provider Duc Suarez MD Unavailable [phone] Slime Youssef MD Unavailable [phone] Pcp, Unknown Primary Care Provider Unavailabl e Svitlana Sher MD Primary Care Pr ovider Svitlana Sher MD Primary Care Pr ovider Svitlana Sher MD Primary Care Pr ovider Encounter Details Date Type Department Care Team (Late st Contact Info) Description 01/08/2022 Procedure Pass [facility], Ct Scan - [address] [address] Social History Tobacco Use Types Packs/Day Years [...] st Contact Info) Description 05/24/2024 Procedure Pass [facility], Ct Scan - [address] [address] 04/04/2025 12:00 PM EST Appointment [facility], Ct Scan - [address] [address] Fransico Baker MD [address] [place] [address] [email or web address] 05/04/2025 8:15 AM EST Office Visit [facility] [address] [place] [address] Unknown, Unknown, Isha Bower PA-C [address] [place] [address] [email or web address] 12/02/2025 8:40 AM EDT Office Visit [facility] [address] [place] [address] 3rd [facility], [address] [place] [address] Duc Suarez MD [address] [place] [address] documented as of this encounter Visit Diagnoses Not on filedocumented in this encounter Care Teams Manager Metrology Relationship Specialty Start Date End Date Slime Youssef MD [address] [place] [address] PCP - General 01/07/17 07/28/22 Pcp, Unknown PCP - General 07/29/22 08/07/22 Svitlana Sher MD PCP - General Family Medicine 08/08/22 03/24/24 Svitlana Sher MD PCP - General Family Medicine 03/25/24 02/08/25 Svitlana Sher MD [address] [place] [address] PCP - General Family Medicine 02/09/25 Duc Suarez MD [address] [place] [address] [email or web address] Historical LMR Provider 01/11/17 Slime Youssef MD [address] [place] [address] [email or web address] Historical LMR Provider 01/11/17 documented as of this encounter Additional Source Comments The information contained in this document represents components of the legal health record. It is not the complete legal health record.[facility]
--- OUTSIDE RECORDS SUMMARY | 2025-03-16 07:52 | XMS_ITS | Encounter Summary ---
Author Organization [facility] Address [address] [place] [address] Phone Care Team Providers Care Knitter Operator Name Role Phone Slime Youssef MD Primary Care Provider Duc Suarez MD Unavailable [phone] Slime Youssef MD Unavailable [phone] Pcp, Unknown Primary Care Provider Unavailabl e [...] Spine Joey Lee DO Phone: tel: fax: [email or web address] Referral ID Status Reason Start Date Expiration Date Visits Re quested Visits Authorized [id number] Closed 08/14/2021 08/14/2022 1 1 Encounter Details Date Type Department Care Team (Latest Contact Info) Description 08/14/2021 Transcribe Orders Virtual Department [address] [place] [phone] Joey Lee, DO [address] [place] [address] [email or web address] spondylosis with radiculopathy, cervical region (Primary [...] st Contact Info) Description 05/24/2024 Procedure Pass [place], [facility] Scan [address] [address] 04/04/2025 12:00 PM EST Appointment [place] Scan [address] [address] Fransico Baker MD [address] [place] [address] [email or web address] 05/04/2025 8:15 AM EST Office Visit [facility] [address] [place] [address] Unknown, Unknown, Isha Bower PA-C [address] [place] [address] [email or web address] 12/02/2025 8:40 AM EDT Office Visit [facility] [address] [place] [address] [address] Floor, [address] [place] [address] Duc Suarez MD [address] [facility], [address] [place] [address] [email or web address] documented as of this encounter Results * [...] edema signal changes at C3-4 and occiput [id number]. No destructive or suspicious bone lesions. Stable mildcerebellar tonsil ectopia. No significant change in central [id number] signal changes within the spinal cord at C4-5 through C5-D7ebpok may represent a syrinx or myelopathy. Paraspinal [...] region documented in this encounter Care Teams Knitter Operator Relationship Specialty Start Date End Date Slime Youssef MD [address] [place] [address] PCP - General 01/07/17 07/28/22 Pcp, Unknown PCP - General 07/29/22 08/07/22 Svitlana Sher MD PCP - General Family Medicine 08/08/22 03/24/24 Svitlana Sher MD PCP - General Family Medicine 03/25/24 02/08/25 Svitlana Sher MD [address] [place] [address] PCP - General Family Medicine 02/09/25 Duc Suarez MD [address] [place] [address], [address] [address] [email or web address] Historical LMR Provider 01/11/17 Slime Youssef MD [address] [place] [address] [email or web address] Historical LMR Provider 01/11/17 documented as of this encounter Additional Source Comments The information contained in this document represents components of the legal health record. It is not the complete legal health record.[facility]
--- OUTSIDE RECORDS SUMMARY | 2025-03-16 07:52 | XMS_ITS | Encounter Summary ---
Author Organization [facility] Address [address] [place] [address] Phone Care Team Providers Care Commutator Inspector Name Role Phone Slime Yuossef MD Primary Care Provider Patel Bhandari DO Unavailable Duc Suarez MD Unavailable Pao Cooley MD Unavailable lSime Youssef MD Unavailable Garret Mercedes CNP Unavailable Moises Art MD Unavailable Destin Choe MD Unavailable Slime Youssef MD Unavailable Pcp, Unknown Primary Care Provider Unavailabl e Svitlana Sher MD Primary Care Pr ovider Svitlana Sher MD Primary Care Pr ovider Svitlana Sher MD Primary Care Pr ovider Encounter Details Date Type Department Care Team (Latest Contact Info) Description 01/23/2017 Transcribe Orders [facility] [place] [address] [place], [place] [id number] Shorty Willis MD [address] [place] [phone] Fatty liver (Primary Dx) Social History Tobacco [...] st Contact Info) Description 05/24/2024 Procedure Pass [place], Ct Scan [address] [address] 04/04/2025 12:00 PM EST Appointment [address] [address] Fransico Baker MD [address] [place] [address] [email or web address] 05/04/2025 8:15 AM EST Office Visit [facility] [address] [place] [address] Unknown, Unknown, Isha Bower PA-C [address] [place] [address] [email or web address] 12/02/2025 8:40 AM EDT Office Visit [facility] [address] [place] [address] [address]rd Floor, [address] [place] [address] Duc Suarez MD [address] [place] [address], [address] [address] documented as of this encounter Results * LFTs (hepatic panel) (01/23/2017 10:17 AM EDT) ALKALINE PHOSPHATASE 67 39 - 117 U/L [facility] TOTAL BILIRUBIN 0.6 0 - 1.2 mg/dL [facility] DIRECT BILIRUBIN <0.2 0 - 0.3 mg/dL [facility] Bilirubin (Indirect) NOT CALCULATED 0 - 1.5 mg/dL [facility] AST 32 0 - 37 U/L [facility] ALT 31 0 - 40 U/L [facility] TOTAL PROTEIN 7.2 6.5 - 8.0 g/dL [facility] ALBUMIN 4.3 3.9 - 4.8 g/dL [facility] GLOBULIN 2.9 1 - 4.8 g/dL [facility] A/G Ratio 1.48 1.00 - 4.80 RATIO [facility] Blood 01/23/2017 10:1 7 AM EDT 01/23/2017 10:22 AM EDT us Shorty Willis MD LAB BLOOD BKR ORDERABLES Jame tiffany Result - Final [facility] [address] [place] [address] documented in this encounter Visit Diagnoses Diagnosis Fatty liver- Primary Other chronic nonalcoholic liver disease documented in this encounter Additional Health Concerns Infection Onset Date Last Indicated Resolved Time CoV-Exposed Comment:Recent close contact 10/03/2019 10/03/2019 10/17/2019 1:25 AM EDT documented as of this encounter Care Teams Commutator Inspector Relationship Specialty Start Date End Date Slime Youssef MD [address] [place] [address] PCP - General 01/07/17 07/28/22 Pcp, Unknown PCP - General 07/29/22 08/07/22 Svitlana Sher MD PCP - General Family Medicine 08/08/22 03/24/24 Svitlana Sher MD PCP - General Family Medicine 03/25/24 02/08/25 Svitlana Sher MD [address] [place] [address] PCP - General Family Medicine 02/09/25 Patel Bhandari DO [address] [place] [address] [email or web address] Historical LMR Provider 01/11/17 03/31/21 Duc Suarez MD [address] [address] [email or web address] Historical LMR Provider 01/11/17 Pao Cooley MD [address] [address] [email or web address] Historical LMR Provider 01/11/17 Slime Youssef MD [address] [place] [address] [email or web address] Historical LMR Provider 01/11/17 Garret Mercedes CNP [address] [address] Historical LMR Provider 01/11/17 03/31/21 Moises Art MD [address] [place] [address] Historical LMR Provider 01/11/17 2 Destin Choe MD [address] [place] [address] Historical LMR Provider 01/11/17 Slime Youssef MD [address] [place] [address] [email or web address] Insurance Assigned Provider 06/27/18 05/27/20 documented as of this encounter Additional Source Comments The information contained in this document represents components of the legal health record. It is not the complete legal health record.[facility]
--- OUTSIDE RECORDS SUMMARY | 2025-03-16 07:52 | XMS_ITS | Clinical Summary ---
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 Active aspirin 81 MG EC tablet Take 1 tablet by mouth daily. Active cholecalciferol (VITAMIN D3) 2,000 unit tablet Take 1 tablet by mouth daily. Active buPROPion (WELLBUTRIN XL) 150 MG ER 24 hr tablet Take 1 tablet by mouth every morning. 3 Active magnesium oxide 250 mg (150 mg elemental) Tab Take 250 mg by mouth daily. Active celecoxib (CELEBREX) 200 MG capsule Take 200 mg by mouth daily. 3 Active vitamins A,C,J-xfnf-danxch (PRESERVISION AREDS) 4,296 mcg-226 mg-90 mg Cap Take 2 capsules by mouth 2 (two) times a day with meals. Active losartan (COZAAR) 100 MG tabletIndications: Essential hypertension TAKE 1 TABLET BY MOUTH EVERY DAY 90 tablet 3 5 Active pregabalin (LYRICA) 75 MG capsule TAKE 1 CAPSULE (75 MG TOTAL) BY MOUTH 3 TIMES A DAY MAX DAILY AMOUNT: 225 MG Active rosuvastatin (CRESTOR) 20 MG tabletIndications: Mixed hyperlipidemia Take 1 tablet (20 mg total) by mouth daily. 90 tablet 5 5 Active nitrofurantoin (MACROBID) 100 MG capsule Take 1 capsule (100 mg total) by mouth 2 (two) times a day for 5 days. 10 capsule 5 02/15/20 25 Active Problems Problem Noted Date Diagnosed Date Right upper lobe pulmonary nodule 05/24/2024 Assessment & Plan (05/24/2024 9:44 AM EST): Found to have a 6.4 mm right upper lobe part solid nodule on LDCT chest lung cancer screening study on 10/06/2023. Chest CT from 04/02/2024 demonstrated interval resolution of this nodule indicating that it was likely a inflammatory versus infectious process which subsequently resolved. She denies any respiratory symptoms. We discussed reverting back to yearly LDCT chest lung cancer screening (approximately 04/02/2025). Chronic rhinitis 03/11/2022 Lower extremity pain 09/14/2020 Assessment & Plan (06/01/2024 9:00 AM EDT): s/p laminectomy decompression posterior lumbar L2-3, L3-4 with left L2-3 discectomy on 05/13/2024. Vascular ultrasound left lower extremity 05/20/2024 showed no DVT. She is currently working with PT coming to her home. Uneventful postop course thus far although still experiencing some left anterior thigh pain as discussed with her provider from [facility] who increased her gabapentin. Assessment & Plan (09/14/2020 4:33 PM EDT): Patient is experiencing at least a few months worth of bilateral calf Palanisamy spreading to her upper thigh. She is wondering if is due her to her statin. She is currently on Crestor 20 mg daily which I will decrease to 10 mg daily. We discussed decreasing this altogether and or starting Zetia, but we are going to try a decreased dose of the Crestor first to see if her symptoms improve. They are bothersome enough now to be causing her significant enough pain to want to stop her statin. Gabapentin was not helpful when she was treated with this when it was thought to be possible neurologic. Chronic cough 02/01/2020 Assessment & Plan (03/11/2022 3:29 PM EST): Chronic cough since 04/2019, sometimes productive of yellow sputum but only in the morning. Most likely secondary to postnasal drip. Has a history of chronic rhinosinusitis. Symptoms were initially much improved with combination of Flonase and saline nasal irrigation. Also has intermittent GERD symptoms that are worse at night. Can consider initiation of PPI or H2 antoinette in the future if cough does not further improve. No abnormalities on CT chest from 12/2019 at [facility] to explain chronic cough. PFTs from 01/2020 were normal. She is receiving allergy shots. She felt the Flonase was irritating her nose, so she stopped using Flonase without significant subsequent worsening of her symptoms. -Trial of azelastine 1 spray each nostril twice daily--patient was advised to call if no improvement after 2 weeks, at which time we would try Atrovent nasal spray instead -Saline nasal irrigation as needed Assessment & Plan (04/04/2020 2:11 PM EST): Chronic cough since 04/2019 sometimes productive of yellow sputum but only in the morning. Most likely secondary to postnasal drip. Has a history of chronic rhinosinusitis. Encouraged to restart Flonase at 2 sprays each nostril twice daily in addition to daily nasal irrigation. Symptoms much improved with combination of Flonase and nasal irrigation (Navage). Also has intermittent GERD symptoms that are worse at night. Can consider initiation of PPI or H2 antoinette in the future if cough does not further improve. No abnormalities on CT chest from 12/2019 at [facility] to explain chronic cough. PFTs 02/21/2020 normal. -Continue Flonase -Can discuss de-escalation of Flonase dose at next visit Assessment & Plan (02/01/2020 12:27 PM EST): Chronic cough since 04/2019 sometimes productive of yellow sputum but only in the morning. Most likely secondary to postnasal drip. Has a history of chronic rhinosinusitis. Encouraged to restart Flonase at 2 sprays each nostril twice daily in addition to daily nasal irrigation. Has intermittent GERD symptoms that are worse at night. Can consider initiation of PPI or H2 antoinette in the future if cough does not improve. Had a CT chest recently and we will obtain the study in order to evaluate whether there are any abnormalities that could be contributing to her chronic cough. Will obtain PFTs, as below. Chronic sinusitis 02/01/2020 Assessment & Plan (02/01/2020 12:26 PM EST): History of chronic rhinosinusitis and postnasal drip which improved with initiation of Flonase, but no longer using this. As above, recommended to restart Flonase at a higher dose and frequency. Also has Navage nasal irrigation system at home which she uses occasionally and seems to help. Recommended that she use this daily. If no improvement, can discuss referral to ENT for further evaluation. Asthma 02/01/2020 Assessment & Plan (02/01/2020 11:54 AM EST): Questionable history of asthma. Per chart, patient was presumptively diagnosed by Dr. Mariano Paula, with patient responding favorably to beta-antoinette cessation. PFTs from 11/2015 showed normal spirometry without a bronchodilator response, total lung capacity, reduced ERV likely secondary to body habitus, and mildly reduced diffusion capacity which corrects to normal when adjusted for alveolar volume. The isolated mildly reduced diffusion capacity is likely secondary to atelectasis related to body habitus. We will obtain repeat PFTs pre and postbronchodilator. If suspicion for asthma remains, can discuss methacholine challenge testing. Health care maintenance 02/01/2020 Assessment & Plan (04/04/2020 2:13 PM EST): Should receive influenza vaccine annually. Per patient, received pneumococcal vaccination in the past year or two at [facility] in [place]. Interested in COVID-19 vaccine when it becomes available. Assessment & Plan (02/01/2020 11:55 AM EST): Received Prevnar in 03/2019 and Pneumovax in 03/2013. Declined influenza vaccine today because she does not get them . Former smoker 02/01/2020 Assessment & Plan (05/24/2024 9:15 AM EST): For smoker, quit smoking cigarettes around 2009. Smoked 1 to 2 packs/day for approximately 40 years Assessment & Plan (03/11/2022 3:31 PM EST): Quit smoking around 2009. Smoked 1 to 2 packs/day for approximately 40 years. LDCT chest from 02/19/2022 with a new 5.5 mm left lower lobe linear nodular density. We discussed the CT chest findings and will closely follow the nodule with another CT chest in approximately 6 months. -Obtain LDCT chest 6 months from prior (approximately 08/19/2022) Assessment & Plan (04/04/2020 2:15 PM EST): Quit smoking around 2009. Continued smoking cessation encouraged and her abstinence for over 10 years is fantastic. Smoked 1 to 2 packs/day for approximately 40 years. Had LDCT chest in 12/2019 at [facility] which was Lung-RADS category 1. No pulmonary nodules aside from a left lower lobe calcified granuloma. -Annual LDCT chest, next in 12/2020 (ordered) Assessment & Plan (02/01/2020 11:59 AM EST): Quit smoking around 2009. Smoked 1 to 2 packs/day for approximately 40 years. Per patient, had low-dose CT chest performed at [facility] recently. She is not aware of the results. We will obtain the report and images of the study from [facility]. Chest pain 06/15/2019 Assessment & Plan (06/01/2024 8:55 AM EDT): Not currently endorsing Assessment & Plan (01/13/2020 1:46 PM EDT): She denies having any additional chest pains. Her chest pains of unclear etiology. Her nuclear stress test is normal which is reassuring. She is encouraged to come to the office sooner should she develop chest pain. Assessment & Plan (06/15/2019 10:01 PM EDT): Minimal EKG changes compared to 2016, and cardiac biomarkers are negative without delta change. She certainly has cardiovascular risk factors, but has also had atypical chest pain. Repeat cardiac catheterization in 2016 showed a patent circumflex stent with only mild to moderate disease elsewhere. I suspect this could be related to a musculoskeletal or GI source. She is euvolemic on exam. 1. Observation on the medical floor, continuous EKG monitoring 2. Stop heparin drip for now without clear evidence for ACS 3. Continue aspirin and statin as prescribed (atorvastatin will be substituted for rosuvastatin per our formulary) 4. Monitor heart rate and blood pressure 5. Nitropaste was applied in the emergency room, this can be discontinued tomorrow as long as she has no further chest pain 6. Cardiology consultation, question stress testing in the morning Coronary artery disease invo lving ione coronary artery of ione heart without angina pectoris 01/12/2018 Assessment & Plan (06/01/2024 8:50 AM EDT): Hx CAD with non-ST elevation CT 2014 with a drug-eluting stent to her circumflex. Cath in 2016 showed patent. Mild disease elsewhere. She continues to deny any symptoms concerning for angina. She should remain on aspirin lifelong. Continue additional medical therapy. Continue to optimize cardiovascular risk factors. Follow-up 6 months. Assessment & Plan (06/03/2023 11:15 AM EDT): She has a past medical history of coronary artery disease with non-ST elevation CT 2014 with a drug-eluting stent to her circumflex. Cath in 2016 showed patent. Mild disease elsewhere. She should remain on aspirin lifelong. We will continue to optimize her cardiovascular risk factors. Blood pressure and lipids as above. No current symptoms concerning for angina. Follow-up 6 months. Assessment & Plan (04/04/2022 3:24 PM EST): We will continue on aspirin lifelong. We also continue her on amlodipine. I am increasing the pravastatin to get her LDL more under control. She denies any symptoms at this time. She has evidence on a CT scan of severe coronary calcification, we will continue to medically manage at this time given she has no symptoms. Assessment & Plan (08/07/2021 9:03 AM EDT): Denies concerning symptoms. She did have a couple episodes of chest pain back in June that prompted a trip to [facility]. Chest pain occurred both at rest and with exertion, three separate times throughout the day. Labs and EKG were unremarkable at that time. Her chest pain has not recurred since. I have advised her to let us know if this happens again and we will consider a stress test at that time. We will continue to optimize her cardiac risk factors. She will remain on 81 mg ASA lifelong. We are working on getting her LDL to goal of < 70 mg/dL. Assessment & Plan (05/24/2021 8:58 AM EST): She is not experiencing any exertional or concerning symptoms at this time. We will continue to optimize cardiac risk factors. Will continue aspirin indefinitely. Assessment & Plan (07/14/2020 1:25 PM EDT): Patient has a history of coronary artery disease with a non-ST elevation CT in 2014 resulting in a drug-eluting stent to the circumflex which showed to remain patent during repeat catheterization in 2015. Nuclear stress test August 2019 unremarkable. She is currently denying any symptoms concerning for angina. Continue to optimize her cardiac risk factors. Continue aspirin lifelong. Assessment & Plan (01/13/2020 1:46 PM EDT): She denies chest pain, shortness of breath, palpitations has had no cardiac symptoms. She had a non-ST elevation in 2014 and had a stent placed in her circumflex. She only had mild disease elsewhere. She should remain on aspirin lifelong and we will continue to optimize her cardiac risk factors. Her nuclear stress test was reassuring. She will remain on aspirin 81 mg daily, losartan 50 mg daily. Assessment & Plan (01/12/2018 2:42 PM EDT): She had a non-ST elevation in 2014 and had a stent placed in her circumflex. She only had mild disease elsewhere. She should remain on aspirin lifelong and we will continue to optimize her cardiac risk factors. Dyspnea 01/12/[address] (myocardial infarction) 01/12/2018 Mixed hyperlipidemia 01/12/2018 Assessment & Plan (06/01/2024 8:55 AM EDT): LDL goal less than 70. Most recent LDL 58, improved approximately 20 points with the addition of Zetia. She is taking ezetimibe 10 mg every other day, which was started approximately 6 months ago, as she felt that every day dosing was worsening her whole body aches. She is tolerating rosuvastatin at 10 mg, did not tolerate higher doses of this. LFTs WNL. LDL is now at goal, triglycerides remain mildly elevated and she is taking omega-3 fatty acid as previously recommended. We discussed diet and exercise. Patient does not drink alcohol regularly. We discussed PCSK9 I and patient will look into this medication, but at this time, labs look acceptable to continue rosuvastatin daily and ezetimibe every other day. Follow-up in 6 months Assessment & Plan (06/03/2023 11:13 AM EDT): LDL goal less than 70. Most recent LDL on file is 97. In the past, she has had some leg discomfort of unclear etiology, ? Statin ADR. She is tolerating rosuvastatin 10 mg at this time so we will trial increasing this to 20 mg daily. Continue to work on lifestyle modifications. Patient will call the office if she is not tolerating this increase and we will otherwise repeat fasting lipids in 6 months and see her thereafter in follow-up. Assessment & Plan (04/04/2022 3:25 PM EST): Patient's last LDL was 87. Her triglycerides were 375. I would like to increase her pravastatin to 40 mg. She is agreeable to this. If it increases the achiness that she has been experiencing, she will give us a call. We did discuss going on a PCSK9 inhibitor. She should qualify for this given as she has previously been on rosuvastatin, atorvastatin, Zetia, and now pravastatin. I will have her get an updated lipid panel and complete metabolic panel in 2 months. Assessment & Plan (08/07/2021 9:07 AM EDT): Lipid panel improved on Zetia, but still not at goal. She has done a great job in way of cleaning up her diet, admits that she could still increase her daily aerobic exercise. We discussed the possibility of PSK9 inhibitors, as she has been intolerant of statins in the past (leg pains). For now, she would prefer to try to increase her physical activity and try a very low dose of statin medication before starting injectable therapies. Continue Zetia as she is tolerating this without side effects. We will repeat a fasting lipid panel in 3 months prior to follow up with Dr Suarez. If she experiences leg pain on 5 mg Crestor, she will give us a call sooner. Assessment & Plan (05/24/2021 9:01 AM EST): Reviewed her most recent lipid panel, which remains inadequately controlled on Zetia. We discussed the option of injectable medication (her insurance would cover Praluent) in addition to Zetia. She has some concern in regard to potential for side effects due to her experience with statin medications in the past. She admits that she could do more in way of cleaning up her diet- most specifically decreasing alcohol (currently drinking daily) and starting a Mediterranean diet. She also plans to increase her treadmill exercise to 30 minutes daily, at least 5 days per week. She would prefer to implement these lifestyle adjustments over the next two months, while continuing Zetia, and rechecking a lipid panel at that time (versus starting PSK9 inhibitor today). If her lipids do not improve significantly after these efforts in two months, she will be amendable to starting Praluent. Assessment & Plan (07/14/2020 1:28 PM EDT): Lipid panel 04/11/2020 shows total cholesterol 161, HDL 58, LDL 68, triglycerides 177. LDL goal <70, at goal. We discussed elevated triglycerides and are going to focus on diet and exercise at this time. I also discussed that excess alcohol can also affect this so we recommend moderation. I ordered a repeat fasting lipid panel for her to obtain prior to her next 6-month follow-up at which time we can increase her Crestor if needed and/or if triglycerides are not better controlled. Assessment & Plan (01/13/2020 1:46 PM EDT): I have ordered a lipid panel. Continue rosuvastatin 20 mg daily. Assessment & Plan (01/12/2018 2:43 PM EDT): Her lipids are fairly well controlled but I think I would aim for an LDL less than 70. I am a double up her rosuvastatin from 10-20 mg daily. Essential hypertension 08/20/2014 Assessment & Plan (06/01/2024 8:52 AM EDT): Blood pressure remains very well-controlled on amlodipine 5 mg and losartan 100 mg daily. Labs up-to-date, would monitor renal function in 3 months as discussed with patient. She had a recent VANITA while hospitalized 04/2024. Hopefully, as she continues to heal from her back surgery, she will be able to increase her exercise, currently working with PT. Assessment & Plan (06/03/2023 11:09 AM EDT): Blood pressure very well-controlled. Continue current doses of amlodipine and losartan. Assessment & Plan (04/04/2022 3:23 PM EST): Patient blood pressure today is 130/62. We will continue her on her current dose of amlodipine and losartan. Assessment & Plan (08/07/2021 9:04 AM EDT): BP well controlled on current dose of losartan and amlodipine, which we will continue. She follows a low sodium diet and is actively working on increasing her daily aerobic exercise. Assessment & Plan (05/24/2021 8:58 AM EST): BP very well controlled on current doses of amlodipine and losartan. Continue at current doses. Encouraged low sodium, heart healthy diet and increasing daily aerobic exercise. Assessment & Plan (07/14/2020 1:23 PM EDT): Blood pressure in the office today 128/72, at home readings 110s systolic and 60s to 70s diastolic, well controlled. We will continue losartan 100 mg and amlodipine 5 mg daily with directions to continue checking her blood pressures at home and let me know if they are trending up so I can titrate accordingly. We discussed a low- sodium diet ongoing and increasing physical activity regimen to at least 30 minutes a day 3 to 5 days a week of aerobic exercise. She denies any tobacco use. Continue to monitor. Assessment & Plan (01/13/2020 1:48 PM EDT): Today's blood pressure is 132/76. She has agreed to check her blood pressures once or twice a week and will report elevated blood pressures greater than 130 systolic. Current medications include losartan 50 mg daily. Assessment & Plan (06/15/2019 9:49 PM EDT): Blood pressure is well controlled. Continue losartan as prescribed. Assessment & Plan (01/12/2018 2:43 PM EDT): Blood pressure well controlled on the current medications. Major depressive disorder Assessment & Plan (06/15/2019 9:49 PM EDT): Continue Celexa as prescribed. Dysuria Assessment & Plan (06/15/2019 9:57 PM EDT): No fever, leukocytosis, or criteria for sepsis. Awaiting urinalysis for further evaluation. History of diverticulitis Encounters Date Type Department Care Team Description 02/11/2025 Telephone [email or web address] [address] [place] [address] 3rd Floor, [address] [place] [address] Ivelisse Alan 02/09/2025 3:00 PM EST Office Visit [facility] at [address] [place] [address] Octavia Dietrich PA-C Acute cystitis with hematuria (Primary Dx) 12/15/2024 Orders Only [facility] [address] [place] [address] Scooter Remy MD Sacroiliitis, not elsewhere classified (Primary Dx) from Last 3 Months Immunizations Immunization Administration Dates Next Due COVID-19 (Pre-01/13) Galo Vaccine, rS-Ad26, PF 05/27/2020 COVID-19 (Pre-01/13) Moderna Vaccine, mRNA, PF 12/24/2021,08/10/2021,03/27/2021 Pneumococcal conjugate PCV13 06/12/2016 Pneumococcal polysaccharide PPSV23 01/05/2019 Td, unspecified formulation 02/26/2019 Tdap 03/24/2017 Zoster recombinant 02/22/2019 Family History Medical History Relation Comments Breast cancer Maternal Aunt 1 Breast cancer Maternal Aunt 2 Breast cancer Paternal Aunt Relation Status Comments Maternal Aunt 1 Maternal Aunt 2 Paternal Aunt Social History Tobacco Use Types Packs/Day Years Used Date Smoking Tobacco: Former Cigarettes 1 35 0 03/24/1964 - 03/24/1999 Smokeless Tobacco: Never Tobacco Cessation:Counseling Given: Not Answered Alcohol Use Standard Drinks/Week Comments Yes 8 [...] as food, clothing, or medical care? No 05/09/2024 In the past 12 months have y ou been in a relationship with a person who hurts, threatens, or tries to control you? No 05/09/2024 Are you denied basic needs s uch as food, clothing, or medical care? No 05/09/2024 In the past 12 months have y ou been in a relationship with a person who hurts, threatens, or tries to control you? No 05/09/2024 Comments No Sex and Gender Information Value Date Recorded Sex Assigned at Female 06/15/2019 7:45 PM EDT Legal Sex Female 10:01 PM EDT Gender Identity Female 06/15/2019 7:45 PM EDT Sexual Orientation Straight 06/15/2019 7: 45 PM EDT Last Filed Vital Signs Vital Sign Reading Time Taken Comments Blood Pressure 121/73 02/09/2025 3:10 PM EST Pulse 67 02/09/2025 3:10 PM EST Temperature 36.8 C (98.2 F) 02/09/2025 3:10 PM EST Respiratory Rate 18 05/09/2024 7:55 PM EST Oxygen Saturation 98% 02/09/2025 3:10 PM EST Inhaled Oxygen Concentration - - Weight 72.6 kg (160 lb) 02/09/2025 3:10 PM EST Height 162.6 cm (5' 4 ) 02/09/2025 3:10 PM EST Body Mass Index 27.46 02/09/2025 3:10 PM EST Plan of Treatment Upcoming Encounters Date Type Department Care Team (Late st Contact Info) Description 05/24/2024 Procedure Pass [facility], Ct Scan - [address] [id number] 04/04/2025 12:00 PM EST Appointment [facility], Ct Scan - [address] [address] Fransico Baker MD [address] [place] [id number] [email or web address] 05/04/2025 8:15 AM EST Office Visit [facility] [address] [place] [id number] Unknown, Unknown, Isha Bower PA-C [address] [place] [phone] [email or web address] 12/02/2025 8:40 AM EDT Office Visit [facility] [address] [place] [address] [address]rd Floor, [address] [place] [address] Duc Suarez MD [address] [place] [address], [address] [address] Health Maintenance Due Date Last Done Comments DEPRESSION SCREENING 1962 COLOGUARD 09/02/1995 FIT TEST 09/02/1995 FOBT 09/02/1995 SIGMOIDOSCOPY 09/02/1995 VIRTUAL COLONOSCOPY 09/02/1995 RSV VACCINE (1 - Risk 50-74 years 1-dose series) 2000 ZOSTER VACCINES (2 of 2) 04/19/2019 02/22/2019 INFLUENZA VACCINE (#1) 2024 COVID-19 VACCINE ( season) 2024 12/24/2021, 08/10/2021, 03/27/2021, Additional history exists BLOOD PRESSURE 08/09/2025 02/09/2025 CREATININE LEVEL 10/25/2025 10/25/2024, 08/2024, 03/25/2023, Additional history exists POTASSIUM LEVEL 10/25/2025 10/25/2024, 03/0 08/2024, 03/25/2023, Additional history exists MAMMOGRAM 10/01/2026 10/01/2024, 09/21, 09/17/2022, Additional history exists COLONOSCOPY 11/21/2026 10/15/2024 COLORECTAL CANCER SCREENING 11/21/2026 Adult Td,Tdap Booster 02/26/2029 02/26/2019, 018 PNEUMOCOCCAL VACCINES (50+ years) Completed 01/05/2019, 06/12/2016 OSTEOPOROSIS SCREENING INITIAL (ONE-TIME) Completed 01/28/2024, 08/03/2021 HEPATITIS C SCREENING Completed 10/25/2024, 017 SMOKING STATUS SCREENING (Once After 26 Yrs) Completed 12/01/2024 HEPATITIS A VACCINES Aged Out No long er eligible based on patient's age to complete this topic HIB VACCINES Aged Out No longer eligi ble based on patient's age to complete this topic MENINGOCOCCAL VACCINES (ACWY) Aged Out No longer eligible based on patient's age to complete this topic MENINGOCOCCAL VACCINES (B) Aged Out N o longer eligible based on patient's age to complete this topic Medical Devices Not on file Procedures Procedure Name Priority Date/Time Associated Diagnosis Comments URINE CULTURE Routine 02/09/2025 3:25 PM EST Acute cystitis with hematuria POCT URINALYSIS, DIPSTICK Routine 02/09/2025 3:17 PM EST LIVER FIBROSIS TEST Routine 10/25/2024 7 :19 AM EDT Right upper lobe pulmonary nodule Chronic rhinitis Pain in both lower extremities History of diverticulitis Former smoker Health care maintenance Asthma, unspecified asthma severity, unspecified whether complicated, unspecified whether persistent Chronic sinusitis, unspecified location Chronic cough Dysuria Major depressive disorder, remission status unspecified, unspecified whether recurrent Unstable angina pectoris Mixed hyperlipidemia History of CT (myocardial infarction) Essential hypertension Dyspnea, unspecified type Coronary artery 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 COMPREHENSIVE METABOLIC PANEL (CMP) Routine 10/25/2024 7:19 AM EDT Right upper lobe pulmonary nodule Chronic rhinitis Pain in both lower extremities History of diverticulitis Former smoker Health care maintenance Asthma, unspecified asthma severity, unspecified whether complicated, unspecified whether persistent Chronic sinusitis, unspecified location Chronic cough Dysuria Major depressive disorder, remission status unspecified, unspecified whether recurrent Unstable angina pectoris Mixed hyperlipidemia History of CT (myocardial infarction) Essential hypertension Dyspnea, unspecified type Coronary artery 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 HM COLONOSCOPY FOR RESULT ENTRY ONLY Routine 10/15/2024 BI MAMMOGRAM SCREENING WITH TOMOSYNTHESIS WITH CAD (BILATERAL) Routine 09/17/2022 2:16 PM EDT Breast screening BD DXA AXIAL (SPINE) WITH HIP Routine 08/03/2021 1:25 PM EDT Postmenopausal from Last 3 Months or Most Recently Relevant to Health Maintenance Results * (ABNORMAL) Urine Culture (02/09/2025 3:25 PM EST) Urine Culture/Test 50,000-100,000 CFU/mL Enterococcus faecalis(A) RAPID SUSCEPTIBILITY TESTING (GIUSEPPE) 02/12/2025 7:24 AM EST [facility] Urine (Urine, Voided) Non-Blood Collection / Unknown 02/09/2025 3:25 PM EST 02/09/2025 3:36 PM EST Narrative Organism Antibiotic Method Susceptibility Enterococcus faecalis Ampicillin RAPID SUSC EPTIBILITY TESTING (GIUSEPPE) <=2: Susceptible Enterococcus faecalis Levofloxacin RAPID SUSC EPTIBILITY TESTING (GIUSEPPE) >=8: Resistant Enterococcus faecalis Nitrofurantoin RAPID SUSC EPTIBILITY TESTING (GIUSEPPE) <=16: Susceptible Enterococcus faecalis Penicillin G RAPID SUSC EPTIBILITY TESTING (GIUSEPPE) 8: Susceptible Enterococcus faecalis Tetracycline RAPID SUSC EPTIBILITY TESTING (GIUSEPPE) >=16: Susceptible Enterococcus faecalis Vancomycin RAPID SUSC EPTIBILITY TESTING (GIUSEPPE) 1: Susceptible us Octavia veronica PA-C LAB MICROBIOLOGY CULTURE ORDERABLES Final Result [facility] [address] [place] [address] * (ABNORMAL) POCT Urinalysis, Dipstick (02/09/2025 3:17 PM EST) Color Other(A) Colorless, Light Yellow, Yellow, Not Entered 02/09/2025 3:19 PM EST [facility] Clarity Cloudy(A) Clear, Not Entered 02/09/2025 3:19 PM EST [facility] Glucose Negative Negative 02/09/2025 3:19 PM EST [facility] Ketone Negative Negative 02/09/2025 3:19 PM EST [facility] Urobilinogen 0.2 <1.0 02/09/2025 3:19 PM EST [facility] Bilirubin, Urine Negative Negative 02/10/20 3:19 PM EST [facility] Blood 1+(A) Negative 02/09/2025 3:19 PM EST [facility] Protein Negative Negative 02/09/2025 3:19 PM EST [facility] Nitrites Negative Negative 02/09/2025 3:19 PM EST [facility] Leukocytes 1+(A) Negative 02/09/2025 3:19 PM EST [facility] pH 5.5 5.0 - 8.0 02/09/2025 3:19 PM EST [facility] Specific [place] 1.010 1.001 - 1.030 02/09/2025 3:19 PM EST [facility] Urine (Urine, Voided) 02/09/2025 3:17 PM EST 02/09/2025 3:19 PM EST Octavia veronica PA-C LAB POCT DOCKED DEVICE UNSOLICTED RESULTS Final Result [facility] [address] [address], [facility] [phone] * Liver fibrosis test (10/25/2024 7:19 AM EDT) Fibrosis score 0.29 [facility] Interpretation (Fibrosis) SEE NOTE [facility] Comment: (NOTE) minimal fibrosis Fibro Test Score (f) Metavir Score f>=0 and f<=0.21 : F0 (no fibrosis) f>0.21 and f<=0.27 : F0-F1 (no fibrosis) f>0.27 and f<=0.31 : F1 (minimal fibrosis) f>0.31 and f<=0.48 : F1-F2 (minimal fibrosis) f>0.48 and f<=0.58 : F2 (moderate fibrosis) f>0.58 and f<=0.72 : F3 (advanced fibrosis) f>0.72 and f<=0.74 : F3-F4 (advanced fibrosis) f>0.74 and f<=1.00 : F4 (severe fibrosis) HCV Fibrosis Grade F1 Q [facility] NECROINFLAMM SCORE 0.07 Q [facility] NECROINFLAMM GRADE A0 Q [facility] NECROINFLAMM INTERP SEE NOTE [facility] Comment: (NOTE) no activity ActiTest Score (a) Metavir Score a>=0 and a<=0.17 : A0 (no activity) a>0.17 and a<=0.29 : A0-A1 (no activity) a>0.29 and a<=0.36 : A1 (minimal activity) a>0.36 and a<=0.52 : A1-A2 (minimal activity) a>0.52 and a<=0.60 : A2 (significant activity) a>0.60 and a<=0.62 : A2-A3 (significant activity) a>0.62 and a<=1.00 : A3 (severe activity) A2 Macroglobulin 277 106 - 279 mg/dL [facility] Haptoglobin 112 43 - 212 mg/dL [facility] Apolipoprotein A1 152 101 - 198 mg/dL [facility] TOTAL BILIRUBIN 0.4 0.2 - 1.2 mg/dL [facility] GGT 10 3 - 65 U/L [facility] ALT 19 6 - 29 U/L [facility] Specimen/Product ID [id number] [facility] Comments (Chemistry) SEE NOTE [facility] Comment: (NOTE) The reliability of results is dependent on compliance with the preanalytical and analytical conditions recommended by [employer]. The tests have to be deferred for: acute hemolysis, acute hepatitis, acute inflammation, extra hepatic cholestasis. The advice of a specialist should be sought for interpretation in chronic hemolysis and Gilbert's syndrome. The test interpretation is not validated in liver transplant patients. Isolated extreme values of one of the components should lead to caution in interpreting the results. In case of discordance between a biopsy result and a test, it is recommended to seek the advice of a specialist. The causes of these discordances could be due to a flaw of the test or to a flaw in the biopsy: i.e. a liver biopsy has a 33% variability rate for one fibrosis stage. FibroTest is interpretable for chronic hepatitis B and C, alcoholic and non alcoholic steatosis. ActiTest is interpretable for chronic hepatitis B and C. The performance characteristics have been determined by [facility]. It has not been cleared or approved by the U.S. Food and Drug Administration. Performance characteristics refer to the analytical performance of the test. [employer], the associated logo, [employer] and all associated [employer] thomas are the registered trademarks of [employer]. All third alliance party thomas - (R) and (TM) - are the property of their respective owners. (C) 6624-6514 [employer]. All rights reserved. Blood 10/25/2024 7:19 AM EDT 10/25/2024 7:26 AM EDT us Isha DOTSON LAB BLOOD BKR ORDERABLES Fi nal Result [facility] [place] [address] [place] [address], [facility] [phone] * (ABNORMAL) Comprehensive metabolic panel (10/25/2024 7:19 AM EDT) SODIUM 140 133 - 146 mmol/L [facility] POTASSIUM 4.7 3.3 - 5.1 mmol/L [facility] CHLORIDE 101 96 - 108 mmol/L [facility] CO2 28 21 - 35 mmol/L [facility] BUN 24(H) 6 - 19 mg/dL [facility] CREATININE 1.00 0.5 - 1.5 mg/dL [facility] GLUCOSE 95 70 - 99 mg/dL [facility] ALBUMIN 4.4 3.9 - 4.8 g/dL [facility] TOTAL PROTEIN 7.4 6.5 - 8.0 g/dL [facility] CALCIUM 9.7 8.4 - 10.3 mg/dL [facility] ALKALINE PHOSPHATASE 88 39 - 117 U/L [facility] TOTAL BILIRUBIN 0.3 0.0 - 1.2 mg/dL [facility] AST 25 0 - 37 U/L [facility] ALT 22 0 - 40 U/L [facility] GLOBULIN 3.0 1 - 4.8 g/dL [facility] EGFR 59(L) >59 mL/min/1.7 3m2 [facility] Comment:Estimated glomerular filtration rate calculated using the CKD-EPI refit equation. ANION GAP 16 10 - 20 mmol/L [facility] Blood 10/25/2024 7:19 AM EDT 10/25/2024 7:25 AM EDT us Isha DOTSON LAB BLOOD BKR ORDERABLES Fi nal Result [address] [id number] * COLONOSCOPY FOR RESULT ENTRY ONLY (10/15/2024) Colonoscopy External Historical Provider HEALTH MAINTENANCE Final Result * BI MAMMOGRAM SCREENING WITH TOMOSYNTHESIS WITH [...] Sher MD IMG MG EXAMS Final Result * BD DXA AXIAL (SPINE) WITH HIP [...] Densitometry http://www.iscd.org 3. National Osteoporosis Foundation http://www.nof.org Slime B[place]REGO BD BONE DENSITY DEXA Fi nal Result from Last 3 Months or Most Recently Relevant to Health Maintenance Insurance [facility] MEDICARE REPLACEMENT UNITED [employer] AARP MEDICARE REPLACEMENT [facility] MEDICARE REPLACEMENT [facility] MEDICARE REPLACEMENT [facility] MEDICARE REPLACEMENT [place] [id number] [facility] [place] [address] [place] [address] Advance Directives For more information, please contact: [phone] (9AM - 5PM [facility], Friday-Friday) * Full Code (Presumed) (Latest Code Status on File) Date Activated Date Inactivated Comments 06/15/2019 9:45 PM 06/16/2019 1:41 PM Care Teams Truck Driver Teamster Relationship Specialty Start Date End Date Svitlana Sher MD [address] [place] [address] PCP - General Family Medicine 02/09/25 Duc Suarez MD [address] [place] [address], [facility] [address] [place] [address] [email or web address] Historical LMR Provider 01/11/17 Slime Youssef MD [address] [place] [address] [email or web address] Historical LMR Provider 01/11/17 Additional Source Comments The information contained in this document represents components of the legal health record. It is not the complete legal health record.[facility]
--- OUTSIDE RECORDS SUMMARY | 2025-03-16 07:52 | XMS_ITS | Encounter Summary ---
Author Organization [facility] Address [address] [place] [address] Phone Care Team Providers Care Aging Room Hand Name Role Phone Slime Youssef MD Primary Care Provider Patel Bhandari DO Unavailable Duc Suarez MD Unavailable [phone] Pao Cooley MD Unavailable Slime Youssef MD [...] st Contact Info) Description 06/12/2018 Procedure Pass [facility], [address] [id number] Social History Tobacco Use Types Packs/Day Years [...] st Contact Info) Description 05/24/2024 Procedure Pass [facility], Ct Scan - [address] [address] 04/04/2025 12:00 PM EST Appointment [facility], Ct Scan [address] [address] Fransico Baker MD [address] [place] [address] [email or web address] 05/04/2025 8:15 AM EST Office Visit [facility] [address] [place] [address] Unknown, Unknown, Isha Bower PA-C [address] [place] [address] [email or web address] 12/02/2025 8:40 AM EDT Office Visit [facility] [address] [place] [address] [address]rd Floor, [address] [place] [address] Duc Suarez MD [address] [place] [address], [address] [place] [address] documented as of this encounter Visit Diagnoses Not on filedocumented in this encounter Additional Health Concerns Infection Onset Date Last Indicated Resolved Time CoV-Exposed Comment:Recent close contact 10/03/2019 10/03/2019 10/17/2019 1:25 AM EDT documented as of this encounter Care Teams Aging Room Hand Relationship Specialty Start Date End Date Slime Youssef MD [address] [place] [address] PCP - General 01/07/17 07/28/22 Pcp, Unknown PCP - General 07/29/22 08/07/22 Svitlana Sher MD PCP - General Family Medicine 08/08/22 03/24/24 Svitlana Sher MD PCP - General Family Medicine 03/25/24 02/08/25 Svitlana Sher MD [address] [place] [address] PCP - General Family Medicine 02/09/25 Patel Bhandari DO [address] [place] [address] [place] [address] [email or web address] Historical LMR Provider 01/11/17 03/31/21 Duc Suarez MD [address] [place] [address] [address] [place] [address] [email or web address] Historical LMR Provider 01/11/17 Pao Cooley MD [address] [place] [address], 2nd [place] [address] [email or web address] Historical LMR Provider 01/11/17 Slime Youssef MD [address] [place] [address] Historical LMR Provider 01/11/17 Garret Mercedes CNP [facility], [address] [place] [address] Historical LMR Provider 01/11/17 03/31/21 Moises Art MD [email or web address] [facility] [address] [place] [address] Historical LMR Provider 01/11/17 2 Destin Choe MD [address] [place] [address] Historical LMR Provider 01/11/17 Slime Youssef MD [address] [place] [address] [email or web address] Insurance Assigned Provider 06/27/18 05/27/20 documented as of this encounter Additional Source Comments The information contained in this document represents components of the legal health record. It is not the complete legal health record.[facility]
--- OUTSIDE RECORDS SUMMARY | 2025-03-16 07:52 | XMS_ITS | Encounter Summary ---
Author Organization [facility] Address [address] [place] [address] Phone Care Team Providers Care Policewoman Name Role Phone Duc Suarez MD Unavailable [phone] Slime Youssef MD Unavailable [phone] Svitlana Sher MD Primary Care Pr ovider Svitlana Sher MD Primary Care Pr ovider Encounter Details Date Type Department Care Team (Late st Contact Info) Description 04/29/2024 Ancillary Orders [facility], X-Ray - [address] [address] Fatimah Caruso, NILA [address] [place] [address] [email or web address] Left hip pain (Primary Dx) Social History [...] st Contact Info) Description 05/24/2024 Procedure Pass [facility], Ct Scan [address] [address] 04/04/2025 12:00 PM EST Appointment [facility], Ct Scan [address] [address] Fransico Baker MD [address] [place] [address] [email or web address] 05/04/2025 8:15 AM EST Office Visit [facility] [address] [place] [address] Unknown, Unknown, Isha Bower PA-C [address] [place] [address] [email or web address] 12/02/2025 8:40 AM EDT Office Visit [facility] [address] [place] [address] 3rd Floor, [address] [place] [address] Duc Suarez MD [address] [address] [email or web address] documented as of this encounter Visit Diagnoses Diagnosis Left hip pain- Primary Pain in joint, pelvic region and thigh documented in this encounter Care Teams Policewoman Relationship Specialty Start Date End Date Svitlana Sher MD [address] [place] [address] PCP - General Family Medicine 03/25/24 02/08/25 Svitlana Sher MD [address] [place] [address] PCP - General Family Medicine 02/09/25 Duc Suarez MD [address] [address] [email or web address] Historical LMR Provider 01/11/17 Slime Youssef MD [address] [place] [address] [email or web address] Historical LMR Provider 01/11/17 documented as of this encounter Additional Source Comments The information contained in this document represents components of the legal health record. It is not the complete legal health record.[facility]
--- OUTSIDE RECORDS SUMMARY | 2025-03-16 07:52 | XMS_ITS | Clinical Summary ---
Author Organization [facility] [address] [place] [address] [place] [phone] Phone Care Team Providers Care Protective Signal Installer Helper Name Role Phone Svitlana Sher MD Primary [...] by mouth 1 (one) time each day. 02/20/2016 Active celecoxib (CeleBREX) 200 mg capsule Take [...] mouth 1 (one) time each day. Active cholecalciferol (VITAMIN D-3) 25 mcg (1,000 unit) capsule Take 25 mcg by mouth. Active cyanocobalamin (VITAMIN B-12) 1,000 mcg tablet Take 1 tablet (1,000 mcg total) by mouth. Active aspirin 81 mg EC tablet Take 1 tablet (81 mg total) by mouth daily. Active vitamins A,C,E-zinc-jaya er 4,296 mcg-226 mg-90 mg capsule Take 2 capsules by mouth 2 times daily. Active omega 7-xcg-hlw-fish oil (Fish OiL) 1,000 (120-180) mg capsule Take 1 capsule (1,000 mg total) by mouth 1 (one) time each day. 02/20/2016 Active ezetimibe (ZETIA) 10 mg tablet Take 1 tablet (10 mg total) by mouth 1 (one) time each day. Active pregabalin (LYRICA) 75 mg capsuleIndicati ons:Cervicocran ial syndrome Take 1 capsule (75 mg total) by mouth 3 (three) times a day. Max Daily Amount: 225 mg 270 each 1 08/26/2024 Active buPROPion XL (WELLBUTRIN XL) 150 mg 24 hr tablet TAKE 1 TABLET BY MOUTH EVERY DAY IN THE MORNING 90 tablet 1 12/02/2024 Active citalopram (CeleXA) 20 mg tablet TAKE 1 TABLET (20 MG TOTAL) BY MOUTH ONE TIME EACH DAY 90 tablet 1 02/07/2025 Active Active Problems Problem Noted Date Diagnosed [...] to 53 on testing done with her information systems administrator in May. Advised to hold off on [...] without myelopathy or radiculopathy 08/25/2018 History of MN (myocardial infarction) 01/12/2018 Assessment & Plan (07/08/2024 [...] Care Team Description 02/09/2025 Telephone Adult Medicine [address] [phone] Svitlana Sher MD 01/03/2025 Telephone Adult Medicine [address] [phone] Svitlana Sher MD from Last 3 Months [...] and depression Hypertriglyceridemia HTN (hypertension) History of MN (myocardial infarction) Urge incontinence Cervical spondylosis Family [...] care for your loved ones. For example, summer child caregiver or elderly care for an older adult? [...] 7:30 AM EDT Office Visit [facility] - [facility] [address] [place] [address] Lidya Durham PA [address] [place] [address] Health Maintenance Due Date Last Done Comments [...] Diagnosis Comments MG MAMMO DIGITAL SCREENING W RHIANNA BILAT Routine 10/01/2024 9:14 AM EDT Encounter [...] Results * MG Mammo Digital Screening w Rhianna bilat (10/01/2024 9:14 AM EDT) Anatomical Region Laterality Modality Breast Bilateral Mammography 10/04/2024 5:08 PM EDT Impressions 10/04/2024 5:13 PM EDT No mammographic evidence of malignancy. BREAST DENSITY: B - There are scattered areas of fibroglandular density. BI-RADS CATEGORY: 2 - BENIGN RECOMMENDATION: Screening bilateral mammogram is recommended in 1 year. MAMMO LOCATION: [facility], [address] [place] [address], [address], . -------- FINAL REPORT -------- Dictated By: Carolyn Wilkins Dictated Date: 10/04/2024 17:08 ET Assigned Physician: Carolyn Wilkins Reviewed and Electronically Signed By: Carolyn Wilkins Signed Date: 10/04/2024 17:13 ET Workstation ID: [id number] Transcribed By: Self Edit Transcribed Date: 10/04/2024 [...] architectural distortion, or suspicious calcifications. Procedure Note Carolyn Wilkins MD - 10/04/2024 EXAM: Screening Mammogram [...] is recommended in 1 year. MAMMO LOCATION: [facility], [address] [place] [address], [phone], . -------- FINAL REPORT -------- Dictated By: Carolyn Wilkins Dictated Date: 10/04/2024 17:08 ET Assigned Physician: Carolyn Wilkins Reviewed and Electronically Signed By: Carolyn Wilkins Signed Date: 10/04/2024 17:13 ET Workstation ID: [id number] Transcribed By: Self Edit Transcribed Date: 10/04/2024 17:08 ET Svitlana Sher MD [facility] BI PROCEDURE S Final Result * Hepatitis C antibody (08/26/2024 11:34 AM EDT) Hepatitis C Antibody Negative Negative LAB CHEMISTRY METHOD 08/26/2024 4:46 PM EDT [facility] Blood Venous blood specimen / Unknown Venipuncture / Unknown 08/26/2024 11:34 AM EDT 08/26/2024 11:34 AM EDT Svitlana Sher MD LAB BLOOD ORDERA BLES Final Result [facility] [address] [place] [address], * (ABNORMAL) Comprehensive metabolic panel (08/26/2024 11:34 AM EDT) Sodium 138 133 - 145 mmol/L LAB CHEMISTRY METHOD 08/26/2024 2:59 PM EDT [facility] Potassium 4.6 3.5 - 5.5 mmol/L LAB CHEMISTRY METHOD 08/26/2024 2:59 PM [facility] Chloride 101 96 - 110 mmol/L LAB CHEMISTRY METHOD 08/26/2024 2:59 PM [facility] CO2 29 21 - 32 mmol/L LAB CHEMISTRY METHOD 08/26/2024 2:59 PM [facility] Anion Gap 8 3 - 11 LAB CHEMISTRY METHOD 08/26/2024 2:59 PM [facility] Glucose 87 70 - 100 mg/dL LAB CHEMISTRY METHOD 08/26/2024 2:59 PM [facility] BUN 30(H) 5 - 25 mg/dL LAB CHEMISTRY METHOD 08/26/2024 2:59 PM [facility] Creatinine 1.10 0.50 - 1.10 mg/dL LAB CHEMISTRY METHOD [facility] eGFR 53(L) >=60 mL/min/1. 73m2 LAB CHEMISTRY METHOD 08/26/2024 2:59 PM [facility] Comment:Calculation based on the Chronic Kidney Disease Epidemiology Collaboration (CKD-EPI) equation refit without adjustment for race. BUN/Creatinine Ratio 27.3 LAB CHEMISTRY METHOD 08/26/2024 2:59 PM [facility] Calcium 9.4 8.5 - 10.5 mg/dL LAB CHEMISTRY METHOD 08/26/2024 2:59 PM EDT [facility] AST (SGOT) 20 10 - 42 unit/L LAB CHEMISTRY METHOD 08/26/2024 2:59 PM EDT [facility] ALT (SGPT) 29 10 - 60 unit/L LAB CHEMISTRY METHOD 08/26/2024 2:59 PM EDT [facility] Alkaline Phosphatase 113 42 - 121 unit/L LAB CHEMISTRY METHOD 08/26/2024 2:59 PM EDT [facility] Total Protein 7.0 6.0 - 8.0 g/dL LAB CHEMISTRY METHOD 08/26/2024 2:59 PM EDT [facility] Albumin 4.2 3.2 - 5.0 g/dL LAB CHEMISTRY METHOD 08/26/2024 2:59 PM EDT [facility] Total Bilirubin 0.4 0.0 - 1.4 mg/dL LAB CHEMISTRY METHOD 08/26/2024 2:59 PM EDT [facility] Blood Venous blood specimen / Unknown Venipuncture / Unknown 08/26/2024 11:34 AM EDT 08/26/2024 11:34 AM EDT Svitlana Sher MD LAB BLOOD ORDERA BLES Final Result [facility] [address] [place] [address], * BD Bone Density DXA Axial Skeleton [...] Signed Date: 01/29/2024 08:02 ET Workstation ID: [id number] Transcribed By: Self Edit Transcribed Date: 01/29/2024 08:00 ET Narrative 01/29/2024 8:02 AM EST STUDY: DUAL ENERGY X-RAY ABSORPTIOMETRY / DXA REASON FOR EXAM: Female, 73 years old M85.80 TECHNIQUE: Bone Mineral Density (BMD) measurements of the lumbar spine and left hip were obtained using [employer] W (S/N [id number]). COMPARISON: None FINDINGS: L1-L4 BMD: 1.037 g/cm2 [...] lumbar spineand left hip were obtained using [employer] W (S/N [id number]). COMPARISON: None FINDINGS: L1-L4 BMD: 1.037 g/cm2 [...] Signed Date: 01/29/2024 08:02 ET Workstation ID: [id number] Transcribed By: Self Edit Transcribed Date: 01/29/2024 08:00 ET Svitlana Sher MD IM DXA PROCEDUR ES Final Result from Last 3 Months or Most Recently Relevant to Health Maintenance Insurance LILIANA GAMBINO [id number] [facility] MEDICARE Care Teams Protective Signal Installer Helper Relationship Specialty Start Date End Date Svitlana Sher MD [address] [place] [phone] PCP - General Internal Medicine 04/02/22
--- OUTSIDE RECORDS SUMMARY | 2025-03-16 07:52 | XMS_ITS | Encounter Summary ---
Author Organization [facility] Address [address] [place] [address] Phone Care Team Providers Care Paralegal Internship Name Role Phone Slime Youssef MD Primary Care Provider Patel Bhandari DO Unavailable Duc Suarez MD Unavailable [phone] Pao Cooley MD Unavailable Slime Youssef MD Unavailable [phone] Garret Mercedes CNP Unavailable [phone] Moises Art MD Unavailable Destin Choe MD Unavailable Slime Youssef MD Unavailable [phone] Pcp, Unknown Primary Care Provider Unavailabl e Svitlana Sher MD Primary Care Pr ovider Svitlana Sher MD Primary Care Pr ovider Svitlana Sher MD Primary Care Pr ovider Encounter Details Date Type Department Care Team (Late st Contact Info) Description 02/23/2020 Ancillary Orders [facility],Outside Imaging [address] [place], [place] [phone] System, Provider Not In, PhD [facility] [address] [place] [address] Social History Tobacco Use Types Packs/Day Years [...] st Contact Info) Description 05/24/2024 Procedure Pass [address] [address] 04/04/2025 12:00 PM EST Appointment [address] [address] Fransico Baker MD [address] [place] [address] [email or web address] 05/04/2025 8:15 AM EST Office Visit [facility] [address] [place] [address] Unknown, Unknown, Isha Bower PA-C [address] [place] [address] [email or web address] 12/02/2025 8:40 AM EDT Office Visit [facility] [address] [place] [address] 3rd Floor, [address] [place] [address] Duc Suarez MD [address] [place] [address], [address] [place] [address] documented as of this encounter Results * CT Chest Outside (No Interpretation) (12/31/2019 12:00 AM EDT) Narrative SYSTEMGENERATED, DOCUMENTATION - 02/23/2020 4:28 PM EST This study is for PACS storage only and not for interpretation. us Provider Not In System PhD IMG OUTSIDE IMAGING W /OUT INTERPRETATION Final Result documented in this encounter Visit Diagnoses Not on filedocumented in this encounter Care Teams Paralegal Internship Relationship Specialty Start Date End Date Slime Youssef MD [address] [place] [address] PCP - General 01/07/17 07/28/22 Pcp, Unknown PCP - General 07/29/22 08/07/22 Svitlana Sher MD PCP - General Family Medicine 08/08/22 03/24/24 Svitlana Sher MD PCP - General Family Medicine 03/25/24 02/08/25 Svitlana Sher MD [address] [place] [address] PCP - General Family Medicine 02/09/25 Patel Bhandari DO [address] [place] [address] [place] [address] Historical LMR Provider 01/11/17 03/31/21 Duc Suarez MD [address] [place] [address] [address] [place] [address] Historical LMR Provider 01/11/17 Pao Cooley MD [address] [address] Historical LMR Provider 01/11/17 Slime Youssef MD [address] [place] [address] Historical LMR Provider 01/11/17 Garret Mercedes, SILVER PLATER [address] [address] Historical LMR Provider 01/11/17 03/31/21 Moises Art MD [employer] [address] [address] Historical LMR Provider 01/11/17 2 Destin Choe MD [address] [place] [address] Historical LMR Provider 01/11/17 Slime Youssef MD [address] [place] [address] Insurance Assigned Provider 06/27/18 05/27/20 documented as of this encounter Additional Source Comments The information contained in this document represents components of the legal health record. It is not the complete legal health record.[facility]
--- OUTSIDE RECORDS SUMMARY | 2025-03-16 07:52 | XMS_ITS | Encounter Summary ---
Author Organization [facility] Address [address] [place] [address] Phone Care Team Providers Care Dancing Master Name Role Phone Slime Youssef MD Primary Care Provider Patel Bhandari DO Unavailable Duc Suarez MD Unavailable [phone] Pao Cooley MD Unavailable Slime Youssef MD Unavailable Garret Mercedes CNP Unavailable Moises Art MD Unavailable Destin Choe MD Unavailable Slime Youssef MD Unavailable [phone] Pcp, Unknown Primary Care Provider Unavailabl e Svitlana Sher MD Primary Care Pr ovider Svitlana Sher MD Primary Care Pr ovider Svitlana Sher MD Primary Care Pr ovider Encounter Details Date Type Department Care Team (Late st Contact Info) Description 11/08/2019 Transcribe Orders [facility] Department [address] [place] [address] Slime Youssef MD [address] [place] [address] Encounter for screening for lung cancer (Primary [...] st Contact Info) Description 05/24/2024 Procedure Pass [place], Ct Scan [address] [address] 04/04/2025 12:00 PM EST Appointment [facility] Ct Scan [address] [address] Fransico Baker MD [address] [place] [address] [email or web address] 05/04/2025 8:15 AM EST Office Visit [facility] [address] [place] [address] Unknown, Unknown, Isha Bower PA-C [address] [place] [address] [email or web address] 12/02/2025 8:40 AM EDT Office Visit [facility] [address] [place] [address] 3rd Floor, [address] [place] [address] Duc Suarez MD [address] [place] [address] documented as of this encounter Visit Diagnoses Diagnosis Encounter for screening for lung cancer- Primary documented in this encounter Care Teams Dancing Master Relationship Specialty Start Date End Date Slime Youssef MD [address] [place] [address] [email or web address] PCP - General 01/07/17 07/28/22 Pcp, Unknown PCP - General 07/29/22 08/07/22 Svitlana Sher MD PCP - General Family Medicine 08/08/22 03/24/24 Svitlana Sher MD PCP - General Family Medicine 03/25/24 02/08/25 Svitlana Sher MD [address] [place] [address] PCP - General Family Medicine 02/09/25 Patel Bhandari DO [address] [place] [address] [place] [address] [email or web address] Historical LMR Provider 01/11/17 03/31/21 Duc Suarez MD 22 [facility] [address] [place] [address] [email or web address] Historical LMR Provider 01/11/17 Pao Cooley MD 15 [facility], 2nd [place] [address] Historical LMR Provider 01/11/17 Slime Youssef MD [address] [place] [address] Historical LMR Provider 01/11/17 Garret Mercedes CNP 15 [facility], 2nd [place] [address] Historical LMR Provider 01/11/17 03/31/21 Moises Art MD [address] [place] [address] Historical LMR Provider 01/11/17 2 Destin Choe MD [address] [place] [address] Historical LMR Provider 01/11/17 Slime Youssef MD [address] [place] [address] Insurance Assigned Provider 06/27/18 05/27/20 documented as of this encounter Additional Source Comments The information contained in this document represents components of the legal health record. It is not the complete legal health record.[facility]
--- OUTSIDE RECORDS SUMMARY | 2025-03-16 07:52 | XMS_ITS | Encounter Summary ---
Author Organization [facility] Address [address] [place] [address] Phone Care Team Providers Care Tailer Out Name Role Phone Slime Youssef MD Primary Care Provider Duc Suarez MD Unavailable [phone] Slime Youssef MD Unavailable [phone] Pcp, Unknown Primary Care Provider Unavailabl e Svitlana Sher MD Primary Care Pr ovider Svitlana Sher MD Primary Care Pr ovider Svitlana Sher MD Primary Care Pr ovider Encounter Details Date Type Department Care Team (Late st Contact Info) Description 08/14/2021 Procedure Pass [facility], [address] [place] [address] Social History Tobacco Use Types Packs/Day Years [...] Contact Info) Description 05/24/2024 Procedure Pass [facility], Ct Scan - [address] [address] 04/04/2025 12:00 PM EST Appointment [facility], Ct Scan - [address] [address] Fransico Baker MD [address] [place] [address] [email or web address] 05/04/2025 8:15 AM EST Office Visit [facility] [address] [place] [address] Unknown, Unknown, Isha Bower PA-C [address] [place] [address] [email or web address] 12/02/2025 8:40 AM EDT Office Visit [facility] [address] [place] [address] 3rd Floor, [address] [place] [address] Duc Suarez MD [address] [place] [phone] documented as of this encounter Visit Diagnoses Not on filedocumented in this encounter Care Teams Tailer Out Relationship Specialty Start Date End Date Slime Youssef MD [address] [place] [address] PCP - General 01/07/17 07/28/22 Pcp, Unknown PCP - General 07/29/22 08/07/22 Svitlana Sher MD PCP - General Family Medicine 08/08/22 03/24/24 Svitlana Sher MD PCP - General Family Medicine 03/25/24 02/08/25 Svitlana Sher MD [address] [place] [address] PCP - General Family Medicine 02/09/25 Duc Suarez MD [address] [place] [address], [address] [address] [email or web address] Historical LMR Provider 01/11/17 Slime Youssef MD [address] [place] [address] [email or web address] Historical LMR Provider 01/11/17 documented as of this encounter Additional Source Comments The information contained in this document represents components of the legal health record. It is not the complete legal health record.[facility]
--- OUTSIDE RECORDS SUMMARY | 2025-03-16 07:52 | XMS_ITS | Encounter Summary ---
Author Organization [facility] Address [address] [place] [address] Phone Care Team Providers Care Night Time Babysitter Name Role Phone Slime Youssef MD Primary Care Provider [phone] Duc Suarez MD Unavailable [phone] Slime Youssef MD Unavailable [phone] Pcp, Unknown Primary Care Provider Unavailabl e Svitlana Sher MD Primary Care Pr ovider Svitlana Sher MD Primary Care Pr ovider Svitlana Sher MD Primary Care Pr ovider Reason for Referral * MRI/CAT Scan - Closed Specialty Diagnoses / Procedures Referred By Heriberto t Referred To Contact Radiology Diagnoses Chronic sinusitis, unspecified location Procedures CT Face Slime Youssef MD Phone: tel: fax: mailto: Referral ID Status Reason Start Date Expiration Date Visits Re quested Visits Authorized [id number] Closed 05/01/2021 05/01/2022 1 1 Encounter Details Date Type Department Care Team (Late st Contact Info) Description 05/01/2021 Transcribe Orders Virtual Department [address] [place] [address] Slime Youssef MD [address] [place] [address] [email or web address] Chronic sinusitis, unspecified location (Primary Dx) Social [...] st Contact Info) Description 05/24/2024 Procedure Pass [facility] Ct Scan [address] [address] 04/04/2025 12:00 PM EST Appointment [place], Ct Scan [address] [address] Fransico Baker MD [address] [place] [address] [email or web address] 05/04/2025 8:15 AM EST Office Visit [facility] [address] [place] [address] Unknown, Unknown, Isha Bower PA-C [address] [place] [phone] [email or web address] 12/02/2025 8:40 AM EDT Office Visit [facility] [address] [place] [address] 3rd Floor, [address] [place] [address] Duc Suarez MD [address] [place] [address], [address] [place] [address] [email or web address] documented as of this encounter Results * [...] location documented in this encounter Care Teams Night Time Babysitter Relationship Specialty Start Date End Date Slime Youssef MD [address] [place] [address] PCP - General 01/07/17 07/28/22 Pcp, Unknown PCP - General 07/29/22 08/07/22 Svitlana Sher MD PCP - General Family Medicine 08/08/22 03/24/24 Svitlana Sher MD PCP - General Family Medicine 03/25/24 02/08/25 Svitlana Sher MD [address] [place] [address] PCP - General Family Medicine 02/09/25 Duc Suarez MD [address] [place] [address], [facility] [address] [place] [address] [email or web address] Historical LMR Provider 01/11/17 Slime Youssef MD [address] [place] [address] [email or web address] Historical LMR Provider 01/11/17 documented as of this encounter Additional Source Comments The information contained in this document represents components of the legal health record. It is not the complete legal health record.[facility]
--- OUTSIDE RECORDS SUMMARY | 2025-03-16 07:52 | XMS_ITS | Encounter Summary ---
Author Organization [facility] Address [address] [place] [address] Phone Care Team Providers Care Sheep Killer Name Role Phone Slime Youssef MD Primary Care Provider [phone] Duc Suarez MD Unavailable [phone] Slime Youssef MD Unavailable [phone] Pcp, Unknown Primary Care Provider Unavailabl e Svitlana Sher MD Primary Care Pr ovider Svitlana Sher MD Primary Care Pr ovider Svitlana Sher MD Primary Care Pr ovider Encounter Details Date Type Department Care Team (Late st Contact Info) Description 04/30/2021 Transcribe Orders Virtual Department [address] [place] [address] Slime Youssef MD [address] [place] [phone] [email or web address] Postmenopausal (Primary Dx) Social History Tobacco Use [...] Contact Info) Description 05/24/2024 Procedure Pass [facility], Ct Scan - [address] [address] 04/04/2025 12:00 PM EST Appointment [facility], Ct Scan [address] [address] Fransico Baker MD [address] [place] [address] [email or web address] 05/04/2025 8:15 AM EST Office Visit [facility] [address] [place] [address] Unknown, Unknown, Isha Bower PA-C [address] [place] [address] [email or web address] 12/02/2025 8:40 AM EDT Office Visit [facility] [address] [place] [address] 3rd [facility], [address] [place] [address] Duc Suarez MD [address] [place] [address] documented as of this encounter Results * [...] (natural) documented in this encounter Care Teams Sheep Killer Relationship Specialty Start Date End Date Slime Youssef MD [address] [place] [address] [email or web address] PCP - General 01/07/17 07/28/22 Pcp, Unknown PCP - General 07/29/22 08/07/22 Svitlana Sher MD PCP - General Family Medicine 08/08/22 03/24/24 Svitlana Sher MD PCP - General Family Medicine 03/25/24 02/08/25 Svitlana Sher MD [address] [place] [address] PCP - General Family Medicine 02/09/25 Duc Suarez MD [address] [place] [address], [facility] [address] [place] [address] [email or web address] Historical LMR Provider 01/11/17 Slime Youssef MD [address] [place] [address] [email or web address] Historical LMR Provider 01/11/17 documented as of this encounter Additional Source Comments The information contained in this document represents components of the legal health record. It is not the complete legal health record.[facility]
--- OUTSIDE RECORDS SUMMARY | 2025-03-16 07:52 | XMS_ITS | Encounter Summary ---
Author Organization [facility] Address [address] [place] [address] Phone Care Team Providers Care Charge Auditor Name Role Phone Duc Suarez MD Unavailable [phone] Slime Youssef MD Unavailable [phone] Svitlana Sher MD Primary Care Pr ovider Svitlana Sher MD Primary Care Pr ovider Svitlana Sher MD Primary Care Pr ovider Encounter Details Date Type Department Care Team (Late st Contact Info) Description 10/09/2023 Procedure Pass [facility], Ct Scan - [address] [address] Social History Tobacco Use Types Packs/Day Years [...] st Contact Info) Description 05/24/2024 Procedure Pass [place], Ct Scan [address] [address] 04/04/2025 12:00 PM EST Appointment [facility] Ct Scan [address] [address] Fransico Baker MD [address] [place] [address] [email or web address] 05/04/2025 8:15 AM EST Office Visit [facility] [address] [place] [address] Unknown, Unknown, Isha Bower, PAMathieuC [address] [place] [address] [email or web address] 12/02/2025 8:40 AM EDT Office Visit [facility] [address] [place] [address] 3rd Floor, [address] [address] Duc Suarez MD [address] [place] [address] [email or web address] documented as of this encounter Visit Diagnoses Not on filedocumented in this encounter Care Teams Charge Auditor Relationship Specialty Start Date End Date Svitlana Sher MD [address] [place] [address] PCP - General Family Medicine 08/08/22 03/24/24 Svitlana Sher MD [address] [place] [address] PCP - General Family Medicine 03/25/24 02/08/25 Svitlana Sher MD [address] [place] [address] PCP - General Family Medicine 02/09/25 Duc Suarez MD [address] [place] [address] [email or web address] Historical LMR Provider 01/11/17 Slime Youssef MD [address] [place] [address] Historical LMR Provider 01/11/17 documented as of this encounter Additional Source Comments The information contained in this document represents components of the legal health record. It is not the complete legal health record.[facility]
--- OUTSIDE RECORDS SUMMARY | 2025-03-16 07:52 | XMS_ITS | Encounter Summary ---
Author Organization [facility] Address [address] [place] [address] Phone Care Team Providers Care Spooling Operator Name Role Phone Slime Youssef MD Primary Care Provider Patel Bhandari DO Unavailable Duc Suarez MD Unavailable [phone] Pao Cooley MD Unavailable Slime Youssef MD Unavailable Garret Mercedes CNP Unavailable Moises Art MD Unavailable Destin Choe MD Unavailable Slime Youssef MD Unavailable [phone] Pcp, Unknown Primary Care Provider Unavailabl e Svitlana Sher MD Primary Care Pr ovider Svitlana Sher MD Primary Care Pr ovider Svitlana Sher MD Primary Care Pr ovider Encounter Details Date Type Department Care Team (Late st Contact Info) Description 01/19/2020 Procedure Pass [facility], Ct Scan - [address] [phone] Social History Tobacco Use Types Packs/Day Years [...] st Contact Info) Description 05/24/2024 Procedure Pass [address] [address] 04/04/2025 12:00 PM EST Appointment [address] [address] Fransico Baker MD [address] [place] [address] [email or web address] 05/04/2025 8:15 AM EST Office Visit [facility] [address] [place] [address] Unknown, Unknown, Isha Bower PA-C [address] [place] [address] [email or web address] 12/02/2025 8:40 AM EDT Office Visit [facility] [address] [place] [address] 3rd Floor, [address] [place] [address] Duc Suarez MD [address] [place] [address] documented as of this encounter Visit Diagnoses Not on filedocumented in this encounter Care Teams Spooling Operator Relationship Specialty Start Date End Date Slime Youssef MD [address] [place] [address] PCP - General 01/07/17 07/28/22 Pcp, Unknown PCP - General 07/29/22 08/07/22 Svitlana Sher MD PCP - General Family Medicine 08/08/22 03/24/24 Svitlana Sher MD PCP - General Family Medicine 03/25/24 02/08/25 Svitlana Sher MD [address] [place] [address] PCP - General Family Medicine 02/09/25 Patel Bhandari DO [address] [place] [address] [place] [address] [email or web address] Historical LMR Provider 01/11/17 03/31/21 Duc Suarez MD [address] [facility], [address] [place] [address] [email or web address] Historical LMR Provider 01/11/17 Pao Cooley MD [address] [facility], 2nd [place] [address] [email or web address] Historical LMR Provider 01/11/17 Slime Youssef MD 15 [place] [address] [email or web address] Historical LMR Provider 01/11/17 Garret Mercedes CNP [address] [address] Historical LMR Provider 01/11/17 03/31/21 Moises Art MD [employer] [facility] [address] [place] [address] Historical LMR Provider 01/11/17 2 Destin Choe MD [address] [place] [address] Historical LMR Provider 01/11/17 Silme Youssef MD [address] [place] [address] Insurance Assigned Provider 06/27/18 05/27/20 documented as of this encounter Additional Source Comments The information contained in this document represents components of the legal health record. It is not the complete legal health record.[facility]
--- OUTSIDE RECORDS SUMMARY | 2025-03-16 07:52 | XMS_ITS | Encounter Summary ---
Author Organization [facility] Address [address] [place] [address] Phone Care Team Providers Care Business Solutions Architect Name Role Phone Slime Youssef MD Primary Care Provider Patel Bhandari DO Unavailable Duc Suarez MD Unavailable Pao Cooley MD Unavailable Slime Youssef MD Unavailable Garret Mercedes CNP Unavailable Moises Art MD Unavailable Destin Choe MD Unavailable Pcp, Unknown Primary Care Provider Unavailabl e Svitlana Sher MD Primary Care Pr ovider Svitlana Sher MD Primary Care Pr ovider Svitlana Sher MD Primary Care Pr ovider Encounter Details Date Type Department Care Team (Late st Contact Info) Description 03/12/2021 Transcribe Orders [facility] [address] 2nd Floor [place], [place] [phone] Slime Youssef MD [address] [place] [address] [email or web address] Fatigue, unspecified type (Primary Dx); Coronary artery disease with angina pectoris, unspecified vessel or lesion type, unspecified whether te-moak or transplanted heart; Elevated glucose Social History [...] st Contact Info) Description 05/24/2024 Procedure Pass [facility] Ct Scan [address] [address] 04/04/2025 12:00 PM EST Appointment [facility] Ct Scan [address] [address] Fransico Baker MD [address] [place] [address] [email or web address] 05/04/2025 8:15 AM EST Office Visit [facility] [address] [place] [address] Unknown, Unknown, Isha Bower PA-C [address] [place] [address] [email or web address] 12/02/2025 8:40 AM EDT Office Visit [facility] [address] [place] [address] 3rd Floor, [address] [place] [address] Duc Suarez MD [address] [place] [address] [place] [address] [email or web address] documented as of this encounter Results * (ABNORMAL) Immunoglobulin A (03/12/2021 4:03 PM EST) IgA 407(H) 70 - 400 mg/dL [facility] Blood 03/12/2021 4:03 PM EST 03/12/2021 4:14 PM EST us Slime Youssef MD LAB BLOOD BKR ORDERABLES Fi nal Result Performing Organization Address City/[facility]/ZIP Co de Phone Number [facility] [address] [place] [address] * Cytomegalovirus (CMV) antibody, IgM (03/12/2021 4:03 PM EST) CMV IGM ANTIBODY Negative Negative [facility]PATH [address] Blood (Blood) 03/12/2021 4:0 3 PM EST 03/12/2021 4:16 PM EST Slime Youssef MD LAB BLOOD BKR ORDERABLES Fi nal Result Performing Organization Address [facility]/ZIP Co de Phone Number [facility]PATH [address] [place] [address] * (ABNORMAL) CMV antibody, IgG ([place] sendout) (03/12/2021 4:03 PM EST) CYTOMEGALOVIRUS IGG Positive( A) Negative [facility]PATH [address] Blood 03/12/2021 4:03 PM EST 03/12/2021 4:16 PM EST us Slime Youssef MD LAB BLOOD ORDERABLES Final Result Performing Organization Address City/[facility]/ZIP Co de Phone Number [facility]PATH [address] [place] [address] * Miscellaneous lab test (03/12/2021 4:03 PM EST) TESTS REQUESTED [facility] SPECIMEN/TUBE TYPE SST [facility] REQUEST RECEIVED Request received. A separate order for the requested test will be generated by the laboratory. [facility] Blood 03/12/2021 4:03 PM EST 03/12/2021 4:15 PM EST us Slime Youssef MD LAB BLOOD ORDERABLES Final Result Performing Organization Address [facility] Co de Phone Number [address] [address] * CCP IgG antibodies (03/12/2021 4:03 PM EST) ANTI-CCP IGG <8 0 - 16 U/mL [facility] Blood 03/12/2021 4:03 PM EST 03/12/2021 4:14 PM EST us Slime Youssef MD LAB BLOOD BKR ORDERABLES Fi nal Result Performing Organization Address City/[facility] Co de Phone Number [address] [address] * Sedimentation rate (ESR) (03/12/2021 4:03 PM EST) Pathologist [facility] ESR 12 0 - 30 mm/h [facility] Blood 03/12/2021 4:03 PM EST 03/12/2021 4:14 PM EST us Slime Youssef MD LAB BLOOD BKR ORDERABLES Fi nal Result Performing Organization Address [facility] Co de Phone Number [address] [address] * Lyme screen with reflex to Western blot, blood (03/12/2021 4:03 PM EST) Lyme AB IgG Negative Negative [facility] Lyme AB IgM Negative Negative [facility] Blood 03/12/2021 4:03 PM EST 03/12/2021 4:14 PM EST us Slime Youssef MD LAB BLOOD BKR ORDERABLES Fi nal Result Performing Organization Address City/[facility]/ZIP Co de Phone Number [address] [address] * Hemoglobin A1c (03/12/2021 4:03 PM EST) HEMOGLOBIN A1C 5.5 4.3 - 5.8 % [facility] Blood 03/12/2021 4:03 PM EST 03/12/2021 4:14 PM EST us Slime Youssef MD LAB BLOOD BKR ORDERABLES Fi nal Result Performing Organization Address [facility] Co de Phone Number [address] [address] * C-Reactive Protein (03/12/2021 4:03 PM EST) C REACTIVE PROTEIN <3.0 0.0 - 4.0 mg/L [facility] Blood 03/12/2021 4:03 PM EST 03/12/2021 4:14 PM EST us Slime Youssef MD LAB BLOOD BKR ORDERABLES Fi nal Result Performing Organization Address [facility] Co de Phone Number [address] [address] * Antinuclear antibody (SALINA) (03/12/2021 4:03 PM EST) SALINA SCREEN ON HEP 2 Negative Negative [facility] Blood 03/12/2021 4:03 PM EST 03/12/2021 4:14 PM EST us Slime Youssef MD LAB BLOOD BKR ORDERABLES Fi nal Result Performing Organization Address [facility]/ZIP Co de Phone Number [address] [address] documented in this encounter Visit Diagnoses Diagnosis Fatigue, unspecified type- Primary Coronary artery disease with angina pectoris, unspecified vessel or lesion type, unspecified whether te-moak or transplanted heart Elevated glucose Other abnormal glucose documented in this encounter Care Teams Business Solutions Architect Relationship Specialty Start Date End Date Slime Youssef MD [address] [place] [phone] [email or web address] PCP - General 01/07/17 07/28/22 Pcp, Unknown PCP - General 07/29/22 08/07/22 Svitlana Sher MD PCP - General Family Medicine 08/08/22 03/24/24 Svitlana Sher MD PCP - General Family Medicine 03/25/24 02/08/25 Svitlana Sher MD [address] [place] [address] PCP - General Family Medicine 02/09/25 Patel Bhandari DO [address] [place] [address] [place] [address] [email or web address] Historical LMR Provider 01/11/17 03/31/21 Duc Suarez MD 22 [facility], [facility] [address] [place] [address] Historical LMR Provider 01/11/17 Pao Cooley MD 15 [facility], 2nd [place] [address] [email or web address] Historical LMR Provider 01/11/17 Slime Youssef MD 15 [place] [address] [email or web address] Historical LMR Provider 01/11/17 Garret Mercedes PHYSICAL THERAPIST CLINIC DIRECTOR 15 [facility], [address] [place] [address] [email or web address] Historical LMR Provider 01/11/17 03/31/21 Moises Art MD [employer] [address] Historical LMR Provider 01/11/17 2 Destin Choe MD [address] [place] [address] Historical LMR Provider 01/11/17 documented as of this encounter Additional Source Comments The information contained in this document represents components of the legal health record. It is not the complete legal health record.[facility]
--- OUTSIDE RECORDS SUMMARY | 2025-03-16 07:52 | XMS_ITS | Encounter Summary ---
Author Organization [facility] Address [address] [place] [address] Phone Care Team Providers Care Business Banking Representative Name Role Phone Slime Youssef MD Primary Care Provider [phone] Patel Bhandari DO Unavailable Duc Suarez MD [...] Face Slime Youssef MD Phone: tel: fax: [email or web address] Referral ID Status Reason Start Date Expiration Date Visits Re quested Visits Authorized [id number] Closed 01/19/2020 02/13/2020 1 1 Encounter Details Date Type Department Care Team (Late Contact Info) Description 01/19/2020 Transcribe Orders Virtual Department [address] [place] [address] Slime Youssef MD [address] [place] [address] [email or web address] Chronic sinusitis, unspecified location (Primary Dx) Social [...] (Late Contact Info) Description 05/24/2024 Procedure Pass [facility] Ct Scan [address] [address] 04/04/2025 12:00 PM EST Appointment [facility] Ct Scan [address] [address] Fransico Baker MD [address] [place] [address] [email or web address] 05/04/2025 8:15 AM EST Office Visit [facility] [address] [place] [address] Unknown, Unknown, Isha Bower PA-C [address] [place] [address] [email or web address] 12/02/2025 8:40 AM EDT Office Visit [facility] [address] [place] [address] 3rd Floor, [address] [place] [address] Duc Suarez MD [address] [facility], [address] [place] [address] documented as of this encounter Results * [...] location documented in this encounter Care Teams Business Banking Representative Relationship Specialty Start Date End Date Slime Youssef MD [address] [place] [address] [email or web address] PCP - General 01/07/17 07/28/22 Pcp, Unknown PCP - General 07/29/22 08/07/22 Svitlana Sher MD PCP - General Family Medicine 08/08/22 03/24/24 Svitlana Sher MD PCP - General Family Medicine 03/25/24 02/08/25 Svitlana Sher MD [address] [place] [address] PCP - General Family Medicine 02/09/25 Patel Bhandari DO [address] [place] [address] [email or web address] Historical LMR Provider 01/11/17 03/31/21 Duc Suarez MD [address] [place] [address] Historical LMR Provider 01/11/17 Pao Cooley MD [address] [address] Historical LMR Provider 01/11/17 Slime Youssef MD [address] [place] [address] Historical LMR Provider 01/11/17 Garret Mercedes CNP [address] [place] [address] Historical LMR Provider 01/11/17 03/31/21 Moises Art MD [employer] [facility] [address] [place] [address] Historical LMR Provider 01/11/17 2 Destin Choe MD [address] [place] [address] Historical LMR Provider 01/11/17 Slime Youssef MD 15 [place] [address] Insurance Assigned Provider 06/27/18 05/27/20 documented as of this encounter Additional Source Comments The information contained in this document represents components of the legal health record. It is not the complete legal health record.[facility]
--- OUTSIDE RECORDS SUMMARY | 2025-03-16 07:52 | XMS_ITS | Encounter Summary ---
Author Organization [facility] Address [address] [place] [address] Phone Care Team Providers Care Emergency Doctor Name Role Phone Slime Youssef MD Primary Care Provider [phone] Patel Bhandari DO Unavailable Duc Suarez MD [...] Info) Description 01/05/2020 Transcribe Orders [facility] [address] 2nd Floor [place], [place] [phone] Slime Youssef MD [address] [place] [email or web address] Cough (Primary Dx) Social History Tobacco Use [...] st Contact Info) Description 05/24/2024 Procedure Pass [address] [address] 04/04/2025 12:00 PM EST Appointment [address] [address] Fransico Baker MD [address] [place] [address] [email or web address] 05/04/2025 8:15 AM EST Office Visit [facility] [address] [place] [address] Unknown, Unknown, Isha Bower PA-C [address] [place] [address] [email or web address] 12/02/2025 8:40 AM EDT Office Visit [facility] [address] [place] [address] 3rd Floor, [address] [place] [address] Duc Suarez MD [address] [place] [address], [address] [address] documented as of this encounter Results * (ABNORMAL) Respiratory culture/smear (01/05/2020 2:31 PM EDT) Special Requests None 01/05/2020 2:31 PM EDT [facility] GRAM STAIN Few GRAM NEGATIVE RODS , Rare GRAM POSITIVE COCCI , Rare GRAM POSITIVE RODS , No WBC seen on smear. , No epithelial cells seen on smear 01/06/2020 10:43 AM EDT [facility] Respiratory Cult/Smear MIXED ORGANISMS RESEMBLING OROPHARYNGEAL KATIE(A) 01/06/2020 10:48 AM EDT [facility] Other (Sputum) 01/05/2020 2: 31 PM EDT 01/05/2020 2:34 PM EDT Slime Youssef MD LAB MICROBIOLOGY CULTURE OR DERABLES Final Result Performing Organization Address City/State/[facility] Co de Phone Number [address] [address] documented in this encounter Visit Diagnoses Diagnosis Cough- Primary documented in this encounter Care Teams Emergency Doctor Relationship Specialty Start Date End Date Slime Youssef MD [address] [place] [address] [email or web address] PCP - General 01/07/17 07/28/22 Pcp, Unknown PCP - General 07/29/22 08/07/22 Svitlana Sher MD PCP - General Family Medicine 08/08/22 03/24/24 Svitlana Sher MD PCP - General Family Medicine 03/25/24 02/08/25 Svitlana Sher MD [address] [place] [address] PCP - General Family Medicine 02/09/25 Patel Bhandari DO [address] [place] [address] [place] [address] [email or web address] Historical LMR Provider 01/11/17 03/31/21 Duc Suarez MD 22 [facility] [address] [place] [address] Historical LMR Provider 01/11/17 Pao Cooley MD [address] [place] [address] [email or web address] Historical LMR Provider 01/11/17 Slime Youssef MD [address] [place] [address] Historical LMR Provider 01/11/17 Garret Mercedes CNP [address] [place] [address] Historical LMR Provider 01/11/17 03/31/21 Moises Art MD [address] [place], [place] [address]y Edgar [address] [place] [address] Historical LMR Provider 01/11/17 2 Destin Choe MD [address] [place] [address] Historical LMR Provider 01/11/17 Slime Youssef MD [address] [place] [address] [email or web address] Insurance Assigned Provider 06/27/18 05/27/20 documented as of this encounter Additional Source Comments The information contained in this document represents components of the legal health record. It is not the complete legal health record.[facility]
[2025-03-16 09:59] LABS: MANUAL DIFF FLAG NO
[2025-03-16 10:25] LABS: Hematocrit 40.4 % (37.0-47.0); Hemoglobin 13.3 g/dl (12.0-16.0); Imm Gran Abs Auto 0.03 X10*3/uL (0.00-0.03); Imm Gran Pct Auto 0.4 % (0.0-0.4); Lymphocytes Absolute Auto 2.4 X10*3/uL (1.2-4.9); Mean Corpuscular HGB Conc 32.9 g/dl (31.0-35.0); Mean Corpuscular Hemoglobin 30.1 pg (27.0-33.0); Mean Corpuscular Volume 91.4 fL (80.0-98.0); NRBC Abs Auto 0.000 X10*3/uL (0.0-0.012); NRBC Pct Auto 0.0 /100WBC (0.0-0.2); Platelet Count 230 X10*3/uL (160-400); Red Blood Count 4.42 X10*6/uL (4.20-5.50); White Blood Count 7.5 X10*3/uL (4.8-10.8)
[2025-03-16 10:53] LABS: Appearance Urine Clear; Glucose Urine UA Negative (Negative); PH 7.5 (5.0-9.0); Specific Gravity - Urine 1.015 (1.005-1.025); UMIC TRIGGER UACC YES
[2025-03-16 10:55] LABS: Alanine Aminotransferase 22 U/L (0-31); Albumin Level 4.8 g/dL (3.5-5.0); Alkaline Phosphatase 66 U/L (39-117); Anion Gap 12 (12-20); Aspartate Amino Transferase 23 U/L (5-31); Blood Urea Nitrogen 24 mg/dL (9-16); Calcium 9.8 mg/dL (8.4-10.2); Carbon Dioxide 30 mmol/L (22-29); Chloride 104 mmol/L (96-108); Cholesterol 163 mg/dL (<200); Estimated Glomerular Filt Rate 50; HDL Cholesterol 57 mg/dL (>40); Iron 108 mcg/dL (30-160); Magnesium 2.4 mg/dL (1.6-2.6); Percent Iron Saturation 40 % (15-50); Potassium 4.5 mmol/L (3.3-5.1); Sodium 141 mmol/L (135-145); Total Iron Binding Capacity 268 mcg/dL (228-428); Total Protein 7.3 g/dL (6.5-8.0); Triglycerides 193 mg/dL (<150); Unsaturated Iron Binding 160 ug/dL
[2025-03-16 10:58] LABS: Ferritin 129 ng/mL (10-250)
[2025-03-16 11:12] LABS: Folate 12.4 ng/mL (> or = 4.0); Vitamin B12 > 2000 pg/mL (200-900)
[2025-03-16 11:13] LABS: UACC Culture Trigger YES
[2025-03-16 11:29] LABS: Microalbum/Creatinine Ratio Ur 12.8 ug/mg cr (<30)
== END 2025-03-16 07:48 | disposition home or self-care (01) ==
LOC: HO.HMGCLDS 07:47
PROVIDERS: PCP Physician Assistant Medical; Visit Provider Physician Assistant Medical
DX: Z00.00 Encounter for general adult medical examination without abnormal findings (principal); D64.9 Anemia, unspecified; E11.9 Type 2 diabetes mellitus without complications; Z13.21 Encounter for screening for nutritional disorder
CPT/HCPCS: 36415; 80053; 80061; 81001; 81003; 82043; 82306; 82570; 82607; 82728; 82746; 83540; 83735; 84443; 85025; 85652; 86140; 87086